=== PATIENT | female | born 1940 | race Caucasian/White ===

== ENCOUNTER → 2016-07-30 | Outpatient (REF) | payer MEDICARE ==
[~2016-07-30] MED LIST: /MOM400 PO; /WARF25TA; /WARF25TA PO; ACET50TAOT PO; ACET65TA; AKWASOL OU; AMLO5TAB2 PO; AMOX875T2 PO; ANAS1TAB PO; ARIMIDEX PO; ASPI1TAB PO; ATEN25TA; CYAN1000 PO; DRIS1CAP PO; DRIS50002 PO; ELIQ2.5T PO; ELIQ5TAB PO; EYE CAPS PO; FURO20TA2 PO; ICAPCAP PO; LETROZOLE; LOPI600T; METO25TAB PO; METO50TA2 PO; NICO21PAT TD; ONDA4TAB2 PO; OXYC10TA2 PO; OXYC5TAB2 PO; PERC5TAB8; PERC7.5T8; SENN8.6T76 PO; SPIR50TA2 PO; TUMS500C PO; TYLE325T5 PO; VITA10002 PO; VITA100027; VITAD1000T PO; VITAMIN D PO; ZOCO80TA; ZOCO80TA PO
[2016-07-30 12:48] LABS: VITAMIN B12 LEVEL 1216 PG/ML (247-911)
[2016-07-30 12:50] LABS: ANION GAP 8 MEQ/L (8-16); BLOOD UREA NITROGEN 10 MG/DL (7-18); CALCIUM LEVEL 8.8 MG/DL (8.8-10.2); CARBON DIOXIDE LEVEL 29 MEQ/L (21-32); CHLORIDE LEVEL 98 MEQ/L (98-107); CREATININE FOR GFR 0.75 MG/DL (0.55-1.02); GLOMERULAR FILTRATION RATE > 60.0 (>39); GLUCOSE, FASTING 132 MG/DL (83-110); POTASSIUM SERUM 4.1 MEQ/L (3.5-5.1); SODIUM LEVEL 135 MEQ/L (136-145)
== END ==
PROVIDERS: ATTEND Family Medicine
DX: E53.8 Deficiency of other specified B group vitamins (principal); I10 Essential (primary) hypertension

== ENCOUNTER → 2016-08-09 | Outpatient (REF) | payer MEDICARE | LOC: M SFHCPLAZ 14:49 | PROVIDERS: ATTEND Family Medicine | DX: R73.9 Hyperglycemia, unspecified (principal); I10 Essential (primary) hypertension | CPT/HCPCS: 36415; 83036; G0463 ==

== ENCOUNTER → 2017-04-18 | Outpatient (REF) | payer MEDICARE, MEDICAID | LOC: M SFHCPLAZ 15:50 | DX: M81.0 Age-related osteoporosis without current pathological fracture (principal) | CPT/HCPCS: 82306 ==

== ENCOUNTER → 2017-09-12 | Outpatient (REF) | payer MEDICARE, MEDICAID ==
[2017-09-12 13:12] LABS: ANION GAP 10 MEQ/L (8-16); BLOOD UREA NITROGEN 11 MG/DL (7-18); CALCIUM LEVEL 8.7 MG/DL (8.8-10.2); CARBON DIOXIDE LEVEL 27 MEQ/L (21-32); CHLORIDE LEVEL 98 MEQ/L (98-107); CREATININE FOR GFR 0.74 MG/DL (0.55-1.30); GLOMERULAR FILTRATION RATE > 60.0 (>39); GLUCOSE, FASTING 88 MG/DL (70-100); POTASSIUM SERUM 4.5 MEQ/L (3.5-5.1); SODIUM LEVEL 135 MEQ/L (136-145)
[2017-09-12 13:29] LABS: ESTIMATED AVERAGE GLUCOSE 134 MG/DL (60-110); HEMOGLOBIN A1c 6.3 %
== END ==
LOC: M SFHCPLAZ 09:29
DX: R73.03 Prediabetes (principal); I10 Essential (primary) hypertension
CPT/HCPCS: 83036

== ENCOUNTER → 2017-10-11 | Outpatient (REF) | payer MEDICARE, MEDICAID ==
[2017-10-11 15:09] LABS: APPEARANCE, URINE HAZY (CLEAR); BACTERIA, URINE AUTO 1+ (NEGATIVE); BILIRUBIN, URINE AUTO NEGATIVE (NEGATIVE); BLOOD, URINE BLOOD NEGATIVE (NEGATIVE); COLOR, URINE YELLOW (YELLOW); GLUCOSE, URINE (UA) AUTO NEGATIVE (NEGATIVE); KETONE, URINE AUTO NEGATIVE (NEGATIVE); LEUKOCYTE ESTERASE, URINE AUTO 2+ (NEGATIVE); MUCUS, URINE SMALL (NEGATIVE); NITRITE, URINE AUTO NEGATIVE (NEGATIVE); PROTEIN, URINE AUTO NEGATIVE (NEGATIVE); RBC, URINE AUTO 1 /HPF (0-3); SPECIFIC GRAVITY URINE AUTO 1.014 (1.002-1.035); SQUAMOUS EPITHELIAL CELL UR AU 5 /HPF (0-6); WBC, URINE AUTO 17 /HPF (0-3)
== END ==
LOC: M LABSMT 14:39
DX: R41.82 Altered mental status, unspecified (principal)

== ENCOUNTER 2017-10-14 10:54 | Inpatient (IN) | payer MEDICARE, MEDICAID ==
[2017-10-14 12:06] LABS: VENOUS BASE EXCESS -0.8 (-2.0-2.0); VENOUS HCO3 23.9 MEQ/L (23.0-27.0); VENOUS O2 SATURATION 85.4 % (60.0-80.0); VENOUS PARTIAL PRESSURE O2 52.2 mmHg (30.0-50.0); VENOUS PH 7.395 UNITS (7.330-7.430); VENOUS STANDARD HCO3 23.6 MEQ/L; VENOUS TOTAL CO2 25.2 MEQ/L (24.0-28.0)
[2017-10-14 12:08] LABS: BASO # 0.1 10^3/uL (0.0-0.2); BASO % 0.2 % (0.0-1.0); HEMATOCRIT 33.6 % (36.0-47.0); HEMOGLOBIN 10.9 g/dl (12.0-15.5); IMMATURE GRANULOCYTE % 2.2 % (0-3.0); LYMPH # 1.4 10^3/uL (1.5-4.5); LYMPH % 4.5 % (24.0-44.0); MEAN CORPUSCULAR HEMOGLOBIN 29.9 pg (27.0-33.0); MEAN CORPUSCULAR HGB CONC 32.4 g/dl (32.0-36.5); MEAN CORPUSCULAR VOLUME 92.1 fl (80.0-96.0); MONO # 1.9 10^3/uL (0.0-0.8); MONO % 5.9 % (0.0-5.0); NEUTROPHILS % 87.2 % (36.0-66.0); PLATELET COUNT, AUTOMATED 248 10^3/uL (150-450); RED BLOOD COUNT 3.65 10^6/uL (4.00-5.40); RED CELL DISTRIBUTION WIDTH 14.6 % (11.5-14.5)
[2017-10-14 12:18] LABS: WHITE BLOOD COUNT 31.3 10^3/uL (4.0-10.0)
[2017-10-14 12:19] LABS: NEUTROPHILS # 27.3 10^3/uL (1.8-7.7); POS COUNT POS FLAG; POSITIVE DIFF POS FLAG
[2017-10-14 12:31] LABS: BEDSIDE GLUCOSE 97 MG/DL (83-110)
[2017-10-14] MEDS: NS 500 ML IV (12:36)
[2017-10-14 12:40] LABS: AMMONIA 32 uMOL/L (<32)
[2017-10-14 12:42] LABS: ALBUMIN 1.9 GM/DL (3.2-5.2); ALKALINE PHOSPHATASE 93 U/L (45-117); ALT/SGPT 9 U/L (12-78); ANION GAP 10 MEQ/L (8-16); AST/SGOT 10 U/L (7-37); BILIRUBIN,DIRECT 0.2 MG/DL (0.0-0.2); BILIRUBIN,TOTAL 0.5 MG/DL (0.2-1.0); BLOOD UREA NITROGEN 8 MG/DL (7-18); CALCIUM LEVEL 7.5 MG/DL (8.8-10.2); CARBON DIOXIDE LEVEL 25 MEQ/L (21-32); CHLORIDE LEVEL 101 MEQ/L (98-107); CPK CREATINE PHOSPHOKINASE 16 U/L (26-192); CREATININE FOR GFR 0.59 MG/DL (0.55-1.30); GLOMERULAR FILTRATION RATE > 60.0 (>39); GLUCOSE, FASTING 107 MG/DL (70-100); OSMOLALITY SERUM 272 MOSM/KG (280-301); POTASSIUM SERUM 3.1 MEQ/L (3.5-5.1); SODIUM LEVEL 136 MEQ/L (136-145); TOTAL PROTEIN 5.7 GM/DL (6.4-8.2); TROPONIN I 0.02 NG/ML (< 0.10)
[2017-10-14 12:45] LABS: LACTIC ACID SEPSIS PROTOCOL 1.5 MMOL/L (0.4-2.0)
[2017-10-14 12:47] LABS: CK-MB VALUE MASS < 1.0 NG/ML (<3.6); MB/CK RELATIVE INDEX 6.25 (< OR =4)
[2017-10-14 13:40] LABS: KETONE, URINE AUTO RFX NEGATIVE (NEGATIVE); MUCUS, URINE RFX SMALL (NEGATIVE); NITRITE, URINE AUTO RFX NEGATIVE (NEGATIVE); RBC, URINE AUTO RFX 2 /HPF (0-3); SPECIFIC GRAVITY UR AUTO RFX 1.003 (1.002-1.035); SQUAM EPITHELIAL CELL UR AURFX 2 /HPF (0-6); WBC, URINE AUTO RFX 4 /HPF (0-3)
[2017-10-14 13:54] LABS: LEUKOCYTE ESTERASE UR AUTO RFX TRACE (NEGATIVE)
[2017-10-14] MEDS ORDERED: ISOVUE-370 76% 100ML VIAL (Q9967) As Ordered (14:20)
[2017-10-14] MEDS: metroNIDAZOLE 500 MG in APPROPRIATE DILUENT 1 EA IV (15:45)
[2017-10-14] MEDS: CIPROFLOXACIN 400 MG in APPROPRIATE DILUENT 1 EA IV (17:07)
[2017-10-14] MEDS ORDERED: ACETAMINOPHEN 650 MG SUPP PR (17:30)
[2017-10-14 17:34] LABS: MAGNESIUM LEVEL 1.5 MG/DL (1.8-2.4)
[2017-10-14 17:48] LABS: BEDSIDE GLUCOSE 105 MG/DL (83-110)
[2017-10-14] MEDS: METOPROLOL 5 MG/5 ML VIAL IV ×3 (18:02→18:22)
[2017-10-14] MEDS: METOPROLOL TART 25 MG TABLET PO ×2 (18:02→18:06)
[2017-10-14] MEDS: D5W/0.45% SODIUM CHLORIDE 1,000 ML IV (18:17)
[2017-10-14] MEDS: MAG SULF 1GM/100ML (MAG RUN) 1 GM in APPROPRIATE DILUENT 1 EA IV (20:05)
[2017-10-14] MEDS: KCL 40MEQ IN D5/0.45NS 1000ML 1,000 ML IV (20:36)
[2017-10-14 21:10] LABS: CK-MB VALUE MASS 1.7 NG/ML (<3.6); CPK CREATINE PHOSPHOKINASE 36 U/L (26-192); MB/CK RELATIVE INDEX 4.72 (< OR =4); TROPONIN I < 0.02 NG/ML (< 0.10)
[2017-10-14] MEDS: PIPERACILLIN/TAZOBACTAM SOD 3.375 GM in D5W MINI-BAG PLUS 50 ML IV (22:50)
[2017-10-14] MEDS: PANTOPRAZOLE 40MG INJ (PROTONIX) (C9113) IV (22:50)
[2017-10-14] MEDS: HEPARIN SOD (PORCINE) 5000 UNITS/ML VIAL SC (22:50)
[2017-10-15] MEDS: PIPERACILLIN/TAZOBACTAM SOD 3.375 GM in D5W MINI-BAG PLUS 50 ML IV ×3 (04:43→15:53)
[2017-10-15 05:22] LABS: APPEARANCE, URINE CLOUDY (CLEAR); BACTERIA, URINE AUTO NEGATIVE (NEGATIVE); BILIRUBIN, URINE AUTO NEGATIVE (NEGATIVE); BLOOD, URINE BLOOD 2+ (NEGATIVE); COLOR, URINE YELLOW (YELLOW); GLUCOSE, URINE (UA) AUTO NEGATIVE (NEGATIVE); KETONE, URINE AUTO NEGATIVE (NEGATIVE); LEUKOCYTE ESTERASE, URINE AUTO 3+ (NEGATIVE); NITRITE, URINE AUTO NEGATIVE (NEGATIVE); PROTEIN, URINE AUTO NEGATIVE (NEGATIVE); RBC, URINE AUTO 11 /HPF (0-3); SPECIFIC GRAVITY URINE AUTO 1.028 (1.002-1.035); SQUAMOUS EPITHELIAL CELL UR AU 0 /HPF (0-6); UROBILINOGEN, URINE AUTO 0.2 mg/dL (0.0-2.0); WBC, URINE AUTO 175 /HPF (0-3)
[2017-10-15 05:32] LABS: HEMOGLOBIN 11.3 g/dl (12.0-15.5); MEAN CORPUSCULAR HGB CONC 32.3 g/dl (32.0-36.5); MEAN CORPUSCULAR VOLUME 92.8 fl (80.0-96.0); PLATELET COUNT, AUTOMATED 260 10^3/uL (150-450); RED BLOOD COUNT 3.77 10^6/uL (4.00-5.40); RED CELL DISTRIBUTION WIDTH 14.6 % (11.5-14.5)
[2017-10-15 05:50] LABS: ALBUMIN 2.1 GM/DL (3.2-5.2); ALBUMIN/GLOBULIN RATIO 0.47 (1.00-1.93); ALKALINE PHOSPHATASE 110 U/L (45-117); ALT/SGPT 9 U/L (12-78); ANION GAP 10 MEQ/L (8-16); AST/SGOT 12 U/L (7-37); BILIRUBIN,TOTAL 0.4 MG/DL (0.2-1.0); BLOOD UREA NITROGEN 6 MG/DL (7-18); CALCIUM LEVEL 7.6 MG/DL (8.8-10.2); CARBON DIOXIDE LEVEL 26 MEQ/L (21-32); CHLORIDE LEVEL 99 MEQ/L (98-107); CK-MB VALUE MASS 2.9 NG/ML (<3.6); CPK CREATINE PHOSPHOKINASE 57 U/L (26-192); CREATININE FOR GFR 0.64 MG/DL (0.55-1.30); GLOMERULAR FILTRATION RATE > 60.0 (>39); GLUCOSE, FASTING 121 MG/DL (70-100); MAGNESIUM LEVEL 1.8 MG/DL (1.8-2.4); MB/CK RELATIVE INDEX 5.08 (< OR =4); POTASSIUM SERUM 2.9 MEQ/L (3.5-5.1); SODIUM LEVEL 135 MEQ/L (136-145); TOTAL PROTEIN 6.6 GM/DL (6.4-8.2); TROPONIN I < 0.02 NG/ML (< 0.10)
[2017-10-15 05:53] LABS: POS COUNT POS FLAG; WHITE BLOOD COUNT 33.9 10^3/uL (4.0-10.0)
[2017-10-15] MEDS: POTASSIUM CHLORIDE 10 MEQ SR TABLET PO ×2 (06:44→10:15)
[2017-10-15] MEDS: KCL 10MEQ/100ML SWI (KRUN) 10 MEQ in APPROPRIATE DILUENT 1 EA IV ×2 (06:45→08:43)
[2017-10-15] MEDS: HEPARIN SOD (PORCINE) 5000 UNITS/ML VIAL SC (08:42)
[2017-10-15] MEDS: METOPROLOL TART 25 MG TABLET PO ×2 (08:42→20:32)
[2017-10-15] MEDS: amLODIPine 5 MG TAB PO (08:43)
[2017-10-15] MEDS: ATORVASTATIN 20 MG TAB PO (08:43)
[2017-10-15 13:21] LABS: HEMATOCRIT 37.4 % (36.0-47.0); HEMOGLOBIN 12.1 g/dl (12.0-15.5); MEAN CORPUSCULAR HEMOGLOBIN 29.9 pg (27.0-33.0); MEAN CORPUSCULAR HGB CONC 32.4 g/dl (32.0-36.5); MEAN CORPUSCULAR VOLUME 92.3 fl (80.0-96.0); PLATELET COUNT, AUTOMATED 288 10^3/uL (150-450); RED BLOOD COUNT 4.05 10^6/uL (4.00-5.40); RED CELL DISTRIBUTION WIDTH 14.7 % (11.5-14.5)
[2017-10-15 13:51] LABS: ANION GAP 9 MEQ/L (8-16); BLOOD UREA NITROGEN 6 MG/DL (7-18); CALCIUM LEVEL 7.8 MG/DL (8.8-10.2); CARBON DIOXIDE LEVEL 25 MEQ/L (21-32); CHLORIDE LEVEL 100 MEQ/L (98-107); CREATININE FOR GFR 0.73 MG/DL (0.55-1.30); GLOMERULAR FILTRATION RATE > 60.0 (>39); GLUCOSE, FASTING 102 MG/DL (70-100); MAGNESIUM LEVEL 1.7 MG/DL (1.8-2.4); POTASSIUM SERUM 4.3 MEQ/L (3.5-5.1); SODIUM LEVEL 134 MEQ/L (136-145)
[2017-10-15 13:56] LABS: POS COUNT POS FLAG; WHITE BLOOD COUNT 33.3 10^3/uL (4.0-10.0)
[2017-10-15] MEDS: buPROPion 75 MG TAB PO (15:53)
[2017-10-15] MEDS: ACETAMINOPHEN TAB 650MG DOSE (2X325MG) PO (18:05)
[2017-10-15] MEDS: MAG SULF 1GM/100ML (MAG RUN) 1 GM in APPROPRIATE DILUENT 1 EA IV (18:30)
[2017-10-15] MEDS: PANTOPRAZOLE 40MG INJ (PROTONIX) (C9113) IV (20:32)
[2017-10-15] MEDS: APIXABAN 2.5 MG TAB (ELIQUIS) PO (20:32)
[2017-10-16] MEDS: PIPERACILLIN/TAZOBACTAM SOD 3.375 GM in D5W MINI-BAG PLUS 50 ML IV ×5 (00:09→21:30)
[2017-10-16 05:13] LABS: HEMATOCRIT 34.3 % (36.0-47.0); HEMOGLOBIN 11.2 g/dl (12.0-15.5); MEAN CORPUSCULAR HEMOGLOBIN 29.6 pg (27.0-33.0); MEAN CORPUSCULAR HGB CONC 32.7 g/dl (32.0-36.5); MEAN CORPUSCULAR VOLUME 90.7 fl (80.0-96.0); PLATELET COUNT, AUTOMATED 251 10^3/uL (150-450); RED BLOOD COUNT 3.78 10^6/uL (4.00-5.40); RED CELL DISTRIBUTION WIDTH 14.8 % (11.5-14.5); WHITE BLOOD COUNT 20.9 10^3/uL (4.0-10.0)
[2017-10-16 05:36] LABS: ALBUMIN/GLOBULIN RATIO 0.43 (1.00-1.93); ALKALINE PHOSPHATASE 101 U/L (45-117); ALT/SGPT 26 U/L (12-78); ANION GAP 8 MEQ/L (8-16); AST/SGOT 57 U/L (7-37); BILIRUBIN,TOTAL 0.5 MG/DL (0.2-1.0); BLOOD UREA NITROGEN 5 MG/DL (7-18); CALCIUM LEVEL 7.7 MG/DL (8.8-10.2); CARBON DIOXIDE LEVEL 22 MEQ/L (21-32); CHLORIDE LEVEL 102 MEQ/L (98-107); CREATININE FOR GFR 0.61 MG/DL (0.55-1.30); GLOMERULAR FILTRATION RATE > 60.0 (>39); GLUCOSE, FASTING 97 MG/DL (70-100); MAGNESIUM LEVEL 1.9 MG/DL (1.8-2.4); POTASSIUM SERUM 3.9 MEQ/L (3.5-5.1); SODIUM LEVEL 132 MEQ/L (136-145); TOTAL PROTEIN 6.7 GM/DL (6.4-8.2)
[2017-10-16] MEDS: ATORVASTATIN 20 MG TAB PO (09:32)
[2017-10-16] MEDS: buPROPion 75 MG TAB PO (09:41)
[2017-10-16] MEDS: METOPROLOL TART 25 MG TABLET PO ×2 (09:42→20:02)
[2017-10-16] MEDS: APIXABAN 2.5 MG TAB (ELIQUIS) PO ×2 (09:42→20:02)
[2017-10-16] MEDS ORDERED: SLF 3 ML SYR IV (17:45)
[2017-10-16] MEDS: PANTOPRAZOLE 40MG INJ (PROTONIX) (C9113) IV (20:02)
[2017-10-16] MEDS: SLF 3 ML SYR IV (21:30)
[2017-10-17] MEDS: PIPERACILLIN/TAZOBACTAM SOD 3.375 GM in D5W MINI-BAG PLUS 50 ML IV ×4 (04:13→21:06)
[2017-10-17] MEDS: SLF 3 ML SYR IV ×3 (05:07→21:06)
[2017-10-17 06:02] LABS: HEMATOCRIT 33.2 % (36.0-47.0); HEMOGLOBIN 10.9 g/dl (12.0-15.5); MEAN CORPUSCULAR HEMOGLOBIN 29.7 pg (27.0-33.0); MEAN CORPUSCULAR HGB CONC 32.8 g/dl (32.0-36.5); MEAN CORPUSCULAR VOLUME 90.5 fl (80.0-96.0); PLATELET COUNT, AUTOMATED 276 10^3/uL (150-450); RED BLOOD COUNT 3.67 10^6/uL (4.00-5.40); RED CELL DISTRIBUTION WIDTH 14.9 % (11.5-14.5); WHITE BLOOD COUNT 13.3 10^3/uL (4.0-10.0)
[2017-10-17 06:28] LABS: ALBUMIN 1.9 GM/DL (3.2-5.2); ALBUMIN/GLOBULIN RATIO 0.42 (1.00-1.93); ALKALINE PHOSPHATASE 92 U/L (45-117); ALT/SGPT 31 U/L (12-78); ANION GAP 8 MEQ/L (8-16); AST/SGOT 53 U/L (7-37); BILIRUBIN,TOTAL 0.4 MG/DL (0.2-1.0); BLOOD UREA NITROGEN 5 MG/DL (7-18); C REACTIVE PROTEIN QUANTITATIV 6.34 MG/DL (0.00-0.30); CALCIUM LEVEL 7.6 MG/DL (8.8-10.2); CARBON DIOXIDE LEVEL 24 MEQ/L (21-32); CHLORIDE LEVEL 104 MEQ/L (98-107); CREATININE FOR GFR 0.52 MG/DL (0.55-1.30); GLOMERULAR FILTRATION RATE > 60.0 (>39); GLUCOSE, FASTING 86 MG/DL (70-100); POTASSIUM SERUM 3.2 MEQ/L (3.5-5.1); SODIUM LEVEL 136 MEQ/L (136-145); TOTAL PROTEIN 6.4 GM/DL (6.4-8.2)
[2017-10-17] MEDS: buPROPion 75 MG TAB PO (09:22)
[2017-10-17] MEDS: POTASSIUM CHLORIDE 10 MEQ SR TABLET PO (09:22)
[2017-10-17] MEDS: ATORVASTATIN 20 MG TAB PO (09:22)
[2017-10-17] MEDS: APIXABAN 2.5 MG TAB (ELIQUIS) PO ×2 (09:22→21:06)
[2017-10-17] MEDS: METOPROLOL TART 25 MG TABLET PO ×2 (09:23→17:16)
[2017-10-17] MEDS: ACETAMINOPHEN TAB 650MG DOSE (2X325MG) PO ×2 (09:24→21:13)
[2017-10-17] MEDS: ONDANSETRON 4MG/2ML VIAL (J2405) IV (09:24)
[2017-10-17] MEDS: METOPROLOL TART 12.5 MG PER 1/2 TAB PO (12:51)
[2017-10-17] MEDS: PANTOPRAZOLE 40MG INJ (PROTONIX) (C9113) IV (21:06)
[2017-10-18] MEDS: METOPROLOL TART 25 MG TABLET PO ×2 (00:09→05:21)
[2017-10-18] MEDS: PIPERACILLIN/TAZOBACTAM SOD 3.375 GM in D5W MINI-BAG PLUS 50 ML IV ×4 (03:48→21:31)
[2017-10-18 03:57] LABS: HEMATOCRIT 35.8 % (36.0-47.0); HEMOGLOBIN 11.4 g/dl (12.0-15.5); MEAN CORPUSCULAR HEMOGLOBIN 29.5 pg (27.0-33.0); MEAN CORPUSCULAR HGB CONC 31.8 g/dl (32.0-36.5); MEAN CORPUSCULAR VOLUME 92.5 fl (80.0-96.0); PLATELET COUNT, AUTOMATED 273 10^3/uL (150-450); RED BLOOD COUNT 3.87 10^6/uL (4.00-5.40); RED CELL DISTRIBUTION WIDTH 14.8 % (11.5-14.5); WHITE BLOOD COUNT 14.1 10^3/uL (4.0-10.0)
[2017-10-18 04:18] LABS: ALBUMIN/GLOBULIN RATIO 0.44 (1.00-1.93); ALKALINE PHOSPHATASE 97 U/L (45-117); ALT/SGPT 25 U/L (12-78); ANION GAP 7 MEQ/L (8-16); AST/SGOT 28 U/L (7-37); BILIRUBIN,TOTAL 0.3 MG/DL (0.2-1.0); BLOOD UREA NITROGEN 4 MG/DL (7-18); CALCIUM LEVEL 7.9 MG/DL (8.8-10.2); CARBON DIOXIDE LEVEL 25 MEQ/L (21-32); CHLORIDE LEVEL 105 MEQ/L (98-107); CREATININE FOR GFR 0.55 MG/DL (0.55-1.30); GLOMERULAR FILTRATION RATE > 60.0 (>39); GLUCOSE, FASTING 81 MG/DL (70-100); MAGNESIUM LEVEL 1.8 MG/DL (1.8-2.4); POTASSIUM SERUM 3.7 MEQ/L (3.5-5.1); SODIUM LEVEL 137 MEQ/L (136-145); TOTAL PROTEIN 6.5 GM/DL (6.4-8.2)
[2017-10-18] MEDS: SLF 3 ML SYR IV ×3 (05:21→21:12)
[2017-10-18] MEDS: APIXABAN 2.5 MG TAB (ELIQUIS) PO ×2 (09:07→20:04)
[2017-10-18] MEDS: ATORVASTATIN 20 MG TAB PO (09:08)
[2017-10-18] MEDS: buPROPion 75 MG TAB PO (09:08)
[2017-10-18] MEDS: ACETAMINOPHEN TAB 650MG DOSE (2X325MG) PO (09:09)
[2017-10-18] MEDS ORDERED: CALCIUM CARBONATE 500 MG CHEW U/D PO (14:45)
[2017-10-18] MEDS: METOPROLOL TART 50 MG TAB PO (18:50)
[2017-10-18] MEDS: PANTOPRAZOLE 40MG INJ (PROTONIX) (C9113) IV (20:04)
[2017-10-19] MEDS: PIPERACILLIN/TAZOBACTAM SOD 3.375 GM in D5W MINI-BAG PLUS 50 ML IV ×4 (03:58→21:11)
[2017-10-19 04:07] LABS: HEMATOCRIT 36.5 % (36.0-47.0); HEMOGLOBIN 11.9 g/dl (12.0-15.5); MEAN CORPUSCULAR HEMOGLOBIN 29.6 pg (27.0-33.0); MEAN CORPUSCULAR HGB CONC 32.6 g/dl (32.0-36.5); MEAN CORPUSCULAR VOLUME 90.8 fl (80.0-96.0); PLATELET COUNT, AUTOMATED 286 10^3/uL (150-450); RED BLOOD COUNT 4.02 10^6/uL (4.00-5.40); RED CELL DISTRIBUTION WIDTH 14.8 % (11.5-14.5); WHITE BLOOD COUNT 14.7 10^3/uL (4.0-10.0)
[2017-10-19 04:21] LABS: MAGNESIUM LEVEL 1.9 MG/DL (1.8-2.4)
[2017-10-19 04:21] LABS: C REACTIVE PROTEIN QUANTITATIV 3.99 MG/DL (0.00-0.30)
[2017-10-19 04:22] LABS: ALBUMIN 2.1 GM/DL (3.2-5.2); ALBUMIN/GLOBULIN RATIO 0.44 (1.00-1.93); ALKALINE PHOSPHATASE 100 U/L (45-117); ALT/SGPT 21 U/L (12-78); ANION GAP 9 MEQ/L (8-16); AST/SGOT 20 U/L (7-37); BILIRUBIN,TOTAL 0.4 MG/DL (0.2-1.0); BLOOD UREA NITROGEN 5 MG/DL (7-18); CALCIUM LEVEL 7.8 MG/DL (8.8-10.2); CARBON DIOXIDE LEVEL 26 MEQ/L (21-32); CHLORIDE LEVEL 101 MEQ/L (98-107); GLOMERULAR FILTRATION RATE > 60.0 (>39); GLUCOSE, FASTING 88 MG/DL (70-100); POTASSIUM SERUM 3.3 MEQ/L (3.5-5.1); SODIUM LEVEL 136 MEQ/L (136-145); TOTAL PROTEIN 6.9 GM/DL (6.4-8.2)
[2017-10-19] MEDS: SLF 3 ML SYR IV ×3 (05:13→21:11)
[2017-10-19] MEDS: METOPROLOL TART 50 MG TAB PO ×3 (05:16→21:14)
[2017-10-19] MEDS: POTASSIUM CHLORIDE 10 MEQ SR TABLET PO ×2 (06:02→08:39)
[2017-10-19] MEDS: APIXABAN 2.5 MG TAB (ELIQUIS) PO ×2 (08:38→21:14)
[2017-10-19] MEDS: amLODIPine 5 MG TAB PO (08:38)
[2017-10-19] MEDS: ATORVASTATIN 20 MG TAB PO (08:38)
[2017-10-19] MEDS: buPROPion 75 MG TAB PO (08:38)
[2017-10-19] MEDS: ACETAMINOPHEN TAB 650MG DOSE (2X325MG) PO ×2 (08:39→18:45)
[2017-10-19] MEDS: PANTOPRAZOLE 40MG INJ (PROTONIX) (C9113) IV (21:11)
[2017-10-20] MEDS: PIPERACILLIN/TAZOBACTAM SOD 3.375 GM in D5W MINI-BAG PLUS 50 ML IV ×2 (04:24→10:02)
[2017-10-20] MEDS: SLF 3 ML SYR IV (04:24)
[2017-10-20 05:25] LABS: HEMATOCRIT 38.7 % (36.0-47.0); HEMOGLOBIN 12.5 g/dl (12.0-15.5); MEAN CORPUSCULAR HEMOGLOBIN 30.3 pg (27.0-33.0); MEAN CORPUSCULAR HGB CONC 32.3 g/dl (32.0-36.5); MEAN CORPUSCULAR VOLUME 93.9 fl (80.0-96.0); PLATELET COUNT, AUTOMATED 291 10^3/uL (150-450); RED BLOOD COUNT 4.12 10^6/uL (4.00-5.40); RED CELL DISTRIBUTION WIDTH 15.3 % (11.5-14.5); WHITE BLOOD COUNT 10.6 10^3/uL (4.0-10.0)
[2017-10-20 05:51] LABS: ALBUMIN 2.2 GM/DL (3.2-5.2); ALBUMIN/GLOBULIN RATIO 0.49 (1.00-1.93); ALKALINE PHOSPHATASE 104 U/L (45-117); ALT/SGPT 20 U/L (12-78); ANION GAP 8 MEQ/L (8-16); AST/SGOT 19 U/L (7-37); BILIRUBIN,TOTAL 0.4 MG/DL (0.2-1.0); BLOOD UREA NITROGEN 5 MG/DL (7-18); CALCIUM LEVEL 8.1 MG/DL (8.8-10.2); CARBON DIOXIDE LEVEL 23 MEQ/L (21-32); CHLORIDE LEVEL 105 MEQ/L (98-107); CREATININE FOR GFR 0.63 MG/DL (0.55-1.30); GLOMERULAR FILTRATION RATE > 60.0 (>39); GLUCOSE, FASTING 86 MG/DL (70-100); POTASSIUM SERUM 4.4 MEQ/L (3.5-5.1); SODIUM LEVEL 136 MEQ/L (136-145); TOTAL PROTEIN 6.7 GM/DL (6.4-8.2)
[2017-10-20] MEDS: APIXABAN 2.5 MG TAB (ELIQUIS) PO (10:00)
[2017-10-20] MEDS: amLODIPine 5 MG TAB PO (10:01)
[2017-10-20] MEDS: METOPROLOL TART 50 MG TAB PO (10:01)
[2017-10-20] MEDS: ATORVASTATIN 20 MG TAB PO (10:01)
[2017-10-20] MEDS: buPROPion 75 MG TAB PO (10:01)
== END 2017-10-20 14:10 | DRG 872 ==
LOC: M PCU 10-16 14:22 → M ED 10:54 → M ED INP 20:09 → M ICU 22:23
DX: A41.9 Sepsis, unspecified organism (principal); K57.20 Diverticulitis of large intestine with perforation and abscess without bleeding; I48.2 Chronic atrial fibrillation; E87.6 Hypokalemia; E53.8 Deficiency of other specified B group vitamins; F32.9 Major depressive disorder, single episode, unspecified; I10 Essential (primary) hypertension; I73.9 Peripheral vascular disease, unspecified; E78.00 Pure hypercholesterolemia, unspecified; Z85.3 Personal history of malignant neoplasm of breast; Z92.21 Personal history of antineoplastic chemotherapy; Z92.3 Personal history of irradiation; Z87.891 Personal history of nicotine dependence; Z87.440 Personal history of urinary (tract) infections; Z98.51 Tubal ligation status; Z96.643 Presence of artificial hip joint, bilateral; Z79.01 Long term (current) use of anticoagulants; Z79.899 Other long term (current) drug therapy; Z95.828 Presence of other vascular implants and grafts

== ENCOUNTER 2017-10-26 17:11 | Emergency (ER) | payer MEDICARE, MEDICAID ==
[2017-10-26] MEDS: MECLIZINE 25 MG TABLET PO (18:00)
[2017-10-26 18:14] LABS: BASO # 0.1 10^3/uL (0.0-0.2); BASO % 0.8 % (0.0-1.0); EOS # 0.2 10^3/uL (0.0-0.50); EOS % 1.3 % (0.0-3.0); HEMATOCRIT 39.5 % (36.0-47.0); HEMOGLOBIN 12.8 g/dl (12.0-15.5); IMMATURE GRANULOCYTE % 0.6 % (0-3.0); LYMPH % 17.6 % (24.0-44.0); MEAN CORPUSCULAR HEMOGLOBIN 29.9 pg (27.0-33.0); MEAN CORPUSCULAR HGB CONC 32.4 g/dl (32.0-36.5); MEAN CORPUSCULAR VOLUME 92.3 fl (80.0-96.0); MONO # 1.2 10^3/uL (0.0-0.8); MONO % 10.7 % (0.0-5.0); NEUTROPHILS # 7.8 10^3/uL (1.8-7.7); PLATELET COUNT, AUTOMATED 283 10^3/uL (150-450); RED BLOOD COUNT 4.28 10^6/uL (4.00-5.40); RED CELL DISTRIBUTION WIDTH 15.7 % (11.5-14.5); WHITE BLOOD COUNT 11.3 10^3/uL (4.0-10.0)
[2017-10-26] MEDS: NS 1,000 ML IV (18:17)
[2017-10-26 18:20] LABS: VENOUS BASE EXCESS 0.1 (-2.0-2.0); VENOUS HCO3 25.4 MEQ/L (23.0-27.0); VENOUS O2 SATURATION 74.2 % (60.0-80.0); VENOUS PARTIAL PRESSURE CO2 43.7 mmHg (38.0-50.0); VENOUS PARTIAL PRESSURE O2 39.1 mmHg (30.0-50.0); VENOUS PH 7.382 UNITS (7.330-7.430); VENOUS TOTAL CO2 26.7 MEQ/L (24.0-28.0)
[2017-10-26 18:29] LABS: KETONE, URINE AUTO RFX NEGATIVE (NEGATIVE); LEUKOCYTE ESTERASE UR AUTO RFX 3+ (NEGATIVE); NITRITE, URINE AUTO RFX NEGATIVE (NEGATIVE); RBC, URINE AUTO RFX 2 /HPF (0-3); SPECIFIC GRAVITY UR AUTO RFX 1.008 (1.002-1.035); SQUAM EPITHELIAL CELL UR AURFX 2 /HPF (0-6); WBC, URINE AUTO RFX 110 /HPF (0-3)
[2017-10-26 18:33] LABS: INR 1.12; PROTHROMBIN TIME 14.6 SECONDS (12.1-14.4)
[2017-10-26 18:43] LABS: BEDSIDE GLUCOSE 79 MG/DL (83-110)
[2017-10-26 18:58] LABS: ANION GAP 9 MEQ/L (8-16); BLOOD UREA NITROGEN 6 MG/DL (7-18); CARBON DIOXIDE LEVEL 26 MEQ/L (21-32); CHLORIDE LEVEL 101 MEQ/L (98-107); CREATININE FOR GFR 0.66 MG/DL (0.55-1.30); GLOMERULAR FILTRATION RATE > 60.0 (>39); GLUCOSE, FASTING 87 MG/DL (70-100); POTASSIUM SERUM 3.2 MEQ/L (3.5-5.1); SODIUM LEVEL 136 MEQ/L (136-145)
[2017-10-26 18:59] LABS: ALBUMIN 2.5 GM/DL (3.2-5.2); ALKALINE PHOSPHATASE 108 U/L (45-117); ALT/SGPT 16 U/L (12-78); AST/SGOT 23 U/L (7-37); BILIRUBIN,DIRECT 0.1 MG/DL (0.0-0.2); BILIRUBIN,TOTAL 0.3 MG/DL (0.2-1.0); CALCIUM LEVEL 8.1 MG/DL (8.8-10.2); CK-MB VALUE MASS 1.1 NG/ML (<3.6); CPK CREATINE PHOSPHOKINASE 21 U/L (26-192); MB/CK RELATIVE INDEX 5.23 (< OR =4); TOTAL PROTEIN 6.7 GM/DL (6.4-8.2)
[2017-10-26 19:00] LABS: ACETAMINOPHEN LEVEL < 2.0 UG/ML (10.0-30.0); ETHYL ALCOHOL (ETHANOL) < 0.003 % (0.000-0.010); SALICYLATE LEVEL < 1.7 MG/DL (5.0-30.0); TROPONIN I < 0.02 NG/ML (< 0.10)
[2017-10-26] MEDS: NITROFURANTOIN (MACROBID) 100 MG CAP PO (20:24)
== END 2017-10-26 20:40 | disposition home or self-care (01) ==
LOC: M ED 17:11
DX: N39.0 Urinary tract infection, site not specified (principal); R53.1 Weakness; I48.91 Unspecified atrial fibrillation; I11.9 Hypertensive heart disease without heart failure; Z79.899 Other long term (current) drug therapy; Z79.01 Long term (current) use of anticoagulants
CPT/HCPCS: 71045

== ENCOUNTER → 2017-11-05 | Outpatient (REF) | payer MEDICARE, MEDICAID ==
[2017-11-05 16:52] LABS: BASO # 0.1 10^3/uL (0.0-0.2); BASO % 0.9 % (0.0-1.0); EOS # 0.2 10^3/uL (0.0-0.50); EOS % 1.6 % (0.0-3.0); HEMOGLOBIN 13.2 g/dl (12.0-15.5); IMMATURE GRANULOCYTE % 0.3 % (0-3.0); LYMPH # 2.9 10^3/uL (1.5-4.5); LYMPH % 29.6 % (24.0-44.0); MEAN CORPUSCULAR HEMOGLOBIN 30.1 pg (27.0-33.0); MEAN CORPUSCULAR HGB CONC 31.4 g/dl (32.0-36.5); MEAN CORPUSCULAR VOLUME 95.9 fl (80.0-96.0); MONO # 0.8 10^3/uL (0.0-0.8); MONO % 7.7 % (0.0-5.0); NEUTROPHILS # 5.8 10^3/uL (1.8-7.7); NEUTROPHILS % 59.9 % (36.0-66.0); PLATELET COUNT, AUTOMATED 266 10^3/uL (150-450); RED BLOOD COUNT 4.38 10^6/uL (4.00-5.40); RED CELL DISTRIBUTION WIDTH 15.6 % (11.5-14.5); WHITE BLOOD COUNT 9.7 10^3/uL (4.0-10.0)
== END ==
LOC: M SFHCPLAZ 12:58
DX: K57.20 Diverticulitis of large intestine with perforation and abscess without bleeding (principal); R31.21 Asymptomatic microscopic hematuria
CPT/HCPCS: 85025

== ENCOUNTER → 2017-11-11 | Outpatient (CLI) | payer MEDICARE, MEDICAID ==
[~2017-11-11] MED LIST changes: -/MOM400 PO; -/WARF25TA; -/WARF25TA PO; -ACET50TAOT PO; -ACET65TA; -AKWASOL OU; -AMLO5TAB2 PO; -AMOX875T2 PO; -ANAS1TAB PO; -ARIMIDEX PO; -ASPI1TAB PO; -ATEN25TA; -CYAN1000 PO; -DRIS1CAP PO; -DRIS50002 PO; -ELIQ2.5T PO; -ELIQ5TAB PO; -EYE CAPS PO; -FURO20TA2 PO; -ICAPCAP PO; +ISOVUE-370 76% 100ML VIAL (Q9967) As Ordered; -LETROZOLE; -LOPI600T; -METO25TAB PO; -METO50TA2 PO; -NICO21PAT TD; -ONDA4TAB2 PO; -OXYC10TA2 PO; -OXYC5TAB2 PO; -PERC5TAB8; -PERC7.5T8; -SENN8.6T76 PO; -SPIR50TA2 PO; -TUMS500C PO; -TYLE325T5 PO; -VITA10002 PO; -VITA100027; -VITAD1000T PO; -VITAMIN D PO; -ZOCO80TA; -ZOCO80TA PO
== END ==
LOC: M RAD 10:01
DX: R91.1 Solitary pulmonary nodule (principal); I70.0 Atherosclerosis of aorta
CPT/HCPCS: Q9967

== ENCOUNTER → 2017-11-13 | Outpatient (REF) | payer MEDICARE, MEDICAID ==
[2017-11-14 14:41] LABS: APPEARANCE, URINE HAZY (CLEAR); BACTERIA, URINE AUTO 1+ (NEGATIVE); BILIRUBIN, URINE AUTO NEGATIVE (NEGATIVE); BLOOD, URINE BLOOD NEGATIVE (NEGATIVE); COLOR, URINE YELLOW (YELLOW); GLUCOSE, URINE (UA) AUTO NEGATIVE (NEGATIVE); KETONE, URINE AUTO NEGATIVE (NEGATIVE); LEUKOCYTE ESTERASE, URINE AUTO 3+ (NEGATIVE); MUCUS, URINE SMALL (NEGATIVE); NITRITE, URINE AUTO NEGATIVE (NEGATIVE); PROTEIN, URINE AUTO NEGATIVE (NEGATIVE); RBC, URINE AUTO 7 /HPF (0-3); SPECIFIC GRAVITY URINE AUTO 1.017 (1.002-1.035); SQUAMOUS EPITHELIAL CELL UR AU 2 /HPF (0-6); UROBILINOGEN, URINE AUTO 0.2 mg/dL (0.0-2.0); WBC, URINE AUTO 139 /HPF (0-3)
== END ==
LOC: M SFHCPLAZ 11-14 12:39
DX: K57.20 Diverticulitis of large intestine with perforation and abscess without bleeding (principal); R31.21 Asymptomatic microscopic hematuria
CPT/HCPCS: 81001

== ENCOUNTER → 2017-12-16 | Outpatient (CLI) | payer MEDICARE, MEDICAID | LOC: M PLARAD 12:20 | DX: R91.1 Solitary pulmonary nodule (principal); Z85.3 Personal history of malignant neoplasm of breast | CPT/HCPCS: 78815 ==

== ENCOUNTER → 2018-01-22 | Outpatient (REF) | payer MEDICARE, MEDICAID ==
[2018-01-22 18:04] LABS: APPEARANCE, URINE HAZY (CLEAR); BACTERIA, URINE AUTO NEGATIVE (NEGATIVE); BILIRUBIN, URINE AUTO NEGATIVE (NEGATIVE); BLOOD, URINE BLOOD NEGATIVE (NEGATIVE); COLOR, URINE YELLOW (YELLOW); GLUCOSE, URINE (UA) AUTO NEGATIVE (NEGATIVE); KETONE, URINE AUTO NEGATIVE (NEGATIVE); LEUKOCYTE ESTERASE, URINE AUTO 1+ (NEGATIVE); MUCUS, URINE SMALL (NEGATIVE); NITRITE, URINE AUTO NEGATIVE (NEGATIVE); PROTEIN, URINE AUTO NEGATIVE (NEGATIVE); RBC, URINE AUTO 1 /HPF (0-3); SPECIFIC GRAVITY URINE AUTO 1.021 (1.002-1.035); SQUAMOUS EPITHELIAL CELL UR AU 2 /HPF (0-6); UROBILINOGEN, URINE AUTO 0.2 mg/dL (0.0-2.0); WBC, URINE AUTO 3 /HPF (0-3)
== END ==
LOC: M SFHCPLAZ 17:03
DX: R35.0 Frequency of micturition (principal)
CPT/HCPCS: 81001

== ENCOUNTER → 2018-02-16 | Outpatient (REF) | payer MEDICARE, MEDICAID | LOC: M SFHCPLAZ 17:11 | DX: I10 Essential (primary) hypertension (principal); E78.5 Hyperlipidemia, unspecified; Z53.8 Procedure and treatment not carried out for other reasons ==

== ENCOUNTER → 2018-02-17 | Outpatient (REF) | payer MEDICARE, MEDICAID ==
[2018-02-17 10:08] LABS: CREATININE FOR GFR 0.63 MG/DL (0.55-1.30); GLOMERULAR FILTRATION RATE > 60.0 (>39)
[2018-02-17 10:08] LABS: BLOOD UREA NITROGEN 7 MG/DL (7-18)
== END ==
DX: K63.2 Fistula of intestine (principal)
CPT/HCPCS: 82565

== ENCOUNTER → 2018-02-18 | Outpatient (REF) | payer MEDICARE, MEDICAID ==
[2018-02-18 18:14] LABS: BLOOD UREA NITROGEN 13 MG/DL (7-18)
[2018-02-18 18:14] LABS: GLOMERULAR FILTRATION RATE > 60.0 (>39)
== END ==
LOC: M LABDRAW1 17:17
DX: R91.1 Solitary pulmonary nodule (principal)
CPT/HCPCS: 82565

== ENCOUNTER → 2018-02-24 | Outpatient (REF) | payer MEDICARE, MEDICAID ==
[2018-02-24 10:28] LABS: ALBUMIN 3.3 GM/DL (3.2-5.2); ALBUMIN/GLOBULIN RATIO 0.85 (1.00-1.93); ALKALINE PHOSPHATASE 112 U/L (45-117); ALT/SGPT 21 U/L (12-78); ANION GAP 9 MEQ/L (8-16); AST/SGOT 20 U/L (7-37); BILIRUBIN,TOTAL 0.4 MG/DL (0.2-1.0); BLOOD UREA NITROGEN 8 MG/DL (7-18); CALCIUM LEVEL 8.6 MG/DL (8.8-10.2); CARBON DIOXIDE LEVEL 28 MEQ/L (21-32); CHLORIDE LEVEL 100 MEQ/L (98-107); CREATININE FOR GFR 0.73 MG/DL (0.55-1.30); GLOMERULAR FILTRATION RATE > 60.0 (>39); GLUCOSE, FASTING 101 MG/DL (70-100); POTASSIUM SERUM 4.1 MEQ/L (3.5-5.1); SODIUM LEVEL 137 MEQ/L (136-145); TOTAL PROTEIN 7.2 GM/DL (6.4-8.2)
== END ==
DX: E78.5 Hyperlipidemia, unspecified (principal); I10 Essential (primary) hypertension
CPT/HCPCS: 80053

== ENCOUNTER 2018-03-13 07:42 | Inpatient (IN) | payer MEDICARE, MEDICAID ==
[~2018-03-13] VITALS: Ht 154.9 cm; Wt 61.2 kg
[2018-03-13] VITALS (14 sets, daily range): BP systolic 90–197; BP diastolic 59–86; O2SAT 100
--- NOTE | 2018-03-13 07:20 | HPE ---
DATE OF ADMISSION: 03/13/2018 HISTORY OF PRESENT ILLNESS: The patient is 77-year-old female who is an assisted living individual who presents now for admission/hospitalization/sigmoid colectomy for evidence of a colovaginal fistula. The patient has had some significant drainage from her vagina. CAT scans did reveal a persistence of a sigmoid diverticulitis with intermesenteric phlegmon and possible hydronephrosis on the left-hand side. She underwent medical clearance by primary care and cardiology given her medical issues. The patient had an episode of diverticulitis in early September and was discharged home after that admission, but then developed vaginal drainage and essentially decompressed her vagina. She has been draining since that time and over the last month has been increasing the amount of drainage. She is essentially a sedentary individual. PAST MEDICAL HISTORY: Significant for history of coronary artery disease, history of congestive heart failure, history of hypercholesterolemia, history of breast cancer, history of vitamin D deficiency, history of atrial fibrillation, history of carotid endarterectomy, history of hip replacement, history of right breast lumpectomy with chemo and radiation, history of loop recorder. MEDICATIONS: Include Tylenol, amlodipine, atorvastatin, bupropion, Eliquis, metoprolol and PreserVision. PHYSICAL EXAMINATION: Reveals a 77-year-old elderly female who looks stated age. HEENT is unremarkable. Neck: Supple without adenopathy. Trachea is midline. Previous carotid endarterectomy incisions are present. Lungs are clear to auscultation without crackles, wheezes or rhonchi, although diminished at the bases posteriorly. Heart is regular with multiple irregular beats. Abdomen is soft, nondistended, nontender. No guarding or rebound. No peritoneal signs are appreciated. No hernias are appreciated. No masses are appreciated. IMPRESSION AND PLAN: The patient has evidence of previous diverticulitis with significant diverticular disease. My recommendation with this significant diverticulitis is to proceed with a laparoscopic sigmoid colectomy. She does have a hydronephrosis on the left-hand side associated with this probable inflammation/chronic infection and will have urology place a preoperative stent first and plan on a laparoscopic sigmoid colectomy. However, given her inflammatory process and the infectious process present, I do feel that she has a higher risk of possible need for colostomy as well as possible need for open operative intervention. The patient understands the risks include but are not limited to infection, bleeding, damage to surrounding structures which was include bowel, bladder, nerve vessels, kidney, and ureter. Obviously with the colovaginal fistula, she has a much higher risk of perioperative infections and problems. Will plan on a mechanical as well as antibiotic bowel prep. Will bring her in the hospital for several days of hospitalization postoperatively, give her IV fluids, IV antibiotics, make her n.p.o., and have thromboembolic deterrent stockings (TEDS), sequentials, and Torres catheter.
[~2018-03-13 07:42] MED LIST changes: +/MOM400 PO; +/WARF25TA; +/WARF25TA PO; +ACET500T15 PO; +ACET65TA; +AKWASOL OU; +AMLO5TAB6 PO; +AMOX875T2 PO; +ANAS1TAB2 PO; +ARIMIDEX PO; +ASPI1TAB PO; +ATEN25TA; +ATOR1TAB21 PO; +BUPR75TA5 PO; +CIPR-249 PO; +CYAN1000 PO; +DRIS1CAP PO; +DRIS50003 PO; +ELIQ2.5T PO; +ELIQ5TAB PO; +EYE CAPS PO; +FLAG500T PO; +FURO20TA2 PO; +ICAPCAP PO; -ISOVUE-370 76% 100ML VIAL (Q9967) As Ordered; +LETROZOLE; +LIDOCAINE 2% INJ 100 MG/5 ML SDV (FOR ANES.) As Ordered ONE; +LOPI600T; +LOPR1TAB6 PO; +MACR100C43 PO; +METO25TA4 PO; +METO25TAB PO; +METO50TA7 PO; +NICO21PAT TD; +ONDA4TAB2 PO; +ONDANSETRON 4MG/2ML VIAL (J2405) As Ordered ONE; +OXYC10TA2 PO; +OXYC5TAB2 PO; +PERC5TAB8; +PERC7.5T8; +PRESCAP PO; +PROPOFOL 200 MG/20 ML VIAL As Ordered ONE; +ROCURONIUM BROMIDE 50 MG/5 ML VIAL As Ordered ONE; +SENN8.6T76 PO; +SPIR50TA4 PO; +TUMS500C PO; +TYLE325T5 PO; +VITA10002 PO; +VITA100027; +VITAD1000T PO; +VITAMIN D PO; +ZOCO80TA; +ZOCO80TA PO; +dexameTHASONE 4 MG/ML 1ML VIAL (J1100) As Ordered ONE
[2018-03-13] MEDS ORDERED: LR 1,000 ML IV ONE (08:00)
[2018-03-13] MEDS ORDERED: ERTAPENEM SODIUM 1 GM in NS 50 ML IV ONE (08:00)
[2018-03-13] MEDS ORDERED: BUPIVACAINE/EPIN 0.25% 30 ML VIAL As Ordered ONE (08:09)
[2018-03-13] MEDS ORDERED: CONRAY-60 60% 50ML VIAL (Q9961) As Ordered ONE ×2 (08:09→10:08)
[2018-03-13] MEDS ORDERED: GLUCAGON FOR INJ 1 MG VIAL (J1610) As Ordered ONE (08:09)
[2018-03-13] MEDS ORDERED: BUPIVACAINE LIPOSOME/PF 1.3% 20ML VIAL (13.3MG/ML)(EXPAREL)(C9290 PER1MG) As Ordered ONE (08:10)
[2018-03-13] MEDS ORDERED: BUPIVACAINE HCL 0.25% 10 ML VIAL As Ordered ONE (08:10)
[2018-03-13] MEDS ORDERED: MIDAZOLAM INJ 2 MG/2 ML VIAL (J2250) As Ordered ONE (08:20)
[2018-03-13] MEDS ORDERED: fentaNYL 250 MCG/5 ML INJECTION (J3010) As Ordered ONE ×2 (08:20→10:53)
[2018-03-13] MEDS: amLODIPine 5 MG TAB PO SCH ×2 (09:00→18:21)
[2018-03-13] MEDS: ALVIMOPAN 12 MG CAPSULE (ENTEREG) PO SCH ×2 (09:00→21:06)
[2018-03-13] MEDS: buPROPion 75 MG TAB PO SCH ×2 (09:00→21:06)
--- NOTE | 2018-03-13 10:39 | REP ---
Retrograde pyelogram: Five views. History: Diverticulitis. 26 seconds of fluoroscopy time is reported. Findings: A sequence of five last image hold fluoroscopically obtained spot radiographs of the abdomen document bilateral ureteral cannulation, contrast injection and left ureteral stent placement. There is evidence of a left distal ureteral stricture. Electronically Signed by Dio Andrade MD 03/13/2018 04:31 P
[2018-03-13] MEDS ORDERED: ETOMIDATE INJ 20MG/10ML VIAL As Ordered ONE (10:52)
[2018-03-13] MEDS ORDERED: HYDROmorphone HCL 2 MG/ML 1ML VIAL (J1170) As Ordered ONE (12:27)
[2018-03-13] MEDS ORDERED: ROCURONIUM BROMIDE 50 MG/5 ML VIAL As Ordered ONE (12:47)
[2018-03-13] MEDS ORDERED: SUGAMMADEX SODIUM 500 MG/5 ML VIAL (BRIDION) As Ordered ONE (13:18)
[2018-03-13] MEDS ORDERED: LABETALOL HCL 100 MG/20 ML VIAL As Ordered ONE (13:18)
[2018-03-13] MEDS ORDERED: IPRATROPIUM 0.5MG/ALBUTEROL 2.5MG INH SOL UD 3ML (DUONEB)(J7620) NEB PRN (13:30)
[2018-03-13] MEDS ORDERED: PROMETHAZINE INJ 25 MG/ML VIAL (J2550) IV PRN (13:30)
[2018-03-13] MEDS ORDERED: METOCLOPRAMIDE INJ 10MG/2ML VIAL (J2765) IV PRN (13:30)
[2018-03-13] MEDS ORDERED: MORPHINE 4 MG/ML 1ML VIAL/SYRINGE (J2270) IV PRN (13:30)
[2018-03-13] MEDS: IPRATROPIUM 0.5MG/ALBUTEROL 2.5MG INH SOL UD 3ML (DUONEB)(J7620) NEB SCH ×2 (14:00→20:00)
[2018-03-13] MEDS: PIPERACILLIN/TAZOBACTAM SOD 3.375 GM in D5W MINI-BAG PLUS 50 ML IV SCH ×2 (14:00→19:51)
[2018-03-13] MEDS ORDERED: fentaNYL 100 MCG/2 ML INJECTION (J3010) IV PRN (14:45)
[2018-03-13] MEDS ORDERED: ONDANSETRON 4MG/2ML VIAL (J2405) IV PRN (14:45)
[2018-03-13] MEDS ORDERED: LR 1,000 ML IV SCH (14:45)
[2018-03-13] MEDS ORDERED: PERCOCET 5MG/325MG TAB PO PRN (14:45)
[2018-03-13] MEDS: ATORVASTATIN 20 MG TAB PO SCH (15:08)
[2018-03-13] MEDS: D5W/LR 1,000 ML IV SCH (15:55)
[2018-03-13] MEDS: PANTOPRAZOLE 40MG INJ (PROTONIX) (C9113) IV SCH (15:55)
--- NOTE | 2018-03-13 16:27 | REP ---
Clinical: Status post intubation. Comparison: 10/26/2017. Findings: Endotracheal tube approximately 3 cm above the fran. Mediastinum and cardiac silhouette are stable. Lung benitez demonstrate chronic interstitial changes. Bibasilar atelectasis (left greater than right) suggested. No effusion. No pneumothorax. Skeletal structures stable. Impression: 1. Endotracheal tube in satisfactory position. 2. Chronic stable interstitial changes. Trace basilar atelectasis. Electronically Signed by Joselito Pitts MD 03/13/2018 04:18 P
[2018-03-13 16:32] LABS: ABG BASE EXCESS 0.8 (-2.0-2.0); ABG HCO3 24.3 MEQ/L (22.0-26.0); ABG PARTIAL PRESSURE CO2 35.3 mmHg (35.0-45.0); ABG PARTIAL PRESSURE O2 143.8 mmHg (75.0-100.0); ABG STANDARD HCO3 25.2 MEQ/L (22.0-26.0); ABG TOTAL CO2 25.4 MEQ/L (23.0-31.0); ABG pH (ARTERIAL) 7.456 UNITS (7.350-7.450)
[2018-03-13 16:38] LABS: HEMATOCRIT 31.6 % (36.0-47.0); HEMOGLOBIN 10.7 g/dl (12.0-15.5); MEAN CORPUSCULAR HEMOGLOBIN 31.3 pg (27.0-33.0); MEAN CORPUSCULAR HGB CONC 33.9 g/dl (32.0-36.5); MEAN CORPUSCULAR VOLUME 92.4 fl (80.0-96.0); PLATELET COUNT, AUTOMATED 185 10^3/uL (150-450); RED BLOOD COUNT 3.42 10^6/uL (4.00-5.40); WHITE BLOOD COUNT 16.4 10^3/uL (4.0-10.0)
--- NOTE | 2018-03-13 17:09 | RO ---
DATE OF PROCEDURE: 03/13/2018 PREOPERATIVE DIAGNOSIS: Sigmoid diverticulitis with colovaginal fistula. POSTOPERATIVE DIAGNOSIS: Sigmoid diverticulitis with colovaginal fistula. OPERATIVE PROCEDURE: Laparoscopic sigmoid colectomy with laparoscopic splenic flexure takedown and coloproctostomy. SURGEON: Shreyas Ogden MD SURGERY MANAGER: Ziggy Calhoun MD (provided retraction, exposure and assistance with anastomosis and the coloproctostomy). ANESTHESIA: General. ESTIMATED BLOOD LOSS: Minimal. FLUIDS: Crystalloid. DISPOSITION: The patient was brought to the recovery room awake, alert and hemodynamic stable, but still intubated. BRIEF OPERATIVE SUMMARY: The patient was taken to the operating room and was given general anesthesia. After adequate anesthesia and preoperative antibiotics, the patient was prepped and draped in the usual sterile fashion. She had some stents placed intraoperatively and after urology placed the stents that is when she had been prepped and draped for the general surgery aspect. After this was performed, the supraumbilical incision was made with skin knife. Blunt dissection was carried down to fascia. Fascia was grabbed with Ranjana clamps, elevated and Veress needle placed into the abdominal cavity and insufflated to 15 mm pressure. Dilating 10 mm trocar was placed at this time and under direct visualization two left-sided 5 mm trocars were placed. A right lower quadrant 12 mm and a right upper quadrant 5 mm trocars were placed. The patient was placed in steep Trendelenburg and it revealed multiple adhesions in the pelvis and so sigmoid colon was eventually mobilized off the backside of bladder/vagina area using blunt dissection as well as the harmonic scalpel. This was plastered up against the side and there was abscess that I was able to drain. There was some foreshortening of the sigmoid colon and it was twisted on itself where the patient had a loop of colon that was very inflamed, chronically thickened in the pelvis on the left pelvic sidewall. At this point, eventually after mobilization of this area which was difficult and it took a while to get down there was an obvious small rent in the colon up where the fistula was and into the preperitoneal space. This revealed no leakage, no other significant abnormality in this area. The mesentery was taken down using harmonic scalpel distal to the sigmoid colon in the rectosigmoid junction area and distal to this it was taken down with harmonic scalpel. Eventually the colon was resected using a JOSIAH stapler/[place] 60. The mesentery was taken with a vascular load as well. Although there was some oozing in the proximal mesentery of the sigmoid colon, this was controlled with harmonic scalpel. Next the transverse colon/splenic flexure was mobilized using the harmonic scalpel to lift up the transverse colon. The transverse colon was taken down and the vascular plane was entered and continued around the splenic flexure. This was mobilized off the posterior structures and off the kidney on this side and eventually after adequate mobilization of the colon this was mobilized all the way down to the pelvis. Once this was mobilized, a midline incision was created and the abnormal/chronically thickened sigmoid colon was brought out through this incision and transected proximally after placing a EEA anvil within the proximal portion of the bowel. The mesentery was taken with an [place] vascular load. Eventually after all this had been resected, this was placed into the abdominal cavity in the midline and closed with a #1 running Vicryl suture and the pelvis was copiously irrigated until clear. The patient had a little bit of what appeared to be mild ischemia at the upper rectum and this resected using an [place] stapler. The anastomosis was created with an EEA stapler in an end to end anastomosis. This was air tight under water insufflation. The pelvis was copiously irrigated until clear and the Adin-Garvey drain was left in the left lower quadrant 5 mm trocar site draining the pelvis. The right lower quadrant trocar site was closed with Palmer-Tavarez and all incisions were closed with perfecto. After the midline was closed and the fascial level then the subcutaneous tissue was copiously irrigated until clear and the perfecto were used to approximate the skin. A dry sterile dressing was applied. The patient was taken to recovery room awake, hemodynamically stable, but still on the ventilator and was breathing comfortably on the ventilator, not in any distress.
[2018-03-13 17:18] LABS: BLOOD UREA NITROGEN 11 MG/DL (7-18); CALCIUM LEVEL 6.8 MG/DL (8.8-10.2); CARBON DIOXIDE LEVEL 22 MEQ/L (21-32); CHLORIDE LEVEL 102 MEQ/L (98-107); CPK CREATINE PHOSPHOKINASE 40 U/L (26-192); CREATININE FOR GFR 0.57 MG/DL (0.55-1.30); GLOMERULAR FILTRATION RATE > 60.0 (>39); GLUCOSE, FASTING 220 MG/DL (70-100); MAGNESIUM LEVEL 1.3 MG/DL (1.8-2.4); MB/CK RELATIVE INDEX 2.75 (< OR =4); PHOSPHORUS LEVEL 2.2 MG/DL (2.5-4.9); POTASSIUM SERUM 2.6 MEQ/L (3.5-5.1); SODIUM LEVEL 135 MEQ/L (136-145); TROPONIN I < 0.02 NG/ML (< 0.10)
--- NOTE | 2018-03-13 17:28 | REP ---
Clinical: Nasogastric tube placement. Comparison: 03/13/2018 at 04:03 p.m. Findings: Endotracheal tube approximately 3 cm above the fran. Nasogastric tube courses below left hemidiaphragm in satisfactory position. Mild cardiomegaly cannot be excluded. Lung benitez demonstrate chronic interstitial changes. Superimposed basilar atelectasis suggested. No pneumothorax. Skeletal structures stable. Subcutaneous emphysema along the bilateral flank cannot be excluded and requires correlation. Impression: 1. Nasogastric tube and endotracheal tube in satisfactory position. 2. Bibasilar atelectasis. 3. Subcutaneous emphysema along the bilateral flank cannot be excluded and should be correlated clinically. Electronically Signed by Joselito Pitts MD 03/13/2018 05:20 P
[2018-03-13] MEDS ORDERED: POTASSIUM CHLORIDE 10 MEQ SR TABLET PO ONE (17:30)
[2018-03-13] MEDS: METOPROLOL TART 50 MG TAB PO SCH ×2 (17:34→21:06)
[2018-03-13] MEDS ORDERED: POTASSIUM CHLORIDE 10% LIQ 20 MEQ/15 ML UDC PO ONE (17:45)
[2018-03-13] MEDS ORDERED: MAG SULF 1GM/100ML (MAG RUN) 1 GM in APPROPRIATE DILUENT 1 EA IV ONE (18:00)
[2018-03-13] MEDS: MORPHINE 4 MG/ML 1ML VIAL/SYRINGE (J2270) IV PRN (19:46)
[2018-03-13] MEDS: KCL 10MEQ/100ML SWI (KRUN) 10 MEQ in APPROPRIATE DILUENT 1 EA IV SCH ×2 (19:51→21:05)
[2018-03-13] MEDS: CHLORHEXIDINE GLUCONATE 0.12 % 15ML UDC (PERIDEX ORAL RINSE) MT SCH (19:51)
[2018-03-13] MEDS ORDERED: POTASSIUM PHOSPHATE INJ 15 MMOL in D5W 250 ML IV ONE (21:00)
[2018-03-13] MEDS: dexmedeTOMidine 200 MCG in APPROPRIATE DILUENT 1 EA IV SCH (21:19)
[2018-03-14] VITALS (18 sets, daily range): BP systolic 97–169; BP diastolic 53–84
[2018-03-14] MEDS: MORPHINE 4 MG/ML 1ML VIAL/SYRINGE (J2270) IV PRN (00:07)
[2018-03-14] MEDS: PIPERACILLIN/TAZOBACTAM SOD 3.375 GM in D5W MINI-BAG PLUS 50 ML IV SCH ×4 (02:18→20:04)
[2018-03-14] MEDS: D5W/LR 1,000 ML IV SCH (02:20)
[2018-03-14] MEDS: dexmedeTOMidine 200 MCG in APPROPRIATE DILUENT 1 EA IV SCH ×2 (02:20→05:13)
--- NOTE | 2018-03-14 02:53 | CR ---
DATE OF CONSULTATION: 03/13/2018 HISTORY OF PRESENT ILLNESS: Ms. Amos is a 77-year-old female with a past medical history of atrial fibrillation on Eliquis, hypertension, hyperlipidemia, chronic obstructive pulmonary disease (COPD), breast cancer status post chemotherapy and radiation, who presented initially for a laparoscopic sigmoid colectomy under general anesthesia for a colovaginal fistula. The patient has a history of diverticulitis, had a recent image scan which showed persistence of the sigmoid diverticulitis with intermesenteric phlegmon and possible hydronephrosis on the left side. She also was noted to have significant vaginal drainage that has been increasing over the past month and so the decision was made for a laparoscopic sigmoid colectomy with Dr. Ogden today. The patient is currently intubated, unable to verify the history. History is obtained from the chart and from other collateral information. As per the surgeon, the patient tolerated the surgery well, currently has a few laparoscopic incisions, as well as a Adin-Garvey drain with some serosanguineous drainage. Post surgery, however, the patient continued to be lethargic and was unable to be extubated in the recovery area and so she was admitted to the intensive care unit (ICU) for further monitoring. PAST MEDICAL HISTORY: 1. Atrial fibrillation. 2. Hypertension. 3. Hyperlipidemia. 4. Degenerative disk disease. 5. History of right breast cancer in 2005, status post chemotherapy and radiation. 6. Peripheral vascular disease. 7. Chronic obstructive pulmonary disease (COPD). 8. Recurrent urinary tract infection (UTI). 9. Depression. 10. History of hemorrhage in the retina of the right eye. 11. History of left elbow fracture. PAST SURGICAL HISTORY: 1. Tonsillectomy. 2. Tubal ligation. 3. Herniorrhaphy. 4. Lumpectomy in the right breast. 5. Left hip replacement. 6. Left carotid endarterectomy (CEA) in 2011. 7. Right hip replacement. 8. Excision of sebaceous cyst. ALLERGIES: SSRI with the side effect of hyponatremia and syndrome of inappropriate antidiuretic hormone secretion (SIADH). MEDICATIONS: - Was on Eliquis on hold for the surgery, - metoprolol 50 mg by mouth three times a day - amlodipine 5 mg daily - atorvastatin 20 mg - bupropion 75 mg twice a day FAMILY HISTORY: Father history of stroke, mother with history of myocardial infarction ([place]). Children with no significant medical history. SOCIAL HISTORY: Former smoker, retired, worked at a [employer] previously. No history of any toxic exposures. PHYSICAL EXAMINATION: Temperature 98, pulse range 106 to 121, respiratory rate 19, blood pressure 128/80, oxygen saturation 100% on 40% FiO2. GENERAL EXAM: Patient intubated, not on any sedation, is drowsy, but arousable to voice and following commands appropriately. HEENT: Normocephalic, atraumatic. Pupils are reactive. Moist mucous membranes. No cervical lymphadenopathy palpated. LUNGS: Coarse ventilated breath sounds, but clear to auscultation bilaterally. No wheezes, rales or rhonchi. CARDIAC: Irregularly irregular, tachycardiac. No murmurs auscultated. ABDOMEN: Soft. The patient has dressings in place for the laparoscopic incision, as well as a left-sided Adin-Garvey drain, which is draining serosanguineous fluid. EXTREMITIES: No pitting edema in the bilateral lower extremities. Pulses are palpable. There is a Torres in place draining urine. LABORATORY: Pending. IMAGING: Chest x-ray is also pending. ASSESSMENT AND PLAN: 1. Ms. Amos is a 77-year-old female with history of atrial fibrillation, hypertension, hyperlipidemia, chronic obstructive pulmonary disease (COPD), breast cancer, peripheral vascular disease, who presented for a sigmoid colectomy for a colovaginal fistula. Postoperatively, the patient was sedated and unable to be weaned from the ventilator, so she was admitted to the intensive care unit (ICU) for further management. The patient currently is not on any sedation. She is arousable to voice and following commands appropriately and able to answer questions with shaking her head or nodding. She currently denies any pain. Will continue the patient on PRVC. Will reduce the tidal volume to 400 mL and wean down FiO2 to 35%. The patient currently on 400/15/35/5. Will check an arterial blood gas (ABG) now and repeat arterial blood gases (ABGs) daily. Will get a chest x-ray today and repeat chest x-rays in the morning. Will start ventilatory bundle with head of bed elevation and chlorhexidine mouthwash. Will continue with pain medication as needed with Tylenol. The patient also has Fentanyl and morphine as needed. Would hold off on further sedation medications at this time and just treat her pain as needed. If the patient because agitated or will need sedation, would likely start her on a Precedex drip for sedation. Will keep the patient nothing by mouth over midnight; and in the morning, will perform a weaning trial for possible extubation. 2. Continue with DuoNeb. 3. Continue antibiotics as per her primary team. Continue the rest of her home medications, will place OGT for administration of medications. Patient hypertensive and tachycardic, did not get her antihypertensive medications or beta blockers 4. The patient receiving TEDs and SCDs for deep vein thrombosis (DVT) prophylaxis, is on pantoprazole for gastrointestinal (GI) prophylaxis Total critical care time spent not including procedures 50 minutes MTDD
[2018-03-14] MEDS: IPRATROPIUM 0.5MG/ALBUTEROL 2.5MG INH SOL UD 3ML (DUONEB)(J7620) NEB SCH ×3 (03:32→15:27)
[2018-03-14 06:22] LABS: ABG BASE EXCESS -1.1 (-2.0-2.0); ABG HCO3 20.6 MEQ/L (22.0-26.0); ABG O2 SATURATION 99.2 % (95.0-99.0); ABG PARTIAL PRESSURE CO2 25.3 mmHg (35.0-45.0); ABG PARTIAL PRESSURE O2 148.8 mmHg (75.0-100.0); ABG STANDARD HCO3 23.6 MEQ/L (22.0-26.0); ABG TOTAL CO2 21.3 MEQ/L (23.0-31.0); ABG pH (ARTERIAL) 7.528 UNITS (7.350-7.450)
[2018-03-14 06:23] LABS: HEMATOCRIT 30.5 % (36.0-47.0); HEMOGLOBIN 10.5 g/dl (12.0-15.5); MEAN CORPUSCULAR HGB CONC 34.4 g/dl (32.0-36.5); PLATELET COUNT, AUTOMATED 164 10^3/uL (150-450); RED BLOOD COUNT 3.39 10^6/uL (4.00-5.40); WHITE BLOOD COUNT 13.7 10^3/uL (4.0-10.0)
[2018-03-14 06:50] LABS: BLOOD UREA NITROGEN 8 MG/DL (7-18); CARBON DIOXIDE LEVEL 23 MEQ/L (21-32); CHLORIDE LEVEL 102 MEQ/L (98-107); CREATININE FOR GFR 0.67 MG/DL (0.55-1.30); GLOMERULAR FILTRATION RATE > 60.0 (>39); GLUCOSE, FASTING 219 MG/DL (70-100); POTASSIUM SERUM 3.8 MEQ/L (3.5-5.1); SODIUM LEVEL 134 MEQ/L (136-145)
--- NOTE | 2018-03-14 07:29 | REP ---
Clinical: Status post intubation. Comparison: 03/13/2018. Findings: Endotracheal tube approximately 2.5 cm above the fran. Nasogastric tube courses below left hemidiaphragm in satisfactory position. Mediastinum and cardiac silhouette are stable. Lung benitez demonstrate chronic changes. Superimposed bibasilar atelectasis and possible small pleural reaction(s) cannot be excluded. No pneumothorax. Impression: Endotracheal tube and nasogastric tube in satisfactory position. Cannot exclude basilar atelectasis or small pleural reactions. No significant change from prior examination. Electronically Signed by Joselito Pitts MD 03/14/2018 07:20 A
[2018-03-14] MEDS: amLODIPine 5 MG TAB PO SCH (08:42)
[2018-03-14] MEDS: METOPROLOL TART 50 MG TAB PO SCH ×3 (08:45→20:04)
[2018-03-14] MEDS: buPROPion 75 MG TAB PO SCH ×2 (08:45→20:07)
[2018-03-14] MEDS: ALVIMOPAN 12 MG CAPSULE (ENTEREG) PO SCH ×2 (08:45→20:03)
[2018-03-14] MEDS: ATORVASTATIN 20 MG TAB PO SCH (08:46)
[2018-03-14] MEDS: PANTOPRAZOLE 40MG INJ (PROTONIX) (C9113) IV SCH (08:46)
[2018-03-14] MEDS: CHLORHEXIDINE GLUCONATE 0.12 % 15ML UDC (PERIDEX ORAL RINSE) MT SCH (09:00)
[2018-03-14] MEDS ORDERED: FUROSEMIDE 40 MG/4 ML VIAL (J1940) IV ONE (09:00)
[2018-03-14 09:54] LABS: ABG BASE EXCESS -3.3 (-2.0-2.0); ABG HCO3 19.5 MEQ/L (22.0-26.0); ABG O2 SATURATION 98.2 % (95.0-99.0); ABG PARTIAL PRESSURE CO2 28.1 mmHg (35.0-45.0); ABG STANDARD HCO3 21.7 MEQ/L (22.0-26.0); ABG TOTAL CO2 20.4 MEQ/L (23.0-31.0); ABG pH (ARTERIAL) 7.459 UNITS (7.350-7.450)
--- NOTE | 2018-03-14 12:41 | CCN ---
DATE: 03/14/2018 Patient was seen and examined this morning intubated on ventilator. Yesterday evening, patient was slightly agitated complaining of gagging and choking sensation. Was started on Precedex for sedation. Patient was arousable, awake and appropriate following commands on the Precedex and did not appear to be in any acute distress. Overnight the patient received only one dose of morphine IV for pain control. This morning she denies any significant complaints. Patient is gesturing that she wants the endotracheal tube out. Patient's heart rate and blood pressure appear more controlled this morning. She was hypertensive and tachycardic yesterday. Patient was supplemented with magnesium, potassium and phosphorus yesterday evening. PHYSICAL EXAMINATION: Temperature 97.9, heart rate 88, respiratory rate 15, blood pressure 146/63, oxygen 99% on 35% FiO2. GENERAL: Patient is intubated. Is not in any distress. Is following commands appropriately and easily arousable. HEENT: Normocephalic, atraumatic. Pupils are reactive. Moist mucous membranes. No cervical lymphadenopathy palpated. LUNGS: Some occasional rhonchi and crackles at the bases. No wheezing. CARDIAC: Irregularly irregular. No murmurs appreciated. ABDOMEN: Soft. Patient has dressings in place for laparoscopic incisions as well as a left-sided Adin-Garvey (DAMARIS) drain which is draining some serosanguineous fluid. EXTREMITIES: No pitting edema in bilateral lower extremities. Pulses are palpable. There is a Torres in place draining urine. LABS: WBC 13.7, hemoglobin 10.5, platelets 164. Sodium 134, potassium 3.8, chloride 102, bicarbonate 23, BUN 8, creatinine 0.67, glucose 219, ABG pH 7.528, pCO2 25.3, pO2 148.8 on pressure regulated volume control (PRVC). Chest x-ray: Endotracheal tube (ET) in place and orogastric (OG) tube in position coursing below the diaphragm. There is some new blunting of the costophrenic angle suggesting some trace bilateral effusion. There is also some mild pulmonary vascular congestion noted. No focal opacities or infiltrate. ASSESSMENT/PLAN: Ms. Amos is a 77-year-old female with a history of atrial fibrillation, hypertension, hyperlipidemia, chronic obstructive pulmonary disease (COPD), breast cancer, peripheral vascular disease who presented for a sigmoid colectomy for colovaginal fistula. Postoperatively, patient was lethargic and remained intubated and was unable to be weaned from the ventilator so she was admitted to the intensive care unit (ICU) for further management. Patient in the ICU was sleepy but arousable and following commands. Overnight she had some agitation and complained of choking and gagging with the endotracheal tube and so was started Precedex. With Precedex, patient was calm but still easily arousable and appropriate. This morning on imaging, patient was noted to have some blunting of the costophrenic angles and some pulmonary vascular congestion. She does have a history of heart failure with preserved ejection fraction (EF). Arterial blood gas (ABG) on [facility] at 400/15/35/5 showed that patient has some respiratory alkalosis. Patient was given one time lasix 40mg IVP. She was then placed on a weaning trial with pressure support. Patient had a repeat ABG done and appeared to be tolerating the pressure support trial so was extubated later in the morning. Post extubation, patient is not in any distress. There is no stridor or wheezing noted. Will continue DuoNebs for now standing and change to as needed tomorrow. Continue antibiotics as per her primary team and the rest of her home medications. Will followup with the primary team about starting a diet. Continue monitoring electrolytes and replete as needed. Will wean patient off of oxygen supplementation later on today as tolerated. Would start incentive spirometer. Continue with deep venous thrombosis prophylaxis as per the primary team. Would discontinue fluids. Total critical care time spent not including procedures 45 minutes. Thank you for allowing me to participate in the care of this patient. Please do not hesitate to call if there are any additional questions or concerns. MALIK
[2018-03-14] MEDS: ACETAMINOPHEN TAB 650MG DOSE (2X325MG) PO PRN (15:21)
[2018-03-15] VITALS: BP 135/78
[2018-03-15] MEDS: PIPERACILLIN/TAZOBACTAM SOD 3.375 GM in D5W MINI-BAG PLUS 50 ML IV SCH ×4 (01:02→21:47)
[2018-03-15 02:00] VITALS: BP 139/76
[2018-03-15 04:00] VITALS: BP 153/88
[2018-03-15 04:46] LABS: BASO % 0.2 % (0.0-1.0); EOS % 0.2 % (0.0-3.0); HEMATOCRIT 36.6 % (36.0-47.0); HEMOGLOBIN 11.9 g/dl (12.0-15.5); LYMPH # 2.2 10^3/uL (1.5-4.5); LYMPH % 12.3 % (24.0-44.0); MEAN CORPUSCULAR HEMOGLOBIN 30.7 pg (27.0-33.0); MEAN CORPUSCULAR HGB CONC 32.5 g/dl (32.0-36.5); MEAN CORPUSCULAR VOLUME 94.3 fl (80.0-96.0); MONO # 1.5 10^3/uL (0.0-0.8); MONO % 8.6 % (0.0-5.0); NEUTROPHILS # 13.8 10^3/uL (1.8-7.7); NEUTROPHILS % 78.2 % (36.0-66.0); PLATELET COUNT, AUTOMATED 189 10^3/uL (150-450); RED BLOOD COUNT 3.88 10^6/uL (4.00-5.40); WHITE BLOOD COUNT 17.6 10^3/uL (4.0-10.0)
[2018-03-15 04:58] LABS: ALBUMIN 2.7 GM/DL (3.2-5.2); ALT/SGPT 14 U/L (12-78); BILIRUBIN,TOTAL 0.6 MG/DL (0.2-1.0); BLOOD UREA NITROGEN 10 MG/DL (7-18); CALCIUM LEVEL 8.7 MG/DL (8.8-10.2); CARBON DIOXIDE LEVEL 28 MEQ/L (21-32); CHLORIDE LEVEL 100 MEQ/L (98-107); CREATININE FOR GFR 0.84 MG/DL (0.55-1.30); GLOMERULAR FILTRATION RATE > 60.0 (>39); GLUCOSE, FASTING 84 MG/DL (70-100); POTASSIUM SERUM 3.5 MEQ/L (3.5-5.1); SODIUM LEVEL 136 MEQ/L (136-145); TOTAL PROTEIN 6.9 GM/DL (6.4-8.2)
[2018-03-15] MEDS: ACETAMINOPHEN TAB 650MG DOSE (2X325MG) PO PRN (07:21)
[2018-03-15 08:00] VITALS: BP 121/70
[2018-03-15] MEDS: IPRATROPIUM 0.5MG/ALBUTEROL 2.5MG INH SOL UD 3ML (DUONEB)(J7620) NEB SCH ×2 (08:03)
[2018-03-15] MEDS: ALVIMOPAN 12 MG CAPSULE (ENTEREG) PO SCH ×2 (09:15→21:46)
[2018-03-15] MEDS: ATORVASTATIN 20 MG TAB PO SCH (09:15)
[2018-03-15] MEDS: amLODIPine 5 MG TAB PO SCH (09:16)
[2018-03-15] MEDS: buPROPion 75 MG TAB PO SCH ×2 (09:16→21:46)
[2018-03-15] MEDS: METOPROLOL TART 50 MG TAB PO SCH ×3 (09:17→21:46)
[2018-03-15] MEDS: PANTOPRAZOLE 40MG INJ (PROTONIX) (C9113) IV SCH (09:17)
--- NOTE | 2018-03-15 10:48 | IPN ---
DATE: 03/14/2018 HISTORY: The patient is now postop day 1 from a laparoscopic sigmoid colectomy for a colovaginal fistula. Following surgery she was sedated and was not breathing well enough to be extubated, so she remained on the ventilator overnight. She has been seen by the manager category, Dr. Castano and was weaned off the ventilator this morning. She has been having some issues with confusion during the course of the day. VITAL SIGNS: Show that the patient has been afebrile since surgery. Her pulse has varied quite a bit and has been in the 110-130 range this afternoon and evening. Blood pressure is good and her respirations are regular at 18-20. INTAKE AND OUTPUT: Yesterday she had 3600 in with 1425 out. Her abdominal drain had 290 mL yesterday. Nasogastric tube had 200. PHYSICAL EXAMINATION: The patient is currently lying in the bed. She rouses to voice. She is globally oriented, recognizing that she is in the hospital and when I introduced myself as a physician, she knew that she had had surgery. She appears fairly comfortable. Heart exam shows a regular rhythm. The abdomen is nondistended and she has a few bowel sounds present. The abdomen is soft. Laboratory studies this morning showed a white count of 14,000, hemoglobin of 10, hematocrit of 30 and platelet count of 164,000. Chemistry profile showed normal electrolytes with the exception of a sodium of 134 and her glucose was elevated to 219. IMPRESSION: The patient is doing well at this point. She has been successfully weaned and extubated. She has been having some disorientation today, which is not surprising given her overall condition. The patient was started on some clear liquids earlier. She has a sitter at the order of the manager category due to her disorientation. We will continue the patient's current medications. The Torres catheter will be continued through the weekend because of the surgery in the area of the bladder.
[2018-03-15] MEDS: ONDANSETRON 4MG/2ML VIAL (J2405) IV PRN (13:16)
[2018-03-15 14:00] VITALS: BP 150/82
[2018-03-15 22:00] VITALS: BP 160/83
[2018-03-16] MEDS: PIPERACILLIN/TAZOBACTAM SOD 3.375 GM in D5W MINI-BAG PLUS 50 ML IV SCH ×2 (01:47→08:24)
[2018-03-16 06:00] VITALS: BP 148/72
[2018-03-16 06:38] LABS: BASO # 0.1 10^3/uL (0.0-0.2); BASO % 0.3 % (0.0-1.0); EOS % 0.2 % (0.0-3.0); HEMATOCRIT 35.4 % (36.0-47.0); HEMOGLOBIN 11.9 g/dl (12.0-15.5); LYMPH # 2.1 10^3/uL (1.5-4.5); LYMPH % 11.6 % (24.0-44.0); MEAN CORPUSCULAR HEMOGLOBIN 31.2 pg (27.0-33.0); MEAN CORPUSCULAR HGB CONC 33.6 g/dl (32.0-36.5); MEAN CORPUSCULAR VOLUME 92.9 fl (80.0-96.0); MONO # 1.5 10^3/uL (0.0-0.8); MONO % 8.2 % (0.0-5.0); PLATELET COUNT, AUTOMATED 222 10^3/uL (150-450); RED BLOOD COUNT 3.81 10^6/uL (4.00-5.40); WHITE BLOOD COUNT 17.7 10^3/uL (4.0-10.0)
[2018-03-16] MEDS: ATORVASTATIN 20 MG TAB PO SCH (08:24)
[2018-03-16] MEDS: amLODIPine 5 MG TAB PO SCH (08:24)
[2018-03-16] MEDS: buPROPion 75 MG TAB PO SCH ×2 (08:24→21:07)
[2018-03-16] MEDS: ALVIMOPAN 12 MG CAPSULE (ENTEREG) PO SCH ×2 (08:24→21:07)
[2018-03-16] MEDS: METOPROLOL TART 50 MG TAB PO SCH ×3 (08:25→21:10)
--- NOTE | 2018-03-16 09:58 | IPN ---
DATE: 03/15/2018 HISTORY: The patient is now postop day #2 from a laparoscopic sigmoid colectomy for a colovaginal fistula. She required overnight ventilation after surgery but was extubated without difficulty on postop day #1. She was somewhat confused yesterday but her head seems to have cleared and she is now up on a medical-surgical floor. The patient has been tolerating some clear liquids without any nausea or vomiting. She has had a small amount of flatus. VITAL SIGNS: Show that she has been afebrile for the past 24 hours. Her pulse has been generally about 100-110 today. Blood pressure is acceptable. Her room air oxygen saturations are in the mid 90s. INTAKE AND OUTPUT: Yesterday she had 1400 in with 3900 out. Most of that was urine output and her drain had 70 mL out. Today so far she has had a liter of oral intake with 700 of urine output. PHYSICAL EXAMINATION: The patient is alert and oriented. She is looking fairly comfortable, though she does admit to some abdominal soreness when asked. Skin: Is warm and dry. Heart exam shows a regular rate and rhythm. The lungs are clear. The abdomen is mildly distended. Her dressings are dry. She has a drain in the left lower quadrant which has a minimal amount of serosanguineous fluid in the bulb. She does have bowel sounds present. There is no undue tenderness on palpation. Laboratory studies show a white count of 18 with a hemoglobin of 12, hematocrit of 37 and platelet count of 189,000. Her differential count shows 78% neutrophils, 12% lymphocytes and 9 monocytes. Chemistry profile today shows normal electrolytes, BUN, creatinine and glucose. Her liver function tests are normal. IMPRESSION: The patient is doing very well postop day #2 from her sigmoid colectomy. She has tolerated clear liquids. I will advance her to full liquids today. Dr. Ogden wanted to keep her Torres catheter in through the weekend and I will leave this for him to address tomorrow morning when he is back. She will be encouraged to be up and ambulatory as able.
[2018-03-16] MEDS: CIPROFLOXACIN 200 MG in APPROPRIATE DILUENT 1 EA IV SCH ×2 (11:27→22:57)
[2018-03-16] MEDS: FLUCONAZOLE 200 MG in APPROPRIATE DILUENT 1 EA IV SCH (13:04)
[2018-03-16 14:00] VITALS: BP 149/97
[2018-03-16] MEDS: metroNIDAZOLE 250 MG in APPROPRIATE DILUENT 1 EA IV SCH ×2 (14:08→21:11)
[2018-03-16 16:38] VITALS: BP 138/90
[2018-03-16] MEDS: AMINO AC/ELECTROLYTE/DEX/CALC 1,000 ML IV SCH (17:39)
[2018-03-16] MEDS ORDERED: FAT EMULSION IV 20% 500 ML IV SCH (18:00)
[2018-03-16 22:00] VITALS: BP 146/88
[2018-03-17] MEDS: metroNIDAZOLE 250 MG in APPROPRIATE DILUENT 1 EA IV SCH ×3 (05:33→20:17)
[2018-03-17 05:46] LABS: HEMATOCRIT 34.8 % (36.0-47.0); HEMOGLOBIN 11.6 g/dl (12.0-15.5); MEAN CORPUSCULAR HGB CONC 33.3 g/dl (32.0-36.5); PLATELET COUNT, AUTOMATED 214 10^3/uL (150-450); RED BLOOD COUNT 3.74 10^6/uL (4.00-5.40)
[2018-03-17 06:00] VITALS: BP 142/86
[2018-03-17 06:06] LABS: BLOOD UREA NITROGEN 14 MG/DL (7-18); CALCIUM LEVEL 8.3 MG/DL (8.8-10.2); CARBON DIOXIDE LEVEL 25 MEQ/L (21-32); CHLORIDE LEVEL 99 MEQ/L (98-107); CREATININE FOR GFR 0.62 MG/DL (0.55-1.30); GLOMERULAR FILTRATION RATE > 60.0 (>39); GLUCOSE, FASTING 113 MG/DL (70-100); POTASSIUM SERUM 3.3 MEQ/L (3.5-5.1); SODIUM LEVEL 132 MEQ/L (136-145)
[2018-03-17] MEDS: AMINO AC/ELECTROLYTE/DEX/CALC 1,000 ML IV SCH ×2 (07:38→20:18)
[2018-03-17] MEDS: ALVIMOPAN 12 MG CAPSULE (ENTEREG) PO SCH ×2 (08:36→20:13)
[2018-03-17] MEDS: ATORVASTATIN 20 MG TAB PO SCH (08:36)
[2018-03-17] MEDS: buPROPion 75 MG TAB PO SCH ×2 (08:37→20:13)
[2018-03-17] MEDS: METOPROLOL TART 50 MG TAB PO SCH ×3 (08:37→20:16)
[2018-03-17] MEDS: amLODIPine 5 MG TAB PO SCH (08:37)
[2018-03-17] MEDS: CIPROFLOXACIN 200 MG in APPROPRIATE DILUENT 1 EA IV SCH ×2 (10:11→23:24)
--- NOTE | 2018-03-17 10:29 | IPN ---
DATE: 03/16/2018 The patient's white count is stable since yesterday and she overall had some nausea this morning of undetermined etiology. The nurses said that she had some vomiting, however, I do not see any recorded emesis any place. I saw her later on this afternoon and once again she had no vomiting. She did not have any nausea. Her urine output has been good all day long, however, her Adin-Garvey drain still is draining some serosanguineous stuff later on this afternoon. Urine still is kind of cloudy looking and I had gotten a urinalysis that showed significant leukocyte esterase as well as white blood cells and some red blood cells. The red blood cells I anticipate is most likely secondary to her stent that she has in place, but easily could be from a urinary tract infection. I would like to change outer antibiotics today for this. IMPRESSION AND PLAN: Elevated white count and abnormal urinalysis suggest possibly a urinary tract infection and I would like to change her antibiotics over at this time. We will see how she does with this. Given that she has been on some frequent antibiotics recently as well, I will start her on some antifungals. From a gastrointestinal (GI) standpoint she does look a little bit distended but she is not really feeling nauseated, I do feel that she is not the most reliable historian and thus I would like to keep her nothing by mouth for right now until I am more sure of her GI activity and I would like to start her on some partial parenteral nutrition (PPN) for now given that she seems relatively frail and I do not want her to lose too much ground at this point. From a urine standpoint she is making adequate urine output and thus diuresing I do not feel is necessary. Otherwise her chemistries seem to be relatively stable and her hematocrit seems stable at this time as well. We will see what her followup labs show tomorrow and from a diet standpoint I do feel that if she does not have any further nausea or vomiting and she is doing okay in the morning that progressing her back to a clear liquid diet is reasonable.
[2018-03-17] MEDS: FLUCONAZOLE 200 MG in APPROPRIATE DILUENT 1 EA IV SCH (11:22)
[2018-03-17 14:00] VITALS: BP 132/75
[2018-03-17] MEDS ORDERED: FAT EMULSION IV 20% 500 ML IV SCH (18:00)
[2018-03-17] MEDS: POTASSIUM CHLORIDE 10 MEQ SR TABLET PO SCH ×2 (20:12→23:23)
[2018-03-17] MEDS: traMADol 50 MG TAB PO PRN (20:19)
[2018-03-17 22:00] VITALS: BP_SYST 10; BP_SYST 103; BP_DIAS 75
[2018-03-18] MEDS: metroNIDAZOLE 250 MG in APPROPRIATE DILUENT 1 EA IV SCH ×3 (04:12→20:14)
[2018-03-18] MEDS: ACETAMINOPHEN TAB 650MG DOSE (2X325MG) PO PRN (04:13)
[2018-03-18 06:00] VITALS: BP 131/80
[2018-03-18 06:22] LABS: HEMATOCRIT 32.6 % (36.0-47.0); HEMOGLOBIN 10.9 g/dl (12.0-15.5); MEAN CORPUSCULAR HEMOGLOBIN 31.6 pg (27.0-33.0); MEAN CORPUSCULAR HGB CONC 33.4 g/dl (32.0-36.5); MEAN CORPUSCULAR VOLUME 94.5 fl (80.0-96.0); PLATELET COUNT, AUTOMATED 196 10^3/uL (150-450); RED BLOOD COUNT 3.45 10^6/uL (4.00-5.40)
[2018-03-18 06:39] LABS: BLOOD UREA NITROGEN 15 MG/DL (7-18); CALCIUM LEVEL 8.3 MG/DL (8.8-10.2); CARBON DIOXIDE LEVEL 24 MEQ/L (21-32); CHLORIDE LEVEL 99 MEQ/L (98-107); CREATININE FOR GFR 0.64 MG/DL (0.55-1.30); GLOMERULAR FILTRATION RATE > 60.0 (>39); GLUCOSE, FASTING 135 MG/DL (70-100); POTASSIUM SERUM 4.1 MEQ/L (3.5-5.1); SODIUM LEVEL 131 MEQ/L (136-145)
[2018-03-18] MEDS: ALVIMOPAN 12 MG CAPSULE (ENTEREG) PO SCH ×2 (08:23→20:13)
[2018-03-18] MEDS: METOPROLOL TART 50 MG TAB PO SCH ×3 (08:23→20:13)
[2018-03-18] MEDS: buPROPion 75 MG TAB PO SCH ×2 (08:23→20:13)
[2018-03-18] MEDS: ATORVASTATIN 20 MG TAB PO SCH (08:23)
[2018-03-18] MEDS: amLODIPine 5 MG TAB PO SCH (08:23)
[2018-03-18] MEDS ORDERED: BISACODYL 10 MG SUPP PR ONE (09:00)
[2018-03-18] MEDS: LACTOBACILLUS ACIDOPHILUS CAP (BACID) PO SCH ×3 (09:26→20:13)
[2018-03-18] MEDS: DOCUSATE SODIUM 100 MG CAP PO SCH ×2 (09:26→20:13)
[2018-03-18] MEDS: CIPROFLOXACIN 200 MG in APPROPRIATE DILUENT 1 EA IV SCH (10:20)
[2018-03-18] MEDS: FLUCONAZOLE 200 MG in APPROPRIATE DILUENT 1 EA IV SCH (11:17)
[2018-03-18] MEDS: AMINO AC/ELECTROLYTE/DEX/CALC 1,000 ML IV SCH (11:37)
[2018-03-18 14:00] VITALS: BP 125/82
--- NOTE | 2018-03-18 16:28 | IPN ---
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 She was found to have a small abscess intraoperatively. Yesterday, Dr. Ogden made the patient nothing by mouth because she became somewhat distended. He also changed her antibiotics and placed her on some peripheral nutrition. The patient reports that she is feeling somewhat better today. She thinks she has had some flatus but has not really had a bowel movement. She did have some nausea and a small amount of emesis yesterday, but has had no further emesis overnight or this morning. VITAL SIGNS: Show that the patient has been afebrile over the last 24 hours. Her pulse has ranged between 80-111. Her blood pressure is excellent and her room air oxygen saturations are normal. INTAKE AND OUTPUT: Yesterday showed 1708 in with 1200 out. Her abdominal drain had 130 mL out yesterday and only 50 recorded out this morning. Her urine output has increased overnight. PHYSICAL EXAM: The patient is a pleasant elderly woman lying quietly on the hospital bed. She is alert and oriented. Skin is warm and dry. Heart exam shows a regular rhythm and the lungs are clear. The abdomen is protuberant. There are faint bowel sounds only detected. The abdomen however is soft and without any significant tenderness. Her drain has only some minimal serosanguineous fluid. LABORATORY STUDIES: Show that today she has a white count of 15,000 with a hemoglobin of 12, hematocrit of 35 and a platelet count of 214,000. Chemistry profile showed a sodium of 132, potassium 3.3, chloride 99, CO2 of 25, BUN of 14, creatinine 0.6 and a glucose of 113. IMPRESSION: The patient appears to be doing well overall. She has not had a bowel movement but believes she has had some flatus. She has had no further nausea or vomiting. The abdomen is soft and without any significant tenderness. PLAN: We will continue the drain and antibiotics. I will let her try some sips of clear liquids today. She will be encouraged to be out of bed.
[2018-03-18] MEDS ORDERED: LIDOCAINE 1% MDV 20ML VIAL As Ordered ONE (16:43)
[2018-03-18] MEDS: SODIUM CHLORIDE 0.9% INJ 10 ML SYR IV SCH (17:57)
[2018-03-18] MEDS ORDERED: FAT EMULSION IV 20% 500 ML IV SCH (18:00)
[2018-03-18] MEDS ORDERED: AMINO AC/ELECTROLYTE/DEX/CALC 2,000 ML IV SCH (18:00)
[2018-03-18] MEDS: HumaLOG INSULIN (NovoLOG) PER UNIT SC SCH (18:00)
--- NOTE | 2018-03-18 18:07 | IPN ---
DATE: 03/18/2018 Patient overall seems to be looking good. She does not really have any complaints. She has been afebrile. I did change her antibiotics around a little bit given that she had some very dirty looking urine. Her urine looks much clearer today and looks much better than it was previously. However, when I look her micro, the micro showed no growth although it is pretty obvious by just looking at her urine alone that this has cleared up nicely. Her pathology is still pending at this time. Unfortunately, her white count is still elevated. Her abdomen is mildly distended, but it is nontender and she has no guarding, no rebound. But she is not really tolerating a diet and thus at this point I do feel that it is reasonable to start her on a clear liquid diet, get her some stool softeners going as well as a suppository and see we can get things moving. Once we have got things moving I anticipate will be able to advance her diet relatively quickly and at that point if her white count is still elevated, consider proceeding with a CT scan of abdomen and pelvis to rule out any intra-abdominal abscess or other etiology for this.
[2018-03-18] MEDS: traMADol 50 MG TAB PO PRN (20:12)
[2018-03-18 22:00] VITALS: BP 109/69
[2018-03-19] MEDS: CIPROFLOXACIN 200 MG in APPROPRIATE DILUENT 1 EA IV SCH ×3 (00:03→23:34)
[2018-03-19] MEDS: HumaLOG INSULIN (NovoLOG) PER UNIT SC SCH ×4 (00:03→17:47)
[2018-03-19 06:00] VITALS: BP 158/79
[2018-03-19] MEDS: SODIUM CHLORIDE 0.9% INJ 10 ML SYR IV SCH ×2 (06:12→17:45)
[2018-03-19] MEDS: metroNIDAZOLE 250 MG in APPROPRIATE DILUENT 1 EA IV SCH ×3 (06:12→20:58)
[2018-03-19 06:24] LABS: HEMOGLOBIN 10.8 g/dl (12.0-15.5); MEAN CORPUSCULAR HEMOGLOBIN 31.9 pg (27.0-33.0); MEAN CORPUSCULAR HGB CONC 33.8 g/dl (32.0-36.5); MEAN CORPUSCULAR VOLUME 94.4 fl (80.0-96.0); PLATELET COUNT, AUTOMATED 163 10^3/uL (150-450); RED BLOOD COUNT 3.39 10^6/uL (4.00-5.40); WHITE BLOOD COUNT 16.7 10^3/uL (4.0-10.0)
[2018-03-19 06:51] LABS: BLOOD UREA NITROGEN 14 MG/DL (7-18); CARBON DIOXIDE LEVEL 23 MEQ/L (21-32); CHLORIDE LEVEL 97 MEQ/L (98-107); CREATININE FOR GFR 0.55 MG/DL (0.55-1.30); GLOMERULAR FILTRATION RATE > 60.0 (>39); GLUCOSE, FASTING 137 MG/DL (70-100); POTASSIUM SERUM 3.6 MEQ/L (3.5-5.1); SODIUM LEVEL 130 MEQ/L (136-145)
--- NOTE | 2018-03-19 09:20 | REP ---
DOUBLE LUMEN PICC LINE INSERTION: Patient was referred for placement of double lumen PICC line. Informed consent was obtained. Right basilic vein was identified using the SFOX ultrasound device. Under sterile conditions and after satisfactory administration of local anesthesia, using ultrasound guidance, access to the right basilic vein was obtained and a double lumen PICC line is inserted. The tip was positioned in the superior vena cava. Both lumens were flushed with heparinized solution and appropriate dressings were applied at the skin entrance site. Hemostasis was obtained and there were no immediate complications. 0.7 minutes fluoroscopy time utilized for the procedure. Electronically Signed by Marcelo Hooper MD 03/19/2018 11:45 A
[2018-03-19] MEDS: DOCUSATE SODIUM 100 MG CAP PO SCH ×2 (10:12→20:58)
[2018-03-19] MEDS: amLODIPine 5 MG TAB PO SCH (10:12)
[2018-03-19] MEDS: METOPROLOL TART 50 MG TAB PO SCH ×3 (10:12→20:59)
[2018-03-19] MEDS: ATORVASTATIN 20 MG TAB PO SCH (10:12)
[2018-03-19] MEDS: LACTOBACILLUS ACIDOPHILUS CAP (BACID) PO SCH ×3 (10:12→20:58)
[2018-03-19] MEDS: buPROPion 75 MG TAB PO SCH ×2 (10:13→20:59)
[2018-03-19] MEDS: ALVIMOPAN 12 MG CAPSULE (ENTEREG) PO SCH ×2 (10:13→20:59)
[2018-03-19] MEDS: FLUCONAZOLE 200 MG in APPROPRIATE DILUENT 1 EA IV SCH (11:33)
--- NOTE | 2018-03-19 12:17 | REP ---
Abdominal pain and vomiting. Technique: Axial noncontrast images from the lung bases to the pubic symphysis with coronal and sagittal re-formations. Findings: Lung bases demonstrate the by basilar atelectasis (right greater than left) and chronic interstitial changes. Postsurgical changes of the abdomen are identified including subcutaneous emphysema and drainage catheter extending into the pelvis as well as skin perfecto along the midline anterior abdominal wall. Surgical changes in the left lower quadrant of the pelvis suggest prior partial sigmoid resection and anastomoses. Mildly prominent fluid filled loops of small bowel are appreciated along with collapsed small bowel in the pelvis. A transition point is not identified. Findings raise the possibility of early obstruction as well as ileus. No evidence for pneumoperitoneum, significant ascites or drainable collection/abscess. Liver, gallbladder, pancreas, bilateral adrenal glands and right kidney are relatively normal for noncontrast evaluation. Left kidney demonstrates atrophic changes along with ureteral stent extending into the bladder. Spleen demonstrates parenchymal calcifications suggesting prior granulomas disease. Evaluation of the pelvis is severely limited due to metallic streak artifact from bilateral hip. Torres catheter identified within collapsed bladder. Surrounding musculoskeletal structures demonstrate degenerative changes. Atherosclerotic disease noted without aneurysm. Impression: 1. Mildly prominent fluid filled loops of small bowel with collapsed small bowel in the pelvis raise the possibility of ileus and early/partial small bowel obstruction. No free air, free fluid or drainable collection/abscess. 2. Postsurgical changes. 3. Bibasilar atelectasis. 4. Chronic changes as noted above. Electronically Signed by Joselito Pitts MD 03/19/2018 12:08 P
[2018-03-19] MEDS: ONDANSETRON 4MG/2ML VIAL (J2405) IV PRN (13:46)
[2018-03-19 14:40] LABS: URIC ACID 2.3 MG/DL (2.6-6.0)
[2018-03-19] MEDS ORDERED: FAT EMULSION IV 20% 500 ML IV SCH (18:00)
[2018-03-19] MEDS ORDERED: AMINO AC/ELECTROLYTE/DEX/CALC 2,000 ML IV SCH (18:00)
--- NOTE | 2018-03-19 19:41 | IPN ---
DATE: 03/19/2018 The patient had a couple bowel movements yesterday and they were small in nature and at this point it seemed as though she was resolving her ileus and thus we started her on some clears. However, this morning she had a significant amount of emesis. And so at this point, we obtained a CT scan given that she had an elevated white count still. I had concern that she might have an intra-abdominal abscess given the diverticulitis and abscess that we encountered on her operative procedure. Given that this would be a contaminated field. In any case from my standpoint she had somewhat of an ileus, may be a partial small bowel obstruction seen on the CT scan. Thus we placed an NG tube for treatment of this. Since that time, she has had a couple more bowel movements and really has not had a lot of NG tube output. She has had no fevers, but has been relatively frail appearing. Her abdomen is soft, nondistended, nontender. Her left foot was hurting and it has been bothering her for a few days but it seems to be more prominent today. Thus I ordered a uric acid to rule out possible gout. IMPRESSION AND PLAN Leukocytosis. It is persistent. It is stable without fevers without sepsis. I am not sure what the etiology is at this time. We are not seeing any significant drainage from the Adin-Garvey drain that is concerning. Her urine seems to have cleared up nicely and I anticipate that may have been an etiology for some infection but the microbiology was negative for that. Thus at this point, we are at a loss for what the leukocytosis is. She has had a couple more bowel movement since the NG tube was inserted and I am not sure if she was on the edge of improvement and had some crampy abdominal pain and that brought up the nausea, vomiting. We will see how much she puts out of from her NG tube tomorrow and if she does not put out much we will clamp the tube and will see if we can progress her over the ensuing couple days. Otherwise will continue with her current treatment for right now. Continue with TPN as well in this frail individual.
[2018-03-19] MEDS: traMADol 50 MG TAB PO PRN (20:58)
[2018-03-19 22:00] VITALS: BP 103/70
[2018-03-20] MEDS: HumaLOG INSULIN (NovoLOG) PER UNIT SC SCH ×4 (00:30→18:20)
[2018-03-20] MEDS: metroNIDAZOLE 250 MG in APPROPRIATE DILUENT 1 EA IV SCH ×3 (05:22→21:40)
[2018-03-20] MEDS: SODIUM CHLORIDE 0.9% INJ 10 ML SYR IV SCH ×2 (05:22→18:20)
[2018-03-20 06:00] VITALS: BP 101/70
[2018-03-20 06:06] LABS: HEMATOCRIT 33.4 % (36.0-47.0); HEMOGLOBIN 11.2 g/dl (12.0-15.5); MEAN CORPUSCULAR HEMOGLOBIN 31.5 pg (27.0-33.0); MEAN CORPUSCULAR HGB CONC 33.5 g/dl (32.0-36.5); MEAN CORPUSCULAR VOLUME 94.1 fl (80.0-96.0); PLATELET COUNT, AUTOMATED 181 10^3/uL (150-450); RED BLOOD COUNT 3.55 10^6/uL (4.00-5.40); WHITE BLOOD COUNT 16.7 10^3/uL (4.0-10.0)
[2018-03-20 06:29] LABS: BLOOD UREA NITROGEN 15 MG/DL (7-18); CARBON DIOXIDE LEVEL 25 MEQ/L (21-32); CHLORIDE LEVEL 94 MEQ/L (98-107); CREATININE FOR GFR 0.43 MG/DL (0.55-1.30); GLOMERULAR FILTRATION RATE > 60.0 (>39); GLUCOSE, FASTING 95 MG/DL (70-100); POTASSIUM SERUM 3.4 MEQ/L (3.5-5.1); SODIUM LEVEL 131 MEQ/L (136-145)
--- NOTE | 2018-03-20 08:40 | RO ---
DATE OF OPERATIVE PROCEDURE: 03/13/2018 PREOPERATIVE DIAGNOSIS: Diverticulitis with possible fistula. POSTOPERATIVE DIAGNOSIS: Diverticulitis with possible fistula. OPERATIVE PROCEDURE PERFORMED: 1. Cystoscopy. 2. Bilateral retrograde pyelogram. 3. Placement of left ureteral stent. SURGEON: Jaime Menon MD CARPET OR RUG LAYER HELPER: ANESTHESIA: General anesthesia. ESTIMATED BLOOD LOSS: Minimal. INDICATIONS: Ms. Oksana Amos is a 77-year-old woman with a history of diverticulitis, who is scheduled for definitive surgical management of this problem. Recent CAT scan showed left hydronephrosis and a possible fistula. She now presents for definitive management of this problem. DESCRIPTION OF PROCEDURE: Patient brought into the operating room, placed in supine position. After administration of general anesthesia, was placed in dorsal lateral position, then prepped and draped in the usual sterile fashion. Cystourethroscopy was performed using a #21-Faroese cystoscope. The anterior and posterior urethra were noted to be normal. The patient had a prominent cystocele at the level of the introitus. The bladder was entered with mild difficulty. Upon entrance into the bladder, there was mild erythema noted at the trigone and the posterior wall associated with some cystitis cystica. The ureteral orifices were in a normal anatomic position and produced gross clear efflux. Using a #5-Faroese open-ended catheter, bilateral retrograde pyelograms were performed. The retrograde on the right side revealed no significant obstruction. The retrograde on the left side revealed an area of extrinsic narrowing of the ureter down in the pelvis, consistent with possible scarring and/or mass from her diverticulitis. There was moderate hydronephrosis noted behind this. Under fluoroscopic guidance, a 0.038 guidewire was placed up into the left renal pelvis and a #6-Faroese double pigtail stent was placed. Once coil was noted to be in the bladder and the subsequent coil was noted to be in the kidney. It was cut. The bladder was drained in its entirety, and the cystoscope and the sheath were removed. A #16-Faroese Torres was then placed to gravity drainage. The case was then turned over to her general surgeon for further management. The patient was in stable condition at time of transfer.
[2018-03-20] MEDS: METOPROLOL TART 50 MG TAB PO SCH ×3 (09:00→21:40)
[2018-03-20] MEDS: amLODIPine 5 MG TAB PO SCH (09:00)
[2018-03-20] MEDS: LACTOBACILLUS ACIDOPHILUS CAP (BACID) PO SCH ×3 (10:22→21:39)
[2018-03-20] MEDS: DOCUSATE SODIUM 100 MG CAP PO SCH ×2 (10:22→21:40)
[2018-03-20] MEDS: buPROPion 75 MG TAB PO SCH ×2 (10:22→21:40)
[2018-03-20] MEDS: ATORVASTATIN 20 MG TAB PO SCH (10:22)
[2018-03-20] MEDS: SODIUM CHLORIDE 0.9% INJ 10 ML SYR IV PRN (11:00)
[2018-03-20] MEDS: ONDANSETRON 4MG/2ML VIAL (J2405) IV PRN (11:00)
--- NOTE | 2018-03-20 11:22 | IPN ---
DATE: 03/20/2018 The patient had been up all night trying to take out her NG tube and thus she needed be watched with a sitter overnight and essentially has settled down and is pretty tired today after having a long night, but she still been afebrile. She has had no other complaints. She does not complain of any abdominal pain at all. She has been having some bowel movements, but her NG tube is still putting out a fair bit of bilious output. She had a bowel movement earlier this morning, which was normal/without any significant other complaints. However, her white count still remains elevated at this time, 16,000. Her drain is really putting out some serosanguineous, but I am not seeing any significant bloody drainage to this, it is much less than it was previously, and overall CT scan did not show any abscesses or fluid collections etc. The patient's urine output was good this morning. Her weight has come down nicely and seems to have diuresed well over the last 3 days. On her exam lungs are diminished bilaterally, posteriorly, clear anteriorly. Heart is regular with multiple irregular beats. Abdomen is soft, nondistended, nontender. No guarding, no rebound is appreciated. Incisions are clean and dry. DAMARIS has serosanguineous. Urine is clear. IMPRESSION/PLAN: The patient still has some ongoing issues at this point and I am not sure she has an ileus associated with an infection that we are not picking up, and I have asked the hospitalist to see her and make some recommendations concerning further workup or recommendations. I do feel that she has an element of ileus present and I would like to keep her n.p.o. with the NG tube in place. Will see if she continues having bowel movements. We may consider proceeding with an upper GI via the NG tube to make sure that were missing a unusual but a possible small bowel obstruction. Will keep her on TPN at this point as well and although the Adin-Garvey drain has mostly serosanguineous fluid coming out, I do feel that it is reasonable to keep that in place to get the extra fluid removed from her abdomen.
--- NOTE | 2018-03-20 12:29 | REP ---
Clinical: Abdominal pain and leukocytosis. Technique: Frontal view of the chest with supine and decubitus views of the abdomen and pelvis. Findings: Frontal view of the chest suggests bibasilar atelectasis and possible interstitial edema. A nasogastric tube is identified in satisfactory position. Right PICC line with tip in the SVC. Surgical clips suggest prior left thyroidectomy and right axillary node dissection. A ureteral stent is identified in the left upper quadrant. Supine and lateral decubitus radiographs suggest ileus over small bowel obstruction although early/partial small bowel obstruction cannot definitively be excluded. No obvious free air identified. Surgical perfecto over the anterior abdominal wall consistent with recent procedure. Skeletal structures demonstrate chronic levoconvex scoliosis and degenerative changes along with bilateral hip prosthesis. Impression: 1. Bowel gas pattern is most suggestive of ileus and less likely represents early/partial small bowel obstruction. No obvious free air. Electronically Signed by Joselito Pitts MD 03/20/2018 12:21 P
[2018-03-20] MEDS: CIPROFLOXACIN 200 MG in APPROPRIATE DILUENT 1 EA IV SCH ×2 (12:48→23:31)
[2018-03-20 14:00] VITALS: BP 115/62
[2018-03-20] MEDS: FLUCONAZOLE 200 MG in APPROPRIATE DILUENT 1 EA IV SCH (14:12)
--- NOTE | 2018-03-20 15:33 | REP ---
Clinical: Leukocytosis. Comparison: 03/14/2018. Findings: Nasogastric tube courses below left hemidiaphragm. Endotracheal tube is not visualized and may represent recent extubation. Right PICC line with tip in the SVC. Cardiac silhouette is within normal limits. Perihilar and bibasilar opacities with indistinct pulmonary vasculature and cephalization suggests the possibility of pulmonary vascular congestion/interstitial edema along with bibasilar atelectasis and possible small right pleural effusion. No pneumothorax. Skeletal structures stable. Impression: Findings suggesting pulmonary vascular congestion along with bibasilar atelectasis and small right pleural effusion. Electronically Signed by Joselito Pitts MD 03/20/2018 03:24 P
[2018-03-20] MEDS ORDERED: FAT EMULSION IV 20% 500 ML IV SCH (18:00)
[2018-03-20] MEDS ORDERED: MULTIVITAMIN -ADULT INJECTION 10 ML, CR/CU/SE/MN/ZN INJ 1 ML in AMINO AC/ELECTROLYTE/DE... IV SCH (18:00)
[2018-03-20 22:00] VITALS: BP 137/64
--- NOTE | 2018-03-20 22:10 | CR ---
DATE OF CONSULTATION: 03/20/2018 SUPERVISOR PLASTICS: Dr. Aguilera PRIMARY CARE PROVIDER: Dr. Dee Dee Coronel This is a medical evaluation of Idalia Amos. The hospitalist group was asked to see Ms. Amos for postoperative evaluation. She underwent laparoscopic sigmoid colectomy with laparoscopic splenic flexure takedown and coloproctostomy for sigmoid diverticulitis with colovaginal fistula. On 03/13/2018, prior to the procedure she had ureteral stents placed by urology. Since the procedure, she has had an ileus. She has a nasogastric (NG) tube in. She has been slow to progress. Her white count is persistently elevated. She is currently on total parenteral nutrition (TPN). She denies cough, wheeze, shortness of breath, fever, chills. I have reviewed her office record. Medical history is significant for atrial fibrillation, hypertensive heart disease, history of left orbital fracture July 2015, B12 deficiency, recurrent urinary tract infections, chronic obstructive pulmonary disease (COPD), peripheral arterial disease, history of right breast cancer, treated in 2005 with radiation chemotherapy, hyperlipidemia, depression, vitamin D deficiency. She had a preoperative cardiology evaluation. They note she had an echocardiogram July 2015. Ejection fraction 60%, mild left ventricular hypertrophy (LVH), aortic sclerosis with trivial aortic stenosis without aortic insufficiency, mild mitral regurgitation noted. Carotid ultrasound last done March 2017 showed 50-69% left internal carotid, less than 50% right internal carotid artery stenosis. HOME MEDICATIONS: - Eliquis 2.5 mg twice a day - metoprolol tartrate 50 mg three times a day - amlodipine 5 mg daily - atorvastatin 20 mg daily - bupropion 75 mg twice a day Some eye medications. She used to be Drisdol, but that has been discontinued. PHYSICAL EXAMINATION: She is resting comfortable in no distress. Alert, conversant, talkative. Blood pressure 101/70, pulse 69, respirations 16, 95% oxygen saturation. GENERAL APPEARANCE: Elderly female. She has a nasogastric tube in place. Fully oriented. HEENT: Otherwise unremarkable. LUNGS: A few rhonchi at the bases. Clear with coughing. HEART: Regular rate and rhythm. A 1/6 systolic ejection murmur. ABDOMEN: Soft, nontender. No masses. It is distended but did not feel particularly tender. There is no peripheral edema. LABORATORY DATA: White count 16.7, hemoglobin 11.2, platelets 181. Sodium 131, potassium 3.4, BUN 15, creatinine 0.4, glucose 95. Urine culture from a few days ago was negative. Blood sugars have been normal. IMPRESSION: 1. Leukocytosis, now postoperative day #7. Is currently on aggressive antibiotic therapy with intravenous Cipro, Flagyl, and fluconazole. CT done yesterday showed no abscess. Urine culture was unremarkable. I will order a posterior-anterior (PA) and lateral chest x-ray. I have ordered blood cultures. Consideration should be given to repeat a CT scan if leukocytosis persists. 2. Atrial fibrillation. Her rate is controlled. She is currently not anticoagulated. Her rate is controlled with metoprolol, for which she has hold parameters. 3. Hyperlipidemia, stable on her current dose of atorvastatin. 4. Depression, stable on current dose of Wellbutrin 75 mg twice a day. 5. Hypertension. I would recommend that we stop the amlodipine. Pressures are a little soft at times, and it is preventing them from giving the metoprolol that she will need to control her heart rate.
[2018-03-21] MEDS: HumaLOG INSULIN (NovoLOG) PER UNIT SC SCH ×4 (00:40→18:00)
[2018-03-21] MEDS: metroNIDAZOLE 250 MG in APPROPRIATE DILUENT 1 EA IV SCH ×3 (05:31→21:52)
[2018-03-21 05:56] LABS: BASO # 0.1 10^3/uL (0.0-0.2); BASO % 0.4 % (0.0-1.0); EOS # 0.4 10^3/uL (0.0-0.50); EOS % 2.2 % (0.0-3.0); HEMATOCRIT 33.8 % (36.0-47.0); HEMOGLOBIN 11.4 g/dl (12.0-15.5); LYMPH # 1.7 10^3/uL (1.5-4.5); LYMPH % 10.4 % (24.0-44.0); MEAN CORPUSCULAR HEMOGLOBIN 31.6 pg (27.0-33.0); MEAN CORPUSCULAR HGB CONC 33.7 g/dl (32.0-36.5); MEAN CORPUSCULAR VOLUME 93.6 fl (80.0-96.0); MONO # 1.9 10^3/uL (0.0-0.8); MONO % 11.7 % (0.0-5.0); NEUTROPHILS # 11.7 10^3/uL (1.8-7.7); PLATELET COUNT, AUTOMATED 194 10^3/uL (150-450); RED BLOOD COUNT 3.61 10^6/uL (4.00-5.40); WHITE BLOOD COUNT 15.9 10^3/uL (4.0-10.0)
[2018-03-21 06:00] VITALS: BP 102/72
[2018-03-21 06:26] LABS: ALBUMIN 2.1 GM/DL (3.2-5.2); ALT/SGPT 8 U/L (12-78); BILIRUBIN,TOTAL 0.2 MG/DL (0.2-1.0); BLOOD UREA NITROGEN 18 MG/DL (7-18); CALCIUM LEVEL 8.3 MG/DL (8.8-10.2); CARBON DIOXIDE LEVEL 28 MEQ/L (21-32); CHLORIDE LEVEL 94 MEQ/L (98-107); CREATININE FOR GFR 0.44 MG/DL (0.55-1.30); GLOMERULAR FILTRATION RATE > 60.0 (>39); GLUCOSE, FASTING 93 MG/DL (70-100); POTASSIUM SERUM 3.4 MEQ/L (3.5-5.1); SODIUM LEVEL 131 MEQ/L (136-145); TOTAL PROTEIN 6.1 GM/DL (6.4-8.2)
[2018-03-21] MEDS: SODIUM CHLORIDE 0.9% INJ 10 ML SYR IV SCH ×2 (07:09→17:46)
[2018-03-21] MEDS: ATORVASTATIN 20 MG TAB PO SCH (09:03)
[2018-03-21] MEDS: LACTOBACILLUS ACIDOPHILUS CAP (BACID) PO SCH ×3 (09:03→21:51)
[2018-03-21] MEDS: DOCUSATE SODIUM 100 MG CAP PO SCH ×2 (09:04→21:52)
[2018-03-21] MEDS: METOPROLOL TART 50 MG TAB PO SCH ×3 (09:12→21:00)
[2018-03-21 09:14] VITALS: BP 98/60
[2018-03-21] MEDS: buPROPion 75 MG TAB PO SCH ×2 (09:14→21:52)
[2018-03-21] MEDS: NS 1,000 ML IV SCH (11:29)
[2018-03-21] MEDS: CIPROFLOXACIN 200 MG in APPROPRIATE DILUENT 1 EA IV SCH ×2 (11:29→23:32)
--- NOTE | 2018-03-21 13:18 | IPNPDOC ---
Text Note Date of Service The patient was seen on 03/21/18. NOTE No acute events overnight. Denies nausea, emesis, fevers, or pains. She had 2 BMs, but her NGT output is still high. VSSAF UOP - 2605 NGT - 1850 BM - 2 NAD abd - soft, nt, nd, incisons c/d/i labs - below wbc - 16.7>15.9 A) 77y/o female s/p lap sigmoid resection with colovaginal fistula repair post-op ileus P) tpn replace electrolytes ambulate monitor NGT output consider repeat imaging in the next 48 hours if no improvement Juan Stokes DO VS,Fishbone, I+O VS, Fishbone, I+O Laboratory Tests 03/21/18 05:38 Red Blood Count 3.61 L, Mean Corpuscular Volume 93.6, Mean Corpuscular Hemoglobin 31.6, Mean Corpuscular Hemoglobin Concent 33.7, Red Cell Distribution Width 13.0, Neutrophils (%) (Auto) 74.0 H, Lymphocytes (%) (Auto) 10.4 L, Monocytes (%) (Auto) 11.7 H, Eosinophils (%) (Auto) 2.2, Basophils (%) (Auto) 0.4, Neutrophils # (Auto) 11.7 H, Lymphocytes # (Auto) 1.7, Monocytes # (Auto) 1.9 H, Eosinophils # (Auto) 0.4, Basophils # (Auto) 0.1, Calcium Level 8.3 L, Aspartate Amino Transf (AST/SGOT) 18, Alanine Aminotransferase (ALT/SGPT) 8 L, Alkaline Phosphatase 70, Total Bilirubin 0.2, Total Protein 6.1 L, Albumin 2.1 L Vital Signs Date Time Temp Pulse Resp B/P (MAP) Pulse Ox O2 Delivery O2 Flow Rate FiO2 03/21/18 09:14 101 98/60 (73) 03/21/18 06:00 97.2 16 98 Room Air I&O- Last 24 Hours up to 6 AM 03/21/18 06:00 Intake Total 2825 ml Output Total 4530 ml Balance -1705 ml ROBERT STOKES DO Mar 21, 2018 13:17
[2018-03-21] MEDS: FLUCONAZOLE 200 MG in APPROPRIATE DILUENT 1 EA IV SCH (13:35)
[2018-03-21 14:00] VITALS: BP 110/72
[2018-03-21] MEDS ORDERED: SCOPOLAMINE 1MG TRANSDERMAL PATCH TOP PRN (16:15)
[2018-03-21] MEDS ORDERED: FAT EMULSION IV 20% 500 ML IV SCH (18:00)
[2018-03-21] MEDS ORDERED: AMINO AC/ELECTROLYTE/DEX/CALC 2,000 ML IV SCH (18:00)
[2018-03-21 20:00] VITALS: BP 110/57
[2018-03-22] MEDS: HumaLOG INSULIN (NovoLOG) PER UNIT SC SCH ×5 (00:33→23:57)
[2018-03-22] MEDS: metroNIDAZOLE 250 MG in APPROPRIATE DILUENT 1 EA IV SCH ×3 (04:13→20:33)
[2018-03-22] MEDS: SODIUM CHLORIDE 0.9% INJ 10 ML SYR IV SCH ×2 (05:02→18:00)
[2018-03-22 06:00] VITALS: BP 93/66
[2018-03-22 06:45] LABS: BASO # 0.1 10^3/uL (0.0-0.2); BASO % 0.5 % (0.0-1.0); EOS # 0.2 10^3/uL (0.0-0.50); EOS % 0.9 % (0.0-3.0); HEMATOCRIT 32.4 % (36.0-47.0); HEMOGLOBIN 10.9 g/dl (12.0-15.5); LYMPH # 1.2 10^3/uL (1.5-4.5); LYMPH % 7.1 % (24.0-44.0); MEAN CORPUSCULAR HEMOGLOBIN 31.4 pg (27.0-33.0); MEAN CORPUSCULAR HGB CONC 33.6 g/dl (32.0-36.5); MEAN CORPUSCULAR VOLUME 93.4 fl (80.0-96.0); MONO % 11.4 % (0.0-5.0); NEUTROPHILS # 13.7 10^3/uL (1.8-7.7); NEUTROPHILS % 78.7 % (36.0-66.0); PLATELET COUNT, AUTOMATED 180 10^3/uL (150-450); RED BLOOD COUNT 3.47 10^6/uL (4.00-5.40); WHITE BLOOD COUNT 17.5 10^3/uL (4.0-10.0)
[2018-03-22 07:04] LABS: ALT/SGPT 10 U/L (12-78); BILIRUBIN,TOTAL 0.3 MG/DL (0.2-1.0); BLOOD UREA NITROGEN 18 MG/DL (7-18); CALCIUM LEVEL 7.8 MG/DL (8.8-10.2); CARBON DIOXIDE LEVEL 28 MEQ/L (21-32); CHLORIDE LEVEL 96 MEQ/L (98-107); CREATININE FOR GFR 0.44 MG/DL (0.55-1.30); GLOMERULAR FILTRATION RATE > 60.0 (>39); GLUCOSE, FASTING 108 MG/DL (70-100); POTASSIUM SERUM 3.2 MEQ/L (3.5-5.1); SODIUM LEVEL 133 MEQ/L (136-145); TOTAL PROTEIN 5.9 GM/DL (6.4-8.2)
[2018-03-22 07:42] VITALS: BP 101/70
[2018-03-22] MEDS: LACTOBACILLUS ACIDOPHILUS CAP (BACID) PO SCH ×3 (08:26→20:34)
[2018-03-22] MEDS: buPROPion 75 MG TAB PO SCH ×2 (08:27→20:35)
[2018-03-22] MEDS: NS 1,000 ML IV SCH ×2 (08:27→20:35)
[2018-03-22] MEDS: ATORVASTATIN 20 MG TAB PO SCH (08:27)
[2018-03-22] MEDS: DOCUSATE SODIUM 100 MG CAP PO SCH ×2 (08:27→20:34)
[2018-03-22] MEDS: METOPROLOL TART 50 MG TAB PO SCH ×3 (08:27→20:34)
[2018-03-22] MEDS: CIPROFLOXACIN 200 MG in APPROPRIATE DILUENT 1 EA IV SCH ×2 (11:00→23:03)
--- NOTE | 2018-03-22 11:13 | IPNPDOC ---
Text Note Date of Service The patient was seen on 03/22/18. NOTE No acute events overnight. She feels much better today. We had to add scopol amine patches last night due to high oral secretions, but they are much improved this am. Denies nausea, emesis, fevers, or pains. She had 2 BMs, but her NGT output is still high and brown. VSSAF UOP - 1325 NGT - 900 BM - 2 NAD abd - soft, nt, slightly distended, incisons c/d/i labs - below wbc - 16.7>15.9>17.5 A) 77y/o female s/p lap sigmoid resection with colovaginal fistula repair post-op ileus P) tpn replace electrolytes ambulate monitor NGT output consider UGI in the am if no improvement today Juan Stokes DO VS,Fishbone, I+O VS, Fishbone, I+O Laboratory Tests 03/22/18 06:30 Red Blood Count 3.47 L, Mean Corpuscular Volume 93.4, Mean Corpuscular Hemoglobin 31.4, Mean Corpuscular Hemoglobin Concent 33.6, Red Cell Distribution Width 13.3, Neutrophils (%) (Auto) 78.7 H, Lymphocytes (%) (Auto) 7.1 L, Monocytes (%) (Auto) 11.4 H, Eosinophils (%) (Auto) 0.9, Basophils (%) (Auto) 0.5, Neutrophils # (Auto) 13.7 H, Lymphocytes # (Auto) 1.2 L, Monocytes # (Auto) 2.0 H, Eosinophils # (Auto) 0.2, Basophils # (Auto) 0.1, Calcium Level 7.8 L, Aspartate Amino Transf (AST/SGOT) 18, Alanine Aminotransferase (ALT/SGPT) 10 L, Alkaline Phosphatase 83, Total Bilirubin 0.3, Total Protein 5.9 L, Albumin 2.0 L Vital Signs Date Time Temp Pulse Resp B/P (MAP) Pulse Ox O2 Delivery O2 Flow Rate FiO2 03/22/18 08:27 110 101/70 03/22/18 07:42 99.1 18 95 03/21/18 20:00 Room Air I&O- Last 24 Hours up to 6 AM 03/22/18 06:00 Intake Total 1835 ml Output Total 1775 ml Balance 60 ml ROBERT STOKES DO Mar 22, 2018 11:13
[2018-03-22] MEDS: FLUCONAZOLE 200 MG in APPROPRIATE DILUENT 1 EA IV SCH (12:43)
[2018-03-22 14:00] VITALS: BP 147/86
[2018-03-22] MEDS: ACETAMINOPHEN TAB 650MG DOSE (2X325MG) PO PRN ×2 (14:47→20:34)
[2018-03-22] MEDS ORDERED: POTASSIUM CHLORIDE IV SCH (18:00)
[2018-03-22] MEDS ORDERED: ELECTROLYTE IV SCH (18:00)
[2018-03-22] MEDS ORDERED: CALC IV SCH (18:00)
[2018-03-22] MEDS ORDERED: DEX IV SCH (18:00)
[2018-03-22] MEDS ORDERED: AMINO AC IV SCH (18:00)
[2018-03-22] MEDS ORDERED: FAT EMULSION IV 20% 500 ML IV SCH (18:00)
[2018-03-22 22:00] VITALS: BP 149/97
[2018-03-23] MEDS: metroNIDAZOLE 250 MG in APPROPRIATE DILUENT 1 EA IV SCH ×3 (05:41→21:46)
[2018-03-23] MEDS: HumaLOG INSULIN (NovoLOG) PER UNIT SC SCH ×3 (05:41→18:09)
[2018-03-23] MEDS: SODIUM CHLORIDE 0.9% INJ 10 ML SYR IV SCH ×2 (05:43→17:43)
[2018-03-23 06:00] VITALS: BP 105/79
[2018-03-23 06:10] LABS: BASO # 0.1 10^3/uL (0.0-0.2); BASO % 0.5 % (0.0-1.0); EOS # 0.2 10^3/uL (0.0-0.50); HEMATOCRIT 32.3 % (36.0-47.0); HEMOGLOBIN 10.8 g/dl (12.0-15.5); LYMPH # 1.3 10^3/uL (1.5-4.5); LYMPH % 6.9 % (24.0-44.0); MEAN CORPUSCULAR HEMOGLOBIN 30.6 pg (27.0-33.0); MEAN CORPUSCULAR HGB CONC 33.4 g/dl (32.0-36.5); MEAN CORPUSCULAR VOLUME 91.5 fl (80.0-96.0); MONO % 10.7 % (0.0-5.0); NEUTROPHILS # 15.4 10^3/uL (1.8-7.7); PLATELET COUNT, AUTOMATED 191 10^3/uL (150-450); RED BLOOD COUNT 3.53 10^6/uL (4.00-5.40); WHITE BLOOD COUNT 19.2 10^3/uL (4.0-10.0)
[2018-03-23 06:31] LABS: ALBUMIN 2.1 GM/DL (3.2-5.2); ALT/SGPT 11 U/L (12-78); BILIRUBIN,TOTAL 0.3 MG/DL (0.2-1.0); BLOOD UREA NITROGEN 16 MG/DL (7-18); CALCIUM LEVEL 7.8 MG/DL (8.8-10.2); CARBON DIOXIDE LEVEL 26 MEQ/L (21-32); CHLORIDE LEVEL 96 MEQ/L (98-107); GLOMERULAR FILTRATION RATE > 60.0 (>39); GLUCOSE, FASTING 115 MG/DL (70-100); POTASSIUM SERUM 3.1 MEQ/L (3.5-5.1); SODIUM LEVEL 132 MEQ/L (136-145)
[2018-03-23 06:46] LABS: MONO # 2.1 10^3/uL (0.0-0.8)
[2018-03-23 09:09] VITALS: BP 150/94
[2018-03-23] MEDS: NS 1,000 ML IV SCH (09:21)
--- NOTE | 2018-03-23 09:58 | IPNPDOC ---
Text Note Date of Service The patient was seen on 03/23/18. NOTE No acute events overnight. She feels much better today except for the increase in cough and sputum production. Denies nausea, emesis, fevers, or pains. She had 3 BMs, but her NGT output is still high and brown. I spoke with radiology today, and they won't be able to do a SBFT until wed. VSSAF UOP - 950 NGT - 400 BM - 3 NAD abd - soft, nt, slightly distended, incisons c/d/i labs - below wbc - 16.7>15.9>17.5>19.2 A) 77y/o female s/p lap sigmoid resection with colovaginal fistula repair post-op ileus P) tpn replace electrolytes ambulate monitor NGT output consider UGI wed if no improvement Juan Stokes DO VS,Fishbone, I+O VS, Fishbone, I+O Laboratory Tests 03/23/18 05:41 Red Blood Count 3.53 L, Mean Corpuscular Volume 91.5, Mean Corpuscular Hemoglobin 30.6, Mean Corpuscular Hemoglobin Concent 33.4, Red Cell Distribution Width 13.2, Neutrophils (%) (Auto) 80.0 H, Lymphocytes (%) (Auto) 6.9 L, Monocytes (%) (Auto) 10.7 H, Eosinophils (%) (Auto) 1.0, Basophils (%) (Auto) 0.5, Neutrophils # (Auto) 15.4 H, Lymphocytes # (Auto) 1.3 L, Monocytes # (Auto) 2.1 H, Eosinophils # (Auto) 0.2, Basophils # (Auto) 0.1, Calcium Level 7.8 L, Aspartate Amino Transf (AST/SGOT) 19, Alanine Aminotransferase (ALT/SGPT) 11 L, Alkaline Phosphatase 94, Total Bilirubin 0.3, Total Protein 6.0 L, Albumin 2.1 L Vital Signs Date Time Temp Pulse Resp B/P (MAP) Pulse Ox O2 Delivery O2 Flow Rate FiO2 03/23/18 09:09 110 150/94 (112) 03/23/18 06:00 98.6 19 95 Room Air I&O- Last 24 Hours up to 6 AM 03/23/18 06:00 Intake Total 2660 ml Output Total 1675 ml Balance 985 ml ROBERT STOKES DO Mar 23, 2018 09:57
[2018-03-23] MEDS: ATORVASTATIN 20 MG TAB PO SCH (10:19)
[2018-03-23] MEDS: METOPROLOL TART 50 MG TAB PO SCH ×3 (10:20→21:45)
[2018-03-23] MEDS: DOCUSATE SODIUM 100 MG CAP PO SCH ×2 (10:21→21:45)
[2018-03-23] MEDS: LACTOBACILLUS ACIDOPHILUS CAP (BACID) PO SCH ×3 (10:21→21:44)
[2018-03-23] MEDS: buPROPion 75 MG TAB PO SCH ×2 (10:21→21:45)
[2018-03-23] MEDS: SODIUM CHLORIDE 0.9% INJ 10 ML SYR IV PRN (10:34)
--- NOTE | 2018-03-23 10:38 | REP ---
Clinical: Cough. Comparison: 03/12/2018. Findings: Nasogastric tube extends below left hemidiaphragm. Right PICC line with tip in the SVC. Mediastinum and cardiac silhouette are normal. Lung benitez demonstrate chronic changes with subtle bibasilar opacities suggesting atelectasis and possible small right pleural effusion. Impression: 1. Chronic changes. 2. Bibasilar atelectasis and possible small right pleural effusion. No significant change from prior examination. Electronically Signed by Joselito Pitts MD 03/23/2018 10:30 A
[2018-03-23] MEDS: CIPROFLOXACIN 200 MG in APPROPRIATE DILUENT 1 EA IV SCH ×2 (10:50→22:55)
[2018-03-23] MEDS: FLUCONAZOLE 200 MG in APPROPRIATE DILUENT 1 EA IV SCH (13:07)
[2018-03-23 14:00] VITALS: BP 148/75
[2018-03-23] MEDS ORDERED: [UNRECOGNIZED DRUG - MIXTURE] IV SCH ×4 (18:00)
[2018-03-23] MEDS ORDERED: FAT EMULSION IV 20% 500 ML IV SCH (18:00)
[2018-03-23] MEDS: ACETAMINOPHEN TAB 650MG DOSE (2X325MG) PO PRN (21:47)
[2018-03-23 22:00] VITALS: BP 132/65
[2018-03-24] VITALS (7 sets, daily range): BP systolic 113–148; BP diastolic 60–99
[2018-03-24] MEDS: HumaLOG INSULIN (NovoLOG) PER UNIT SC SCH ×4 (00:37→18:10)
[2018-03-24] MEDS: metroNIDAZOLE 250 MG in APPROPRIATE DILUENT 1 EA IV SCH ×3 (05:59→21:29)
[2018-03-24] MEDS: SODIUM CHLORIDE 0.9% INJ 10 ML SYR IV SCH ×2 (05:59→18:00)
[2018-03-24 06:36] LABS: BASO # 0.1 10^3/uL (0.0-0.2); BASO % 0.4 % (0.0-1.0); EOS # 0.3 10^3/uL (0.0-0.50); EOS % 1.7 % (0.0-3.0); HEMATOCRIT 31.3 % (36.0-47.0); HEMOGLOBIN 10.6 g/dl (12.0-15.5); LYMPH # 1.3 10^3/uL (1.5-4.5); LYMPH % 7.7 % (24.0-44.0); MEAN CORPUSCULAR HEMOGLOBIN 31.4 pg (27.0-33.0); MEAN CORPUSCULAR HGB CONC 33.9 g/dl (32.0-36.5); MEAN CORPUSCULAR VOLUME 92.6 fl (80.0-96.0); MONO % 12.6 % (0.0-5.0); NEUTROPHILS # 12.8 10^3/uL (1.8-7.7); NEUTROPHILS % 76.3 % (36.0-66.0); PLATELET COUNT, AUTOMATED 188 10^3/uL (150-450); RED BLOOD COUNT 3.38 10^6/uL (4.00-5.40); WHITE BLOOD COUNT 16.8 10^3/uL (4.0-10.0)
[2018-03-24 07:05] LABS: ALT/SGPT 11 U/L (12-78); BILIRUBIN,TOTAL 0.3 MG/DL (0.2-1.0); BLOOD UREA NITROGEN 21 MG/DL (7-18); CARBON DIOXIDE LEVEL 30 MEQ/L (21-32); CHLORIDE LEVEL 94 MEQ/L (98-107); CREATININE FOR GFR 0.38 MG/DL (0.55-1.30); GLOMERULAR FILTRATION RATE > 60.0 (>39); GLUCOSE, FASTING 103 MG/DL (70-100); POTASSIUM SERUM 3.4 MEQ/L (3.5-5.1); SODIUM LEVEL 131 MEQ/L (136-145); TOTAL PROTEIN 5.8 GM/DL (6.4-8.2)
[2018-03-24 07:09] LABS: MONO # 2.1 10^3/uL (0.0-0.8)
--- NOTE | 2018-03-24 09:48 | IPNPDOC ---
Text Note Date of Service The patient was seen on 03/24/18. NOTE No acute events overnight. She is having increased confusion every day, and had to be placed in mitts last night to prevent her from removing the NGT. Denies nausea, emesis, fevers, or pains. She had 1 BM yesterday, and then has been incontinent since. VSSAF UOP - 1500 NGT - 740 BM - 1 NAD abd - soft, nt, slightly distended, incisons c/d/i labs - below wbc - 16.7>15.9>17.5>19.2>16.8 A) 77y/o female s/p lap sigmoid resection with colovaginal fistula repair post-op ileus P) tpn ambulate monitor NGT output consider UGI tomorrow Juan Stokes DO VS,Klaudia, I+O VS, Klaudia, I+O Laboratory Tests 03/24/18 06:21 Red Blood Count 3.38 L, Mean Corpuscular Volume 92.6, Mean Corpuscular Hemoglobin 31.4, Mean Corpuscular Hemoglobin Concent 33.9, Red Cell Distribution Width 13.2, Neutrophils (%) (Auto) 76.3 H, Lymphocytes (%) (Auto) 7.7 L, Monocytes (%) (Auto) 12.6 H, Eosinophils (%) (Auto) 1.7, Basophils (%) (Auto) 0.4, Neutrophils # (Auto) 12.8 H, Lymphocytes # (Auto) 1.3 L, Monocytes # (Auto) 2.1 H, Eosinophils # (Auto) 0.3, Basophils # (Auto) 0.1, Calcium Level 8.0 L, Aspartate Amino Transf (AST/SGOT) 25, Alanine Aminotransferase (ALT/SGPT) 11 L, Alkaline Phosphatase 90, Total Bilirubin 0.3, Total Protein 5.8 L, Albumin 2.0 L Vital Signs Date Time Temp Pulse Resp B/P (MAP) Pulse Ox O2 Delivery O2 Flow Rate FiO2 03/24/18 06:00 97.2 93 18 113/81 (92) 98 Room Air I&O- Last 24 Hours up to 6 AM 03/24/18 06:00 Intake Total 3460 ml Output Total 3265 ml Balance 195 ml ROBERT STOKES DO Mar 24, 2018 09:48
[2018-03-24] MEDS: buPROPion 75 MG TAB PO SCH ×2 (10:01→22:36)
[2018-03-24] MEDS: ATORVASTATIN 20 MG TAB PO SCH (10:01)
[2018-03-24] MEDS: LACTOBACILLUS ACIDOPHILUS CAP (BACID) PO SCH ×3 (10:01→22:35)
[2018-03-24] MEDS: DOCUSATE SODIUM 100 MG CAP PO SCH (10:01)
[2018-03-24] MEDS: METOPROLOL TART 50 MG TAB PO SCH (10:02)
[2018-03-24] MEDS: CIPROFLOXACIN 200 MG in APPROPRIATE DILUENT 1 EA IV SCH ×2 (11:30→23:27)
[2018-03-24] MEDS: FLUCONAZOLE 200 MG in APPROPRIATE DILUENT 1 EA IV SCH (12:44)
[2018-03-24] MEDS ORDERED: ISOVUE-370 76% 100ML VIAL (Q9967) As Ordered ONE (15:37)
--- NOTE | 2018-03-24 16:36 | REP ---
Clinical: Cough. Technique: Axial contrast enhanced images from the thoracic inlet to the upper abdomen with coronal and sagittal re-formations. Comparison: 11/11/2017. Findings: The lung benitez demonstrate diffuse chronic interstitial changes with scattered subpleural fibrosis and moderate bronchiectasis. Trace right basilar atelectasis noted. No focal consolidation. No effusion or pneumothorax. Tracheobronchial tree is patent. Mediastinum demonstrates cardiomegaly along with atherosclerotic changes to the thoracic aorta and coronary arteries. No pericardial effusion. No significant adenopathy. Nasogastric tube identified within the esophagus into the stomach. Surrounding musculoskeletal structures demonstrate age-related degenerative changes. Impression: 1. Trace right basilar atelectasis. 2. Chronic atherosclerotic changes and cardiomegaly. 3. Chronic interstitial changes with scattered subpleural fibrosis and moderate bronchiectasis. Electronically Signed by Joselito Pitts MD 03/24/2018 04:27 P
--- NOTE | 2018-03-24 16:43 | REP ---
Clinical: Altered mental status. Abdominal pain. Technique: Axial contrast enhanced images from the lung bases to the pubic symphysis using 100 ml Isovue 370 intravenous contrast material with coronal and sagittal re-formations. Note: Examination is severely limited due to significant motion artifact. Comparison: 03/19/2018 Findings: Lung bases demonstrate mild right basilar atelectasis. Nasogastric tube identified extending into the stomach. Liver, spleen, pancreas, gallbladder, bilateral adrenal glands and right kidney are relatively normal / stable. Splenic calcifications are consistent with prior granulomas disease and unchanged. The left kidney demonstrates atrophic changes and ureteral stent extending to the bladder. Evaluation of the enteric system is severely limited due to the above mentioned motion artifact. Fluid-filled loops of bowel suggest the possibility of enterocolitis. No definite findings of obstruction. Pelvis is limited in evaluation due to metallic streak artifact. Bladder and uterus are grossly within normal limits and stable. Evidence for resection and anastomoses at the sigmoid level. No free air. No ascites. No obvious adenopathy. Atherosclerotic changes to the aorta and vasculature noted without aneurysm or dissection. Musculoskeletal structures demonstrate extensive degenerative changes along with bilateral hip prostheses. Impression: 1. Fluid-filled loops of bowel are identified but further evaluation is significantly limited due to motion artifact. Differential diagnosis would include ileus as well as enterocolitis and less likely obstruction. Correlation is recommended. 2. Minimal right basilar atelectasis. 3. Chronic changes as described above stable compared to 03/19/2018. 4. No ascites, free air, focal inflammatory stranding, or adenopathy. Electronically Signed by Joselito Pitts MD 03/24/2018 04:35 P
--- NOTE | 2018-03-24 17:04 | IPN ---
DATE: 03/24/[address] Stokes regarding new onset altered mental status for the patient for the past two days. Unfortunately, the patient was not signed out to the provider by the previous team. Noted that there was a consultation report done by Dr. Daniel Reddy on 03/20/2018. No further documentation available. The patient seen and examined. The patient has mild slurred speech, which according to nursing staff has been new for the past two days, as well as the patient is baseline ambulatory with a cane and walker, is currently two-person maximum assist. The patient knows that she is at the hospital, knows that she is here for the abdominal surgery, is mildly a bit murky regarding why she is having the surgery. The patient denies any chest pain, pressure or discomfort. Denies any shortness of breath. Reported mild abdominal pain. Other history limited. VITAL SIGNS: Temperature 98, pulse 119, respiratory rate 18, blood pressure 123/88, pulse oximetry 94% on room air. LABORATORY DATA: WBC 16.8, hemoglobin and hematocrit 10.6/31.3, platelets 188. Chemistry: Sodium 131, potassium 3.4, chloride 94, bicarbonate 30, BUN 21, creatinine 0.38. PHYSICAL EXAMINATION: GENERAL: Patient mildly confused with mild slurred speech but seems comfortable. Nasogastric (NG) tube in place. HEENT: Normocephalic, atraumatic. NG tube in place. PULMONARY: Coarse rhonchi bilaterally. No wheeze. CARDIAC: 2/6 systolic murmur, irregularly irregular. ABDOMEN: Soft, distended, tympanic, hypoactive bowel sounds, minimal tenderness. EXTREMITIES: No clubbing, cyanosis, or edema. ASSESSMENT AND PLAN: This is a 77-year-old female patient with underlying medical history of atrial fibrillation, hypertension, dyslipidemia, degenerative disc disease, history of right breast cancer status post chemotherapy and radiation, peripheral vascular disease, chronic obstructive pulmonary disease (COPD), recurrent urinary tract infection (UTI), depression, history of hemorrhage in the retina of the right eye. The patient admitted under surgical department for colovaginal fistula, status post sigmoid, hospital course complicated with intubation, ileus, persistent leukocytosis. Hospitalist was initially consulted for leukocytosis and was reconsulted again for altered mental status. 1. Altered mental status, delirium versus cerebrovascular accident (CVA) versus metabolic encephalopathy due to underlying infection. Blood culture has been negative. Persistent leukocytosis seems to mildly improve on antibiotics. Followup urinalysis (UA), urine culture. Followup blood culture. We will get CT of the head, EEG, MRI of the brain as well as neurologic checks. Other than slurred speech, the patient has no other focal neurological deficit. We will also workup for infectious etiology with CT of the chest, abdomen and pelvis. We will get ammonia level. Continue to monitor. The patient restarted on therapeutic Lovenox for atrial fibrillation after discussion with Dr. Stokes. 2. Leukocytosis, possible reactive to surgery, on Cipro and Flagyl and Diflucan. CT of the chest with contrast as well as CT abdomen and pelvis have been ordered to rule out abscess and sources of infection. Blood culture has been negative to date. We will followup UA, urine culture. 3. Atrial fibrillation. Lopressor IV. Anticoagulation has been restarted after discussion with Dr. Stokes. We will give Lovenox for now given acute surgery. 4. Dyslipidemia. Continue statin. 5. Depression. Continue current medication. 6. Hypertension. Continue Lopressor. Monitor blood pressure. 7. Colovaginal fistula, status post sigmoid colectomy, complicated with ileus. Management as per surgery. Currently on total parenteral nutrition as well as antibiotics. Nasogastric (NG) tube to low wall suction. Supplement electrolytes. Further management as per general surgery. CT scan has been ordered. 8. Deep vein thrombosis (DVT) prophylaxis. The patient on Lovenox for atrial fibrillation. DISPOSITION: Pending clinical improvement. The patient with multiple comorbidities, poor long-term prognosis.
[2018-03-24] MEDS ORDERED: DEX IV SCH (18:00)
[2018-03-24] MEDS ORDERED: FAT EMULSION IV 20% 500 ML IV SCH (18:00)
[2018-03-24] MEDS ORDERED: POTASSIUM CHLORIDE IV SCH (18:00)
[2018-03-24] MEDS ORDERED: CALC IV SCH (18:00)
[2018-03-24] MEDS ORDERED: ELECTROLYTE IV SCH (18:00)
[2018-03-24] MEDS ORDERED: AMINO AC IV SCH (18:00)
[2018-03-24] MEDS: METOPROLOL 5 MG/5 ML VIAL IV SCH ×2 (18:07→21:41)
[2018-03-24] MEDS: ENOXAPARIN 60 MG/0.6 ML SYR (J1650) SC SCH (18:10)
[2018-03-24] MEDS ORDERED: PILL CRUSHER/CUTTER 1 EACH XX PRN (22:00)
[2018-03-24] MEDS: DOCUSATE SOD LIQ 100MG/10ML UDC NG SCH (22:35)
[2018-03-24] MEDS ORDERED: METOPROLOL 5 MG/5 ML VIAL IV STA (23:20)
[2018-03-25] VITALS (9 sets, daily range): BP systolic 112–139; BP diastolic 58–76
[2018-03-25] MEDS: HumaLOG INSULIN (NovoLOG) PER UNIT SC SCH ×5 (00:50→23:14)
[2018-03-25] MEDS: METOPROLOL 5 MG/5 ML VIAL IV SCH ×4 (03:22→21:21)
[2018-03-25] MEDS: SODIUM CHLORIDE 0.9% INJ 10 ML SYR IV PRN (04:07)
[2018-03-25] MEDS: metroNIDAZOLE 250 MG in APPROPRIATE DILUENT 1 EA IV SCH (04:15)
[2018-03-25 04:52] LABS: BASO # 0.1 10^3/uL (0.0-0.2); BASO % 0.5 % (0.0-1.0); EOS # 0.1 10^3/uL (0.0-0.50); EOS % 0.5 % (0.0-3.0); HEMATOCRIT 28.5 % (36.0-47.0); HEMOGLOBIN 9.5 g/dl (12.0-15.5); LYMPH # 1.1 10^3/uL (1.5-4.5); LYMPH % 6.3 % (24.0-44.0); MEAN CORPUSCULAR HEMOGLOBIN 30.4 pg (27.0-33.0); MEAN CORPUSCULAR HGB CONC 33.3 g/dl (32.0-36.5); MEAN CORPUSCULAR VOLUME 91.3 fl (80.0-96.0); MONO % 14.1 % (0.0-5.0); NEUTROPHILS # 13.5 10^3/uL (1.8-7.7); NEUTROPHILS % 77.8 % (36.0-66.0); PLATELET COUNT, AUTOMATED 197 10^3/uL (150-450); RED BLOOD COUNT 3.12 10^6/uL (4.00-5.40); WHITE BLOOD COUNT 17.4 10^3/uL (4.0-10.0)
[2018-03-25 05:02] LABS: ALT/SGPT 19 U/L (12-78); BILIRUBIN,TOTAL 0.4 MG/DL (0.2-1.0); BLOOD UREA NITROGEN 19 MG/DL (7-18); CALCIUM LEVEL 7.8 MG/DL (8.8-10.2); CARBON DIOXIDE LEVEL 27 MEQ/L (21-32); CHLORIDE LEVEL 96 MEQ/L (98-107); CREATININE FOR GFR 0.48 MG/DL (0.55-1.30); GLOMERULAR FILTRATION RATE > 60.0 (>39); GLUCOSE, FASTING 126 MG/DL (70-100); POTASSIUM SERUM 3.4 MEQ/L (3.5-5.1); SODIUM LEVEL 132 MEQ/L (136-145); TOTAL PROTEIN 6.4 GM/DL (6.4-8.2)
[2018-03-25 05:10] LABS: MONO # 2.5 10^3/uL (0.0-0.8)
[2018-03-25] MEDS: ENOXAPARIN 60 MG/0.6 ML SYR (J1650) SC SCH ×2 (05:26→18:22)
[2018-03-25] MEDS: SODIUM CHLORIDE 0.9% INJ 10 ML SYR IV SCH ×2 (05:27→18:22)
[2018-03-25] MEDS: MEROPENEM INJ 1 GM in APPROPRIATE DILUENT 1 EA IV SCH ×2 (07:38→16:50)
[2018-03-25] MEDS ORDERED: CHLORASEPTIC SPRAY MT PRN (08:45)
[2018-03-25] MEDS ORDERED: DIGOXIN INJ 0.5 MG/2 ML AMP (J1160) IV ONE ×2 (08:45→14:00)
[2018-03-25] MEDS: LACTOBACILLUS ACIDOPHILUS CAP (BACID) PO SCH ×3 (11:41→21:21)
[2018-03-25] MEDS: DOCUSATE SOD LIQ 100MG/10ML UDC NG SCH ×2 (11:41→21:21)
[2018-03-25] MEDS: buPROPion 75 MG TAB PO SCH ×2 (11:42→21:21)
[2018-03-25] MEDS: ATORVASTATIN 20 MG TAB PO SCH (11:42)
[2018-03-25] MEDS: FLUCONAZOLE 200 MG in APPROPRIATE DILUENT 1 EA IV SCH (13:02)
[2018-03-25] MEDS ORDERED: E-Z-PAQUE 96% w/w SUSP 176GM BTL As Ordered ONE (13:45)
[2018-03-25] MEDS ORDERED: DIGOXIN 0.125 MG TAB PO ONE ×2 (14:00)
--- NOTE | 2018-03-25 15:42 | REP ---
Upper GI small bowel follow-through study: History: Ileus versus obstruction, via NG tube. Comparison is made with CT abdomen studies, the most recent which are from March 24, 2018. Findings: Low-density barium is instilled via the NG tube. The stomach demonstrates normal rugal fold pattern and configuration. No gastric mass or ulceration is seen. Pylorus is smooth. Duodenal bulb is distensible and smooth. C-loop is unremarkable. There is a left ureteral stent. Proximal jejunal loops are mildly dilated, however, subsequent images demonstrate opacification of normal caliber and a normal appearing distal jejunal and ileal loops. The appendix is opacified and unremarkable along with the right colon. Distal ileum is normal in caliber. The right colon is reached at the 1 hour 15-minute krystle. Fluoroscopy time is 0.8 minutes. Impression: Mild dilation of the proximal jejunal loops without evidence of obstruction in the small intestine. The right colon is opacified with administered barium at the 1 hour 15-minute krystle. Electronically Signed by Dio Andrade MD 03/25/2018 06:54 P
--- NOTE | 2018-03-25 15:59 | IPNPDOC ---
Text Note Date of Service The patient was seen on 03/25/18. NOTE No acute events overnight. Mental status remained about the same. denied chest pain, abd pain. continue slurred speech PHYSICAL EXAMINATION: GENERAL: Patient mildly confused with mild slurred speech but seems comfortable. Nasogastric (NG) tube in place. HEENT: Normocephalic, atraumatic. NG tube in place. PULMONARY: Coarse rhonchi bilaterally. No wheeze. CARDIAC: 2/6 systolic murmur, irregularly irregular. ABDOMEN: Soft, distended, tympanic, hypoactive bowel sounds, minimal tenderness. EXTREMITIES: No clubbing, cyanosis, or edema. ASSESSMENT AND PLAN: This is a 77-year-old female patient with underlying medical history of atrial fibrillation, hypertension, dyslipidemia, degenerative disc disease, history of right breast cancer status post chemotherapy and radiation, peripheral vascular disease, chronic obstructive pulmonary disease (COPD), recurrent urinary tract infection (UTI), depression, history of hemorrhage in the retina of the right eye. The patient admitted under surgical department for colovaginal fistula, status post sigmoid resection, hospital course complicated with intubation, ileus, persistent leukocytosis. Hospitalist was initially consulted for leukocytosis and was reconsulted again for altered mental status. 1. Altered mental status, delirium versus cerebrovascular accident (CVA) versus metabolic encephalopathy due to underlying infection. Blood culture has been negative. possible 2/2 to UTI, f/u urine culture. Followup blood culture. ct head wnl, f/u EEG, MRI of the brain as well as neurologic checks. Other than slurred speech, the patient has no other focal neurological deficit. consulted neurology. possible 2/2 to scopoamine. medication stopped. ammonia wnl. Continue to monitor. 2. Leukocytosis, possible reactive to surgery, escalate to bhumi and Diflucan. CT of the chest with contrast as well as CT abdomen and pelvis appreciated, neg for abcess. Blood culture has been negative to date. We will followup UA, urine culture. consider ID consult 3. Atrial fibrillation. with rvr. given not tolerate oral med, Lopressor IV. dig IV added. Anticoagulation has been restarted after discussion with Dr. Stokes. We will give Lovenox for now given acute surgery. 4. Dyslipidemia. Continue statin. 5. Depression. Continue current medication. 6. Hypertension. Continue Lopressor. Monitor blood pressure. 7. Colovaginal fistula, status post sigmoid colectomy, complicated with ileus. Management as per surgery. Currently on total parenteral nutrition as well as antibiotics. Nasogastric (NG) tube to low wall suction. Supplement electrolytes. Further management as per general surgery. CT scan has been ordered. 8. Deep vein thrombosis (DVT) prophylaxis. The patient on Lovenox for atrial fibrillation. DISPOSITION: Pending clinical improvement. The patient with multiple comorbidities, poor long-term prognosis. VS,Fishbone, I+O VS, Fishbone, I+O Laboratory Tests 03/25/18 04:09 Red Blood Count 3.12 L, Mean Corpuscular Volume 91.3, Mean Corpuscular Hemoglobin 30.4, Mean Corpuscular Hemoglobin Concent 33.3, Red Cell Distribution Width 13.5, Neutrophils (%) (Auto) 77.8 H, Lymphocytes (%) (Auto) 6.3 L, Monocytes (%) (Auto) 14.1 H, Eosinophils (%) (Auto) 0.5, Basophils (%) (Auto) 0.5, Neutrophils # (Auto) 13.5 H, Lymphocytes # (Auto) 1.1 L, Monocytes # (Auto) 2.5 H, Eosinophils # (Auto) 0.1, Basophils # (Auto) 0.1, Calcium Level 7.8 L, Aspartate Amino Transf (AST/SGOT) 31, Alanine Aminotransferase (ALT/SGPT) 19, Alkaline Phosphatase 106, Total Bilirubin 0.4, Total Protein 6.4, Albumin 2.0 L Vital Signs Date Time Temp Pulse Resp B/P (MAP) Pulse Ox O2 Delivery O2 Flow Rate FiO2 03/25/18 13:03 103 03/25/18 12:16 98.6 19 118/76 (90) 92 Room Air I&O- Last 24 Hours up to 6 AM 03/25/18 06:00 Intake Total 1365 ml Output Total 450 ml Balance 915 ml MYCHAL PIERCE MD Mar 25, 2018 15:59
[2018-03-25] MEDS ORDERED: [UNRECOGNIZED DRUG - MIXTURE] IV SCH ×4 (18:00)
[2018-03-25] MEDS ORDERED: FAT EMULSION IV 20% 500 ML IV SCH (18:00)
--- NOTE | 2018-03-25 21:20 | REPVR ---
EXAM: MR Head Without Contrast EXAM DATE/TIME: 03/25/2018 8:24 PM CLINICAL HISTORY: 77 years old, female; Signs and symptoms; Speech disturbance; Aphasia; Patient HX: Best exam possible TECHNIQUE: MR of the head without contrast. COMPARISON: CT Head without contrast 03/24/2018 3:44 PM FINDINGS: Brain: On the diffusion weighting and ADC images there is a 2.5 CM by 2 CM area of bright signal intensity left occipital lobe consistent with area of acute stroke. This is low in signal on ADC. 3 mm area of bright signal intensity white matter left parietal/ occipital junction. 8 mm round area of bright signal intensity white matter at the left frontoparietal junction. 2 punctate bright areas at the left vertex. These are all areas of small acute infarct. There is moderate diffuse atrophy. IMPRESSION: 1. 2.5 CM area of acute stroke left occipital lobe. 2. Small round areas of acute ischemic change scattered throughout the white matter on the left. Electronically signed by: Bhavin Contreras On 03/25/2018 21:20:09 PM
[2018-03-26 04:00] VITALS: BP 128/70
[2018-03-26] MEDS: METOPROLOL 5 MG/5 ML VIAL IV SCH (04:14)
[2018-03-26 04:37] LABS: BASO # 0.1 10^3/uL (0.0-0.2); BASO % 0.5 % (0.0-1.0); EOS # 0.1 10^3/uL (0.0-0.50); EOS % 0.5 % (0.0-3.0); HEMOGLOBIN 9.1 g/dl (12.0-15.5); LYMPH # 0.9 10^3/uL (1.5-4.5); LYMPH % 6.6 % (24.0-44.0); MEAN CORPUSCULAR HEMOGLOBIN 33.6 pg (27.0-33.0); MEAN CORPUSCULAR HGB CONC 33.7 g/dl (32.0-36.5); MEAN CORPUSCULAR VOLUME 99.6 fl (80.0-96.0); MONO # 1.8 10^3/uL (0.0-0.8); MONO % 13.4 % (0.0-5.0); NEUTROPHILS # 10.6 10^3/uL (1.8-7.7); PLATELET COUNT, AUTOMATED 176 10^3/uL (150-450); RED BLOOD COUNT 2.71 10^6/uL (4.00-5.40); WHITE BLOOD COUNT 13.6 10^3/uL (4.0-10.0)
[2018-03-26] MEDS: HumaLOG INSULIN (NovoLOG) PER UNIT SC SCH ×2 (05:25→12:00)
[2018-03-26] MEDS: SODIUM CHLORIDE 0.9% INJ 10 ML SYR IV SCH ×2 (05:26→17:36)
[2018-03-26] MEDS: ENOXAPARIN 60 MG/0.6 ML SYR (J1650) SC SCH ×2 (05:26→17:35)
[2018-03-26 07:19] LABS: ALBUMIN 1.8 GM/DL (3.2-5.2); ALT/SGPT 13 U/L (12-78); BILIRUBIN,TOTAL 0.3 MG/DL (0.2-1.0); BLOOD UREA NITROGEN 18 MG/DL (7-18); CALCIUM LEVEL 7.5 MG/DL (8.8-10.2); CARBON DIOXIDE LEVEL 24 MEQ/L (21-32); CHLORIDE LEVEL 98 MEQ/L (98-107); CREATININE FOR GFR 0.42 MG/DL (0.55-1.30); GLOMERULAR FILTRATION RATE > 60.0 (>39); GLUCOSE, FASTING 116 MG/DL (70-100); MAGNESIUM LEVEL 1.9 MG/DL (1.8-2.4); POTASSIUM SERUM 3.5 MEQ/L (3.5-5.1); SODIUM LEVEL 132 MEQ/L (136-145); TOTAL PROTEIN 5.4 GM/DL (6.4-8.2)
--- NOTE | 2018-03-26 07:39 | REP ---
Clinical: Altered mental status. Comparison: 10/26/2017 . Findings: Age-related atrophy and microvascular ischemic changes are appreciated. The ventricles and sulci are symmetric. Hooper-white differentiation is maintained. There is no evidence for acute intracranial hemorrhage, mass/mass effect, pathology or infarction. No extra-axial fluid collection. Calvarium is intact. Paranasal sinuses and mastoid air cells are clear. Impression: Age related atrophy and microvascular ischemic changes. No acute intracranial hemorrhage, infarction, or mass/mass effect. Electronically Signed by Joselito Pitts MD 03/24/2018 04:04 P
[2018-03-26 08:00] VITALS: BP 138/67
[2018-03-26] MEDS: MEROPENEM INJ 1 GM in APPROPRIATE DILUENT 1 EA IV SCH ×4 (08:31→16:58)
[2018-03-26] MEDS: SODIUM CHLORIDE 0.9% INJ 10 ML SYR IV PRN ×5 (08:32→18:38)
[2018-03-26] MEDS: DIGOXIN INJ 0.5 MG/2 ML AMP (J1160) IV SCH (08:32)
[2018-03-26] MEDS: LACTOBACILLUS ACIDOPHILUS CAP (BACID) PO SCH ×3 (08:32→19:48)
[2018-03-26] MEDS: buPROPion 75 MG TAB PO SCH ×2 (08:32→19:48)
[2018-03-26] MEDS: ATORVASTATIN 20 MG TAB PO SCH (08:32)
[2018-03-26] MEDS ORDERED: DIGOXIN 0.125 MG TAB PO SCH (09:00)
[2018-03-26] MEDS: DOCUSATE SOD LIQ 100MG/10ML UDC NG SCH (09:00)
--- NOTE | 2018-03-26 09:07 | CR ---
DATE OF CONSULTATION: 03/26/2018 REFERRING PROVIDER: Dr. Meenakshi Aguilera. REASON FOR CONSULTATION: Altered mental status, Oksana Amos is a 77-year-old female who was admitted to [facility] after having vaginal discharge with evidence of a colovaginal fistula that was operated on. The patient was given a scopolamine patch and was noted soon after to have confusion. This scopolamine patch was discontinued. Head CT completed revealed small vessel ischemic disease, age-related atrophy. The patient did eventually have an MRI showing several acute infarctions, specifically the left occipital lobe. The patient was taken off of her Eliquis for her atrial fibrillation prior to surgery. The patient has since resume Eliquis. At the present time cardiac embolic stroke would likely the source of the patient's multiple strokes. Eliquis will be maintained at this point in time. Recommend MR angiogram head and neck and echocardiogram to be completed. Continue telemetry monitoring. The patient herself is quite lethargic and sleepy. She did not sleep well through the night prior it seems due to multiple tests to be done. The patient denies any headache at the present time. She does fall asleep easily. Upon interviewing the patient, the patient is able to wake up. She is stable to state her name, the correct month and the correct date. The patient was unaware of the correct year. The patient also has some difficulty following commands as she becomes tired. She is able to move her arms and legs equally and demonstrates reasonable strength in her arms. She does not participate in leg testing. Extraocular movements appear to be intact. There does appear to be some slight dysarthria. REVIEW OF SYSTEMS: 14-point review of systems of obtained and is negative except as per history of present illness (HPI). PAST MEDICAL HISTORY: Coronary artery disease. Congestive heart failure. History of hypercholesterolemia. Breast cancer. Vitamin D deficiency. Atrial fibrillation on Eliquis. History of carotid stenosis status post carotid endarterectomy. Hip replacement. History of right breast lumpectomy given chemoradiation. History of loop recorder placement. MEDICATIONS: - Tylenol - amlodipine - atorvastatin - bupropion - Eliquis - metoprolol - PreserVision SOCIAL HISTORY: The patient does not use any tobacco, alcohol or illicit drugs. FAMILY HISTORY: Noncontributory. ALLERGIES: NO know drug allergies. PHYSICAL EXAMINATION: Blood pressure 118/76, pulse rate is 120, respiratory rate is 19, temperature is 98.6 degrees Fahrenheit, oxygenation 92% on room air. The patient is awake, alert, oriented to person, place, however, not the correct year. Mild dysarthria is noted, aphasia is not present. Pupils appear to be reactive to light. Extraocular movements appear to be intact in all directions. Tongue appears midline. There does not appear to be facial asymmetry on activation. Sensation V1, V2, V3 is intact to light touch. Hearing is equal to finger rub. There does not appear to be pronator drift. The patient demonstrates [id number] without any gross ataxia. Strength testing the upper extremity appears adequate 5/5 distally. The patient has a poor time cooperating she has become quite tired. She does move all four extremities equally. Deep tendon reflexes are 2s throughout with reduced reflexes distally. Gait deferred. ASSESSMENT: 1. 77-year-old female status post colovaginal fistula repair, presenting with altered mental status thought to be secondary to scopolamine patch. The patient is experiencing some mild acute delirium. MRI suggests evidence of multiple embolic strokes, likely due to the patient's underlying atrial fibrillation. Agree with re-continuation of Eliquis. Continue telemetry monitoring physical therapy (PT), occupational therapy (OT) evaluation, echocardiogram, continue statin, 2. Obtain MR angiogram head and carotid ultrasound of neck:
[2018-03-26] MEDS ORDERED: PROHANCE 279.3MG/ML 15ML VIAL (A9576) As Ordered ONE (09:59)
[2018-03-26] MEDS ORDERED: PROHANCE 279.3MG/ML 5ML VIAL (A9576) As Ordered ONE (10:00)
--- NOTE | 2018-03-26 10:06 | EEG ---
DATE OF PROCEDURE: 03/25/2018 REFERRING PHYSICIAN: Dr. Shreyas Ogden DIAGNOSIS: Altered mental status. EEG #: 19 - 300 HISTORY: The patient is a 77-year-old woman who was admitted at [facility] due to altered mental status. The patient has mild slurred speech. This electroencephalogram (EEG) was done to rule out epileptic potential and assess degree of encephalopathy. She is currently on ciprofloxacin, Flagyl, fluconazole, meropenem, Wellbutrin, metoprolol, insulin etc. TECHNICAL DESCRIPTION: This digital EEG was recorded by 21 scalp ear and two electrocardiogram (EKG) electrodes and was reviewed in bipolar and referential montages following reformatting in 10-20 international electrode placement system. INTERPRETATION: The patient was noted to be in awake and drowsy states during this EEG. Resting awake background rhythm consisted of 6-7 Hz theta activity measuring 15-40 microvolts in amplitude. Background rhythm was symmetric bilaterally. The patient became drowsy, but no sleep was achieved. Hyperventilation could not be performed. Photic stimulation remained unremarkable. EKG revealed normal sinus rhythm. No focal, lateralizing or epileptiform abnormalities were seen. No relevant clinical activity was noted. CONCLUSION: This EEG in awake and drowsy states is abnormal due to presence of mild generalized slowing and disorganization of background consistent with nonspecific diffuse cerebral dysfunction such as seen in encephalopathy due to multiple potential causes including toxic, metabolic, infectious, medication related, or multifocal structural brain abnormalities. No epileptiform abnormalities were seen. Clinical correlation is recommended.
--- NOTE | 2018-03-26 10:49 | IPN ---
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 The question is whether the mental status changes were related to a scopolamine patch and whether these were older strokes. It is hard to know at this point but in any case, if she resolves her sedation issues it may just be the previous abnormalities. In any case from my standpoint and from a gastrointestinal (GI) standpoint, she has had no residuals from her nasogastric (NG) tube in place. She does sound a little bit more rhonchorous today than she was previously. I am wondering if she has a lot of secretions that she is unable to tolerate because of this NG tube in place. Will get rid of the NG tube. Start her on some clear liquids and medicine will have speech pathology come by to evaluate her to see if she does need some thickened liquids. But when she wakes up, she is much more awake. I will continue her on some total parenteral nutrition (TPN) for right now, anticipating that she may be a few days before we truly get her up to speed with diet. But she is definitely more awake then she was yesterday and I anticipate this is probably mostly related to scopolamine patch issues. Her daughter was there today and discussed my GI issues with her and she understands and will see how things go and appreciate medicine and neurology input at this point.
--- NOTE | 2018-03-26 10:49 | IPN ---
DATE: 03/25/2018 Patient overall has had this high output nasogastric (NG) tube and unfortunately at this point it is hard to know if she has an ileus or obstruction. The CAT scan performed suggested a partial ileus but I would like to make sure with an upper GI with small-bowel follow-through and we will see what that shows. She has been having bowel movements but really yesterday did not have any suggesting that there is some partial obstruction or ileus associated with this. In any case, I do feel that it is necessary to proceed with an upper GI. We will see what this shows and if it shows good flow through the small-bowel, no evidence of obstruction, then we will clamp her NG tube overnight and then possibly discontinue tomorrow. Otherwise, her abdomen is soft, nontender, nondistended. No guarding. No rebound. No peritoneal signs are appreciated. Her white count is still elevated at 17.4. However, she has been afebrile. IMPRESSION PLAN: Patient has gastrointestinal issues as above. Will get this upper GI with small-bowel follow-through and as stated, if it shows no obstruction will clamp her tube and recheck things in the morning, possibly discontinue it if she has no significant obstruction. If it does show an obstruction, then we will keep her nothing by mouth and NG tube, and have to consider operative intervention if true obstruction is appreciated. Otherwise, from an elevated white count standpoint, I am not sure if this is an inflammatory process or infectious at this point without an elevated white count and a persistent elevated white count that has been relatively stable for awhile, then I do feel that we may have infectious disease (ID) see her for additional recommendations. I have discussed this with the hospitalist who said they will contact ID if they feel that is necessary.
--- NOTE | 2018-03-26 11:30 | REP ---
MRA BRAIN WITHOUT CONTRAST: HISTORY: Infarction. 3D [id number] MR angiography was performed at the level of the [place] of [place]. There is no aneurysm or arteriovenous malformation. Mild atherosclerotic disease involves the vertical petrous, cavernous, and supraclinoid internal carotid arteries, left middle cerebral artery trifurcation and proximal basilar artery. There is loss of the normal hyperintense signal in the left vertebral artery at the C1-2 level. There is reconstitution of flow in the distal left vertebral artery due to retrograde collateral flow from the right vertebral artery. Major intracranial vessels are patent. The right vertebral artery is dominant. IMPRESSION: 1. There is no aneurysm or arteriovenous malformation. 2. Atherosclerotic disease as described above. Electronically Signed by Dandy Plascencia MD 03/26/2018 11:34 A
--- NOTE | 2018-03-26 11:50 | REP ---
MRA CAROTIDS WITHOUT AND WITH CONTRAST: HISTORY: Infarction. Unenhanced 2D and 3D [id number] MR angiography were performed at the level of the carotid bifurcations. The examinations are limited secondary to motion. There is mild stenosis of 40% of the right internal carotid artery at its origin. There is mild stenosis of 5% of the right external carotid artery at its origin. There is severe stenosis of 70% of the distal left common carotid artery immediately proximal to the left carotid bifurcation. There is moderate stenosis of 55% of the left internal carotid artery at its origin. There is mild stenosis of 45% of the left external carotid artery at its origin. There is occlusion of the left vertebral artery at its origin. The right vertebral artery is patent. IMPRESSION: 1. Mild stenosis of 40% of the right internal carotid artery at its origin. 2. Severe stenosis of 70% of the distal left common carotid artery immediately proximal to the left carotid bifurcation. 3. Moderate stenosis of 55% of the left internal carotid artery at its origin. Electronically Signed by Dandy Plascencia MD 03/26/2018 11:54 A
[2018-03-26 12:00] VITALS: BP 128/80
[2018-03-26] MEDS: FLUCONAZOLE 200 MG in APPROPRIATE DILUENT 1 EA IV SCH (13:01)
--- NOTE | 2018-03-26 15:17 | NUR ---
Pt presents with mild oropharyngeal phase dysphagia. Pt is not able to insert her top denture and is not used to eating without them. Mild decrease in palatal elevation on the right side. Recommend: Thin liquids. If appropriate to MD with regards to GI difficulties, puree solids would be safest solid at this time. Addendum: 03/26/18 at 1522 by KEMAR MARTINI SP Amended: Links added.
[2018-03-26 16:00] VITALS: BP 115/64
[2018-03-26] MEDS: predniSONE 20 MG TAB PO SCH (18:18)
[2018-03-26] MEDS ORDERED: DEXTROSE 50% 50 ML SYRINGE IV STA (18:22)
[2018-03-26] MEDS ORDERED: DEXTROSE 50% 50 ML SYRINGE As Ordered ONE (18:26)
[2018-03-26] MEDS: ACETAMINOPHEN TAB 650MG DOSE (2X325MG) PO PRN (19:48)
--- NOTE | 2018-03-26 19:58 | IPNPDOC ---
Text Note Date of Service The patient was seen on 03/26/18. NOTE No acute events overnight. Mental status improved. conversational. denied chest pain, abd pain. continue slurred speech PHYSICAL EXAMINATION: GENERAL: Patient mildly confused with mild slurred speech but seems comfortable. HEENT: Normocephalic, atraumatic. PULMONARY: Coarse rhonchi bilaterally. No wheeze. CARDIAC: 2/6 systolic murmur, irregularly irregular. ABDOMEN: Soft, NT hypoactive bs EXTREMITIES: No clubbing, cyanosis, or edema. ASSESSMENT AND PLAN: This is a 77-year-old female patient with underlying medical history of atrial fibrillation, hypertension, dyslipidemia, degenerative disc disease, history of right breast cancer status post chemotherapy and radiation, peripheral vascular disease, chronic obstructive pulmonary disease (COPD), recurrent urinary tract infection (UTI), depression, history of hemorrhage in the retina of the right eye. The patient admitted under surgical department for colovaginal fistula, status post sigmoid resection, hospital course complicated with intubation, ileus, persistent leukocytosis. Hospitalist was initially consulted for leukocytosis and was reconsulted again for altered mental status. 1. Altered mental status, delirium and acute cerebrovascular accident (CVA) and metabolic encephalopathy. Blood culture has been negative. possible 2/2 to UTI, f/u urine culture. Followup blood culture. ct head wnl, EEG showed encephalopathy, MRI of the brain showed cva, MRA and TTE ordered. neurologic checks. consulted neurology. possible 2/2 to scopoamine. medication stopped. c/w lovenox 2. Leukocytosis, possible reactive to surgery, possible 2/2 to gout, consulted ID stopped bhumi and Diflucan. workup for infection neg to date including CT and cultures Blood culture has been negative to date.ID rec appreciated. prednisone and f/u URIC acid 3. Atrial fibrillation. with rvr. given not tolerate oral med, dig IV added. Anticoagulation has been restarted after discussion with Dr. Stokes. We will give Lovenox give concerns for oral absorption. switch to PO lopressor and eliquis once tolerating PO 4. Dyslipidemia. Continue statin. 5. Depression. Continue current medication. 6. Hypertension. Continue Lopressor. Monitor blood pressure. 7. Colovaginal fistula, status post sigmoid colectomy, complicated with ileus. Management as per surgery. Currently off TPN, NGt stopped. clear liquid Further management as per general surgery. 8. hypoglycemia, fs Q2hr, 1/2 D50 given f/u glucose consider d5w iv if persi sted. likely 2/2 to residual insulin in TPN 9. Deep vein thrombosis (DVT) prophylaxis. The patient on Lovenox for atrial fibrillation. DISPOSITION: Pending clinical improvement. The patient with multiple comorbidities, poor long-term prognosis. PT VS,Fishbone, I+O VS, Fishbone, I+O Laboratory Tests 03/26/18 04:21 Red Blood Count 2.71 L, Mean Corpuscular Volume 99.6 H, Mean Corpuscular Hemoglobin 33.6 H, Mean Corpuscular Hemoglobin Concent 33.7, Red Cell Distribution Width 14.7 H, Neutrophils (%) (Auto) 78.0 H, Lymphocytes (%) (Auto) 6.6 L, Monocytes (%) (Auto) 13.4 H, Eosinophils (%) (Auto) 0.5, Basophils (%) (Auto) 0.5, Neutrophils # (Auto) 10.6 H, Lymphocytes # (Auto) 0.9 L, Monocytes # (Auto) 1.8 H, Eosinophils # (Auto) 0.1, Basophils # (Auto) 0.1 03/26/18 05:47 Calcium Level 7.5 L, Aspartate Amino Transf (AST/SGOT) 24, Alanine Aminotransferase (ALT/SGPT) 13, Alkaline Phosphatase 90, Total Bilirubin 0.3, Total Protein 5.4 L, Albumin 1.8 L Vital Signs Date Time Temp Pulse Resp B/P (MAP) Pulse Ox O2 Delivery O2 Flow Rate FiO2 03/26/18 16:00 100.1 109 20 115/64 (81) 96 Room Air l I&O- Last 24 Hours up to 6 AM 03/26/18 05:59 Intake Total 2815 ml Output Total 500 ml Balance 2315 ml MYCHAL PIERCE MD Mar 26, 2018 19:58
[2018-03-26 20:00] VITALS: BP 118/58
--- NOTE | 2018-03-26 23:22 | CR ---
DATE OF INFECTIOUS DISEASE CONSULTATION: REFERRING PHYSICIAN: Shreyas Ogden MD, Meenakshi Aguilera MD REASON FOR CONSULTATION: Evaluation of fever in a patient who just underwent a sigmoid colectomy for chronic diverticulitis with evidence of a colovaginal fistula. The patient was diagnosed with diverticulitis in September of 2017. She then developed a colovaginal fistula and had persistent vaginal drainage which progressively got worse. She was scheduled for elective admission on 03/[address] scan revealed persistence of sigmoid diverticulitis with an intermesenteric phlegmon and possible hydronephrosis on the left side. She had no fever or chills on admission. She had chronic vaginal discharge. The patient lives at [facility] and mostly is sedentary. She was taken to the operating room on 03/13 was given preoperatively IV ertapenem one time dose and then started on Zosyn which she received from 03/13 to 03/16. On a she was switched to IV fluconazole, ciprofloxacin and Flagyl. She received this combination for 10 days. The patient then had a fever on March 24, a temperature of 100. On the she has a temperature of 103 and therefore the hospitalist was consulted and she was switched to meropenem. The Cipro and Flagyl were discontinued. The patient also had some mental status changes and had a brain MRI without contrast on March 26 and was found to have a 2.5 cm acute stroke of the left occipital area. Because of the fever, she had a CT abdomen and pelvis and chest done which showed no ascites. No adenopathy. No free air and no evidence of infection. CT chest showed bibasilar atelectasis with chronic interstitial changes, moderate bronchiectasis. Today, the patient has fever and her only real complaint is being fatigued and having some foot pain. PAST MEDICAL HISTORY: Significant for coronary artery disease, congestive heart failure, hypercholesteremia, breast cancer, vitamin D deficiency, atrial fibrillation, carotid artery stenosis. History of depression. PAST SURGICAL HISTORY: Carotid endarterectomy, hip replacement, right breast lumpectomy with status post chemotherapy and radiation, loop recorder and recent sigmoid colectomy and repair of fistula. MEDICATIONS - Digoxin 0.125 IV daily - TPN will be discontinued today - meropenem 1 gram IV every 8 hours - fluconazole 200 mg IV daily - Lovenox 60 mg subcu every 12 hours - Zofran 4 mg IV every 6 hours - Reglan as needed - Tylenol as needed - Lipitor 20 mg by mouth daily - Bupropion 75 mg by mouth twice a day ALLERGIES NO KNOWN DRUG ALLERGIES. LABORATORY DATA White count on admission was 16.4 and has remained elevated throughout this admission with the highest white count being 19.2 and today was 13.6 which is the lowest white count in the past 10 days. Hemoglobin 9.1, hematocrit 27, platelets 176, 78% neutrophils, 6% lymphocytes, 13% monocytes. Sodium 132, potassium 3.5, chloride 98, bicarb 24, BUN 18, creatinine 0.42, glucose 116, calcium 7.5, CRP 18.9 which has increased from 15.6 yesterday, total protein 5.4, albumin 1.8. Urinalysis had too numerous to count white cells, +1 esterase. Urine culture on admission had no growth. Blood cultures on 03/20 were negative, on 03/25 were negative and urine culture on 03/25 clean catch shows no growth. No aneurysm or AV malformation on MRA. MRI showed a 2.5 cm acute left occipital stroke. Carotid MRI shows severe stenosis of the left common carotid 70% and 55% of the left internal carotid artery. Upper GI with small bowel follow through done on 03/25 shows mild dilatation of the proximal jejunal loops without evidence of obstruction. The right colon is opacified with barium. CT abdomen and pelvis done on 03/24 shows fluid filled loops of bowel, possible ileus or colitis. This likely obstruction, minimal atelectasis. No ascites or abscess. CT chest showed chronic interstitial changes with scattered pleural fibrosis and moderate bronchiectasis done on 03/24. PHYSICAL EXAMINATION: Temperature is 101 this morning. Currently 100.1, pulse 109, respirations 20, blood pressure 150/64, O2 sat 96% on room air. Healthy-looking elderly female in no distress. Heart: Normal S1, S2, irregularly irregular. Systolic ejection murmur 2/6. Lungs: Few exterior rhonchi at the bases. No wheezes or rales. Abdomen: Soft, nontender. No hepatosplenomegaly. Extremities: No clubbing, cyanosis or edema. Left foot dorsal aspect of the foot is erythematous, tender to touch. There is joint effusion. She is able to move her ankle and her toes. Neck is supple with no adenopathy. Neurologic exam: Alert and oriented times three. She has good [id number]. Motor strength upper extremity and lower extremity are normal. IMPRESSION This is a 77-year-old female admitted for sigmoid colectomy due to chronic infection and colovaginal fistula. IV antibiotics for at least 2 weeks. Initially a combination of Zosyn followed by Cipro, Flagyl, fluconazole and now on meropenem. The patient started spiking a fever in the past couple of days. She also has evidence of a swollen erythematous left foot which could be a crystal induced arthropathy as the cause of fever. The fever also could be related to the acute occipital stroke. I do not see any evidence of infection at this time. She does not have increased cough. Chest x-ray has no infiltrate. Urinalysis is abnormal, but probably related to the colovaginal fistula but her urine cultures have been negative. She has been on many courses of antibiotics and at this point I doubt her white count and elevated CRP are infectious in origin. PLAN Discontinue all antibiotics including IV meropenem, fluconazole. Started prednisone 20 mg by mouth daily for 3-5 days. Monitor foot swelling and erythema. Hold off on any antibiotics. Repeat blood cultures if the patient has a fever. If patient has increased cough or fever also obtain chest x-ray, PA and lateral tomorrow. TPN will be discontinued. If fever persists, consider removing PICC line as well. Case has been discussed with Dr. Shreyas Ogden who has agreed on plan of treatment.
[2018-03-26 23:59] VITALS: BP 109/62
[2018-03-27 04:00] VITALS: BP 109/61
[2018-03-27] MEDS: SODIUM CHLORIDE 0.9% INJ 10 ML SYR IV PRN ×3 (04:04→12:30)
[2018-03-27] MEDS: SODIUM CHLORIDE 0.9% INJ 10 ML SYR IV SCH ×2 (04:04→18:00)
[2018-03-27 04:27] LABS: BASO % 0.2 % (0.0-1.0); EOS % 0.1 % (0.0-3.0); HEMATOCRIT 27.7 % (36.0-47.0); HEMOGLOBIN 8.9 g/dl (12.0-15.5); LYMPH # 0.9 10^3/uL (1.5-4.5); LYMPH % 7.3 % (24.0-44.0); MEAN CORPUSCULAR HEMOGLOBIN 29.9 pg (27.0-33.0); MEAN CORPUSCULAR HGB CONC 32.1 g/dl (32.0-36.5); MONO % 8.1 % (0.0-5.0); NEUTROPHILS # 9.8 10^3/uL (1.8-7.7); NEUTROPHILS % 83.3 % (36.0-66.0); PLATELET COUNT, AUTOMATED 186 10^3/uL (150-450); RED BLOOD COUNT 2.98 10^6/uL (4.00-5.40); WHITE BLOOD COUNT 11.8 10^3/uL (4.0-10.0)
[2018-03-27 04:52] LABS: ALBUMIN 1.6 GM/DL (3.2-5.2); ALT/SGPT 14 U/L (12-78); BILIRUBIN,TOTAL 0.3 MG/DL (0.2-1.0); BLOOD UREA NITROGEN 17 MG/DL (7-18); CALCIUM LEVEL 7.9 MG/DL (8.8-10.2); CARBON DIOXIDE LEVEL 26 MEQ/L (21-32); CHLORIDE LEVEL 99 MEQ/L (98-107); CREATININE FOR GFR 0.42 MG/DL (0.55-1.30); GLOMERULAR FILTRATION RATE > 60.0 (>39); GLUCOSE, FASTING 114 MG/DL (70-100); SODIUM LEVEL 132 MEQ/L (136-145); TOTAL PROTEIN 5.9 GM/DL (6.4-8.2); URIC ACID 2.7 MG/DL (2.6-6.0)
[2018-03-27] MEDS: ENOXAPARIN 60 MG/0.6 ML SYR (J1650) SC SCH (05:36)
[2018-03-27 08:00] VITALS: BP 97/67
[2018-03-27] MEDS: buPROPion 75 MG TAB PO SCH ×2 (10:20→21:00)
[2018-03-27] MEDS: predniSONE 20 MG TAB PO SCH (10:20)
[2018-03-27] MEDS: ATORVASTATIN 20 MG TAB PO SCH (10:20)
[2018-03-27] MEDS: LACTOBACILLUS ACIDOPHILUS CAP (BACID) PO SCH ×3 (10:20→20:59)
[2018-03-27] MEDS: DIGOXIN INJ 0.5 MG/2 ML AMP (J1160) IV SCH (10:21)
[2018-03-27] MEDS ORDERED: FUROSEMIDE 40 MG/4 ML VIAL (J1940) IV ONE (11:15)
--- NOTE | 2018-03-27 11:26 | IPN ---
DATE: 03/27/2018 Mrs. Amos is doing well. She is in a good mood today. She has no nausea, vomiting or diarrhea. No abdominal pain. No cough or shortness of breath. Her major concern today is that her dentures are not fitting and she would like to have them in so she could eat. On physical exam, temperature is 98.3, pulse 99, respirations 18, blood pressure 97/67, and O2 sat 93% on room air. Heart: Normal S1 and S2. Irregularly irregular with a grade 2 systolic ejection murmur. Lungs: Few crackles at the right base. No wheezes or rhonchi. Abdomen is soft, nontender. No hepatosplenomegaly. Bowel sounds are present. [place] in place, healing well. No purulent drainage. Extremities: No clubbing or cyanosis. Left foot has swelling on the dorsal aspect of the foot, medially with redness and tenderness. Ankle with normal range of motion. LABS: White count 11.8, hemoglobin 8.9, hematocrit 27.7, platelets 186, 83% neutrophils, 7% lymphocytes, 8% monocytes. Sodium 132, potassium 4, chloride 99, bicarb 26, BUN 17, creatinine 0.42, glucose 140, uric acid 2.7, calcium 7.9. Liver profile normal. CRP 15.5. Blood cultures two sets from 03/25/2018 no growth after 48 hours. Urine culture no growth. IMPRESSION: 1. Status post sigmoid colectomy due to chronic infection and colovaginal fistula. The patient has been on IV antibiotics for a total of 2 weeks with no evidence of residual infection. IV antibiotics have been discontinued on 03/26/2018. 2. Left foot swelling and erythema, possibly related to crystal induced arthropathy. Uric acid is normal. The patient has been given prednisone 20 mg daily with some improvement in symptoms today. Please treat for 3-5 days until symptoms improve. 3. History of congestive heart failure and atrial fibrillation. The patient has had a 10 kg weight gain since hospitalization. She complains of swollen gums and difficulty placing her dentures. Consider giving her a small dose of Lasix. PLAN: The case discussed with Dr. Aguilera who agrees with the plan to keep off antibiotics and prednisone for 3-5 days at 20 mg dose.
[2018-03-27 12:00] VITALS: BP 122/68
--- NOTE | 2018-03-27 15:32 | NUR ---
Upgrade to Level 2 solids recommended. Upright in chair for meals with frequent checks. Addendum: 03/27/18 at 1534 by KEMAR DEVRIES [facility] SP Amended: Links added.
[2018-03-27 16:00] VITALS: BP 121/80
[2018-03-27] MEDS: METOPROLOL TART 50 MG TAB PO SCH ×2 (16:40→20:59)
--- NOTE | 2018-03-27 19:40 | IPNPDOC ---
Text Note Date of Service The patient was seen on 03/27/18. NOTE No acute events overnight. Mental status improved. conversational. denied chest pain, abd pain. tolerating liquid diet PHYSICAL EXAMINATION: GENERAL: comfortable, NAD. HEENT: Normocephalic, atraumatic. PULMONARY: Coarse rhonchi bilaterally. No wheeze. CARDIAC: 2/6 systolic murmur, irregularly irregular. ABDOMEN: Soft, NT hypoactive bs EXTREMITIES: No clubbing, cyanosis, or edema. ASSESSMENT AND PLAN: This is a 77-year-old female patient with underlying medical history of atrial fibrillation, hypertension, dyslipidemia, degenerative disc disease, history of right breast cancer status post chemotherapy and radiation, peripheral vascular disease, chronic obstructive pulmonary disease (COPD), recurrent urinary tract infection (UTI), depression, history of hemorrhage in t he retina of the right eye. The patient admitted under surgical department for colovaginal fistula, status post sigmoid resection, hospital course complicated with intubation, ileus, persistent leukocytosis. Hospitalist was initially consulted for leukocytosis and was reconsulted again for altered mental status. 1. Altered mental status, delirium and acute cerebrovascular accident (CVA) and metabolic encephalopathy. Blood culture has been negative. ct head wnl, EEG showed encephalopathy, MRI of the brain showed cva, MRA and TTE. consulted neurology. possible 2/[address] opped. Eliquis restarted 2. Acute CVA MRA, MRI, TTE, neurology consulted. 2/2 to afib, embolic in nature, Ac restarted. on Elquis tele. neuro checks 3. Leukocytosis, possible reactive to surgery, possible 2/2 gout, consulted ID stopped bhumi and Diflucan. workup for infection neg to date including CT and cultures Blood culture has been negative to date.ID rec appreciated. possible gout started prednisone and f/u URIC acid, improving 4. Atrial fibrillation. with rvr. givgiven tolerating oral. switch to PO lopressor and eliquis 5. Dyslipidemia. Continue statin. 6. Depression. Continue current medication. 7. Hypertension. Continue Lopressor. Monitor blood pressure. 8. Colovaginal fistula, status post sigmoid colectomy, complicated with ileus. Management as per surgery. diet advance to soft 9. hypoglycemia, resolved 10. Deep vein thrombosis (DVT) prophylaxis. The patient on Lovenox for atrial fibrillation. DISPOSITION: Pending clinical improvement. PT VS,Fishbone, I+O VS, Fishbone, I+O Laboratory Tests 03/27/18 04:17 Red Blood Count 2.98 L, Mean Corpuscular Volume 93.0, Mean Corpuscular Hemoglobin 29.9, Mean Corpuscular Hemoglobin Concent 32.1, Red Cell Distribution Width 14.1, Neutrophils (%) (Auto) 83.3 H, Lymphocytes (%) (Auto) 7.3 L, Monocytes (%) (Auto) 8.1 H, Eosinophils (%) (Auto) 0.1, Basophils (%) (Auto) 0.2, Neutrophils # (Auto) 9.8 H, Lymphocytes # (Auto) 0.9 L, Monocytes # (Auto) 1.0 H, Eosinophils # (Auto) 0.0, Basophils # (Auto) 0.0 03/27/18 04:18 Calcium Level 7.9 L, Aspartate Amino Transf (AST/SGOT) 20, Alanine Aminotransferase (ALT/SGPT) 14, Alkaline Phosphatase 84, Total Bilirubin 0.3, Uric Acid 2.7, Total Protein 5.9 L, Albumin 1.6 L Vital Signs Date Time Temp Pulse Resp B/P (MAP) Pulse Ox O2 Delivery O2 Flow Rate FiO2 03/27/18 16:40 105 120/81 03/27/18 16:00 97.2 21 94 Room Air 03/27/18 05:00 1.0 I&O- Last 24 Hours up to 6 AM 03/27/18 06:00 Intake Total 180 ml Output Total 200 ml Balance -20 ml MYCHAL PIERCE MD Mar 27, 2018 19:40
[2018-03-27 20:00] VITALS: BP 115/68
[2018-03-27] MEDS: APIXABAN 2.5 MG TAB (ELIQUIS) PO SCH (20:59)
[2018-03-28] VITALS: BP 127/74
[2018-03-28 04:00] VITALS: BP 139/73
[2018-03-28] MEDS: SODIUM CHLORIDE 0.9% INJ 10 ML SYR IV SCH ×2 (05:13→18:00)
[2018-03-28 05:44] LABS: C REACTIVE PROTEIN QUANTITATIV 8.61 MG/DL (0.00-0.30)
[2018-03-28 07:38] VITALS: BP 141/82
[2018-03-28 08:09] LABS: BLOOD UREA NITROGEN 23 MG/DL (7-18); CALCIUM LEVEL 7.5 MG/DL (8.8-10.2); CARBON DIOXIDE LEVEL 24 MEQ/L (21-32); CHLORIDE LEVEL 100 MEQ/L (98-107); CREATININE FOR GFR 0.45 MG/DL (0.55-1.30); GLOMERULAR FILTRATION RATE > 60.0 (>39); GLUCOSE, FASTING 73 MG/DL (70-100); POTASSIUM SERUM 3.7 MEQ/L (3.5-5.1); SODIUM LEVEL 134 MEQ/L (136-145)
[2018-03-28] MEDS: LACTOBACILLUS ACIDOPHILUS CAP (BACID) PO SCH ×3 (08:18→21:18)
[2018-03-28] MEDS: APIXABAN 2.5 MG TAB (ELIQUIS) PO SCH ×2 (08:18→21:19)
[2018-03-28] MEDS: ATORVASTATIN 20 MG TAB PO SCH (08:18)
[2018-03-28] MEDS: buPROPion 75 MG TAB PO SCH ×2 (08:18→21:18)
[2018-03-28] MEDS: METOPROLOL TART 50 MG TAB PO SCH ×3 (08:18→21:19)
[2018-03-28] MEDS: predniSONE 20 MG TAB PO SCH (08:18)
[2018-03-28] MEDS: SODIUM CHLORIDE 0.9% INJ 10 ML SYR IV PRN (08:19)
[2018-03-28 08:44] LABS: HEMOGLOBIN 9.8 g/dl (12.0-15.5); MEAN CORPUSCULAR HEMOGLOBIN 30.2 pg (27.0-33.0); MEAN CORPUSCULAR HGB CONC 32.7 g/dl (32.0-36.5); MEAN CORPUSCULAR VOLUME 92.6 fl (80.0-96.0); PLATELET COUNT, AUTOMATED 252 10^3/uL (150-450); RED BLOOD COUNT 3.24 10^6/uL (4.00-5.40); WHITE BLOOD COUNT 9.7 10^3/uL (4.0-10.0)
[2018-03-28] MEDS: ACETAMINOPHEN TAB 650MG DOSE (2X325MG) PO PRN ×2 (11:13→21:18)
[2018-03-28 12:00] VITALS: BP 106/73
[2018-03-28] MEDS ORDERED: FUROSEMIDE 20 MG/2 ML VIAL (J1940) IV ONE (13:30)
--- NOTE | 2018-03-28 14:22 | ECHO ---
DATE OF PROCEDURE: 03/26/2017 DATE OF : 1940 AGE: 77 REFERRING PROVIDER: Dr. Aguilera PATIENT LOCATION: Room 3223. REASON FOR THE ECHOCARDIOGRAM: CVA. 2D MEASUREMENTS: IVS: 1.2 cm LV: 4.3 cm LVPW: 1.2 cm LA: 4.2 cm Aorta: 2.2 cm IVC: 1.4 cm DOPPLER MEASUREMENTS: Peak velocity across the aortic valve: 2.9 m/s Peak velocity across the LVOT: 1.0 m/s Mitral E: 1.1 Maximum tricuspid valve velocity: 3.0 m/s 2D COMMENTS: 1. Normal left ventricular size, wall thickness, and normal global left ventricular systolic function. The estimated global left ventricular systolic ejection fraction is 60-65%. 2. Mildly enlarged left atrium. Normal right atrium and right ventricle. 3. The atrial septum appeared to be normal without evidence of defect or shunt. 4. Normal aortic root. 5. No pericardial effusion seen. 6. Calcified aortic valve with decrease in leaflet excursion. Mildly calcified mitral annulus with normal anterior mitral valve leaflet motion. Normal tricuspid valve and pulmonic valve. The proximal pulmonary artery branches were not well visualized. 7. The inferior vena cava was normal in size at 1.4 cm, central venous pressure is most likely normal. . DOPPLER: It detects mild aortic regurgitation, mild to moderate mitral regurgitation, mild tricuspid regurgitation. The calculated pulmonary artery systolic pressure varies between 40-50 mmHg. Assessment of the left ventricular diastolic function was limited in view of the underlying atrial fibrillation. IMPRESSION: 1. Normal global left ventricular systolic function. Assessment of the left ventricular diastolic function was limited in view of the underlying cardiac arrhythmias. 2. Aortic valve sclerosis with mild aortic regurgitation and mild to moderate aortic stenosis. The peak velocity across the aortic valve was 2.9 m/s. This was compared with the last echocardiogram on 07/26/2015, the peak velocity across the aortic valve was 2.0 m/s. 3. Mitral annulus calcification with mild to moderate mitral regurgitation and mildly enlarged left atrium. 4. Mild tricuspid regurgitation with probably moderate pulmonary hypertension.
--- NOTE | 2018-03-28 14:30 | REP ---
LEFT FOOT, FOUR VIEWS: HISTORY: Swelling. There is no acute fracture or dislocation. There is narrowing of the tarsal and tarsometatarsal joint spaces. The bony structure is osteopenic. IMPRESSION: Degenerative change, as described above. Electronically Signed by Dandy Plascencia MD 03/28/2018 02:43 P
[2018-03-28 16:00] VITALS: BP 140/77
--- NOTE | 2018-03-28 16:52 | IPNPDOC ---
Text Note Date of Service The patient was seen on 03/28/18. NOTE No acute events overnight. Mental status improved. conversational. denied chest pain, abd pain. tolerating diet. PHYSICAL EXAMINATION: GENERAL: comfortable, NAD. HEENT: Normocephalic, atraumatic. PULMONARY: Coarse rhonchi bilaterally. No wheeze. CARDIAC: 2/6 systolic murmur, irregularly irregular. ABDOMEN: Soft, NT hypoactive bs EXTREMITIES: No clubbing, cyanosis, or edema. ASSESSMENT AND PLAN: This is a 77-year-old female patient with underlying medical history of atrial fibrillation, hypertension, dyslipidemia, degenerative disc disease, history of right breast cancer status post chemotherapy and radiation, peripheral vascular disease, chronic obstructive pulmonary disease (COPD), recurrent urinary tract infection (UTI), depression, history of hemorrhage in the retina of the right eye. The patient admitted under surgical department for colovaginal fistula, status post sigmoid resection, hospital course complicated with intubation, ileus, persistent leukocytosis. Hospitalist was initially consulted for leukocytosis and was reconsulted again for altered mental status. 1. Altered mental status, multi-factorial delirium and acute cerebrovascular accident (CVA) and metabolic encephalopathy and medical induced. Blood culture has been negative. ct head wnl, EEG showed encephalopathy, MRI of the brain showed cva, MRA and TTE. consulted neurology. possible 2/2 to scopoamine. medication stopped, mental status improved after med stopped. Eliquis restarted 2. Acute CVA MRA, MRI, TTE, neurology consulted. 2/2 to afib, embolic in nature, Ac restarted. on Elquis tele. neuro checks 3. Leukocytosis, possible reactive to surgery, possible 2/2 gout, consulted ID stopped bhumi and Diflucan. workup for infection neg to date including CT and cultures Blood culture has been negative to date.ID rec appreciated. possible gout started prednisone and URIC acid, improving 4. Atrial fibrillation. with rvr. given tolerating oral. switch to PO lopressor and eliquis 5. Dyslipidemia. Continue statin. 6. Depression. Continue current medication. 7. Hypertension. Continue Lopressor. Monitor blood pressure. 8. Colovaginal fistula, status post sigmoid colectomy, complicated with ileus. Management as per surgery. diet advance to soft 9. hypoglycemia, resolved 10 Gout left foor, prednisone crp improved. 11. Deep vein thrombosis (DVT) prophylaxis. The patient on Lovenox for atrial fibrillation. DISPOSITION: Pending clinical improvement. PT, dc in 2-3 days to STR likely VS,Fishbone, I+O VS, Fishbone, I+O Laboratory Tests 03/28/18 05:14 Calcium Level 7.5 L 03/28/18 08:26 Red Blood Count 3.24 L, Mean Corpuscular Volume 92.6, Mean Corpuscular Hemoglobin 30.2, Mean Corpuscular Hemoglobin Concent 32.7, Red Cell Distribution Width 14.2 Vital Signs Date Time Temp Pulse Resp B/P (MAP) Pulse Ox O2 Delivery O2 Flow Rate FiO2 03/28/18 16:33 76 139/76 03/28/18 12:00 98.3 18 96 Room Air 03/27/18 05:00 1.0 I&O- Last 24 Hours up to 6 AM 03/28/18 06:00 Intake Total 1580 ml Output Total 800 ml Balance 780 ml MYCHAL PIERCE MD Mar 28, 2018 16:52
[2018-03-28 20:00] VITALS: BP 126/83
[2018-03-29 02:00] VITALS: BP 115/64
[2018-03-29] MEDS: SODIUM CHLORIDE 0.9% INJ 10 ML SYR IV SCH ×2 (05:09→17:15)
[2018-03-29 05:48] LABS: BASO % 0.4 % (0.0-1.0); EOS # 0.1 10^3/uL (0.0-0.50); EOS % 1.3 % (0.0-3.0); HEMATOCRIT 28.8 % (36.0-47.0); HEMOGLOBIN 9.4 g/dl (12.0-15.5); LYMPH # 1.7 10^3/uL (1.5-4.5); LYMPH % 22.6 % (24.0-44.0); MEAN CORPUSCULAR HEMOGLOBIN 29.8 pg (27.0-33.0); MEAN CORPUSCULAR HGB CONC 32.6 g/dl (32.0-36.5); MEAN CORPUSCULAR VOLUME 91.4 fl (80.0-96.0); MONO # 1.1 10^3/uL (0.0-0.8); MONO % 14.7 % (0.0-5.0); NEUTROPHILS # 4.5 10^3/uL (1.8-7.7); NEUTROPHILS % 59.8 % (36.0-66.0); PLATELET COUNT, AUTOMATED 279 10^3/uL (150-450); RED BLOOD COUNT 3.15 10^6/uL (4.00-5.40); WHITE BLOOD COUNT 7.4 10^3/uL (4.0-10.0)
[2018-03-29 06:07] LABS: C REACTIVE PROTEIN QUANTITATIV 3.74 MG/DL (0.00-0.30); MAGNESIUM LEVEL 2.1 MG/DL (1.8-2.4)
[2018-03-29] MEDS: ATORVASTATIN 20 MG TAB PO SCH (08:58)
[2018-03-29] MEDS: APIXABAN 2.5 MG TAB (ELIQUIS) PO SCH ×2 (08:58→21:45)
[2018-03-29] MEDS: predniSONE 20 MG TAB PO SCH (08:58)
[2018-03-29] MEDS: buPROPion 75 MG TAB PO SCH ×2 (08:58→21:45)
[2018-03-29] MEDS: LACTOBACILLUS ACIDOPHILUS CAP (BACID) PO SCH ×3 (08:58→21:45)
[2018-03-29] MEDS: METOPROLOL TART 50 MG TAB PO SCH ×3 (09:01→21:45)
[2018-03-29 09:03] LABS: BLOOD UREA NITROGEN 20 MG/DL (7-18); CALCIUM LEVEL 7.6 MG/DL (8.8-10.2); CARBON DIOXIDE LEVEL 27 MEQ/L (21-32); CHLORIDE LEVEL 101 MEQ/L (98-107); CREATININE FOR GFR 0.46 MG/DL (0.55-1.30); GLOMERULAR FILTRATION RATE > 60.0 (>39); GLUCOSE, FASTING 56 MG/DL (70-100); POTASSIUM SERUM 3.7 MEQ/L (3.5-5.1); SODIUM LEVEL 135 MEQ/L (136-145)
[2018-03-29 14:00] VITALS: BP 181/77
[2018-03-29 18:00] VITALS: BP 125/77
--- NOTE | 2018-03-29 20:07 | IPNPDOC ---
Text Note Date of Service The patient was seen on 03/29/18. NOTE No acute events overnight. Mental status improved. denied chest pain, abd pain. tolerating diet. PHYSICAL EXAMINATION: GENERAL: comfortable, NAD. HEENT: Normocephalic, atraumatic. PULMONARY: Coarse rhonchi bilaterally. No wheeze. CARDIAC: 2/6 systolic murmur, irregularly irregular. ABDOMEN: Soft, NT hypoactive bs EXTREMITIES: No clubbing, cyanosis, or edema. ASSESSMENT AND PLAN: This is a 77-year-old female patient with underlying medical history of atrial fibrillation, hypertension, dyslipidemia, degenerative disc disease, history of right breast cancer status post chemotherapy and radiation, peripheral vascular disease, chronic obstructive pulmonary disease (COPD), recurrent urinary tract infection (UTI), depression, history of hemorrhage in the retina of the right eye. The patient admitted under surgical department for colovaginal fistula, status post sigmoid resection, hospital course complicated with intubation, ileus, persistent leukocytosis. Hospitalist was initially consulted for leukocytosis and was reconsulted again for altered mental status. 1. Altered mental status, multi-factorial delirium and acute cerebrovascular accident (CVA) and metabolic encephalopathy and medication induced. Blood culture has been negative. ct head wnl, EEG showed encephalopathy, MRI of the brain showed cva, MRA and TTE. consulted neurology. possible 2/2 scopoamine. medication stopped, mental status improved after med stopped. Eliquis restarted 2. Acute CVA MRA, MRI, TTE, neurology consulted. 2/2 afib, embolic in nature, Ac restarted. on Elquis tele. neuro checks 3. Leukocytosis, possible reactive to surgery, possible 2/2 gout, consulted ID stopped bhumi and Diflucan. workup for infection neg to date including CT and cultures Blood culture has been negative to date.ID rec appreciated. possible gout started prednisone and URIC acid, improving 4. Atrial fibrillation. with rvr. given tolerating oral. switch to PO lopressor and eliquis 5. Dyslipidemia. Continue statin. 6. Depression. Continue current medication. 7. Hypertension. Continue Lopressor. Monitor blood pressure. 8. Colovaginal fistula 2/2 diverticulitis, status post sigmoid colectomy, complicated with ileus. Management as per surgery. diet advance to soft 9. hypoglycemia, resolved 10 Gout left foor, prednisone crp improved. 11. Deep vein thrombosis (DVT) prophylaxis. Eliquis DISPOSITION: Pending clinical improvement. PT, dc in 2-3 days to STR likely VS,Fishbone, I+O VS, Fishbone, I+O Laboratory Tests 03/29/18 05:08 Red Blood Count 3.15 L, Mean Corpuscular Volume 91.4, Mean Corpuscular Hemoglobin 29.8, Mean Corpuscular Hemoglobin Concent 32.6, Red Cell Distribution Width 14.3, Neutrophils (%) (Auto) 59.8, Lymphocytes (%) (Auto) 22.6 L, Monocytes (%) (Auto) 14.7 H, Eosinophils (%) (Auto) 1.3, Basophils (%) (Auto) 0. 4, Neutrophils # (Auto) 4.5, Lymphocytes # (Auto) 1.7, Monocytes # (Auto) 1.1 H, Eosinophils # (Auto) 0.1, Basophils # (Auto) 0.0, Calcium Level 7.6 L Vital Signs Date Time Temp Pulse Resp B/P (MAP) Pulse Ox O2 Delivery O2 Flow Rate FiO2 03/29/18 18:00 98.3 77 18 125/77 (93) 98 Room Air 03/29/18 10:00 115.0 67 I&O- Last 24 Hours up to 6 AM 03/29/18 05:59 Intake Total 1440 ml Output Total 200 ml Balance 1240 ml MYCHAL PIERCE MD Mar 29, 2018 20:07
[2018-03-29 22:00] VITALS: BP 158/73
[2018-03-30 02:00] VITALS: BP 142/73
[2018-03-30] MEDS: SODIUM CHLORIDE 0.9% INJ 10 ML SYR IV SCH (05:04)
[2018-03-30 05:48] LABS: HEMATOCRIT 29.1 % (36.0-47.0); HEMOGLOBIN 9.5 g/dl (12.0-15.5); MEAN CORPUSCULAR HEMOGLOBIN 29.8 pg (27.0-33.0); MEAN CORPUSCULAR HGB CONC 32.6 g/dl (32.0-36.5); MEAN CORPUSCULAR VOLUME 91.2 fl (80.0-96.0); PLATELET COUNT, AUTOMATED 272 10^3/uL (150-450); RED BLOOD COUNT 3.19 10^6/uL (4.00-5.40); WHITE BLOOD COUNT 8.9 10^3/uL (4.0-10.0)
[2018-03-30 06:00] VITALS: BP 143/61
[2018-03-30 06:09] LABS: BLOOD UREA NITROGEN 17 MG/DL (7-18); C REACTIVE PROTEIN QUANTITATIV 1.71 MG/DL (0.00-0.30); CALCIUM LEVEL 7.8 MG/DL (8.8-10.2); CARBON DIOXIDE LEVEL 26 MEQ/L (21-32); CHLORIDE LEVEL 102 MEQ/L (98-107); CREATININE FOR GFR 0.41 MG/DL (0.55-1.30); GLOMERULAR FILTRATION RATE > 60.0 (>39); GLUCOSE, FASTING 56 MG/DL (70-100); MAGNESIUM LEVEL 2.1 MG/DL (1.8-2.4); POTASSIUM SERUM 3.9 MEQ/L (3.5-5.1); SODIUM LEVEL 136 MEQ/L (136-145)
[2018-03-30] MEDS: ATORVASTATIN 20 MG TAB PO SCH (09:00)
[2018-03-30] MEDS: predniSONE 20 MG TAB PO SCH (09:00)
[2018-03-30] MEDS: buPROPion 75 MG TAB PO SCH (09:00)
[2018-03-30] MEDS: APIXABAN 2.5 MG TAB (ELIQUIS) PO SCH (09:00)
[2018-03-30 09:01] VITALS: BP 143/61
[2018-03-30] MEDS: METOPROLOL TART 50 MG TAB PO SCH (09:01)
[2018-03-30] MEDS: LACTOBACILLUS ACIDOPHILUS CAP (BACID) PO SCH (09:01)
[2018-03-30 10:00] VITALS: BP 140/62
[2018-03-30 14:00] VITALS: BP 120/63
--- NOTE | 2018-03-30 19:43 | IPNPDOC ---
Text Note Date of Service The patient was seen on 03/30/18. NOTE No acute events overnight. Mental status improved. denied chest pain, abd pain. tolerating diet. PHYSICAL EXAMINATION: GENERAL: comfortable, NAD. HEENT: Normocephalic, atraumatic. PULMONARY: Coarse rhonchi bilaterally. No wheeze. CARDIAC: 2/6 systolic murmur, irregularly irregular. ABDOMEN: Soft, NT hypoactive bs EXTREMITIES: No clubbing, cyanosis, or edema. ASSESSMENT AND PLAN: This is a 77-year-old female patient with underlying medical history of atrial fibrillation, hypertension, dyslipidemia, degenerative disc disease, history of right breast cancer status post chemotherapy and radiation, peripheral vascular disease, chronic obstructive pulmonary disease (COPD), recurrent urinary tract infection (UTI), depression, history of hemorrhage in the retina of the right eye. The patient admitted under surgical department for colovaginal fistula, status post sigmoid resection, hospital course complicated with intubation, ileus, persistent leukocytosis. Hospitalist was initially consulted for leukocytosis and was reconsulted again for altered mental status. 1. Altered mental status, multi-factorial delirium and acute cerebrovascular accident (CVA) and metabolic encephalopathy and medication induced. Blood culture has been negative. ct head wnl, EEG showed encephalopathy, MRI of the brain showed cva, MRA and TTE. consulted neurology. possible 2/2 scopoamine. medication stopped, mental status improved after med stopped. Eliquis restarted 2. Acute CVA MRA, MRI, TTE, neurology consulted. 2/2 afib, embolic in nature, Ac restarted. on Elquis tele. neuro checks 3. Leukocytosis, possible reactive to surgery, possible 2/2 gout, consulted ID stopped bhumi and Diflucan. workup for infection neg to date including CT and cultures Blood culture has been negative to date.ID rec appreciated. possible gout course of prednisone with improvement 4. Atrial fibrillation. with rvr. given tolerating oral. PO lopressor and eliquis 5. Dyslipidemia. Continue statin. 6. Depression. Continue current medication. 7. Hypertension. Continue Lopressor. Monitor blood pressure. 8. Colovaginal fistula 2/2 diverticulitis, status post sigmoid colectomy, compli cated with ileus. Management as per surgery. diet advance to soft 9. hypoglycemia, resolved 10 Gout left foor, prednisone crp improved. 11. deconditioning. ARU consult, PT 11. Deep vein thrombosis (DVT) prophylaxis. Eliquis DISPOSITION: Pending clinical improvement. PT, likely DC to ARU VS,Klaudia, I+O VS, Klaudia, I+O Laboratory Tests 03/30/18 05:31 Red Blood Count 3.19 L, Mean Corpuscular Volume 91.2, Mean Corpuscular Hemoglobin 29.8, Mean Corpuscular Hemoglobin Concent 32.6, Red Cell Distribution Width 14.2, Calcium Level 7.8 L Vital Signs Date Time Temp Pulse Resp B/P (MAP) Pulse Ox O2 Delivery O2 Flow Rate FiO2 03/30/18 14:00 97.7 67 18 120/63 (82) 95 Room Air 03/29/18 10:00 115.0 67 I&O- Last 24 Hours up to 6 AM 03/30/18 06:00 Intake Total 600 ml Output Total 1050 ml Balance -450 ml MYCHAL PIERCE MD Mar 30, 2018 19:43
== END 2018-03-30 15:47 | DRG 329 ==
LOC: M OR 07:42 → M ICU 15:25 → M MSPAV 03-15 10:35 → M PCU 03-24 15:01 → M MSPAV 03-28 20:29
PROVIDERS: ADMIT Surgery; ATTEND Surgery
PROC: 0DBN4ZZ Excision of Sigmoid Colon, Percutaneous Endoscopic Approach (ICD-10-PCS; principal; 2018-03-13 08:45)
PROC: 0T778DZ Dilation of Left Ureter with Intraluminal Device, Via Natural or Artificial Opening Endoscopic (ICD-10-PCS; 2018-03-13 08:45)
PROC: 02HV33Z Insertion of Infusion Device into Superior Vena Cava, Percutaneous Approach (ICD-10-PCS; 2018-03-18)
PROC: 3E0336Z Introduction of Nutritional Substance into Peripheral Vein, Percutaneous Approach (ICD-10-PCS; 2018-03-18)
DX: N82.3 Fistula of vagina to large intestine (principal); G92 Toxic encephalopathy; I63.442 Cerebral infarction due to embolism of left cerebellar artery; K57.20 Diverticulitis of large intestine with perforation and abscess without bleeding; N13.30 Unspecified hydronephrosis; E87.3 Alkalosis; K56.7 Ileus, unspecified; I25.10 Atherosclerotic heart disease of native coronary artery without angina pectoris; I50.9 Heart failure, unspecified; M10.072 Idiopathic gout, left ankle and foot; E78.00 Pure hypercholesterolemia, unspecified; I11.0 Hypertensive heart disease with heart failure; E55.9 Vitamin D deficiency, unspecified; F32.9 Major depressive disorder, single episode, unspecified; I73.9 Peripheral vascular disease, unspecified; J44.9 Chronic obstructive pulmonary disease, unspecified; I48.0 Paroxysmal atrial fibrillation; E16.2 Hypoglycemia, unspecified; T44.3X5A Adverse effect of other parasympatholytics [anticholinergics and antimuscarinics] and spasmolytics, initial encounter; Z92.21 Personal history of antineoplastic chemotherapy; Z85.3 Personal history of malignant neoplasm of breast; Z79.01 Long term (current) use of anticoagulants; Z92.3 Personal history of irradiation; Z87.440 Personal history of urinary (tract) infections; Z96.643 Presence of artificial hip joint, bilateral; Z88.8 Allergy status to other drugs, medicaments and biological substances; Z79.899 Other long term (current) drug therapy; Z87.891 Personal history of nicotine dependence

== ENCOUNTER 2018-03-30 15:50 | Inpatient (IN) | payer MEDICARE, MEDICAID ==
[~2018-03-30] VITALS: Ht 154.9 cm; Wt 53.8 kg
[~2018-03-30 15:50] MED LIST changes: -LIDOCAINE 2% INJ 100 MG/5 ML SDV (FOR ANES.) As Ordered ONE; -ONDANSETRON 4MG/2ML VIAL (J2405) As Ordered ONE; -PROPOFOL 200 MG/20 ML VIAL As Ordered ONE; -ROCURONIUM BROMIDE 50 MG/5 ML VIAL As Ordered ONE; -dexameTHASONE 4 MG/ML 1ML VIAL (J1100) As Ordered ONE
[2018-03-30 16:38] VITALS: BP 168/87
[2018-03-30] MEDS ORDERED: BISACODYL 10 MG SUPP PR PRN (17:30)
[2018-03-30] MEDS ORDERED: MOM 30ML SUSPENSION UDC PO PRN (17:30)
[2018-03-30] MEDS ORDERED: IPRATROPIUM 0.5MG/ALBUTEROL 2.5MG INH SOL UD 3ML (DUONEB)(J7620) NEB PRN (17:30)
[2018-03-30 20:00] VITALS: BP 106/56
[2018-03-30] MEDS: LACTOBACILLUS ACIDOPHILUS CAP (BACID) PO SCH (21:07)
[2018-03-30] MEDS: buPROPion 75 MG TAB PO SCH (21:08)
[2018-03-30] MEDS: APIXABAN 2.5 MG TAB (ELIQUIS) PO SCH (21:08)
[2018-03-30] MEDS: DOCUSATE SODIUM 100 MG CAP PO SCH (21:08)
[2018-03-30] MEDS: METOPROLOL TART 50 MG TAB PO SCH (21:08)
[2018-03-30 22:31] LABS: APPEARANCE, URINE HAZY (CLEAR); BACTERIA, URINE AUTO 2+ (NEGATIVE); BILIRUBIN, URINE AUTO NEGATIVE (NEGATIVE); BLOOD, URINE BLOOD 3+ (NEGATIVE); COLOR, URINE RED (YELLOW); GLUCOSE, URINE (UA) AUTO NEGATIVE (NEGATIVE); KETONE, URINE AUTO NEGATIVE (NEGATIVE); LEUKOCYTE ESTERASE, URINE AUTO 1+ (NEGATIVE); NITRITE, URINE AUTO NEGATIVE (NEGATIVE); PROTEIN, URINE AUTO 2+ mg/dL (NEGATIVE); RBC, URINE AUTO TNTC /HPF (0-3); SPECIFIC GRAVITY URINE AUTO 1.016 (1.002-1.035); SQUAMOUS EPITHELIAL CELL UR AU 5 /HPF (0-6); UROBILINOGEN, URINE AUTO 0.2 mg/dL (0.0-2.0); WBC, URINE AUTO 3 /HPF (0-3)
[2018-03-31] MEDS ORDERED: SODIUM CHLORIDE 0.9% INJ 10 ML SYR IV PRN (05:00)
[2018-03-31] MEDS: SODIUM CHLORIDE 0.9% INJ 10 ML SYR IV SCH ×2 (05:12→16:55)
[2018-03-31 05:34] LABS: BASO % 0.4 % (0.0-1.0); EOS # 0.1 10^3/uL (0.0-0.50); EOS % 0.9 % (0.0-3.0); HEMATOCRIT 30.9 % (36.0-47.0); HEMOGLOBIN 9.8 g/dl (12.0-15.5); LYMPH % 19.7 % (24.0-44.0); MEAN CORPUSCULAR HEMOGLOBIN 29.8 pg (27.0-33.0); MEAN CORPUSCULAR HGB CONC 31.7 g/dl (32.0-36.5); MEAN CORPUSCULAR VOLUME 93.9 fl (80.0-96.0); MONO # 1.1 10^3/uL (0.0-0.8); MONO % 10.8 % (0.0-5.0); NEUTROPHILS # 6.8 10^3/uL (1.8-7.7); NEUTROPHILS % 66.7 % (36.0-66.0); PLATELET COUNT, AUTOMATED 272 10^3/uL (150-450); RED BLOOD COUNT 3.29 10^6/uL (4.00-5.40); WHITE BLOOD COUNT 10.1 10^3/uL (4.0-10.0)
[2018-03-31 05:46] LABS: ALBUMIN 2.1 GM/DL (3.2-5.2); ALT/SGPT 46 U/L (12-78); BILIRUBIN,TOTAL 0.3 MG/DL (0.2-1.0); BLOOD UREA NITROGEN 15 MG/DL (7-18); CARBON DIOXIDE LEVEL 27 MEQ/L (21-32); CHLORIDE LEVEL 100 MEQ/L (98-107); CREATININE FOR GFR 0.61 MG/DL (0.55-1.30); GLOMERULAR FILTRATION RATE > 60.0 (>39); GLUCOSE, FASTING 83 MG/DL (70-100); POTASSIUM SERUM 3.5 MEQ/L (3.5-5.1); SODIUM LEVEL 135 MEQ/L (136-145); TOTAL PROTEIN 6.1 GM/DL (6.4-8.2)
[2018-03-31 06:00] VITALS: BP 106/56
--- NOTE | 2018-03-31 06:48 | IPN ---
DATE OF VISIT: 03/30/2017 HISTORY OF PRESENT ILLNESS: Oksana Amos was seen in acute rehab. She is doing very well. She was complaining about not finding her lenses and slippers. She denies any nausea, vomiting or diarrhea. She has some bloody urine and a urinalysis was sent which showed many red cells. Her foot pain has completely resolved as well as the foot swelling. She has had no fever or chills. Antibiotics were discontinued on Friday. LABORATORY DATA: White count is 8.9, hemoglobin 9.5, hematocrit 29.1, platelets 272. Sodium 136, potassium 3.9, chloride 102, bicarb 26, BUN 17, creatinine 0.41, glucose 56, calcium 7.8, magnesium 2.1, CRP 1.71 down from 18.9. Blood cultures, urine cultures all were negative on March 25, another urine culture was sent today. IMPRESSION: 1. Status post sigmoid colectomy due to chronic diverticulitis. The patient finished two weeks of IV antibiotic with no evidence of residual infection postoperatively. 2. 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 The patient has received five days of prednisone. This will be discontinued pain and swelling has resolved. 3. Hematuria being worked up, urine culture is being repeated. PLAN: Discontinue oral prednisone. Continue probiotics. Infectious disease signing off. Thank you for consultation.
[2018-03-31] MEDS: IPRATROPIUM 0.5MG/ALBUTEROL 2.5MG INH SOL UD 3ML (DUONEB)(J7620) NEB SCH (07:26)
[2018-03-31] MEDS: PANTOPRAZOLE 40MG TAB (PROTONIX) PO SCH (08:22)
[2018-03-31] MEDS: LACTOBACILLUS ACIDOPHILUS CAP (BACID) PO SCH ×3 (08:22→21:22)
[2018-03-31] MEDS: METOPROLOL TART 50 MG TAB PO SCH ×3 (08:22→21:23)
[2018-03-31] MEDS: APIXABAN 2.5 MG TAB (ELIQUIS) PO SCH ×2 (08:22→21:22)
[2018-03-31] MEDS: DOCUSATE SODIUM 100 MG CAP PO SCH ×2 (08:22→21:22)
[2018-03-31] MEDS: buPROPion 75 MG TAB PO SCH ×2 (08:22→21:22)
[2018-03-31] MEDS: ATORVASTATIN 20 MG TAB PO SCH (08:22)
[2018-03-31] MEDS: predniSONE 20 MG TAB PO SCH (08:22)
[2018-03-31] MEDS ORDERED: amLODIPine 5 MG TAB PO SCH (09:00)
[2018-03-31 14:00] VITALS: BP 133/73
--- NOTE | 2018-03-31 14:03 | IPNPDOC ---
Date Seen The patient was seen on 03/31/18. 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 The patient was treated as per ID with IV antibiotics for a total of 2 weeks with no evidence of residual infection. IV antibiotics were discontinued on 0 03/26/2018. The pt states she has been OOB today with therapy. No concerns at this time. Denies any fevers, chills, weakness, fatigue, Headache, Chest Pain, Shortness of breath, cough, palpitations, abdominal pain, N/V/D or changes in bowel or bladder habits. PMHx: atrial fibrillation, hypertension, dyslipidemia, degenerative disc disease, history of right breast cancer status post chemotherapy and radiation, peripheral vascular disease, chronic obstructive pulmonary disease, recurrent urinary tract infection, depression, history of hemorrhage in the retina of the right eye PE: GEN: 77yoF, appears stated age. No acute distress. Alert and oriented to place. HEENT: Normocephalic, atraumatic. Pupils are equal, round, and reactive to light. Sclera are nonicteric. Conjunctiva without injection. No facial asymmetry. Moist mucous membranes. CHEST: Regular rate and rhythm, +S1, +S2 LUNGS: Clear to auscultation bilaterally. No wheezes, rales, or rhonchi. Breathing appears symmetric and easy. ABD: Round, soft, non-tender, non-distended. +Bowel sounds throughout. EXT: No lower extremity edema appreciated. SKIN: [place], dry, warm. No rashes. NEURO: Alert and oriented x 3. Cranial nerves III-XII are intact. No focal deficits appreciated. 03/30/18 pending. 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 The patient was treated as per ID with IV antibiotics for a total of 2 weeks with no evidence of residual infection. IV antibiotics were discontinued on 9. Deconditioning/debility Mgmt as per Dr Erwin MIN. PT/OT/ST as per Dr Erwin MIN. pain control as per Dr Erwin MIN. bowel care as per Dr Erwin MIN. DVT px. On Eliquis. Altered mental status, multi-factorial, delirium and acute cerebrovascular accident (CVA) and metabolic encephalopathy and medication induced. Blood culture has been negative. ct head wnl, EEG showed encephalopathy, MRI of the brain showed cva, MRA and TTE 03/26/18. Pt seen by neurology. scopolamine stopped, mental status improved after med stopped. 2. Acute CVA possibly embolic in nature, 2/2 Afib. Elquis AC 3. Leukocytosis, possible reactive to surgery, possible 2/2 gout, ID had been following. IV abx d/cd 03/26/18. workup for infection neg including CT and cultures Blood culture has been negative to date. possible gout course of prednisone with improvement 4. Atrial fibrillation. with rvr. PO lopressor eliquis 5. Dyslipidemia. Continue statin. 6. Depression. Continue current medication. 7. Hypertension. Continue Lopressor. Monitor blood pressure. 8. Colovaginal fistula 2/2 diverticulitis, status post sigmoid colectomy, complicated with ileus. Management as per surgery. 9. Gout left foot, prednisone tapering crp improved. VS, I&O, 24H, Fishbone Vital Signs/I&O Vital Signs Date Time Temp Pulse Resp B/P (MAP) Pulse Ox O2 Delivery O2 Flow Rate FiO2 03/31/18 08:23 64 106/56 03/31/18 06:00 98.5 18 98 Room Air I&O- Last 24 Hours up to 6 AM 03/31/18 05:59 Intake Total 120 ml Output Total 200 ml Balance -80 ml Laboratory Data 24H LABS Laboratory Tests 2 03/30/18 22:11: Urine Appearance HAZY, Urine Color REDH, Urine pH 6.0, Urine Specific [place] 1.016, Urine Protein 2+H, Urine Glucose (UA) NEGATIVE, Urine Ketones NEGATIVE, Urine Urobilinogen 0.2, Urine Bilirubin NEGATIVE, Urine Leukocyte Esterase 1+H, Urine Blood 3+H, Urine Nitrite NEGATIVE, Urine WBC (Auto) 3, Urine RBC (Auto) TNTCH, Urine Hyaline Casts (Auto) 0, Urine Bacteria (Auto) 2+H, Urine Squamous Epithelial Cells 5, Urine Sperm (Auto) 03/31/18 05:10: Immature Granulocyte % (Auto) 1.5, White Blood Count 10.1H, Red Blood Count 3.29L, Hemoglobin 9.8L, Hematocrit 30.9L, Mean Corpuscular Volume 93.9, Mean Corpuscular Hemoglobin 29.8, Mean Corpuscular Hemoglobin Concent 31.7L, Red Cell Distribution Width 14.1, Platelet Count 272, Neutrophils (%) (Auto) 66.7H, Lymphocytes (%) (Auto) 19.7L, Monocytes (%) (Auto) 10.8H, Eosinophils (%) (Auto) 0.9, Basophils (%) (Auto) 0.4, Neutrophils # (Auto) 6.8, Lymphocytes # (Auto) 2.0, Monocytes # (Auto) 1.1H, Eosinophils # (Auto) 0.1, Basophils # (Auto) 0.0, Nucleated Red Blood Cells % (auto) 0.0, Anion Gap 8, Glomerular Filtration Rate > 60.0, Blood Urea Nitrogen 15, Creatinine 0.61, Sodium Level 135L, Potassium Level 3.5, Chloride Level 100, Carbon Dioxide Level 27, Calcium Level 8.0L, Aspartate Amino Transf (AST/SGOT) 32, Alanine Aminotransferase (ALT/SGPT) 46, Alkaline Phosphatase 105, Total Bilirubin 0.3, Total Protein 6.1L, Albumin 2.1L, Albumin/Globulin Ratio 0.53L CBC/BMP Laboratory Tests 03/31/18 05:10 Red Blood Count 3.29 L, Mean Corpuscular Volume 93.9, Mean Corpuscular Hemoglobin 29.8, Mean Corpuscular Hemoglobin Concent 31.7 L, Red Cell Distribution Width 14.1, Neutrophils (%) (Auto) 66.7 H, Lymphocytes (%) (Auto) 19.7 L, Monocytes (%) (Auto) 10.8 H, Eosinophils (%) (Auto) 0.9, Basophils (%) (Auto) 0.4, Neutrophils # (Auto) 6.8, Lymphocytes # (Auto) 2.0, Monocytes # (Auto) 1.1 H, Eosinophils # (Auto) 0.1, Basophils # (Auto) 0.0, Calcium Level 8.0 L, Aspartate Amino Transf (AST/SGOT) 32, Alanine Aminotransferase (ALT/SGPT) 46, Alkaline Phosphatase 105, Total Bilirubin 0.3, Total Protein 6.1 L, Albumin 2.1 L Microbiology Microbiology 03/30/18 Urine Culture, Received Pending Ursula Cabrera Mar 31, 2018 14:03
--- NOTE | 2018-03-31 16:40 | HPEPDOC ---
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 On 03-13-18 she underwent a laparoscopic sigmoid colectomy for a post-op diagnosis of sigmoid diverticultis with colovaginal fistula performed by Dr. Alin Abrams.On 03-20-18 she underwent a cystoscopy, bilateral retrograde pyelogram, and left ureteral stent placement for left sided hydronephrosis. She received IV fluconazole, ciprofloxacin, and Flagly for a presumed left kidney infection, later spiked a fever and was started back on Meropenem instead. On 03-25-18 she had altered mentation for which an MRI Brain was ordered showing, 2.5 CM area of acute stroke left occipital lobeSmall round areas of acute ischemic change scattered throughout the white. On 03-26-18 a carotid MRA was performed showing Mild stenosis of 40% of the right internal carotid artery at its originSevere stenosis of 70% of the distal left common carotid artery immediately proximal to the left carotid bifurcationModerate stenosis of 55% of the left internal carotid artery at its origin. Neurology was consulted who performed an EEG which was negative for epileptiform activity. She was seen by ID on 03-27-18 for fever and leukocytosis with blood cultures that had returned as negative, and recent CT chest on 03-24-18 showing, . Trace right basilar atelectasisChronic atherosclerotic changes and cardiomegalyChronic interstitial changes with scattered subpleural fibrosis and moderate bronchiectasis. At the time patient did not have cough, but did complain of foot swelling. ID recommended discontinuing all antibiotics and start prednisone for arthritic/inflammatory changes seen on imaging. Patient was deemed medically appropriate for discharge to ARU on 03-31-18. REVIEW OF SYSTEMS: The following is a completed review of systems and has been reviewed. Review of systems otherwise unremarkable. PAIN: Patient self reports no pain EYES: Negative for recent vision changes EARS, NOSE, & THROAT: negative for dysphagia or rhinorrhea CARDIOVASCULAR: + Afib, negative for chest pain or palpitations PULMONARY: Negative. Denies shortness of breath. GASTROINTESTINAL: Negative for diarrhea/ constipation, +sigmoidectomy GENITOURINARY:negative for dysuria MUSCULOSKELETAL: left foot swelling NEUROLOGICAL: no tremor, seizure, or focal weakness HEMATOLOGICAL: post-op anemia SKIN: abdominal perfecto PSYCHIATRIC: Unremarkable All other review of systems found to be negative. PAST MEDICAL HISTORY: CAD, diverticulitis, chronic CHF, breast cancer, Afib, PAST SURGICAL HISTORY: CEA, hip replacement, beast lumpectomy with chemo/radiation, +LOOP recorder ALLERGIES: Please see below. MEDICATIONS: Please see below. FAMILY HISTORY: non-contributory SOCIAL HISTORY: Recently transitioned to [facility]isted [facility] at [place], , non-smoker, no ETOH or illicit drugs DIET: Regular PHYSICAL EXAMINATION: VITAL SIGNS: Please see below. GENERAL: Pleasant and cooperative. No acute distress. HEENT: PERRL. Extraocular movements intact. Clear conjunctiva CARDIOVASCULAR: Regular rate and rhythm. No murmurs, rubs, or gallops LUNGS: Clear to auscultation bilaterally. No wheezes. No rhonchi ABDOMEN: Soft, nontender, nondistended. Positive bowel sounds. Normal active bowel sounds, + perfecto c/d/i NEUROLOGICAL: Alert and oriented times three. Cranial nerves II through XII grossly intact. Sensation grossly intact -visual field intact, no dysmetria EXTREMITIES: 5\\5 strength bilateral upper extremities. 5\\5 strength right lower extremity. 5/5 strength in left lower extremity. functional range of motion throughout left foot- nontender, no swelling SKIN: abdominal perfecto, c/d/i no induration, mild erythema IMAGING: Imaging documentation personally reviewed by record FUNCTIONAL STATUS: Premorbid: Independent with all activities of daily life as well as mobility with RW On Admission: Contact Guard for ambulation with RW 60 feet, Max assist lower body dressing, Min assist for functional transfers. GOALS: Modified Independent for ambulation with RW, Mod I for dressing, bathing, grooming, showering, medical optimization, assess for DME ASSESSMENT:77-year-old F with past medical history of Afib, CAD, diastolic CHF who presents status post sigmoid colectomy for colon-vaginal fistula, found to have a new stroke. PLAN: 1. Rehab: OT/OT, RN CIRCULATING, assess for DME 2. Neuro: MRI 03-25-18 showing left occipital stroke, continue statin for secondary prevention, monitor BPs and continue AFib treatment - recent MRI showing "Severe stenosis of 70% of the distal left common carotid" will discuss with neurology possible intervention 3. Cardio: pmh Afib and diastolic CHF, continue beta-wilton and Eliquis 4. Resp: stable, incentive spirometry, Duonebs prn 5. GI: s.p sigmoid colectomy for colon-vaginal fistula, incision healing well, monitor for diarrhea or obstruction 6. ID: left foot swelling resolved, per ID continue steroid 3-5 days total 7. : s/p left ureteral stent placed 03-20-19, monitor for hematuria and watch System Administrator, monitor PVRs, f/u admission UA and Ucx 8. GI ppx: protonix 9. DVT ppx: on Eliquis 10. Psych: anxiety continue Wellbutrin 11. Dispo: TBD POST ADMISSION PHYSICIAN EVALUATION: Medical and functional status: Description of medical status, medical assessment: As above. Rehabilitation diagnosis and current and prior cold morbid medical conditions as above. Risk of complications and plans to mitigate them as above. Description of functional status current status is as above. Prior status as above. Status compared to preadmission: There are no clinically significant differences between the patient's current status and the information described on the pr eadmission screening document. Treatment plan anticipated: Treatment plan is as described above. Required disciplines including physical therapy, occupational therapy, others as noted above Intensity of services: 3 hours a day, 6 days a week. Special considerations: There are no specific special or safety considerations that would likely preclude immediate implementation of an intensive rehabilitation program or subsequently influence the plan of care. ATTESTATION: Considering all the information above, it is my best judgment that this patient requires intensive rehabilitation therapy as described above and an inpatient hospital environment due to the complexity of nursing, medical, and rehabilitation needs required by the patient. Furthermore, this patient can reasonably be expected to participate in an benefit from an inpatient rehabilitation stay with an interdisciplinary team approach to the delivery of rehabilitation care under the direction and supervision of rehabilitation physician PROGNOSIS:[Excellent ESTIMATED LENGTH OF STAY: 10-14 days. PROJECTED DISCHARGE DESTINATION: Home with family support and any durable medical equipment required to increase functional safety and mobility. TIME SPENT COUNSELING AND COORDINATING INITIAL CARE: Greater than 70 minutes. Vital Signs Vital Sign - Last 24 Hours 03/30/18 16:38 Temp 98.3 Pulse 62 Resp 17 B/P (MAP) 168/87 (114) Pulse Ox 99 O2 Delivery Room Air Home Medications Scheduled Acetaminophen (Tylenol) 325 Mg Tab, 650 MG PO TID, (Reported) and as needed x2 Amlodipine Besylate (Amlodipine Besylate) 5 Mg Tab, 5 MG PO DAILY Apixaban Base (Eliquis) 2.5 Mg Tab, 2.5 MG PO BID, (Reported) Atorvastatin Calcium (Atorvastatin Calcium) 20 Mg Tab, 20 MG PO DAILY, (Reported) Bupropion HCl (Bupropion HCl) 75 Mg Tab, 75 MG PO BID, (Reported) Metoprolol Tartrate (Lopressor) 50 Mg Tab, 50 MG PO TID Multivitamin Areds (Preservision Areds) 1 Cap Cap, 1 CAP PO DAILY, (Reported) Allergies Coded Allergies: No Known Allergies (Verified , 03/13/18) YANCY URIARTE MD Mar 30, 2018 18:14
--- NOTE | 2018-03-31 16:42 | IPNPDOC ---
PM&R Progress Note DATE OF SERVICE: Mar 31, 2018 Payroll Auditor Progress Note Subjective: PAtient reports she slept well and is feeling well this morning. She had an episode of hematuria, but denies feeling weak or dizzy. REVIEW OF SYSTEMS: The following is a completed review of systems and has been reviewed. Review of systems otherwise unremarkable. PAIN: Patient self reports no pain EYES: Negative for recent vision changes EARS, NOSE, & THROAT: negative for dysphagia or rhinorrhea CARDIOVASCULAR: + Afib, negative for chest pain or palpitations PULMONARY: Negative. Denies shortness of breath. GASTROINTESTINAL: Negative for diarrhea/ constipation, +sigmoidectomy GENITOURINARY:negative for dysuria MUSCULOSKELETAL: left foot swelling NEUROLOGICAL: no tremor, seizure, or focal weakness HEMATOLOGICAL: post-op anemia SKIN: abdominal perfecto PSYCHIATRIC: Unremarkable All other review of systems found to be negative. PHYSICAL EXAMINATION: VITAL SIGNS: Please see below. GENERAL: Pleasant and cooperative. No acute distress. HEENT: PERRL. Extraocular movements intact. Clear conjunctiva CARDIOVASCULAR: Regular rate and rhythm. No murmurs, rubs, or gallops LUNGS: Clear to auscultation bilaterally. No wheezes. No rhonchi ABDOMEN: Soft, nontender, nondistended. Positive bowel sounds. Normal active bowel sounds, + perfecto c/d/i NEUROLOGICAL: Alert and oriented times three. Cranial nerves II through XII grossly intact. Sensation grossly intact -visual field intact, no dysmetria EXTREMITIES: 5\\5 strength bilateral upper extremities. 5\\5 strength right lower extremity. 5/5 strength in left lower extremity. functional range of motion throughout left foot- nontender, no swelling SKIN: abdominal perfecto, c/d/i no induration, mild erythema ASSESSMENT:77-year-old F with past medical history of Afib, CAD, diastolic CHF who presents status post sigmoid colectomy for colon-vaginal fistula, found to have a new stroke. PLAN: 1. Rehab: OT/OT, NURSE REVIEWER, assess for DME 2. Neuro: MRI 03-25-18 showing left occipital stroke, continue statin for secondary prevention, monitor BPs and continue AFib treatment - recent MRI showing "Severe stenosis of 70% of the distal left common carotid" will discuss with neurology possible intervention 3. Cardio: pmh Afib and diastolic CHF, continue beta-wilton and Eliquis 4. Resp: stable, incentive spirometry, Duonebs prn 5. GI: s.p sigmoid colectomy for colon-vaginal fistula, incision healing well, monitor for diarrhea or obstruction 6. ID: left foot swelling resolved, per ID continue steroid 3-5 days total, ID recs appreciated, will taper 7. : s/p left ureteral stent placed 03-20-19, episode of hematuria 03-30-18, will watch Hgb - monitor PVRs, f/u admission UA and Ucx 8. GI ppx: protonix 9. DVT ppx: on Eliquis 10. Psych: anxiety continue Wellbutrin 11. Dispo: TBD Allergies Coded Allergies: No Known Allergies (Verified , 03/13/18) Vital Signs Vital Signs Date Time Temp Pulse Resp B/P (MAP) Pulse Ox O2 Delivery O2 Flow Rate FiO2 03/31/18 14:00 98.1 84 16 133/73 (93) 98 Room Air Laboratory Data CBC/BMP Laboratory Tests 03/31/18 05:10 Red Blood Count 3.29 L, Mean Corpuscular Volume 93.9, Mean Corpuscular Hemoglobin 29.8, Mean Corpuscular Hemoglobin Concent 31.7 L, Red Cell Distribution Width 14.1, Neutrophils (%) (Auto) 66.7 H, Lymphocytes (%) (Auto) 19.7 L, Monocytes (%) (Auto) 10.8 H, Eosinophils (%) (Auto) 0.9, Basophils (%) (Auto) 0.4, Neutrophils # (Auto) 6.8, Lymphocytes # (Auto) 2.0, Monocytes # (Auto) 1.1 H, Eosinophils # (Auto) 0.1, Basophils # (Auto) 0.0, Calcium Level 8.0 L, Aspartate Amino Transf (AST/SGOT) 32, Alanine Aminotransferase (ALT/SGPT) 46, Alkaline Phosphatase 105, Total Bilirubin 0.3, Total Protein 6.1 L, Albumin 2.1 L Labs 24H Laboratory Tests 2 03/30/18 22:11: Urine Appearance HAZY, Urine Color REDH, Urine pH 6.0, Urine Specific Hailey 1.016, Urine Protein 2+H, Urine Glucose (UA) NEGATIVE, Urine Ketones NEGATIVE, Urine Urobilinogen 0.2, Urine Bilirubin NEGATIVE, Urine Leukocyte Esterase 1+H, Urine Blood 3+H, Urine Nitrite NEGATIVE, Urine WBC (Auto) 3, Urine RBC (Auto) TNTCH, Urine Hyaline Casts (Auto) 0, Urine Bacteria (Auto) 2+H, Urine Squamous Epithelial Cells 5, Urine Sperm (Auto) 03/31/18 05:10: Immature Granulocyte % (Auto) 1.5, White Blood Count 10.1H, Red Blood Count 3.29L, Hemoglobin 9.8L, Hematocrit 30.9L, Mean Corpuscular Volume 93.9, Mean Corpuscular Hemoglobin 29.8, Mean Corpuscular Hemoglobin Concent 31.7L, Red Cell Distribution Width 14.1, Platelet Count 272, Neutrophils (%) (Auto) 66.7H, Lymphocytes (%) (Auto) 19.7L, Monocytes (%) (Auto) 10.8H, Eosinophils (%) (Auto) 0.9, Basophils (%) (Auto) 0.4, Neutrophils # (Auto) 6.8, Lymphocytes # (Auto) 2.0, Monocytes # (Auto) 1.1H, Eosinophils # (Auto) 0.1, Basophils # (Auto) 0.0, Nucleated Red Blood Cells % (auto) 0.0, Anion Gap 8, Glomerular Filtration Rate > 60.0, Blood Urea Nitrogen 15, Creatinine 0.61, Sodium Level 135L, Potassium Level 3.5, Chloride Level 100, Carbon Dioxide Level 27, Calcium Level 8.0L, Aspartate Amino Transf (AST/SGOT) 32, Alanine Aminotransferase (ALT/SGPT) 46, Alkaline Phosphatase 105, Total Bilirubin 0.3, Total Protein 6.1L, Albumin 2.1L, Albumin/Globulin Ratio 0.53L Microbiology Microbiology 03/30/18 Urine Culture, Received Pending Current Medications Current Medications Current Medications Acetaminophen (Tylenol Tab) 650 mg Q4HP PRN PO fever/MILD PAIN (PS 1-4); Start 03/30/18 at 17:30 Albuterol/ Ipratropium (Duoneb (Ipr 0.5mg/Alb 2.5mg)) 3 ml DAILY@0800 NEB Last administered on 03/31/18at 07:26; Start 03/31/18 at 08:00 Albuterol/ Ipratropium (Duoneb (Ipr 0.5mg/Alb 2.5mg)) 3 ml Q2HP PRN NEB SOB/WHEEZING; Start 03/30/18 at 17:30 Amlodipine Besylate (Norvasc) 5 mg DAILY PO ; Start 03/31/18 at 09:00; Stop 03/31/18 at 10:35; Status DC Apixaban (Eliquis) 2.5 mg BID PO Last administered on 03/31/18at 08:22; Start 03/30/18 at 21:00 Atorvastatin Calcium (Lipitor) 20 mg DAILY PO Last administered on 03/31/18at 08:22; Start 03/31/18 at 09:00 Bisacodyl (Dulcolax Suppository) 10 mg DAILYPRN PRN MI CONSTIPATION; Start 03/30/18 at 17:30 Bupropion HCl (Wellbutrin) 75 mg BID PO Last administered on 03/31/18at 08:22; Start 03/30/18 at 21:00 Docusate Sodium (Colace) 100 mg BID PO Last administered on 03/31/18at 08:22; Start 03/30/18 at 21:00 Heparin Sodium (Heparin (Flush)) 200 units ASDIRECTED PRN IV SEE LABEL COMMENTS; Start 03/31/18 at 05:00 Heparin Sodium (Heparin (Flush)) 200 units PICC IV Last administered on 03/31/18at 05:12; Start 03/31/18 at 06:00 Home Med (Med Rec Complete!) ASDIRECTED XX ; Start 03/30/18 at 18:45; Stop at 18:45; Status DC Lactobacillus Acidophilus (Bacid) 1 ea TID PO Last administered on 03/31/18at 08:22; Start 03/30/18 at 21:00 Magnesium Hydroxide (Milk Of Magnesia) 30 ml DAILYPRN PRN PO CONSTIPATION; Start 03/30/18 at 17:30 Metoprolol Tartrate (Lopressor) 25 mg TID PO ; Start 03/31/18 at 16:00 Metoprolol Tartrate (Lopressor) 50 mg TID PO Last administered on 03/30/18at 21:08; Start 03/30/18 at 21:00; Stop 03/31/18 at 10:35; Status DC Pantoprazole Sodium (Protonix) 40 mg DAILY PO Last administered on 03/31/18at 08:22; Start 03/31/18 at 09:00 Prednisone (Deltasone) 5 mg DAILY PO ; Start 04/02/18 at 09:00; Stop 04/02/18 at 09:00; Status DC Prednisone (Deltasone) 10 mg Taper DAILY PO ; Start 04/02/18 at 09:00; Stop 04/08/18 at 08:59 Prednisone (Deltasone) 20 mg DAILY PO Last administered on 03/31/18at 08:22; Start 03/31/18 at 09:00; Stop 04/01/18 at 12:00 Sodium Chloride (Saline Lock Flush) 10 ml ASDIRECTED PRN IV SEE LABEL COMMENTS; Start 03/31/18 at 05:00 Sodium Chloride (Saline Lock Flush) 10 ml PICC IV Last administered on 03/31/18at 05:12; Start 03/31/18 at 06:00 YANCY URIARTE MD Mar 31, 2018 16:42
[2018-03-31 20:00] VITALS: BP 143/96
[2018-04-01] MEDS: SODIUM CHLORIDE 0.9% INJ 10 ML SYR IV SCH ×2 (05:01→17:12)
[2018-04-01 05:23] LABS: BASO # 0.1 10^3/uL (0.0-0.2); BASO % 0.5 % (0.0-1.0); EOS # 0.1 10^3/uL (0.0-0.50); EOS % 1.2 % (0.0-3.0); HEMATOCRIT 31.5 % (36.0-47.0); LYMPH # 2.4 10^3/uL (1.5-4.5); LYMPH % 20.6 % (24.0-44.0); MEAN CORPUSCULAR HEMOGLOBIN 29.9 pg (27.0-33.0); MEAN CORPUSCULAR HGB CONC 31.7 g/dl (32.0-36.5); MONO # 1.1 10^3/uL (0.0-0.8); NEUTROPHILS % 67.3 % (36.0-66.0); PLATELET COUNT, AUTOMATED 276 10^3/uL (150-450); RED BLOOD COUNT 3.35 10^6/uL (4.00-5.40); WHITE BLOOD COUNT 11.8 10^3/uL (4.0-10.0)
[2018-04-01 05:47] LABS: ALBUMIN 2.1 GM/DL (3.2-5.2); ALT/SGPT 45 U/L (12-78); BILIRUBIN,TOTAL 0.3 MG/DL (0.2-1.0); BLOOD UREA NITROGEN 16 MG/DL (7-18); CALCIUM LEVEL 7.9 MG/DL (8.8-10.2); CARBON DIOXIDE LEVEL 28 MEQ/L (21-32); CHLORIDE LEVEL 102 MEQ/L (98-107); GLOMERULAR FILTRATION RATE > 60.0 (>39); GLUCOSE, FASTING 64 MG/DL (70-100); POTASSIUM SERUM 3.9 MEQ/L (3.5-5.1); SODIUM LEVEL 137 MEQ/L (136-145); TOTAL PROTEIN 6.2 GM/DL (6.4-8.2)
[2018-04-01] MEDS ORDERED: CIPROFLOXACIN 500 MG TAB PO SCH (06:00)
[2018-04-01 06:07] VITALS: BP 119/78
[2018-04-01] MEDS: IPRATROPIUM 0.5MG/ALBUTEROL 2.5MG INH SOL UD 3ML (DUONEB)(J7620) NEB SCH (07:24)
[2018-04-01] MEDS: METOPROLOL TART 50 MG TAB PO SCH ×3 (09:00→21:51)
[2018-04-01] MEDS: DOCUSATE SODIUM 100 MG CAP PO SCH ×2 (09:47→21:49)
[2018-04-01] MEDS: APIXABAN 2.5 MG TAB (ELIQUIS) PO SCH ×2 (09:48→21:49)
[2018-04-01] MEDS: predniSONE 20 MG TAB PO SCH (09:48)
[2018-04-01] MEDS: PANTOPRAZOLE 40MG TAB (PROTONIX) PO SCH (09:48)
[2018-04-01] MEDS: buPROPion 75 MG TAB PO SCH ×2 (09:48→21:50)
[2018-04-01] MEDS: LACTOBACILLUS ACIDOPHILUS CAP (BACID) PO SCH ×3 (09:48→21:49)
[2018-04-01] MEDS: ATORVASTATIN 20 MG TAB PO SCH (09:48)
--- NOTE | 2018-04-01 13:42 | IPNPDOC ---
Date Seen The patient was seen on 04/01/18. 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 The patient was treated as per ID with IV antibiotics for a total of 2 weeks with no evidence of residual infection. IV antibiotics were discontinued on . The pt is OOB to chair leona reports no concerns at this time. Denies any fevers, chills, weakness, fatigue, Headache, Chest Pain, Shortness of breath, cough, palpitations, abdominal pain, N/V/D or changes in bowel or bladder habits. PMHx: atrial fibrillation, hypertension, dyslipidemia, degenerative disc disease, history of right breast cancer status post chemotherapy and radiation, peripheral vascular disease, chronic obstructive pulmonary disease, recurrent urinary tract infection, depression, history of hemorrhage in the retina of the right eye PE: GEN: 77yoF, appears stated age. No acute distress. Alert, oriented to person and place, difficulty with time. HEENT: Normocephalic, atraumatic. Pupils are equal, round, and reactive to light. Sclera are nonicteric. Conjunctiva without injection. No facial asymmetry. Moist mucous membranes. CHEST: Regular rate and rhythm, +S1, +S2 LUNGS: Clear to auscultation bilaterally. No wheezes, rales, or rhonchi. Breat prabhu appears symmetric and easy. ABD: Round, soft, non-tender, non-distended. +Bowel sounds throughout. EXT: No lower extremity edema appreciated. SKIN: [place]abb[place], dry, warm. No rashes. NEURO: No focal deficits appreciated. UC 03/30/18 E faecalis. 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 The patient was treated as per ID with IV antibiotics for a total of 2 weeks with no evidence of residual infection. IV antibiotics were discontinued on 03/26/2018. Deconditioning/debility Mgmt as per Dr Erwin MIN. PT/OT/ST as per Dr Erwin MIN. pain control as per Dr Erwin MIN. bowel care as per Dr Erwin MIN. DVT px. On Eliquis. Altered mental status, multi-factorial, delirium and acute cerebrovascular accident (CVA) and metabolic encephalopathy and medication induced. Blood culture has been negative. ct head wnl, EEG showed encephalopathy, MRI of the brain showed cva, MRA and TTE 03/26/18. Pt seen by neurology. scopolamine stopped, mental status improved after med stopped. 2. Acute CVA possibly embolic in nature, 2/2 Afib. Elquis AC 3. UTI. E faecalis. Cipro 500mg BID po D1 4. Atrial fibrillation. with rvr. rate control PO lopressor eliquis 5. Dyslipidemia. Continue statin. 6. Depression. Continue current medication. 7. Hypertension. Continue Lopressor. Monitor blood pressure. 8. Colovaginal fistula 2/2 diverticulitis, status post sigmoid colectomy, complicated with ileus. Management as per surgery. 9. Gout left foot, prednisone tapering crp improved. VS, I&O, 24H, [facility] Vital Signs/I&O Vital Signs Date Time Temp Pulse Resp B/P (MAP) Pulse Ox O2 Delivery O2 Flow Rate FiO2 04/01/18 09:00 77 119/78 04/01/18 06:07 97.2 18 95 Room Air I&O- Last 24 Hours up to 6 AM 04/01/18 06:00 Intake Total 830 ml Output Total 400 ml Balance 430 ml Laboratory Data 24H LABS Laboratory Tests 2 04/01/18 05:11: Immature Granulocyte % (Auto) 1.4, White Blood Count 11.8H, Red Blood Count 3.35L, Hemoglobin 10.0L, Hematocrit 31.5L, Mean Corpuscular Volume 94.0, Mean Corpuscular Hemoglobin 29.9, Mean Corpuscular Hemoglobin Concent 31.7L, Red Cell Distribution Width 14.3, Platelet Count 276, Neutrophils (%) (Auto) 67.3H, Lymphocytes (%) (Auto) 20.6L, Monocytes (%) (Auto) 9.0H, Eosinophils (%) (Auto) 1.2, Basophils (%) (Auto) 0.5, Neutrophils # (Auto) 8.0H, Lymphocytes # (Auto) 2.4, Monocytes # (Auto) 1.1H, Eosinophils # (Auto) 0.1, Basophils # (Auto) 0.1, Nucleated Red Blood Cells % (auto) 0.0, Anion Gap 7L, Glomerular Filtration Rate > 60.0, Blood Urea Nitrogen 16, Creatinine 0.60, Sodium Level 137, Potassium Level 3.9, Chloride Level 102, Carbon Dioxide Level 28, Calcium Level 7.9L, Aspartate Amino Transf (AST/SGOT) 25, Alanine Aminotransferase (ALT/SGPT) 45, Alkaline Phosphatase 132H, Total Bilirubin 0.3, Total Protein 6.2L, Albumin 2.1L, Albumin/Globulin Ratio 0.51L CBC/BMP Laboratory Tests 04/01/18 05:11 Red Blood Count 3.35 L, Mean Corpuscular Volume 94.0, Mean Corpuscular Hemoglobin 29.9, Mean Corpuscular Hemoglobin Concent 31.7 L, Red Cell Distribution Width 14.3, Neutrophils (%) (Auto) 67.3 H, Lymphocytes (%) (Auto) 20.6 L, Monocytes (%) (Auto) 9.0 H, Eosinophils (%) (Auto) 1.2, Basophils (%) (Auto) 0.5, Neutrophils # (Auto) 8.0 H, Lymphocytes # (Auto) 2.4, Monocytes # (Auto) 1.1 H, Eosinophils # (Auto) 0.1, Basophils # (Auto) 0.1, Calcium Level 7.9 L, Aspartate Amino Transf (AST/SGOT) 25, Alanine Aminotransferase (ALT/SGPT) 45, Alkaline Phosphatase 132 H, Total Bilirubin 0.3, Total Protein 6.2 L, Albumin 2.1 L Microbiology Microbiology 03/30/18 Urine Culture - Final, Complete Enterococcus Faecalis Ursula Cabrera Apr 01, 2018 13:42
[2018-04-01 14:00] VITALS: BP 128/61
--- NOTE | 2018-04-01 15:24 | NUR ---
Pt w/ mild-moderate cognitive impairment. Per family, pt is at baseline cognitive status. Plan to return to Assisted Living. COMMUNITY ENGAGEMENT REPRESENTATIVE tx not recommended at this time. Addendum: 04/01/18 at 1525 by VANI SHELTON [facility] SP Amended: Links added.
[2018-04-01] MEDS: CIPROFLOXACIN 500 MG TAB PO SCH (17:13)
--- NOTE | 2018-04-01 18:48 | IPNPDOC ---
PM&R Progress Note DATE OF SERVICE: Apr 01, 2018 [employer] Operator Progress Note Subjective: PAtient reports she has not had any more hematuria and has been sleeping well. She was started on antibiotics for UTI. REVIEW OF SYSTEMS: The following is a completed review of systems and has been reviewed. Review of systems otherwise unremarkable. PAIN: Patient self reports no pain EYES: Negative for recent vision changes EARS, NOSE, & THROAT: negative for dysphagia or rhinorrhea CARDIOVASCULAR: + Afib, negative for chest pain or palpitations PULMONARY: Negative. Denies shortness of breath. GASTROINTESTINAL: Negative for diarrhea/ constipation, +sigmoidectomy GENITOURINARY:negative for dysuria MUSCULOSKELETAL: left foot swelling NEUROLOGICAL: no tremor, seizure, or focal weakness HEMATOLOGICAL: post-op anemia SKIN: abdominal perfecto PSYCHIATRIC: Unremarkable All other review of systems found to be negative. PHYSICAL EXAMINATION: VITAL SIGNS: Please see below. GENERAL: Pleasant and cooperative. No acute distress. HEENT: PERRL. Extraocular movements intact. Clear conjunctiva CARDIOVASCULAR: Regular rate and rhythm. No murmurs, rubs, or gallops LUNGS: Clear to auscultation bilaterally. No wheezes. No rhonchi ABDOMEN: Soft, nontender, nondistended. Positive bowel sounds. Normal active bowel sounds, + perfecto c/d/i NEUROLOGICAL: Alert and oriented times three. Cranial nerves II through XII grossly intact. Sensation grossly intact -visual field intact, no dysmetria EXTREMITIES: 5\\5 strength bilateral upper extremities. 5\\5 strength right lower extremity. 5/5 strength in left lower extremity. functional range of motion throughout left foot- nontender, no swelling SKIN: abdominal perfecto, c/d/i no induration, mild erythema ASSESSMENT:77-year-old F with past medical history of Afib, CAD, diastolic CHF who presents status post sigmoid colectomy for colon-vaginal fistula, found to have a new stroke. PLAN: 1. 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 Neuro: MRI 03-25-18 showing left occipital stroke, continue statin for secondary prevention, monitor BPs and continue AFib treatment - recent MRI showing "Severe stenosis of 70% of the distal left common carotid" will discuss with neurology possible intervention 3. Cardio: pmh Afib and diastolic CHF, continue beta-wilton and Eliquis 4. Resp: stable, incentive spirometry, Duonebs prn 5. GI: s.p sigmoid colectomy for colon-vaginal fistula, incision healing well, monitor for diarrhea or obstruction 6. ID: left foot swelling resolved, per ID continue steroid 3-5 days total, ID recs appreciated, will taper 7. : s/p left ureteral stent placed 03-20-19, episode of hematuria 03-30-18, will watch Hgb-stable without further incidence - monitor PVRs,admission UA and Ucx positive for E faecalis, will start Cipofloxacin 8. GI ppx: protonix 9. DVT ppx: on Eliquis 10. Psych: anxiety continue Wellbutrin 11. Dispo:TBD Allergies Coded Allergies: No Known Allergies (Verified , 03/13/18) Vital Signs Vital Signs Date Time Temp Pulse Resp B/P (MAP) Pulse Ox O2 Delivery O2 Flow Rate FiO2 04/01/18 17:14 91 128/61 04/01/18 14:00 97.5 16 96 Room Air Laboratory Data CBC/BMP Laboratory Tests 04/01/18 05:11 Red Blood Count 3.35 L, Mean Corpuscular Volume 94.0, Mean Corpuscular Hemoglobin 29.9, Mean Corpuscular Hemoglobin Concent 31.7 L, Red Cell Distribution Width 14.3, Neutrophils (%) (Auto) 67.3 H, Lymphocytes (%) (Auto) 20.6 L, Monocytes (%) (Auto) 9.0 H, Eosinophils (%) (Auto) 1.2, Basophils (%) (Auto) 0.5, Neutrophils # (Auto) 8.0 H, Lymphocytes # (Auto) 2.4, Monocytes # (Auto) 1.1 H, Eosinophils # (Auto) 0.1, Basophils # (Auto) 0.1, Calcium Level 7.9 L, Aspartate Amino Transf (AST/SGOT) 25, Alanine Aminotransferase (ALT/SGPT) 45, Alkaline Phosphatase 132 H, Total Bilirubin 0.3, Total Protein 6.2 L, Al bumin 2.1 L Labs 24H Laboratory Tests 2 04/01/18 05:11: Immature Granulocyte % (Auto) 1.4, White Blood Count 11.8H, Red Blood Count 3.35L, Hemoglobin 10.0L, Hematocrit 31.5L, Mean Corpuscular Volume 94.0, Mean Corpuscular Hemoglobin 29.9, Mean Corpuscular Hemoglobin Concent 31.7L, Red Cell Distribution Width 14.3, Platelet Count 276, Neutrophils (%) (Auto) 67.3H, Lymphocytes (%) (Auto) 20.6L, Monocytes (%) (Auto) 9.0H, Eosinophils (%) (Auto) 1.2, Basophils (%) (Auto) 0.5, Neutrophils # (Auto) 8.0H, Lymphocytes # (Auto) 2.4, Monocytes # (Auto) 1.1H, Eosinophils # (Auto) 0.1, Basophils # (Auto) 0.1, Nucleated Red Blood Cells % (auto) 0.0, Anion Gap 7L, Glomerular Filtration Rate > 60.0, Blood Urea Nitrogen 16, Creatinine 0.60, Sodium Level 137, Potassium Level 3.9, Chloride Level 102, Carbon Dioxide Level 28, Calcium Level 7.9L, Aspartate Amino Transf (AST/SGOT) 25, Alanine Aminotransferase (ALT/SGPT) 45, Alkaline Phosphatase 132H, Total Bilirubin 0.3, Total Protein 6.2L, Albumin 2.1L, Albumin/Globulin Ratio 0.51L Microbiology Microbiology 03/30/18 Urine Culture - Final, Complete Enterococcus Faecalis Current Medications Current Medications Current Medications Acetaminophen (Tylenol Tab) 650 mg Q4HP PRN PO fever/MILD PAIN (PS 1-4); Start 03/30/18 at 17:30 Albuterol/ Ipratropium (Duoneb (Ipr 0.5mg/Alb 2.5mg)) 3 ml DAILY@0800 NEB Last administered on 03/31/18at 07:26; Start 03/31/18 at 08:00 Albuterol/ Ipratropium (Duoneb (Ipr 0.5mg/Alb 2.5mg)) 3 ml Q2HP PRN NEB SOB/WHEEZING; Start 03/30/18 at 17:30 Amlodipine Besylate (Norvasc) 5 mg DAILY PO ; Start 03/31/18 at 09:00; Stop 03/31/18 at 10:35; Status DC Apixaban (Eliquis) 2.5 mg BID PO Last administered on 04/01/18at 09:48; Start 03/30/18 at 21:00 Atorvastatin Calcium (Lipitor) 20 mg DAILY PO Last administered on 04/01/18at 09:48; Start 03/31/18 at 09:00 Bisacodyl (Dulcolax Suppository) 10 mg DAILYPRN PRN [place] CONSTIPATION; Start 03/30/18 at 17:30 Bupropion HCl (Wellbutrin) 75 mg BID PO Last administered on 04/01/18at 09:48; Start 03/30/18 at 21:00 Ciprofloxacin (Cipro) 500 mg BID@,18 PO ; Start 04/01/18 at 06:00; Stop 04/01/18 at 12:18; Status DC Ciprofloxacin (Cipro) 500 mg BID@,18 PO Last administered on 04/01/18at 17:13; Start 04/01/18 at 18:00; Stop 04/06/18 at 06:01 Docusate Sodium (Colace) 100 mg BID PO Last administered on 04/01/18at 09:47; Start 03/30/18 at 21:00 Heparin Sodium (Heparin (Flush)) 200 units ASDIRECTED PRN IV SEE LABEL COMMENTS; Start 03/31/18 at 05:00 Heparin Sodium (Heparin (Flush)) 200 units PICC IV Last administered on 04/01/18at 17:12; Start 03/31/18 at 06:00 Home Med (Med Rec Complete!) ASDIRECTED XX ; Start 03/30/18 at 18:45; Stop 03/30/18 at 18:45; Status DC Lactobacillus Acidophilus (Bacid) 1 ea TID PO Last administered on 04/01/18at 17:13; Start 03/30/18 at 21:00 Magnesium Hydroxide (Milk Of Magnesia) 30 ml DAILYPRN PRN PO CONSTIPATION; S tart 03/30/18 at 17:30 Metoprolol Tartrate (Lopressor) 25 mg TID PO Last administered on 04/01/18at 17: 14; Start 03/31/18 at 16:00 Metoprolol Tartrate (Lopressor) 50 mg TID PO Last administered on 03/30/18at 21:08; Start 03/30/18 at 21:00; Stop 03/31/18 at 10:35; Status DC Pantoprazole Sodium (Protonix) 40 mg DAILY PO Last administered on 04/01/18 09:48; Start 03/31/18 at 09:00 Prednisone (Deltasone) 5 mg DAILY PO ; Start 04/02/18 at 09:00; Stop 04/02/18 at 09:00; Status DC Prednisone (Deltasone) 10 mg Taper DAILY PO ; Start 04/02/18 at 09:00; Stop 04/08/18 at 08:59 Prednisone (Deltasone) 20 mg DAILY PO Last administered on 04/01/18at 09:48; Start 03/31/18 at 09:00; Stop 04/01/18 at 12:00; Status DC Sodium Chloride (Saline Lock Flush) 10 ml ASDIRECTED PRN IV SEE LABEL COMMENTS; Start 03/31/18 at 05:00 Sodium Chloride (Saline Lock Flush) 10 ml PICC IV Last administered on 04/01/18at 17:12; Start 03/31/18 at 06:00 YANCY URIARTE MD Apr 01, 2018 18:48
[2018-04-01 21:30] VITALS: BP 150/87
[2018-04-02] MEDS: CIPROFLOXACIN 500 MG TAB PO SCH ×2 (05:43→17:31)
[2018-04-02] MEDS: SODIUM CHLORIDE 0.9% INJ 10 ML SYR IV SCH ×2 (05:43→17:32)
[2018-04-02 06:00] VITALS: BP 167/77
[2018-04-02] MEDS: IPRATROPIUM 0.5MG/ALBUTEROL 2.5MG INH SOL UD 3ML (DUONEB)(J7620) NEB SCH (07:40)
[2018-04-02] MEDS ORDERED: predniSONE 5 MG TAB PO SCH (09:00)
[2018-04-02] MEDS: PANTOPRAZOLE 40MG TAB (PROTONIX) PO SCH (09:44)
[2018-04-02] MEDS: METOPROLOL TART 50 MG TAB PO SCH ×3 (09:45→21:48)
[2018-04-02] MEDS: DOCUSATE SODIUM 100 MG CAP PO SCH ×2 (09:45→21:47)
[2018-04-02] MEDS: predniSONE 10 MG TAB PO SCH (09:45)
[2018-04-02] MEDS: buPROPion 75 MG TAB PO SCH ×2 (09:45→21:47)
[2018-04-02] MEDS: APIXABAN 2.5 MG TAB (ELIQUIS) PO SCH ×2 (09:45→21:47)
[2018-04-02] MEDS: ATORVASTATIN 20 MG TAB PO SCH (09:46)
[2018-04-02] MEDS: LACTOBACILLUS ACIDOPHILUS CAP (BACID) PO SCH ×3 (09:46→21:47)
--- NOTE | 2018-04-02 12:37 | IPNPDOC ---
Date Seen The patient was seen on 04/02/18. 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 The patient was treated as per ID with IV antibiotics for a total of 2 weeks with no evidence of residual infection. IV antibiotics were discontinued on 03/26/2018. The pt is OOB to chair and reports no concerns, wants to get back to bed. Denies any fevers, chills, weakness, fatigue, Headache, Chest Pain, Shortness of breath, cough, palpitations, abdominal pain, N/V/D or changes in bowel or bladder habits. PMHx: atrial fibrillation, hypertension, dyslipidemia, degenerative disc disease, history of right breast cancer status post chemotherapy and radiation, peripheral vascular disease, chronic obstructive pulmonary disease, recurrent urinary tract infection, depression, history of hemorrhage in the retina of the right eye PE: GEN: 77yoF, appears stated age. No acute distress. Alert, oriented to person and place, difficulty with time. HEENT: Normocephalic, atraumatic. Pupils are equal, round, and reactive to light. Sclera are nonicteric. Conjunctiva without injection. No facial asymmetry. Moist mucous membranes. CHEST: Regular rate and rhythm, +S1, +S2 LUNGS: Clear to auscultation bilaterally. No wheezes, rales, or rhonchi. Breathing appears symmetric and easy. ABD: Round, soft, non-tender, non-distended. +Bowel sounds throughout. EXT: No lower extremity edema appreciated. SKIN: [place], dry, warm. No rashes. NEURO: No focal deficits appreciated. UC 03/30/18 E faecalis. 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 The patient was treated as per ID with IV antibiotics for a total of 2 weeks with no evidence of residual infection. IV antibiotics were discontinued on 03/26/2018. Deconditioning/debility Mgmt as per Dr Erwin MIN. PT/OT/ST as per Dr Erwin MIN. pain control as per Dr Erwin MIN. bowel care as per ARU, Dr Hood. DVT px. On Eliquis. Disposition as per ARU, Dr Hood Altered mental status, multi-factorial, delirium and acute cerebrovascular accident (CVA) and metabolic encephalopathy and medication induced. Blood culture has been negative. ct head wnl, EEG showed encephalopathy, MRI of the brain showed cva, MRA and TTE 03/26/18. Pt seen by neurology. scopolamine stopped, mental status improved after med stopped. 2. Acute CVA possibly embolic in nature, 2/2 Afib. Elquis AC 3. UTI. E faecalis. Cipro 500mg BID po D2 4. Atrial fibrillation. with rvr. rate control PO lopressor eliquis 5. Dyslipidemia. Continue statin. 6. Depression. Continue current medication. 7. Hypertension. Continue Lopressor. Monitor blood pressure. 8. Colovaginal fistula 2/2 diverticulitis, status post sigmoid colectomy, complicated with ileus. Management as per surgery. 9. Gout left foot, prednisone tapering crp improved. VS, I&O, 24H, Fishbone Vital Signs/I&O Vital Signs Date Time Temp Pulse Resp B/P (MAP) Pulse Ox O2 Delivery O2 Flow Rate FiO2 04/02/18 09:45 90 160/72 04/02/18 06:00 98.0 18 97 Room Air I&O- Last 24 Hours up to 6 AM 04/02/18 06:00 Intake Total 1080 ml Output Total 1100 ml Balance -20 ml Laboratory Data Microbiology Microbiology 03/30/18 Urine Culture - Final, Complete Enterococcus Faecalis Ursula Cabrera Apr 02, 2018 12:37
[2018-04-02 14:00] VITALS: BP 145/88
[2018-04-02] MEDS: amLODIPine 5 MG TAB PO SCH (14:44)
[2018-04-02] MEDS: ACETAMINOPHEN TAB 650MG DOSE (2X325MG) PO SCH ×2 (16:22→21:48)
[2018-04-02 20:00] VITALS: BP 106/57
[2018-04-03 06:00] VITALS: BP 126/67
[2018-04-03] MEDS: CIPROFLOXACIN 500 MG TAB PO SCH ×2 (06:21→17:27)
[2018-04-03] MEDS: SODIUM CHLORIDE 0.9% INJ 10 ML SYR IV SCH ×2 (06:22→17:27)
[2018-04-03 07:06] LABS: HEMATOCRIT 33.3 % (36.0-47.0); HEMOGLOBIN 10.7 g/dl (12.0-15.5); MEAN CORPUSCULAR HEMOGLOBIN 30.1 pg (27.0-33.0); MEAN CORPUSCULAR HGB CONC 32.1 g/dl (32.0-36.5); MEAN CORPUSCULAR VOLUME 93.5 fl (80.0-96.0); PLATELET COUNT, AUTOMATED 254 10^3/uL (150-450); RED BLOOD COUNT 3.56 10^6/uL (4.00-5.40); WHITE BLOOD COUNT 7.7 10^3/uL (4.0-10.0)
[2018-04-03 07:33] LABS: ALBUMIN 2.3 GM/DL (3.2-5.2); ALT/SGPT 34 U/L (12-78); BILIRUBIN,TOTAL 0.3 MG/DL (0.2-1.0); BLOOD UREA NITROGEN 15 MG/DL (7-18); CALCIUM LEVEL 8.3 MG/DL (8.8-10.2); CARBON DIOXIDE LEVEL 27 MEQ/L (21-32); CHLORIDE LEVEL 101 MEQ/L (98-107); CREATININE FOR GFR 0.66 MG/DL (0.55-1.30); GLOMERULAR FILTRATION RATE > 60.0 (>39); GLUCOSE, FASTING 76 MG/DL (70-100); POTASSIUM SERUM 3.9 MEQ/L (3.5-5.1); SODIUM LEVEL 135 MEQ/L (136-145); TOTAL PROTEIN 6.3 GM/DL (6.4-8.2)
[2018-04-03] MEDS: DOCUSATE SODIUM 100 MG CAP PO SCH ×2 (08:39→20:13)
[2018-04-03] MEDS: buPROPion 75 MG TAB PO SCH ×2 (08:39→20:14)
[2018-04-03] MEDS: ATORVASTATIN 20 MG TAB PO SCH (08:39)
[2018-04-03] MEDS: predniSONE 10 MG TAB PO SCH (08:39)
[2018-04-03] MEDS: LACTOBACILLUS ACIDOPHILUS CAP (BACID) PO SCH ×3 (08:39→20:13)
[2018-04-03] MEDS: APIXABAN 2.5 MG TAB (ELIQUIS) PO SCH ×2 (08:39→20:13)
[2018-04-03] MEDS: PANTOPRAZOLE 40MG TAB (PROTONIX) PO SCH (08:39)
[2018-04-03] MEDS: ACETAMINOPHEN TAB 650MG DOSE (2X325MG) PO SCH ×3 (08:40→20:15)
[2018-04-03] MEDS: METOPROLOL TART 50 MG TAB PO SCH ×3 (08:41→20:14)
[2018-04-03] MEDS: amLODIPine 5 MG TAB PO SCH (08:41)
[2018-04-03] MEDS: IPRATROPIUM 0.5MG/ALBUTEROL 2.5MG INH SOL UD 3ML (DUONEB)(J7620) NEB SCH (11:01)
[2018-04-03 11:41] LABS: C REACTIVE PROTEIN QUANTITATIV < 0.30 MG/DL (0.00-0.30)
--- NOTE | 2018-04-03 11:45 | IPNPDOC ---
Date Seen The patient was seen on 04/03/18. 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 The patient was treated as per ID with IV antibiotics for a total of 2 weeks with no evidence of residual infection. IV antibiotics were discontinued on . The pt is OOB with PT but getting back to bed. Dtr states she still has some swelling around the left ankle but there is no TTP, redness as previously. She has been wearing shoes and ambulating without any pain. Denies any fevers, chills, weakness, fatigue, Headache, Chest Pain, Shortness of breath, cough, palpitations, abdominal pain, N/V/D or changes in bowel or bladder habits. PMHx: atrial fibrillation, hypertension, dyslipidemia, degenerative disc disease, history of right breast cancer status post chemotherapy and radiation, peripheral vascular disease, chronic obstructive pulmonary disease, recurrent urinary tract infection, depression, history of hemorrhage in the retina of the right eye PE: GEN: 77yoF, appears stated age. No acute distress. Alert, oriented to person and place, difficulty with time. HEENT: Normocephalic, atraumatic. Pupils are equal, round, and reactive to light. Sclera are nonicteric. Conjunctiva without injection. No facial as ymmetry. Moist mucous membranes. CHEST: Regular rate and rhythm, +S1, +S2 LUNGS: Clear to auscultation bilaterally. No wheezes, rales, or rhonchi. Breathing appears symmetric and easy. ABD: Round, soft, non-tender, non-distended. +Bowel sounds throughout. EXT: No lower extremity edema appreciated. SKIN: [place], dry, warm. No rashes. NEURO: No focal deficits appreciated. UC 03/30/18 E faecalis. 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 The patient was treated as per ID with IV antibiotics for a total of 2 weeks with no evidence of residual infection. IV antibiotics were discontinued on 0 03/26/2018. Deconditioning/debility Mgmt as per ARUDr Hood. PT/OT/ST as per Dr Erwin MIN. pain control as per Dr Erwin MIN. bowel care as per MECHELLE, Dr Hood. DVT px. On Eliquis. Disposition as per Dr Erwin MIN Altered mental status, multi-factorial, delirium and acute cerebrovascular accident (CVA) and metabolic encephalopathy and medication induced. Blood culture has been negative. ct head wnl, EEG showed encephalopathy, MRI of the brain showed cva, MRA and TTE 03/26/18. Pt seen by neurology. scopolamine stopped, mental status improved after med stopped. Acute CVA possibly embolic in nature, 2/2 Afib. Elquis AC UTI. E faecalis. Cipro 500mg BID po D3/5 Atrial fibrillation. with rvr. rate control PO lopressor eliquis Dyslipidemia. Continue statin. Depression. Continue current medication. Hypertension. Continue Lopressor. Monitor blood pressure. Colovaginal fistula 2/2 diverticulitis, status post sigmoid colectomy, complicated with ileus. Management as per surgery. Gout left foot prednisone tapering dose crp improved. Will recheck today. VS, [facility] Vital Signs/I&O Vital Signs Date Time Temp Pulse Resp B/P (MAP) Pulse Ox O2 Delivery O2 Flow Rate FiO2 04/03/18 08:41 64 158/91 04/03/18 06:00 97.8 18 98 Room Air I&O- Last 24 Hours up to 6 AM 04/03/18 06:00 Intake Total 1070 ml Output Total 1050 ml Balance 20 ml Laboratory Data 24H LABS Laboratory Tests 2 04/03/18 06:35: Nucleated Red Blood Cells % (auto) 0.0, Anion Gap 7L, Glomerular Filtration Rate > 60.0, Blood Urea Nitrogen 15, Creatinine 0.66, Sodium Level 135L, Potassium Level 3.9, Chloride Level 101, Carbon Dioxide Level 27, Calcium Level 8.3L, Aspartate Amino Transf (AST/SGOT) 21, Alanine Aminotransferase (ALT/SGPT) 34, Alkaline Phosphatase 114, Total Bilirubin 0.3, Total Protein 6.3L, Albumin 2.3L, Albumin/Globulin Ratio 0.58L CBC/BMP Laboratory Tests 04/03/18 06:35 Red Blood Count 3.56 L, Mean Corpuscular Volume 93.5, Mean Corpuscular Hemoglobin 30.1, Mean Corpuscular Hemoglobin Concent 32.1, Red Cell Distribution Width 14.6 H, Calcium Level 8.3 L, Aspartate Amino Transf (AST/SGOT) 21, Alanine Aminotransferase (ALT/SGPT) 34, Alkaline Phosphatase 114, Total Bilirubin 0.3, Total Protein 6.3 L, Albumin 2.3 L Microbiology Microbiology 03/30/18 Urine Culture - Final, Complete Enterococcus Faecalis Ursula Cabrera Apr 03, 2018 11:45
--- NOTE | 2018-04-03 13:57 | IPNPDOC ---
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 REVIEW OF SYSTEMS: The following is a completed review of systems and has been reviewed. Review of systems otherwise unremarkable. PAIN: Patient self reports no pain EYES: Negative for recent vision changes EARS, NOSE, & THROAT: negative for dysphagia or rhinorrhea CARDIOVASCULAR: + Afib, negative for chest pain or palpitations PULMONARY: Negative. Denies shortness of breath. GASTROINTESTINAL: Negative for diarrhea/ constipation, +sigmoidectomy GENITOURINARY:negative for dysuria MUSCULOSKELETAL: left foot swelling NEUROLOGICAL: no tremor, seizure, or focal weakness HEMATOLOGICAL: post-op anemia SKIN: abdominal perfecto PSYCHIATRIC: Unremarkable All other review of systems found to be negative. PHYSICAL EXAMINATION: VITAL SIGNS: Please see below. GENERAL: Pleasant and cooperative. No acute distress. HEENT: PERRL. Extraocular movements intact. Clear conjunctiva CARDIOVASCULAR: Regular rate and rhythm. No murmurs, rubs, or gallops LUNGS: Clear to auscultation bilaterally. No wheezes. No rhonchi ABDOMEN: Soft, nontender, nondistended. Positive bowel sounds. Normal active bowel sounds, + perfecto c/d/i NEUROLOGICAL: Alert and oriented times three. Cranial nerves II through XII grossly intact. Sensation grossly intact -visual field intact, no dysmetria EXTREMITIES: 5\\5 strength bilateral upper extremities. 5\\5 strength right lower extremity. 5/5 strength in left lower extremity. functional range of motion throughout left foot- nontender, no swelling SKIN: abdominal perfecto, c/d/i no induration, mild erythema ASSESSMENT:77-year-old F with past medical history of Afib, CAD, diastolic CHF who presents status post sigmoid colectomy for colon-vaginal fistula, found to have a new stroke. 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 Neuro: MRI 03-25-18 showing left occipital stroke, continue statin for secondary prevention, monitor BPs and continue AFib treatment - recent MRI showing "Severe stenosis of 70% of the distal left common carotid" will discuss with neurology possible intervention 3. Cardio: pmh Afib and diastolic CHF, continue beta-wilton and Eliquis 4. Resp: stable, incentive spirometry, Duonebs prn 5. GI: s.p sigmoid colectomy for colon-vaginal fistula, incision healing well, monitor for diarrhea or obstruction 6. ID: left foot swelling resolved, per ID continue steroid 3-5 days total, ID recs appreciated, will taper 7. : s/p left ureteral stent placed 03-20-19, episode of hematuria 03-30-18, will watch Hgb-stable without further incidence - monitor PVRs,admission UA and Ucx positive for E faecalis, continue Cipofloxacin 8. GI ppx: protonix 9. DVT ppx: on Eliquis 10. Psych: anxiety continue Wellbutrin 11. Dispo:, progressing towards goals Allergies Coded Allergies: No Known Allergies (Verified , 03/13/18) Vital Signs Vital Signs Date Time Temp Pulse Resp B/P (MAP) Pulse Ox O2 Delivery O2 Flow Rate FiO2 04/03/18 08:41 64 158/91 04/03/18 06:00 97.8 18 98 Room Air Laboratory Data CBC/BMP Laboratory Tests 04/03/18 06:35 Red Blood Count 3.56 L, Mean Corpuscular Volume 93.5, Mean Corpuscular Hemoglobin 30.1, Mean Corpuscular Hemoglobin Concent 32.1, Red Cell Distribution Width 14.6 H, Calcium Level 8.3 L, Aspartate Amino Transf (AST/SGOT) 21, Alanine Aminotransferase (ALT/SGPT) 34, Alkaline Phosphatase 114, Total Bilirubin 0.3, Total Protein 6.3 L, Albumin 2.3 L Labs 24H Laboratory Tests 2 04/03/18 06:35: Nucleated Red Blood Cells % (auto) 0.0, Anion Gap 7L, Glomerular Filtration Rate > 60.0, Blood Urea Nitrogen 15, Creatinine 0.66, Sodium Level 135L, Potassium Level 3.9, Chloride Level 101, Carbon Dioxide Level 27, Calcium Level 8.3L, Aspartate Amino Transf (AST/SGOT) 21, Alanine Aminotransferase (ALT/SGPT) 34, Alkaline Phosphatase 114, Total Bilirubin 0.3, Total Protein 6.3L, Albumin 2.3L, C-Reactive Protein, Quantitative < 0.30, Albumin/Globulin Ratio 0.58L Microbiology Microbiology 03/30/18 Urine Culture - Final, Complete Enterococcus Faecalis Current Medications Current Medications Current Medications Acetaminophen (Tylenol Tab) 650 mg Q4HP PRN PO fever/MILD PAIN (PS 1-4); Start 03/30/18 at 17:30 Acetaminophen (Tylenol Tab) 650 mg TID PO Last administered on 04/03/18at 08:40; Start 04/02/18 at 16:00 Albuterol/ Ipratropium (Duoneb (Ipr 0.5mg/Alb 2.5mg)) 3 ml DAILY@0800 NEB Last administered on 04/03/18at 11:01; Start 03/31/18 at 08:00 Albuterol/ Ipratropium (Duoneb (Ipr 0.5mg/Alb 2.5mg)) 3 ml Q2HP PRN NEB SOB/WHEEZING; Start 03/30/18 at 17:30 Amlodipine Besylate (Norvasc) 5 mg DAILY PO Last administered on 04/03/18at 08:41; Start 04/02/18 at 09:00 Amlodipine Besylate (Norvasc) 5 mg DAILY PO ; Start 03/31/18 at 09:00; Stop 03/31/18 at 10:35; Status DC Apixaban (Eliquis) 2.5 mg BID PO Last administered on 04/03/18at 08:39; Start 03/30/18 at 21:00 Atorvastatin Calcium (Lipitor) 20 mg DAILY PO Last administered on 04/03/18at 08:39; Start 03/31/18 at 09:00 Bisacodyl (Dulcolax Suppository) 10 mg DAILYPRN PRN [place] CONSTIPATION; Start 03/30/18 at 17:30 Bupropion HCl (Wellbutrin) 75 mg BID PO Last administered on 04/03/18at 08:39; Start 03/30/18 at 21:00 Ciprofloxacin (Cipro) 500 mg BID@06,18 PO ; Start 04/01/18 at 06:00; Stop 04/01/18 at 12:18; Status DC Ciprofloxacin (Cipro) 500 mg BID@06,18 PO Last administered on 04/03/18 06:21; Start 04/01/18 at 18:00; Stop 04/06/18 at 06:01 Docusate Sodium (Colace) 100 mg BID PO Last administered on 04/03/18at 08:39; Start 03/30/18 at 21:00 Heparin Sodium (Heparin (Flush)) 200 units ASDIRECTED PRN IV SEE LABEL COMMENTS; Start 03/31/18 at 05:00 Heparin Sodium (Heparin (Flush)) 200 units PICC IV Last administered on 04/03/18at 06:22; Start 03/31/18 at 06:00 Home Med (Med Rec Complete!) ASDIRECTED XX ; Start 03/30/18 at 18:45; Stop 03/30/18 at 18:45; Status DC Lactobacillus Acidophilus (Bacid) 1 ea TID PO Last administered on 04/03/18at 08:39; Start 03/30/18 at 21:00 Magnesium Hydroxide (Milk Of Magnesia) 30 ml DAILYPRN PRN PO CONSTIPATION; Start 03/30/18 at 17:30 Metoprolol Tartrate (Lopressor) 25 mg TID PO Last administered on 04/02/18at 21:48; Start 03/31/18 at 16:00 Metoprolol Tartrate (Lopressor) 50 mg TID PO Last administered on 03/30/18at 21:08; Start 03/30/18 at 21:00; Stop 03/31/18 at 10:35; Status DC Pantoprazole Sodium (Protonix) 40 mg DAILY PO Last administered on 04/03/18at 08:39; Start 03/31/18 at 09:00 Prednisone (Deltasone) 5 mg DAILY PO ; Start 04/02/18 at 09:00; Stop 04/02/18 at 09:00; Status DC Prednisone (Deltasone) 10 mg Taper DAILY PO Last administered on 04/03/18at 08:39; Start 04/02/18 at 09:00; Stop 04/08/18 at 08:59 Prednisone (Deltasone) 20 mg DAILY PO Last administered on 04/01/18at 09:48; Start 03/31/18 at 09:00; Stop 04/01/18 at 12:00; Status DC Sodium Chloride (Saline Lock Flush) 10 ml ASDIRECTED PRN IV SEE LABEL COMMENTS; Start 03/31/18 at 05:00 Sodium Chloride (Saline Lock Flush) 10 ml PICC IV Last administered on 04/03/18at 06:22; Start 03/31/18 at 06:00 YANCY URIARTE MD Apr 03, 2018 13:56
--- NOTE | 2018-04-03 13:58 | IPNPDOC ---
PM&R Progress Note DATE OF SERVICE: Apr 03, 2018 [employer] Progress Note Subjective: PAtient seen in OT taking out her curlers, feeling well and steady on her feet. REVIEW OF SYSTEMS: The following is a completed review of systems and has been reviewed. Review of systems otherwise unremarkable. PAIN: Patient self reports no pain EYES: Negative for recent vision changes EARS, NOSE, & THROAT: negative for dysphagia or rhinorrhea CARDIOVASCULAR: + Afib, negative for chest pain or palpitations PULMONARY: Negative. Denies shortness of breath. GASTROINTESTINAL: Negative for diarrhea/ constipation, +sigmoidectomy GENITOURINARY:negative for dysuria MUSCULOSKELETAL: left foot swelling NEUROLOGICAL: no tremor, seizure, or focal weakness HEMATOLOGICAL: post-op anemia SKIN: abdominal perfecto PSYCHIATRIC: Unremarkable All other review of systems found to be negative. PHYSICAL EXAMINATION: VITAL SIGNS: Please see below. GENERAL: Pleasant and cooperative. No acute distress. HEENT: PERRL. Extraocular movements intact. Clear conjunctiva CARDIOVASCULAR: Regular rate and rhythm. No murmurs, rubs, or gallops LUNGS: Clear to auscultation bilaterally. No wheezes. No rhonchi ABDOMEN: Soft, nontender, nondistended. Positive bowel sounds. Normal active bowel sounds, + perfecto c/d/i NEUROLOGICAL: Alert and oriented times three. Cranial nerves II through XII grossly intact. Sensation grossly intact -visual field intact, no dysmetria EXTREMITIES: 5\\5 strength bilateral upper extremities. 5\\5 strength right lower extremity. 5/5 strength in left lower extremity. functional range of motion throughout left foot- nontender, no swelling SKIN: abdominal perfecto, c/d/i no induration, mild erythema ASSESSMENT:77-year-old F with past medical history of Afib, CAD, diastolic CHF who presents status post sigmoid colectomy for colon-vaginal fistula, found to have a new stroke. PLAN: 1. Rehab: OT/OT, [employer], assess for DME, ambulating further with RW 2. Neuro: MRI 03-25-18 showing left occipital stroke, continue statin for secondary prevention, monitor BPs and continue AFib treatment - recent MRI showing "Severe stenosis of 70% of the distal left common carotid" will discuss with neurology possible intervention 3. Cardio: pmh Afib and diastolic CHF, continue beta-wilton and Eliquis 4. Resp: stable, incentive spirometry, Duonebs prn 5. GI: s.p sigmoid colectomy for colon-vaginal fistula, incision healing well, monitor for diarrhea or obstruction 6. ID: left foot swelling resolved, per ID continue steroid 3-5 days total, ID recs appreciated, will taper 7. : s/p left ureteral stent placed 03-20-19, episode of hematuria 03-30-18, will watch Hgb-stable without further incidence - monitor PVRs,admission UA and Ucx positive for E faecalis, continue Ciprofloxacin- afebrile, leukocytosis resolved 8. GI ppx: protonix 9. DVT ppx: on Eliquis 10. Psych: anxiety continue Wellbutrin 11. Dispo:, progressing towards goals Allergies Coded Allergies: No Known Allergies (Verified , 03/13/18) Vital Signs Vital Signs Date Time Temp Pulse Resp B/P (MAP) Pulse Ox O2 Delivery O2 Flow Rate FiO2 04/03/18 08:41 64 158/91 04/03/18 06:00 97.8 18 98 Room Air Laboratory Data CBC/BMP Laboratory Tests 04/03/18 06:35 Red Blood Count 3.56 L, Mean Corpuscular Volume 93.5, Mean Corpuscular Hemoglobin 30.1, Mean Corpuscular Hemoglobin Concent 32.1, Red Cell Distribution Width 14.6 H, Calcium Level 8.3 L, Aspartate Amino Transf (AST/SGOT) 21, Alanine Aminotransferase (ALT/SGPT) 34, Alkaline Phosphatase 114, Total Bilirubin 0.3, Total Protein 6.3 L, Albumin 2.3 L Labs 24H Laboratory Tests 2 04/03/18 06:35: Nucleated Red Blood Cells % (auto) 0.0, Anion Gap 7L, Glomerular Filtration Rate > 60.0, Blood Urea Nitrogen 15, Creatinine 0.66, Sodium Level 135L, Potassium Level 3.9, Chloride Level 101, Carbon Dioxide Level 27, Calcium Level 8.3L, Aspartate Amino Transf (AST/SGOT) 21, Alanine Aminotransferase (ALT/SGPT) 34, Alkaline Phosphatase 114, Total Bilirubin 0.3, Total Protein 6.3L, Albumin 2.3L, C-Reactive Protein, Quantitative < 0.30, Albumin/Globulin Ratio 0.58L Microbiology Microbiology 03/30/18 Urine Culture - Final, Complete Enterococcus Faecalis Current Medications Current Medications Current Medications Acetaminophen (Tylenol Tab) 650 mg Q4HP PRN PO fever/MILD PAIN (PS 1-4); Start 03/30/18 at 17:30 Acetaminophen (Tylenol Tab) 650 mg TID PO Last administered on 04/03/18at 08:40; Start 04/02/18 at 16:00 Albuterol/ Ipratropium (Duoneb (Ipr 0.5mg/Alb 2.5mg)) 3 ml DAILY@0800 NEB Last administered on 04/03/18at 11:01; Start 03/31/18 at 08:00 Albuterol/ Ipratropium (Duoneb (Ipr 0.5mg/Alb 2.5mg)) 3 ml Q2HP PRN NEB SOB/WHEEZING; Start 03/30/18 at 17:30 Amlodipine Besylate (Norvasc) 5 mg DAILY PO Last administered on 04/03/18at 08:41; Start 04/02/18 at 09:00 Amlodipine Besylate (Norvasc) 5 mg DAILY PO ; Start 03/31/18 at 09:00; Stop 03/31/18 at 10:35; Status DC Apixaban (Eliquis) 2.5 mg BID PO Last administered on 04/03/18at 08:39; Start 03/30/18 at 21:00 Atorvastatin Calcium (Lipitor) 20 mg DAILY PO Last administered on 04/03/18at 08:39; Start 03/31/18 at 09:00 Bisacodyl (Dulcolax Suppository) 10 mg DAILYPRN PRN [place] CONSTIPATION; Start 03/30/18 at 17:30 Bupropion HCl (Wellbutrin) 75 mg BID PO Last administered on 04/03/18at 08:39; Start 03/30/18 at 21:00 Ciprofloxacin (Cipro) 500 mg BID@06,18 PO ; Start 04/01/18 at 06:00; Stop 04/01/18 at 12:18; Status DC Ciprofloxacin (Cipro) 500 mg BID@06,18 PO Last administered on 04/03/18at 06:21; Start 04/01/18 at 18:00; Stop 04/06/18 at 06:01 Docusate Sodium (Colace) 100 mg BID PO Last administered on 04/03/18at 08:39; Start 03/30/18 at 21:00 Heparin Sodium (Heparin (Flush)) 200 units ASDIRECTED PRN IV SEE LABEL COMMENTS; Start 03/31/18 at 05:00 Heparin Sodium (Heparin (Flush)) 200 units PICC IV Last administered on 04/03/18at 06:22; Start 03/31/18 at 06:00 Home Med (Med Rec Complete!) ASDIRECTED XX ; Start 03/30/18 at 18:45; Stop 03/30/18 at 18:45; Status DC Lactobacillus Acidophilus (Bacid) 1 ea TID PO Last administered on 04/03/18at 08:39; Start 03/30/18 at 21:00 Magnesium Hydroxide (Milk Of Magnesia) 30 ml DAILYPRN PRN PO CONSTIPATION; Start 03/30/18 at 17:30 Metoprolol Tartrate (Lopressor) 25 mg TID PO Last administered on 04/02/18at 21:48; Start 03/31/18 at 16:00 Metoprolol Tartrate (Lopressor) 50 mg TID PO Last administered on 03/30/18at 21:08; Start 03/30/18 at 21:00; Stop 03/31/18 at 10:35; Status DC Pantoprazole Sodium (Protonix) 40 mg DAILY PO Last administered on 04/03/18 08:39; Start 03/31/18 at 09:00 Prednisone (Deltasone) 5 mg DAILY PO ; Start 04/02/18 at 09:00; Stop 04/02/18 at 09:00; Status DC Prednisone (Deltasone) 10 mg Taper DAILY PO Last administered on 04/03/18at 08:39; Start 04/02/18 at 09:00; Stop 04/08/18 at 08:59 Prednisone (Deltasone) 20 mg DAILY PO Last administered on 04/01/18at 09:48; Start 03/31/18 at 09:00; Stop 04/01/18 at 12:00; Status DC Sodium Chloride (Saline Lock Flush) 10 ml ASDIRECTED PRN IV SEE LABEL COMMENTS; Start 03/31/18 at 05:00 Sodium Chloride (Saline Lock Flush) 10 ml PICC IV Last administered on 04/03/18at 06:22; Start 03/31/18 at 06:00 YANCY URIARTE MD Apr 03, 2018 13:58
[2018-04-03 14:00] VITALS: BP 122/58
[2018-04-03 20:00] VITALS: BP 148/68
[2018-04-04] MEDS: ACETAMINOPHEN TAB 650MG DOSE (2X325MG) PO PRN (01:33)
[2018-04-04 06:00] VITALS: BP 159/79
[2018-04-04] MEDS: CIPROFLOXACIN 500 MG TAB PO SCH ×2 (06:17→17:44)
[2018-04-04] MEDS: IPRATROPIUM 0.5MG/ALBUTEROL 2.5MG INH SOL UD 3ML (DUONEB)(J7620) NEB SCH (07:28)
[2018-04-04] MEDS: DOCUSATE SODIUM 100 MG CAP PO SCH ×2 (08:25→20:45)
[2018-04-04] MEDS: APIXABAN 2.5 MG TAB (ELIQUIS) PO SCH ×2 (08:26→20:45)
[2018-04-04] MEDS: PANTOPRAZOLE 40MG TAB (PROTONIX) PO SCH (08:26)
[2018-04-04] MEDS: LACTOBACILLUS ACIDOPHILUS CAP (BACID) PO SCH ×3 (08:26→20:45)
[2018-04-04] MEDS: ATORVASTATIN 20 MG TAB PO SCH (08:26)
[2018-04-04] MEDS: buPROPion 75 MG TAB PO SCH ×2 (08:26→20:45)
[2018-04-04] MEDS: amLODIPine 5 MG TAB PO SCH (08:26)
[2018-04-04] MEDS: predniSONE 10 MG TAB PO SCH (08:26)
[2018-04-04] MEDS: METOPROLOL TART 50 MG TAB PO SCH ×3 (08:27→20:44)
[2018-04-04] MEDS: ACETAMINOPHEN TAB 650MG DOSE (2X325MG) PO SCH ×3 (08:28→20:45)
[2018-04-04 14:00] VITALS: BP 135/79
[2018-04-04 20:00] VITALS: BP 134/71
[2018-04-05] MEDS: ACETAMINOPHEN TAB 650MG DOSE (2X325MG) PO PRN (03:14)
[2018-04-05 06:00] VITALS: BP 135/78
[2018-04-05] MEDS: CIPROFLOXACIN 500 MG TAB PO SCH ×2 (06:00→17:38)
[2018-04-05] MEDS: IPRATROPIUM 0.5MG/ALBUTEROL 2.5MG INH SOL UD 3ML (DUONEB)(J7620) NEB SCH (07:22)
[2018-04-05] MEDS: DOCUSATE SODIUM 100 MG CAP PO SCH ×2 (08:51→21:37)
[2018-04-05] MEDS: LACTOBACILLUS ACIDOPHILUS CAP (BACID) PO SCH ×3 (08:51→21:37)
[2018-04-05] MEDS: buPROPion 75 MG TAB PO SCH ×2 (08:51→21:37)
[2018-04-05] MEDS: PANTOPRAZOLE 40MG TAB (PROTONIX) PO SCH (08:51)
[2018-04-05] MEDS: APIXABAN 2.5 MG TAB (ELIQUIS) PO SCH ×2 (08:52→21:37)
[2018-04-05] MEDS: ATORVASTATIN 20 MG TAB PO SCH (08:52)
[2018-04-05] MEDS: predniSONE 10 MG TAB PO SCH (08:52)
[2018-04-05] MEDS: METOPROLOL TART 50 MG TAB PO SCH ×3 (08:53→21:38)
[2018-04-05] MEDS: amLODIPine 5 MG TAB PO SCH (08:53)
[2018-04-05] MEDS: ACETAMINOPHEN TAB 650MG DOSE (2X325MG) PO SCH ×3 (08:54→21:37)
[2018-04-05 14:00] VITALS: BP 153/73
[2018-04-05 19:55] VITALS: BP 88/50
[2018-04-05 20:32] VITALS: BP 94/52
[2018-04-05 21:30] VITALS: BP 98/60
[2018-04-05 22:33] VITALS: BP 112/56
[2018-04-06 06:00] VITALS: BP 121/84
[2018-04-06] MEDS: CIPROFLOXACIN 500 MG TAB PO SCH (06:21)
[2018-04-06] MEDS: IPRATROPIUM 0.5MG/ALBUTEROL 2.5MG INH SOL UD 3ML (DUONEB)(J7620) NEB SCH (07:31)
[2018-04-06] MEDS: ACETAMINOPHEN TAB 650MG DOSE (2X325MG) PO SCH ×3 (07:53→20:07)
[2018-04-06] MEDS: amLODIPine 5 MG TAB PO SCH (07:53)
[2018-04-06] MEDS: DOCUSATE SODIUM 100 MG CAP PO SCH ×2 (07:53→20:07)
[2018-04-06] MEDS: APIXABAN 2.5 MG TAB (ELIQUIS) PO SCH ×2 (07:54→20:07)
[2018-04-06] MEDS: LACTOBACILLUS ACIDOPHILUS CAP (BACID) PO SCH ×3 (07:54→20:06)
[2018-04-06] MEDS: PANTOPRAZOLE 40MG TAB (PROTONIX) PO SCH (07:54)
[2018-04-06] MEDS: METOPROLOL TART 50 MG TAB PO SCH ×3 (07:54→20:08)
[2018-04-06] MEDS: predniSONE 10 MG TAB PO SCH (07:54)
[2018-04-06] MEDS: ATORVASTATIN 20 MG TAB PO SCH (07:54)
[2018-04-06] MEDS: buPROPion 75 MG TAB PO SCH ×2 (07:55→20:07)
--- NOTE | 2018-04-06 14:04 | IPNPDOC ---
Date Seen The patient was seen on 04/06/18. 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 The patient was treated as per ID with IV antibiotics for a total of 2 weeks with no evidence of residual infection. IV antibiotics were discontinued on 03/26/2018. The pt has been OOB ambulating in halls. Reports no concerns at this time. Denies any fevers, chills, weakness, fatigue, Headache, Chest Pain, Shortness of breath, cough, palpitations, abdominal pain, N/V/D or changes in bowel or bladder habits. PMHx: atrial fibrillation, hypertension, dyslipidemia, degenerative disc disease, history of right breast cancer status post chemotherapy and radiation, peripheral vascular disease, chronic obstructive pulmonary disease, recurrent urinary tract infection, depression, history of hemorrhage in the retina of the right eye PE: GEN: 77yoF, appears stated age. No acute distress. Alert, oriented to person and place, difficulty with time. HEENT: Normocephalic, atraumatic. Pupils are equal, round, and reactive to light. Sclera are nonicteric. Conjunctiva without injection. No facial asymmetry. Moist mucous membranes. CHEST: Regular rate and rhythm, +S1, +S2 LUNGS: Clear to auscultation bilaterally. No wheezes, rales, or rhonchi. Breathing appears symmetric and easy. ABD: Round, soft, non-tender, non-distended. +Bowel sounds throughout. EXT: No lower extremity edema appreciated. SKIN: [place], dry, warm. No rashes. NEURO: No focal deficits appreciated. UC 03/30/18 E faecalis. 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 The patient was treated as per ID with IV antibiotics for a total of 2 weeks with no evidence of residual infection. IV antibiotics were discontinued on 03/26/2018. Deconditioning/debility Mgmt as per Dr Erwin MIN. PT/OT/ST as per Dr Erwin MIN. pain control as per Dr Erwin MIN. bowel care as per ARU, Dr Hood. DVT px. On Eliquis. Disposition as per ARU, Dr Hood Altered mental status, multi-factorial, delirium and acute cerebrovascular accident (CVA) and metabolic encephalopathy and medication induced. Blood culture has been negative. ct head wnl, EEG showed encephalopathy, MRI of the brain showed cva, MRA and TTE 03/26/18. Pt seen by neurology. scopolamine stopped, mental status improved after med stopped. Acute CVA possibly embolic in nature, 2/2 Afib. Elquis AC UTI. E faecalis. Completed Cipro 500mg BID x 5 days. Atrial fibrillation. with rvr. rate control PO lopressor eliquis Dyslipidemia. Continue statin. Depression. Continue current medication. Hypertension. Continue Lopressor. Monitor blood pressure. Colovaginal fistula 2/2 diverticulitis, status post sigmoid colectomy, complicated with ileus. Management as per surgery. Gout left foot prednisone tapering dose VS, I&O, 24H, Fishbone Vital Signs/I&O Vital Signs Date Time Temp Pulse Resp B/P (MAP) Pulse Ox O2 Delivery O2 Flow Rate FiO2 04/06/18 07:54 94 121/84 04/06/18 06:00 97.6 18 100 Room Air I&O- Last 24 Hours up to 6 AM 04/06/18 06:00 Intake Total 960 ml Balance 960 ml Laboratory Data Microbiology Microbiology 03/30/18 Urine Culture - Final, Complete Enterococcus Faecalis Ursula Cabrera Apr 06, 2018 14:03
[2018-04-06 15:00] VITALS: BP 89/48
[2018-04-06 20:05] VITALS: BP 148/70
[2018-04-07] MEDS: ACETAMINOPHEN TAB 650MG DOSE (2X325MG) PO PRN (04:59)
[2018-04-07 06:05] VITALS: BP 150/78
[2018-04-07] MEDS: predniSONE 10 MG TAB PO SCH (08:53)
[2018-04-07] MEDS: amLODIPine 5 MG TAB PO SCH (08:53)
[2018-04-07] MEDS: ATORVASTATIN 20 MG TAB PO SCH (08:53)
[2018-04-07] MEDS: PANTOPRAZOLE 40MG TAB (PROTONIX) PO SCH (08:53)
[2018-04-07] MEDS: LACTOBACILLUS ACIDOPHILUS CAP (BACID) PO SCH ×3 (08:53→21:34)
[2018-04-07] MEDS: DOCUSATE SODIUM 100 MG CAP PO SCH ×2 (08:54→21:33)
[2018-04-07] MEDS: APIXABAN 2.5 MG TAB (ELIQUIS) PO SCH ×2 (08:54→21:34)
[2018-04-07] MEDS: buPROPion 75 MG TAB PO SCH ×2 (08:54→21:34)
[2018-04-07] MEDS: METOPROLOL TART 50 MG TAB PO SCH ×3 (08:54→21:34)
[2018-04-07] MEDS: ACETAMINOPHEN TAB 650MG DOSE (2X325MG) PO SCH ×3 (08:55→21:35)
[2018-04-07] MEDS: IPRATROPIUM 0.5MG/ALBUTEROL 2.5MG INH SOL UD 3ML (DUONEB)(J7620) NEB SCH (11:33)
--- NOTE | 2018-04-07 11:49 | IPNPDOC ---
Date Seen The patient was seen on 04/07/18. 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 The patient was treated as per ID with IV antibiotics for a total of 2 weeks with no evidence of residual infection. IV antibiotics were discontinued on 03/26/2018. The pt is OOB with PT. Reports no concerns at this time. Reports she has been feeling well. Denies any fevers, chills, weakness, fatigue, Headache, Chest Pain, Shortness of breath, cough, palpitations, abdominal pain, N/V/D or changes in bowel or bladder habits. PMHx: atrial fibrillation, hypertension, dyslipidemia, degenerative disc disease, history of right breast cancer status post chemotherapy and radiation, peripheral vascular disease, chronic obstructive pulmonary disease, recurrent urinary tract infection, depression, history of hemorrhage in the retina of the right eye PE: GEN: 77yoF, appears stated age. No acute distress. HEENT: Normocephalic, atraumatic. Pupils are equal, round, and reactive to light. Sclera are nonicteric. Conjunctiva without injection. No facial asymmetry. Moist mucous membranes. CHEST: Regular rate and rhythm, +S1, +S2 LUNGS: Clear to auscultation bilaterally. No wheezes, rales, or rhonchi. Breathing appears symmetric and easy. ABD: Round, soft, non-tender, non-distended. +Bowel sounds throughout. EXT: No lower extremity edema appreciated. SKIN: [place], dry, warm. No rashes. NEURO: No focal deficits appreciated. UC 03/30/18 E faecalis. 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 The patient was treated as per ID with IV antibiotics for a total of 2 weeks with no evidence of residual infection. IV antibiotics were discontinued on 03/26/2018. Deconditioning/debility Mgmt as per Dr Erwin MIN. PT/OT/ST as per Dr Erwin MIN. pain control as per Dr Erwin MIN. bowel care as per ARU, Dr Hood. DVT px. On Eliquis. Disposition as per ARU, Dr Hood Altered mental status, multi-factorial, delirium and acute cerebrovascular accident (CVA) and metabolic encephalopathy and medication induced. Blood culture negative. CTH wnl, EEG showed encephalopathy, MRI of the brain showed cva, MRA and TTE 03/26/18. Pt seen by neurology. scopolamine stopped, mental status improved after med st opped. Acute CVA possibly embolic in nature, 2/2 Afib. Elquis AC UTI. E faecalis. Completed Cipro 500mg BID x 5 days. Atrial fibrillation. with rvr. [id number] 6. HAS BLED 2 rate control PO lopressor eliquis anticoagulation Dyslipidemia. Continue statin. Depression. Continue current medication. Hypertension. Continue Lopressor. Monitor blood pressure. Colovaginal fistula 2/2 diverticulitis, status post sigmoid colectomy, complicated with ileus. Management as per surgery. Gout left foot prednisone tapering dose VS, I&O, 24H, Fishbone Vital Signs/I&O Vital Signs Date Time Temp Pulse Resp B/P (MAP) Pulse Ox O2 Delivery O2 Flow Rate FiO2 04/07/18 08:54 98 150/78 04/07/18 06:05 98.0 84 98 Room Air I&O- Last 24 Hours up to 6 AM 04/07/18 06:00 Intake Total 840 ml Balance 840 ml Laboratory Data Microbiology Microbiology 03/30/18 Urine Culture - Final, Complete Enterococcus Faecalis Ursula Cabrera Apr 07, 2018 11:49
[2018-04-07 14:00] VITALS: BP 127/64
--- NOTE | 2018-04-07 14:25 | IPNPDOC ---
PM&R Progress Note DATE OF SERVICE: Apr 07, 2018 [employer] Progress Note Subjective: PAtient seen in room state she is sleeping well, no difficulty walking, and overall feels well. REVIEW OF SYSTEMS: The following is a completed review of systems and has been reviewed. Review of systems otherwise unremarkable. PAIN: Patient self reports no pain EYES: Negative for recent vision changes EARS, NOSE, & THROAT: negative for dysphagia or rhinorrhea CARDIOVASCULAR: + Afib, negative for chest pain or palpitations PULMONARY: Negative. Denies shortness of breath. GASTROINTESTINAL: Negative for diarrhea/ constipation, +sigmoidectomy GENITOURINARY:negative for dysuria MUSCULOSKELETAL: left foot swelling NEUROLOGICAL: no tremor, seizure, or focal weakness HEMATOLOGICAL: post-op anemia SKIN: abdominal perfecto PSYCHIATRIC: Unremarkable All other review of systems found to be negative. PHYSICAL EXAMINATION: VITAL SIGNS: Please see below. GENERAL: Pleasant and cooperative. No acute distress. HEENT: PERRL. Extraocular movements intact. Clear conjunctiva CARDIOVASCULAR: Regular rate and rhythm. No murmurs, rubs, or gallops LUNGS: Clear to auscultation bilaterally. No wheezes. No rhonchi ABDOMEN: Soft, nontender, nondistended. Positive bowel sounds. Normal active bowel sounds, + perfecto c/d/i NEUROLOGICAL: Alert and oriented times three. Cranial nerves II through XII grossly intact. Sensation grossly intact -visual field intact, no dysmetria EXTREMITIES: 5\\5 strength bilateral upper extremities. 5\\5 strength right lower extremity. 5/5 strength in left lower extremity. functional range of motion throughout left foot- nontender, mild swelling SKIN: abdominal perfecto, c/d/i no induration, mild erythema ASSESSMENT:77-year-old F with past medical history of Afib, CAD, diastolic CHF who presents status post sigmoid colectomy for colon-vaginal fistula, found to have a new stroke. PLAN: 1. Rehab: OT/OT, [employer], assess for DME, ambulating further with RW, stand by assist for most ADLs 2. Neuro: MRI 03-25-18 showing left occipital stroke, continue statin for secondary prevention, monitor BPs and continue AFib treatment - recent MRI showing "Severe stenosis of 70% of the distal left common carotid" will discuss with neurology possible intervention 3. Cardio: pmh Afib and diastolic CHF, continue beta-wilton and Eliquis 4. Resp: stable, incentive spirometry, Duonebs prn 5. GI: s.p sigmoid colectomy for colon-vaginal fistula, incision healing well, monitor for diarrhea or obstruction-stable 6. ID: left foot swelling resolved, per ID continue steroid 3-5 days total, ID recs appreciated, s/p taper 7. : s/p left ureteral stent placed 03-20-19, episode of hematuria 03-30-18, will watch Hgb-stable without further incidence - monitor PVRs,admission UA and Ucx positive for E faecalis, continue Ciprofloxacin- afebrile, leukocytosis resolved 8. GI ppx: protonix 9. DVT ppx: on Eliquis 10. Psych: anxiety continue Wellbutrin 11. Right foot- mild swelling today, no pain, will acewrap and elevate 11. Dispo:, progressing towards goals to return to assisted living Allergies Coded Allergies: Scopolamine (Verified Adverse Reaction, Mild, delirium, 04/04/18) Vital Signs Vital Signs Date Time Temp Pulse Resp B/P (MAP) Pulse Ox O2 Delivery O2 Flow Rate FiO2 04/07/18 08:54 98 150/78 04/07/18 06:05 98.0 84 98 Room Air Microbiology Microbiology 03/30/18 Urine Culture - Final, Complete Enterococcus Faecalis Current Medications Current Medications Current Medications Acetaminophen (Tylenol Tab) 650 mg Q4HP PRN PO fever/MILD PAIN (PS 1-4) Last administered on 04/07/18at 04:59; Start 03/30/18 at 17:30 Acetaminophen (Tylenol Tab) 650 mg TID PO Last administered on 04/07/18at 08:55; Start 04/02/18 at 16:00 Albuterol/ Ipratropium (Duoneb (Ipr 0.5mg/Alb 2.5mg)) 3 ml DAILY@0800 NEB Last administered on 04/07/18at 11:33; Start 03/31/18 at 08:00 Albuterol/ Ipratropium (Duoneb (Ipr 0.5mg/Alb 2.5mg)) 3 ml Q2HP PRN NEB SOB/WHEEZING; Start 03/30/18 at 17:30 Amlodipine Besylate (Norvasc) 5 mg DAILY PO Last administered on 04/07/18at 08:53; Start 04/02/18 at 09:00 Amlodipine Besylate (Norvasc) 5 mg DAILY PO ; Start 03/31/18 at 09:00; Stop 03/31/18 at 10:35; Status DC Apixaban (Eliquis) 2.5 mg BID PO Last administered on 04/07/18at 08:54; Start 03/30/18 at 21:00 Atorvastatin Calcium (Lipitor) 20 mg DAILY PO Last administered on 04/07/18at 08:53; Start 03/31/18 at 09:00 Bisacodyl (Dulcolax Suppository) 10 mg DAILYPRN PRN [place] CONSTIPATION; Start 03/30/18 at 17:30 Bupropion HCl (Wellbutrin) 75 mg BID PO Last administered on 04/07/18at 08:54; Start 03/30/18 at 21:00 Ciprofloxacin (Cipro) 500 mg BID@ PO ; Start 04/01/18 at 06:00; Stop 04/01/18 at 12:18; Status DC Ciprofloxacin (Cipro) 500 mg BID@ PO Last administered on 04/06/18at 06:21; Start 04/01/18 at 18:00; Stop 04/06/18 at 06:01; Status DC Docusate Sodium (Colace) 100 mg BID PO Last administered on 04/07/18at 08:54; Start 03/30/18 at 21:00 Heparin Sodium (Heparin (Flush)) 200 units ASDIRECTED PRN IV SEE LABEL COMMENTS; Start 03/31/18 at 05:00; Stop 04/03/18 at 17:29; Status DC Heparin Sodium (Heparin (Flush)) 200 units PICC IV Last administered on 04/03/18at 06:22; Start 03/31/18 at 06:00; Stop 04/03/18 at 17:29; Status DC Home Med (Med Rec Complete!) ASDIRECTED XX ; Start 03/30/18 at 18:45; Stop 03/30/18 at 18:45; Status DC Lactobacillus Acidophilus (Bacid) 1 ea TID PO Last administered on 04/07/18at 08:53; Start 03/30/18 at 21:00 Magnesium Hydroxide (Milk Of Magnesia) 30 ml DAILYPRN PRN PO CONSTIPATION; Start 03/30/18 at 17:30 Metoprolol Tartrate (Lopressor) 25 mg TID PO Last administered on 04/07/18at 08:54; Start 03/31/18 at 16:00 Metoprolol Tartrate (Lopressor) 50 mg TID PO Last administered on 03/30/18at 21:08; Start 03/30/18 at 21:00; Stop 03/31/18 at 10:35; Status DC Pantoprazole Sodium (Protonix) 40 mg DAILY PO Last administered on 04/07/18at 08:53; Start 03/31/18 at 09:00 Prednisone (Deltasone) 5 mg DAILY PO ; Start 04/02/18 at 09:00; Stop 04/02/18 at 09:00; Status DC Prednisone (Deltasone) 5 mg Taper DAILY PO Last administered on 04/07/18at 08:53; Start 04/02/18 at 09:00; Stop 04/08/18 at 08:59 Prednisone (Deltasone) 20 mg DAILY PO Last administered on 04/01/18at 09:48; Start 03/31/18 at 09:00; Stop 04/01/18 at 12:00; Status DC Sodium Chloride (Saline Lock Flush) 10 ml ASDIRECTED PRN IV SEE LABEL COMMENTS; Start 03/31/18 at 05:00; Stop 04/03/18 at 17:29; Status DC Sodium Chloride (Saline Lock Flush) 10 ml PICC IV Last administered on 04/03/18at 06:22; Start 03/31/18 at 06:00; Stop 04/03/18 at 17:29; Status DC YANCY URIARTE MD Apr 07, 2018 14:24
[2018-04-07 20:00] VITALS: BP 130/58
[2018-04-08] MEDS: ACETAMINOPHEN TAB 650MG DOSE (2X325MG) PO PRN (05:46)
[2018-04-08 06:00] VITALS: BP 154/85
[2018-04-08 06:36] LABS: HEMATOCRIT 33.1 % (36.0-47.0); HEMOGLOBIN 10.6 g/dl (12.0-15.5); MEAN CORPUSCULAR HEMOGLOBIN 29.8 pg (27.0-33.0); PLATELET COUNT, AUTOMATED 232 10^3/uL (150-450); RED BLOOD COUNT 3.56 10^6/uL (4.00-5.40); WHITE BLOOD COUNT 7.2 10^3/uL (4.0-10.0)
[2018-04-08 07:05] LABS: ALBUMIN 2.5 GM/DL (3.2-5.2); ALT/SGPT 23 U/L (12-78); BILIRUBIN,TOTAL 0.3 MG/DL (0.2-1.0); BLOOD UREA NITROGEN 10 MG/DL (7-18); CALCIUM LEVEL 8.5 MG/DL (8.8-10.2); CARBON DIOXIDE LEVEL 28 MEQ/L (21-32); CHLORIDE LEVEL 103 MEQ/L (98-107); GLOMERULAR FILTRATION RATE > 60.0 (>39); GLUCOSE, FASTING 81 MG/DL (70-100); POTASSIUM SERUM 4.3 MEQ/L (3.5-5.1); SODIUM LEVEL 136 MEQ/L (136-145)
[2018-04-08] MEDS: LACTOBACILLUS ACIDOPHILUS CAP (BACID) PO SCH ×3 (08:43→20:36)
[2018-04-08] MEDS: PANTOPRAZOLE 40MG TAB (PROTONIX) PO SCH (08:43)
[2018-04-08] MEDS: APIXABAN 2.5 MG TAB (ELIQUIS) PO SCH ×2 (08:43→20:36)
[2018-04-08] MEDS: ATORVASTATIN 20 MG TAB PO SCH (08:43)
[2018-04-08] MEDS: DOCUSATE SODIUM 100 MG CAP PO SCH ×2 (08:44→20:37)
[2018-04-08] MEDS: buPROPion 75 MG TAB PO SCH ×2 (08:44→20:37)
[2018-04-08] MEDS: ACETAMINOPHEN TAB 650MG DOSE (2X325MG) PO SCH ×3 (08:44→20:36)
[2018-04-08] MEDS: amLODIPine 5 MG TAB PO SCH (08:44)
[2018-04-08] MEDS: METOPROLOL TART 50 MG TAB PO SCH ×3 (08:45→20:37)
[2018-04-08] MEDS: IPRATROPIUM 0.5MG/ALBUTEROL 2.5MG INH SOL UD 3ML (DUONEB)(J7620) NEB SCH (09:34)
[2018-04-08 14:00] VITALS: BP 96/52
--- NOTE | 2018-04-08 18:20 | IPNPDOC ---
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 REVIEW OF SYSTEMS: The following is a completed review of systems and has been reviewed. Review of systems otherwise unremarkable. PAIN: Patient self reports no pain EYES: Negative for recent vision changes EARS, NOSE, & THROAT: negative for dysphagia or rhinorrhea CARDIOVASCULAR: + Afib, negative for chest pain or palpitations PULMONARY: Negative. Denies shortness of breath. GASTROINTESTINAL: Negative for diarrhea/ constipation, +sigmoidectomy GENITOURINARY:negative for dysuria MUSCULOSKELETAL: left foot swelling NEUROLOGICAL: no tremor, seizure, or focal weakness HEMATOLOGICAL: post-op anemia SKIN: abdominal perfecto PSYCHIATRIC: Unremarkable All other review of systems found to be negative. PHYSICAL EXAMINATION: VITAL SIGNS: Please see below. GENERAL: Pleasant and cooperative. No acute distress. HEENT: PERRL. Extraocular movements intact. Clear conjunctiva CARDIOVASCULAR: Regular rate and rhythm. No murmurs, rubs, or gallops LUNGS: Clear to auscultation bilaterally. No wheezes. No rhonchi ABDOMEN: Soft, nontender, nondistended. Positive bowel sounds. Normal active bowel sounds, + perfecto c/d/i NEUROLOGICAL: Alert and oriented times three. Cranial nerves II through XII grossly intact. Sensation grossly intact -visual field intact, no dysmetria EXTREMITIES: 5\\5 strength bilateral upper extremities. 5\\5 strength right lower extremity. 5/5 strength in left lower extremity. functional range of motion throughout left foot- nontender, mild swelling SKIN: abdominal perfecto, c/d/i no induration, mild erythema ASSESSMENT:77-year-old F with past medical history of Afib, CAD, diastolic CHF who presents status post sigmoid colectomy for colon-vaginal fistula, found to have a new stroke. PLAN: 1. 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 Neuro: MRI 03-25-18 showing left occipital stroke, continue statin for secondary prevention, monitor BPs and continue AFib treatment - recent MRI showing "Severe stenosis of 70% of the distal left common carotid" will discuss with neurology possible intervention 3. Cardio: pmh Afib and diastolic CHF, continue beta-wilton and Eliquis 4. Resp: stable, incentive spirometry, Duonebs prn 5. GI: s.p sigmoid colectomy for colon-vaginal fistula, incision healing well, monitor for diarrhea or obstruction-stable 6. ID: left foot swelling resolved, per ID continue steroid 3-5 days total, ID recs appreciated, s/p taper 7. : s/p left ureteral stent placed 03-20-19, episode of hematuria 03-30-18, will watch Hgb-stable without further incidence - monitor PVRs,admission UA and Ucx positive for E faecalis, continue Ciprofloxacin- afebrile, leukocytosis resolved 8. GI ppx: protonix 9. DVT ppx: on Eliquis 10. Psych: anxiety continue Wellbutrin 11. Right foot- mild swelling, no pain, continue to acewrap, ice and elevate- improving 11. Dispo:, progressing towards goals to return to assisted living Allergies Coded Allergies: Scopolamine (Verified Adverse Reaction, Mild, delirium, 04/04/18) Vital Signs Vital Signs Date Time Temp Pulse Resp B/P (MAP) Pulse Ox O2 Delivery O2 Flow Rate FiO2 04/08/18 15:18 85 96/52 04/08/18 14:00 98.0 18 96 Room Air Laboratory Data CBC/BMP Laboratory Tests 04/08/18 06:05 Red Blood Count 3.56 L, Mean Corpuscular Volume 93.0, Mean Corpuscular Hemoglobin 29.8, Mean Corpuscular Hemoglobin Concent 32.0, Red Cell Distribution Width 14.6 H, Calcium Level 8.5 L, Aspartate Amino Transf (AST/SGOT) 16, Alanine Aminotransferase (ALT/SGPT) 23, Alkaline Phosphatase 102, Total Bilirubin 0.3, Total Protein 6.0 L, Albumin 2.5 L Labs 24H Laboratory Tests 2 04/08/18 06:05: Nucleated Red Blood Cells % (auto) 0.0, Anion Gap 5L, Glomerular Filtration Rate > 60.0, Blood Urea Nitrogen 10, Creatinine 0.70, Sodium Level 136, Potassium Level 4.3, Chloride Level 103, Carbon Dioxide Level 28, Calcium Level 8.5L, Aspartate Amino Transf (AST/SGOT) 16, Alanine Aminotransferase (ALT/SGPT) 23, Alkaline Phosphatase 102, Total Bilirubin 0.3, Total Protein 6.0L, Albumin 2.5L, Albumin/Globulin Ratio 0.71L Microbiology Microbiology 03/30/18 Urine Culture - Final, Complete Enterococcus Faecalis Current Medications Current Medications Current Medications Acetaminophen (Tylenol Tab) 650 mg Q4HP PRN PO fever/MILD PAIN (PS 1-4) Last administered on 04/08/18 05:46; Start 03/30/18 at 17:30 Acetaminophen (Tylenol Tab) 650 mg TID PO Last administered on 04/08/18at 15:20; Start 04/02/18 at 16:00 Albuterol/ Ipratropium (Duoneb (Ipr 0.5mg/Alb 2.5mg)) 3 ml DAILY@0800 NEB Last administered on 04/07/18at 11:33; Start 03/31/18 at 08:00 Albuterol/ Ipratropium (Duoneb (Ipr 0.5mg/Alb 2.5mg)) 3 ml Q2HP PRN NEB SOB/WHEEZING; Start 03/30/18 at 17:30 Amlodipine Besylate (Norvasc) 5 mg DAILY PO Last administered on 04/08/18at 08:44; Start 04/02/18 at 09:00 Amlodipine Besylate (Norvasc) 5 mg DAILY PO ; Start 03/31/18 at 09:00; Stop 03/31/18 at 10:35; Status DC Apixaban (Eliquis) 2.5 mg BID PO Last administered on 04/08/18at 08:43; Start 03/30/18 at 21:00 Atorvastatin Calcium (Lipitor) 20 mg DAILY PO Last administered on 04/08/18at 08:43; Start 03/31/18 at 09:00 Bisacodyl (Dulcolax Suppository) 10 mg DAILYPRN PRN [place] CONSTIPATION; Start 03/30/18 at 17:30 Bupropion HCl (Wellbutrin) 75 mg BID PO Last administered on 04/08/18at 08:44; Start 03/30/18 at 21:00 Ciprofloxacin (Cipro) 500 mg BID@,18 PO ; Start 04/01/18 at 06:00; Stop 04/01/18 at 12:18; Status DC Ciprofloxacin (Cipro) 500 mg BID@,18 PO Last administered on 04/06/18at 06:21; Start 04/01/18 at 18:00; Stop 04/06/18 at 06:01; Status DC Docusate Sodium (Colace) 100 mg BID PO Last administered on 04/07/18at 21:33; Start 03/30/18 at 21:00 Heparin Sodium (Heparin (Flush)) 200 units ASDIRECTED PRN IV SEE LABEL C OMMENTS; Start 03/31/18 at 05:00; Stop 04/03/18 at 17:29; Status DC Heparin Sodium (Heparin (Flush)) 200 units PICC IV Last administered on 04/03/18at 06:22; Start 03/31/18 at 06:00; Stop 04/03/18 at 17:29; Status DC Home Med (Med Rec Complete!) ASDIRECTED XX ; Start 03/30/18 at 18:45; Stop 03/30/18 at 18:45; Status DC Lactobacillus Acidophilus (Bacid) 1 ea TID PO Last administered on 04/08/18at 1 5:20; Start 03/30/18 at 21:00 Magnesium Hydroxide (Milk Of Magnesia) 30 ml DAILYPRN PRN PO CONSTIPATION; Start 03/30/18 at 17:30 Metoprolol Tartrate (Lopressor) 25 mg TID PO Last administered on 04/08/18at 08:45; Start 03/31/18 at 16:00 Metoprolol Tartrate (Lopressor) 50 mg TID PO Last administered on 03/30/18at 21:08; Start 03/30/18 at 21:00; Stop 03/31/18 at 10:35; Status DC Pantoprazole Sodium (Protonix) 40 mg DAILY PO Last administered on 04/08/18at 08:43; Start 03/31/18 at 09:00 Prednisone (Deltasone) 5 mg DAILY PO ; Start 04/02/18 at 09:00; Stop 04/02/18 at 09:00; Status DC Prednisone (Deltasone) 5 mg Taper DAILY PO Last administered on 04/07/18at 08:53; Start 04/02/18 at 09:00; Stop 04/08/18 at 08:59; Status DC Prednisone (Deltasone) 20 mg DAILY PO Last administered on 04/01/18at 09:48; Start 03/31/18 at 09:00; Stop 04/01/18 at 12:00; Status DC Sodium Chloride (Saline Lock Flush) 10 ml ASDIRECTED PRN IV SEE LABEL COMMENTS; Start 03/31/18 at 05:00; Stop 04/03/18 at 17:29; Status DC Sodium Chloride (Saline Lock Flush) 10 ml PICC IV Last administered on 04/03/18at 06:22; Start 03/31/18 at 06:00; Stop 04/03/18 at 17:29; Status DC YANCY URIARTE MD Apr 08, 2018 18:20
[2018-04-08 20:00] VITALS: BP 99/54
[2018-04-09 06:00] VITALS: BP 150/70
[2018-04-09] MEDS: IPRATROPIUM 0.5MG/ALBUTEROL 2.5MG INH SOL UD 3ML (DUONEB)(J7620) NEB SCH (08:20)
[2018-04-09] MEDS: PANTOPRAZOLE 40MG TAB (PROTONIX) PO SCH (09:05)
[2018-04-09] MEDS: DOCUSATE SODIUM 100 MG CAP PO SCH ×2 (09:05→21:00)
[2018-04-09] MEDS: ATORVASTATIN 20 MG TAB PO SCH (09:05)
[2018-04-09] MEDS: LACTOBACILLUS ACIDOPHILUS CAP (BACID) PO SCH ×3 (09:05→20:12)
[2018-04-09] MEDS: ACETAMINOPHEN TAB 650MG DOSE (2X325MG) PO SCH ×3 (09:06→20:12)
[2018-04-09] MEDS: buPROPion 75 MG TAB PO SCH ×2 (09:06→20:12)
[2018-04-09] MEDS: APIXABAN 2.5 MG TAB (ELIQUIS) PO SCH ×2 (09:06→20:13)
[2018-04-09] MEDS: METOPROLOL TART 50 MG TAB PO SCH ×3 (09:06→20:12)
[2018-04-09] MEDS: amLODIPine 5 MG TAB PO SCH (09:07)
[2018-04-09 14:00] VITALS: BP 128/68
[2018-04-09 19:50] VITALS: BP 109/68
--- NOTE | 2018-04-09 21:10 | IPNPDOC ---
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 REVIEW OF SYSTEMS: The following is a completed review of systems and has been reviewed. Review of systems otherwise unremarkable. PAIN: Patient self reports no pain EYES: Negative for recent vision changes EARS, NOSE, & THROAT: negative for dysphagia or rhinorrhea CARDIOVASCULAR: + Afib, negative for chest pain or palpitations PULMONARY: Negative. Denies shortness of breath. GASTROINTESTINAL: Negative for diarrhea/ constipation, +sigmoidectomy GENITOURINARY:negative for dysuria MUSCULOSKELETAL: left foot swelling NEUROLOGICAL: no tremor, seizure, or focal weakness HEMATOLOGICAL: post-op anemia SKIN: abdominal perfecto PSYCHIATRIC: Unremarkable All other review of systems found to be negative. PHYSICAL EXAMINATION: VITAL SIGNS: Please see below. GENERAL: Pleasant and cooperative. No acute distress. HEENT: PERRL. Extraocular movements intact. Clear conjunctiva CARDIOVASCULAR: Regular rate and rhythm. No murmurs, rubs, or gallops LUNGS: Clear to auscultation bilaterally. No wheezes. No rhonchi ABDOMEN: Soft, nontender, nondistended. Positive bowel sounds. Normal active bowel sounds, + perfecto c/d/i NEUROLOGICAL: Alert and oriented times three. Cranial nerves II through XII grossly intact. Sensation grossly intact -visual field intact, no dysmetria EXTREMITIES: 5\\5 strength bilateral upper extremities. 5\\5 strength right lower extremity. 5/5 strength in left lower extremity. functional range of motion throughout left foot- nontender, mild swelling SKIN: abdominal perfecto, c/d/i no induration, mild erythema ASSESSMENT:77-year-old F with past medical history of Afib, CAD, diastolic CHF who presents status post sigmoid colectomy for colon-vaginal fistula, found to have a new stroke. PLAN: 1. 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 Neuro: MRI 03-25-18 showing left occipital stroke, continue statin for secondary prevention, monitor BPs and continue AFib treatment - recent MRI showing "Severe stenosis of 70% of the distal left common carotid" will discuss with neurology possible intervention 3. Cardio: pmh Afib and diastolic CHF, continue beta-wilton and Eliquis 4. Resp: stable, incentive spirometry, Duonebs prn 5. GI: s.p sigmoid colectomy for colon-vaginal fistula, incision healing well, monitor for diarrhea or obstruction-stable 6. ID: left foot swelling resolved, per ID continue steroid 3-5 days total, ID recs appreciated, s/p taper 7. : s/p left ureteral stent placed 03-20-19, episode of hematuria 03-30-18, will watch Hgb-stable without further incidence - monitor PVRs,admission UA and Ucx positive for E faecalis, s/p Ciprofloxacin- afebrile, leukocytosis resolved 8. GI ppx: protonix 9. DVT ppx: on Eliquis 10. Psych: anxiety continue Wellbutrin 11. Right foot- mild swelling, no pain, continue to acewrap, ice and elevate- improving 11. Dispo:04/13/18, progressing towards goals to return to assisted living Allergies Coded Allergies: Scopolamine (Verified Adverse Reaction, Mild, delirium, 04/04/18) Vital Signs Vital Signs Date Time Temp Pulse Resp B/P (MAP) Pulse Ox O2 Delivery O2 Flow Rate FiO2 04/09/18 20:12 86 109/68 04/09/18 19:50 98.8 18 96 Room Air Microbiology Microbiology 03/30/18 Urine Culture - Final, Complete Enterococcus Faecalis Current Medications Current Medications Current Medications Acetaminophen (Tylenol Tab) 650 mg Q4HP PRN PO fever/MILD PAIN (PS 1-4) Last administered on 04/08/18at 05:46; Start 03/30/18 at 17:30 Acetaminophen (Tylenol Tab) 650 mg TID PO Last administered on 04/09/18at 20:12; Start 04/02/18 at 16:00 Albuterol/ Ipratropium (Duoneb (Ipr 0.5mg/Alb 2.5mg)) 3 ml DAILY@0800 NEB Last administered on 04/09/18at 08:20; Start 03/31/18 at 08:00 Albuterol/ Ipratropium (Duoneb (Ipr 0.5mg/Alb 2.5mg)) 3 ml Q2HP PRN NEB SOB/WHEEZING; Start 03/30/18 at 17:30 Amlodipine Besylate (Norvasc) 5 mg DAILY PO Last administered on 04/09/18at 09:07; Start 04/02/18 at 09:00 Amlodipine Besylate (Norvasc) 5 mg DAILY PO ; Start 03/31/18 at 09:00; Stop 03/31/18 at 10:35; Status DC Apixaban (Eliquis) 2.5 mg BID PO Last administered on 04/09/18at 20:13; Start 03/30/18 at 21:00 Atorvastatin Calcium (Lipitor) 20 mg DAILY PO Last administered on 04/09/18at 09:05; Start 03/31/18 at 09:00 Bisacodyl (Dulcolax Suppository) 10 mg DAILYPRN PRN [place] CONSTIPATION; Start 03/30/18 at 17:30 Bupropion HCl (Wellbutrin) 75 mg BID PO Last administered on 04/09/18at 20:12; Start 03/30/18 at 21:00 Ciprofloxacin (Cipro) 500 mg BID@ PO ; Start 04/01/18 at 06:00; Stop 04/01/18 at 12:18; Status DC Ciprofloxacin (Cipro) 500 mg BID@ PO Last administered on 04/06/18at 06:21; Start 04/01/18 at 18:00; Stop 04/06/18 at 06:01; Status DC Docusate Sodium (Colace) 100 mg BID PO Last administered on 04/09/18at 09:05; Start 03/30/18 at 21:00 Heparin Sodium (Heparin (Flush)) 200 units ASDIRECTED PRN IV SEE LABEL COMMENTS; Start 03/31/18 at 05:00; Stop 04/03/18 at 17:29; Status DC Heparin Sodium (Heparin (Flush)) 200 units PICC IV Last administered on 04/03/18at 06:22; Start 03/31/18 at 06:00; Stop 04/03/18 at 17:29; Status DC Home Med (Med Rec Complete!) ASDIRECTED XX ; Start 03/30/18 at 18:45; Stop 03/30/18 at 18:45; Status DC Lactobacillus Acidophilus (Bacid) 1 ea TID PO Last administered on 04/09/18at 20:12; Start 03/30/18 at 21:00 Magnesium Hydroxide (Milk Of Magnesia) 30 ml DAILYPRN PRN PO CONSTIPATION; Start 03/30/18 at 17:30 Metoprolol Tartrate (Lopressor) 25 mg TID PO Last administered on 04/09/18at 16:02; Start 03/31/18 at 16:00 Metoprolol Tartrate (Lopressor) 50 mg TID PO Last administered on 03/30/18at 21:0 8; Start 03/30/18 at 21:00; Stop 03/31/18 at 10:35; Status DC Pantoprazole Sodium (Protonix) 40 mg DAILY PO Last administered on 04/09/18at 09:05; Start 03/31/18 at 09:00 Prednisone (Deltasone) 5 mg DAILY PO ; Start 04/02/18 at 09:00; Stop 04/02/18 at 09:00; Status DC Prednisone (Deltasone) 5 mg Taper DAILY PO Last administered on 04/07/18at 08:53; Start 04/02/18 at 09:00; Stop 04/08/18 at 08:59; Status DC Prednisone (Deltasone) 20 mg DAILY PO Last administered on 04/01/18at 09:48; Start 03/31/18 at 09:00; Stop 04/01/18 at 12:00; Status DC Sodium Chloride (Saline Lock Flush) 10 ml ASDIRECTED PRN IV SEE LABEL COMMENTS; Start 03/31/18 at 05:00; Stop 04/03/18 at 17:29; Status DC Sodium Chloride (Saline Lock Flush) 10 ml PICC IV Last administered on 04/03/18at 06:22; Start 03/31/18 at 06:00; Stop 04/03/18 at 17:29; Status DC YANCY URIARTE MD Apr 09, 2018 21:10
[2018-04-10 06:19] VITALS: BP 168/80
[2018-04-10] MEDS: IPRATROPIUM 0.5MG/ALBUTEROL 2.5MG INH SOL UD 3ML (DUONEB)(J7620) NEB SCH (08:00)
[2018-04-10] MEDS: METOPROLOL TART 50 MG TAB PO SCH ×3 (09:01→20:51)
[2018-04-10] MEDS: LACTOBACILLUS ACIDOPHILUS CAP (BACID) PO SCH ×3 (09:01→20:51)
[2018-04-10] MEDS: ATORVASTATIN 20 MG TAB PO SCH (09:01)
[2018-04-10] MEDS: amLODIPine 5 MG TAB PO SCH (09:01)
[2018-04-10] MEDS: buPROPion 75 MG TAB PO SCH ×2 (09:02→20:51)
[2018-04-10] MEDS: ACETAMINOPHEN TAB 650MG DOSE (2X325MG) PO SCH ×3 (09:02→20:51)
[2018-04-10] MEDS: PANTOPRAZOLE 40MG TAB (PROTONIX) PO SCH (09:02)
[2018-04-10] MEDS: APIXABAN 2.5 MG TAB (ELIQUIS) PO SCH ×2 (09:02→20:51)
[2018-04-10] MEDS: DOCUSATE SODIUM 100 MG CAP PO SCH ×2 (09:02→21:00)
--- NOTE | 2018-04-10 11:56 | IPNPDOC ---
Date Seen The patient was seen on 04/10/18. 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 The patient was treated as per ID with IV antibiotics for a total of 2 weeks with no evidence of residual infection. IV antibiotics were discontinued on 03/26/2018. The pt is OOB with therapy. Reports no concerns at this time. Reports she has been feeling well. Denies any fevers, chills, weakness, fatigue, Headache, Chest Pain, Shortness of breath, cough, palpitations, abdominal pain, N/V/D or changes in bowel or bl adder habits. PMHx: atrial fibrillation, hypertension, dyslipidemia, degenerative disc disease, history of right breast cancer status post chemotherapy and radiation, peripheral vascular disease, chronic obstructive pulmonary disease, recurrent urinary tract infection, depression, history of hemorrhage in the retina of the right eye PE: GEN: 77yoF, appears stated age. No acute distress. HEENT: Normocephalic, atraumatic. Sclera are nonicteric. Conjunctiva without injection. No facial asymmetry. Moist mucous membranes. CHEST: Regular rate and rhythm, +S1, +S2 LUNGS: Clear to auscultation bilaterally. No wheezes, rales, or rhonchi. ABD: Round, soft, non-tender, non-distended. +Bowel sounds throughout. EXT: No lower extremity edema appreciated. SKIN: [place], dry, warm. No rashes. NEURO: No focal deficits appreciated. UC 03/30/18 E faecalis. 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 The patient was treated as per ID with IV antibiotics for a total of 2 weeks with no evidence of residual infection. IV antibiotics were discontinued on 03/26/2018 . Deconditioning/debility Mgmt as per Dr Erwin MIN. PT/OT/ST as per Dr Erwin MIN. pain control as per Dr Erwin MIN. bowel care as per Dr Erwin MIN. DVT px. On Eliquis. Disposition as per Dr Erwin MIN Altered mental status, multi-factorial, delirium and acute cerebrovascular accident (CVA) and metabolic encephalopathy and medication induced. Blood culture negative. CTH wnl, EEG showed encephalopathy, MRI of the brain showed cva, MRA and TTE 03/26/18. Pt seen by neurology. scopolamine stopped, mental status improved after med stopped. Acute CVA possibly embolic in nature, 2/2 Afib. Elquis AC UTI. E faecalis. Completed Cipro 500mg BID x 5 days. Atrial fibrillation with RVR. [id number] 6. HAS BLED 2 rate control PO Lopressor Eliquis anticoagulation Dyslipidemia. Continue statin. Depression. Continue current medication. Hypertension. BP labile with range 109-168. Norvasc 10 mg daily with parameter. Continue Lopressor 25 mg TID with parameter. Monitor blood pressure. Colovaginal fistula 2/2 diverticulitis, status post sigmoid colectomy, complicated with ileus. Management as per surgery. Gout left foot S/P prednisone VS, I&O, 24H, Fishbone Vital Signs/I&O Vital Signs Date Time Temp Pulse Resp B/P (MAP) Pulse Ox O2 Delivery O2 Flow Rate FiO2 04/10/18 09:01 98 168/80 04/10/18 06:19 97.8 18 94 Room Air I&O- Last 24 Hours up to 6 AM 04/10/18 06:00 Intake Total 900 ml Balance 900 ml Ursula Cabrera Apr 10, 2018 11:56
[2018-04-10 14:46] VITALS: BP 124/58
[2018-04-10 20:00] VITALS: BP 112/75
[2018-04-11 06:00] VITALS: BP 118/84
[2018-04-11] MEDS: IPRATROPIUM 0.5MG/ALBUTEROL 2.5MG INH SOL UD 3ML (DUONEB)(J7620) NEB SCH (09:04)
[2018-04-11] MEDS: DOCUSATE SODIUM 100 MG CAP PO SCH ×2 (09:40→21:32)
[2018-04-11] MEDS: ACETAMINOPHEN TAB 650MG DOSE (2X325MG) PO SCH ×3 (09:40→21:32)
[2018-04-11] MEDS: LACTOBACILLUS ACIDOPHILUS CAP (BACID) PO SCH ×3 (09:42→21:32)
[2018-04-11] MEDS: buPROPion 75 MG TAB PO SCH ×2 (09:42→21:32)
[2018-04-11] MEDS: APIXABAN 2.5 MG TAB (ELIQUIS) PO SCH ×2 (09:42→21:32)
[2018-04-11] MEDS: PANTOPRAZOLE 40MG TAB (PROTONIX) PO SCH (09:42)
[2018-04-11] MEDS: ATORVASTATIN 20 MG TAB PO SCH (09:42)
[2018-04-11] MEDS: METOPROLOL TART 50 MG TAB PO SCH ×3 (10:26→21:33)
[2018-04-11] MEDS: amLODIPine 10 MG TAB PO SCH (10:26)
[2018-04-11 14:00] VITALS: BP 112/58
--- NOTE | 2018-04-11 15:59 | IPNPDOC ---
PM&R Progress Note DATE OF SERVICE: Apr 10, 2018 Transformer Tester Progress Note Subjective: Patient seen walking in hallway reports she is feeling well and head snot have any complaints. REVIEW OF SYSTEMS: The following is a completed review of systems and has been reviewed. Review of systems otherwise unremarkable. PAIN: Patient self reports no pain EYES: Negative for recent vision changes EARS, NOSE, & THROAT: negative for dysphagia or rhinorrhea CARDIOVASCULAR: + Afib, negative for chest pain or palpitations PULMONARY: Negative. Denies shortness of breath. GASTROINTESTINAL: Negative for diarrhea/ constipation, +sigmoidectomy GENITOURINARY:negative for dysuria MUSCULOSKELETAL: left foot swelling NEUROLOGICAL: no tremor, seizure, or focal weakness HEMATOLOGICAL: post-op anemia SKIN: abdominal perfecto PSYCHIATRIC: Unremarkable All other review of systems found to be negative. PHYSICAL EXAMINATION: VITAL SIGNS: Please see below. GENERAL: Pleasant and cooperative. No acute distress. HEENT: PERRL. Extraocular movements intact. Clear conjunctiva CARDIOVASCULAR: Regular rate and rhythm. No murmurs, rubs, or gallops LUNGS: Clear to auscultation bilaterally. No wheezes. No rhonchi ABDOMEN: Soft, nontender, nondistended. Positive bowel sounds. Normal active bowel sounds, + perfecto c/d/i NEUROLOGICAL: Alert and oriented times three. Cranial nerves II through XII grossly intact. Sensation grossly intact -visual field intact, no dysmetria EXTREMITIES: 5\\5 strength bilateral upper extremities. 5\\5 strength right lower extremity. 5/5 strength in left lower extremity. functional range of motion throughout left foot- nontender, mild swelling SKIN: abdominal perfecto, c/d/i no induration, mild erythema ASSESSMENT:77-year-old F with past medical history of Afib, CAD, diastolic CHF who presents status post sigmoid colectomy for colon-vaginal fistula, found to have a new stroke. PLAN: 1. Rehab: OT/OT, [employer], assess for DME, ambulating further with RW, modified independent at this time with room privileges 2. Neuro: MRI 03-25-18 showing left occipital stroke, continue statin for secondary prevention, monitor BPs and continue AFib treatment - recent MRI showing "Severe stenosis of 70% of the distal left common carotid" will discuss with neurology possible intervention 3. Cardio: pmh Afib and diastolic CHF, continue beta-wilton and Eliquis 4. Resp: stable, incentive spirometry, Duonebs prn 5. GI: s.p sigmoid colectomy for colon-vaginal fistula, incision healing well, monitor for diarrhea or obstruction-stable 6. ID: left foot swelling resolved, per ID continue steroid 3-5 days total, ID recs appreciated, s/p taper 7. : s/p left ureteral stent placed 03-20-19, episode of hematuria 03-30-18, will watch Hgb-stable without further incidence - monitor PVRs,admission UA and Ucx positive for E faecalis, s/p Ciprofloxacin- afebrile, leukocytosis resolved 8. GI ppx: protonix 9. DVT ppx: on Eliquis 10. Psych: anxiety continue Wellbutrin 11. Right foot- mild swelling, no pain, continue to acewrap, ice and elevate- improving 11. Dispo:04/13/18, progressing towards goals to return to assisted living Allergies Coded Allergies: Scopolamine (Verified Adverse Reaction, Mild, delirium, 04/04/18) Vital Signs Vital Signs Date Time Temp Pulse Resp B/P (MAP) Pulse Ox O2 Delivery O2 Flow Rate FiO2 04/11/18 10:26 136/77 04/11/18 06:00 97.3 91 18 100 Room Air Laboratory Data Labs 24H Laboratory Tests 2 04/10/18 19:46: Bedside Glucose (Misc Panel) 110 Current Medications Current Medications Current Medications Acetaminophen (Tylenol Tab) 650 mg Q4HP PRN PO fever/MILD PAIN (PS 1-4) Last administered on 04/08/18at 05:46; Start 03/30/18 at 17:30 Acetaminophen (Tylenol Tab) 650 mg TID PO Last administered on 04/11/18at 09:40; Start 04/02/18 at 16:00 Albuterol/ Ipratropium (Duoneb (Ipr 0.5mg/Alb 2.5mg)) 3 ml DAILY@0800 NEB Last administered on 04/11/18at 09:04; Start 03/31/18 at 08:00 Albuterol/ Ipratropium (Duoneb (Ipr 0.5mg/Alb 2.5mg)) 3 ml Q2HP PRN NEB SOB/WHEEZING; Start 03/30/18 at 17:30 Amlodipine Besylate (Norvasc) 5 mg DAILY PO Last administered on 04/10/18at 09:01; Start 04/02/18 at 09:00; Stop 04/10/18 at 11:01; Status DC Amlodipine Besylate (Norvasc) 5 mg DAILY PO ; Start 03/31/18 at 09:00; Stop 03/31/18 at 10:35; Status DC Amlodipine Besylate (Norvasc) 10 mg DAILY PO Last administered on 04/11/18at 10:26; Start 04/11/18 at 09:00 Apixaban (Eliquis) 2.5 mg BID PO Last administered on 04/11/18at 09:42; Start 03/30/18 at 21:00 Atorvastatin Calcium (Lipitor) 20 mg DAILY PO Last administered on 04/11/18at 09:42; Start 03/31/18 at 09:00 Bisacodyl (Dulcolax Suppository) 10 mg DAILYPRN PRN [place] CONSTIPATION; Start 03/30/18 at 17:30 Bupropion HCl (Wellbutrin) 75 mg BID PO Last administered on 04/11/18at 09:42; Start 03/30/18 at 21:00 Ciprofloxacin (Cipro) 500 mg BID@06,18 PO ; Start 04/01/18 at 06:00; Stop 04/01/18 at 12:18; Status DC Ciprofloxacin (Cipro) 500 mg BID@06,18 PO Last administered on 04/06/18at 06:21; Start 04/01/18 at 18:00; Stop 04/06/18 at 06:01; Status DC Docusate Sodium (Colace) 100 mg BID PO Last administered on 04/11/18at 09:40; Start 03/30/18 at 21:00 Heparin Sodium (Heparin (Flush)) 200 units ASDIRECTED PRN IV SEE LABEL COMMENTS; Start 03/31/18 at 05:00; Stop 04/03/18 at 17:29; Status DC Heparin Sodium (Heparin (Flush)) 200 units PICC IV Last administered on 04/03/18at 06:22; Start 03/31/18 at 06:00; Stop 04/03/18 at 17:29; Status DC Home Med (Med Rec Complete!) ASDIRECTED XX ; Start 03/30/18 at 18:45; Stop 03/30/18 at 18:45; Status DC Lactobacillus Acidophilus (Bacid) 1 ea TID PO Last administered on 04/11/18at 09:42; Start 03/30/18 at 21:00 Magnesium Hydroxide (Milk Of Magnesia) 30 ml DAILYPRN PRN PO CONSTIPATION; Start 03/30/18 at 17:30 Metoprolol Tartrate (Lopressor) 25 mg TID PO Last administered on 04/11/18at 10:26; Start 03/31/18 at 16:00 Metoprolol Tartrate (Lopressor) 50 mg TID PO Last administered on 03/30/18at 21:08; Start 03/30/18 at 21:00; Stop 03/31/18 at 10:35; Status DC Pantoprazole Sodium (Protonix) 40 mg DAILY PO Last administered on 04/11/18at 09:42; Start 03/31/18 at 09:00 Prednisone (Deltasone) 5 mg DAILY PO ; Start 04/02/18 at 09:00; Stop 04/02/18 at 09:00; Status DC Prednisone (Deltasone) 5 mg Taper DAILY PO Last administered on 04/07/18at 08:53; Start 04/02/18 at 09:00; Stop 04/08/18 at 08:59; Status DC Prednisone (Deltasone) 20 mg DAILY PO Last administered on 04/01/18at 09:48; Start 03/31/18 at 09:00; Stop 04/01/18 at 12:00; Status DC Sodium Chloride (Saline Lock Flush) 10 ml ASDIRECTED PRN IV SEE LABEL COMMENTS; Start 03/31/18 at 05:00; Stop 04/03/18 at 17:29; Status DC Sodium Chloride (Saline Lock Flush) 10 ml PICC IV Last administered on 04/03/18at 06:22; Start 03/31/18 at 06:00; Stop 04/03/18 at 17:29; Status DC YANCY URIARTE MD Apr 11, 2018 15:59
[2018-04-11 20:00] VITALS: BP 137/78
[2018-04-12 06:00] VITALS: BP 164/96
[2018-04-12] MEDS: IPRATROPIUM 0.5MG/ALBUTEROL 2.5MG INH SOL UD 3ML (DUONEB)(J7620) NEB SCH (07:30)
[2018-04-12] MEDS: ATORVASTATIN 20 MG TAB PO SCH (10:11)
[2018-04-12] MEDS: DOCUSATE SODIUM 100 MG CAP PO SCH ×2 (10:11→21:59)
[2018-04-12] MEDS: METOPROLOL TART 50 MG TAB PO SCH ×3 (10:12→21:59)
[2018-04-12] MEDS: APIXABAN 2.5 MG TAB (ELIQUIS) PO SCH ×2 (10:13→21:59)
[2018-04-12] MEDS: buPROPion 75 MG TAB PO SCH ×2 (10:13→21:59)
[2018-04-12] MEDS: LACTOBACILLUS ACIDOPHILUS CAP (BACID) PO SCH ×3 (10:13→21:59)
[2018-04-12] MEDS: PANTOPRAZOLE 40MG TAB (PROTONIX) PO SCH (10:14)
[2018-04-12] MEDS: ACETAMINOPHEN TAB 650MG DOSE (2X325MG) PO SCH ×3 (10:14→21:58)
[2018-04-12] MEDS: amLODIPine 10 MG TAB PO SCH (10:14)
[2018-04-12 14:00] VITALS: BP 138/88
[2018-04-12 20:00] VITALS: BP 145/71
[2018-04-13 06:00] VITALS: BP 145/69
[2018-04-13] MEDS: IPRATROPIUM 0.5MG/ALBUTEROL 2.5MG INH SOL UD 3ML (DUONEB)(J7620) NEB SCH (07:23)
[2018-04-13 09:03] VITALS: BP 145/69
[2018-04-13] MEDS: PANTOPRAZOLE 40MG TAB (PROTONIX) PO SCH (09:03)
[2018-04-13] MEDS: ATORVASTATIN 20 MG TAB PO SCH (09:03)
[2018-04-13] MEDS: DOCUSATE SODIUM 100 MG CAP PO SCH (09:03)
[2018-04-13] MEDS: amLODIPine 10 MG TAB PO SCH (09:03)
[2018-04-13] MEDS: LACTOBACILLUS ACIDOPHILUS CAP (BACID) PO SCH (09:03)
[2018-04-13] MEDS: METOPROLOL TART 50 MG TAB PO SCH (09:04)
[2018-04-13] MEDS: APIXABAN 2.5 MG TAB (ELIQUIS) PO SCH (09:04)
[2018-04-13] MEDS: buPROPion 75 MG TAB PO SCH (09:04)
[2018-04-13] MEDS: ACETAMINOPHEN TAB 650MG DOSE (2X325MG) PO SCH (09:04)
[2018-04-13] MEDS ORDERED: ELIQ2.5T PO (11:06)
[2018-04-13] MEDS ORDERED: RISATAB3 PO (11:06)
[2018-04-13] MEDS ORDERED: BUPR75TA5 PO (11:06)
[2018-04-13] MEDS ORDERED: AMLO10TA5 PO (11:06)
[2018-04-13] MEDS ORDERED: ATOR1TAB21 PO (11:06)
[2018-04-13] MEDS ORDERED: COLA100C5 PO (11:06)
[2018-04-13] MEDS ORDERED: LOPR1TAB6 PO (11:06)
[2018-04-13] MEDS ORDERED: PANT40TA3 PO (11:06)
--- NOTE | 2018-05-05 15:51 | PMRDS ---
DATE OF ADMISSION: 03/30/2018 DATE OF DISCHARGE: 04/13/2018 CHIEF COMPLAINT/DISCHARGE DIAGNOSIS: Stroke. HISTORY OF PRESENT ILLNESS: This is a 68-year-old female with a past medical history of coronary artery disease (CAD), diverticulitis, chronic congestive heart failure (CHF), breast cancer, atrial fibrillation, living in assisted-living and found to have feculent vaginal discharge with a CT scan positive for colovaginal fistula and was admitted to [facility] ([facility]) for medical clearance for colectomy. On 03/13/2018, she underwent a laparoscopic sigmoid colectomy for a postoperative diagnosis of sigmoid diverticulitis with colovaginal fistula performed by Dr. Alin Abrams. On 03/12/2018, she underwent a cystoscopy, bilateral retrograde pyelogram and left ureteral stent placement for a left-sided hydronephrosis. She received IV fluconazole, ciprofloxacin and Flagyl for a presumed left kidney infection, later spike a fever, and was started back on meropenem instead. On 03/25/2018, she had altered mental status for which an MRI brain was ordered showing "2.5 cm area of acute stroke, left occipital lobe, small round areas of acute ischemic change scattered throughout." On 03/26/2018, a carotid MRI was performed showing "mild stenosis of 40% of the right internal carotid artery at its origin, severe stenosis of 70% of the distal left common carotid artery immediately proximal to the left carotid bifurcation, moderate stenosis of 58% of the left internal carotid artery its origin." Neurology was consulted who performed an EEG which was negative for epileptiform activity. She was seen by infectious disease (ID) on 03/27/2018 for fever and leukocytosis with blood cultures that had returned as negative and recent CT chest on 03/24/2018 showing "trace right basilar atelectasis, chronic atherosclerotic changes and cardiomegaly, chronic interstitial changes with scattered subpleural fibrosis and moderate bronchiectasis." At the time, the patient did not have cough but did complain of foot swelling. ID recommended discontinuing all antibiotics and start prednisone for arthritic/inflammatory changes seen on imaging. The patient was deemed medically appropriate for discharge to acute rehabilitation unit (ARU) on 03/30/2018. PAST MEDICAL HISTORY: 1. Coronary artery disease (CAD). 2. Diverticulitis. 3. Chronic congestive heart failure (CHF). 4. Breast cancer. 5. Atrial fibrillation. HOSPITAL COURSE: The patient was admitted and enrolled in a comprehensive physical therapy (PT)/occupational therapy (OT) program. She received 24-hour nursing supervision and weekly team meetings were held to discuss her progress. For her atrial fibrillation and diastolic congestive heart failure (CHF), she was continued on beta wilton and Eliquis. Her breathing was stable throughout her hospital course and she received DuoNebs as needed. The patient was status post sigmoid colectomy for a colovaginal fistula. Her incision healed well and she had no signs of obstruction or stool in her vaginal discharge. She initially had an episode of hematuria on the day of admission after having had a stent placed on 03/20/2018 which resolved and her hemoglobin was stable. She voided well and was treated for a urinary tract infection positive for Escherichia (E) faecalis. She was maintained on Wellbutrin for her anxiety and her right foot swelling responded to prednisone and elevation and FARRUKH wrapping. She progressed well and was deemed medically and functionally stable to return to assisted-living. DISCHARGE MEDICATIONS: Amlodipine, Eliquis, atorvastatin, bupropion, Colace, metoprolol, Protonix, Tylenol. FUNCTIONAL HISTORY: Upon discharge, the patient was modified independent for all functional transfers, able to ambulate 250 feet with a rolling walker, and in occupational therapy she was modified independent for upper and lower body dressing, grooming, toileting, standby assist for meal preparations. She was provided with outpatient followup appointments with her primary care provider and deemed functional and stable to return to assisted-living.
== END 2018-04-13 13:10 | disposition home or self-care (01) | DRG 948 ==
LOC: M PM&R 15:50
PROVIDERS: ADMIT Physical Medicine & Rehabilitation; ATTEND Physical Medicine & Rehabilitation
DX: R53.81 Other malaise (principal); I50.32 Chronic diastolic (congestive) heart failure; N39.0 Urinary tract infection, site not specified; K57.92 Diverticulitis of intestine, part unspecified, without perforation or abscess without bleeding; I48.91 Unspecified atrial fibrillation; I65.22 Occlusion and stenosis of left carotid artery; I25.10 Atherosclerotic heart disease of native coronary artery without angina pectoris; Z85.3 Personal history of malignant neoplasm of breast; Z90.49 Acquired absence of other specified parts of digestive tract; Z96.0 Presence of urogenital implants; Z79.01 Long term (current) use of anticoagulants; Z79.899 Other long term (current) drug therapy; E78.5 Hyperlipidemia, unspecified; F32.9 Major depressive disorder, single episode, unspecified; M10.9 Gout, unspecified; I65.23 Occlusion and stenosis of bilateral carotid arteries; F41.9 Anxiety disorder, unspecified; M11.872 Other specified crystal arthropathies, left ankle and foot; R31.9 Hematuria, unspecified; I73.9 Peripheral vascular disease, unspecified; I11.0 Hypertensive heart disease with heart failure; J44.9 Chronic obstructive pulmonary disease, unspecified

== ENCOUNTER → 2018-04-27 | Outpatient (REF) | payer MEDICARE, MEDICAID ==
[~2018-04-27] MED LIST changes: +AMLO10TA5 PO; +COLA100C5 PO; +PANT40TA3 PO; +RISATAB3 PO
[2018-04-27 14:29] LABS: HEMATOCRIT 35.6 % (36.0-47.0); MEAN CORPUSCULAR HEMOGLOBIN 28.1 pg (27.0-33.0); MEAN CORPUSCULAR HGB CONC 30.9 g/dl (32.0-36.5); PLATELET COUNT, AUTOMATED 226 10^3/uL (150-450); RED BLOOD COUNT 3.91 10^6/uL (4.00-5.40); WHITE BLOOD COUNT 6.7 10^3/uL (4.0-10.0)
[2018-04-27 14:45] LABS: BLOOD UREA NITROGEN 10 MG/DL (7-18); CALCIUM LEVEL 8.5 MG/DL (8.8-10.2); CARBON DIOXIDE LEVEL 28 MEQ/L (21-32); CHLORIDE LEVEL 100 MEQ/L (98-107); CREATININE FOR GFR 0.87 MG/DL (0.55-1.30); GLOMERULAR FILTRATION RATE > 60.0 (>39); GLUCOSE, FASTING 78 MG/DL (70-100); POTASSIUM SERUM 4.6 MEQ/L (3.5-5.1); SODIUM LEVEL 134 MEQ/L (136-145)
== END ==
LOC: M SFHCPLAZ 11:49
PROVIDERS: ATTEND Family Medicine
DX: D64.9 Anemia, unspecified (principal); N13.30 Unspecified hydronephrosis
CPT/HCPCS: 36415; 80048; 85027; 99495; G0463

== ENCOUNTER 2018-05-24 09:34 | Emergency (ER) | payer MEDICARE, MEDICAID ==
[~2018-05-24] VITALS: Ht 154.9 cm; Wt 54.9 kg
[2018-05-24] MEDS ORDERED: NS 500 ML IV ONE (10:00)
[2018-05-24] MEDS ORDERED: ONDANSETRON 4MG/2ML VIAL (J2405) IV ONE (10:00)
[2018-05-24 10:14] LABS: BASO % 0.4 % (0.0-1.0); EOS # 0.1 10^3/uL (0.0-0.50); EOS % 0.9 % (0.0-3.0); HEMATOCRIT 37.8 % (36.0-47.0); LYMPH # 0.4 10^3/uL (1.5-4.5); LYMPH % 3.5 % (24.0-44.0); MEAN CORPUSCULAR HEMOGLOBIN 27.3 pg (27.0-33.0); MEAN CORPUSCULAR HGB CONC 31.7 g/dl (32.0-36.5); MEAN CORPUSCULAR VOLUME 86.1 fl (80.0-96.0); MONO # 0.5 10^3/uL (0.0-0.8); NEUTROPHILS # 10.3 10^3/uL (1.8-7.7); NEUTROPHILS % 90.8 % (36.0-66.0); PLATELET COUNT, AUTOMATED 230 10^3/uL (150-450); RED BLOOD COUNT 4.39 10^6/uL (4.00-5.40); WHITE BLOOD COUNT 11.3 10^3/uL (4.0-10.0)
[2018-05-24 10:29] LABS: INR 1.06; PROTHROMBIN TIME 13.9 SECONDS (12.1-14.4)
[2018-05-24] MEDS ORDERED: METOPROLOL TART 25 MG TABLET PO ONE ×2 (11:00→13:15)
[2018-05-24 11:05] LABS: ALBUMIN 2.8 GM/DL (3.2-5.2); ALT/SGPT 11 U/L (12-78); BILIRUBIN,DIRECT 0.2 MG/DL (0.0-0.2); BILIRUBIN,TOTAL 0.4 MG/DL (0.2-1.0); BLOOD UREA NITROGEN 17 MG/DL (7-18); CALCIUM LEVEL 8.4 MG/DL (8.8-10.2); CARBON DIOXIDE LEVEL 23 MEQ/L (21-32); CHLORIDE LEVEL 102 MEQ/L (98-107); CREATININE FOR GFR 0.84 MG/DL (0.55-1.30); GLOMERULAR FILTRATION RATE > 60.0 (>39); GLUCOSE, FASTING 148 MG/DL (70-100); LIPASE 69 U/L (73-393); SODIUM LEVEL 133 MEQ/L (136-145); TOTAL PROTEIN 7.3 GM/DL (6.4-8.2)
--- NOTE | 2018-05-24 11:20 | REP ---
Clinical: Vomiting and diarrhea. Technique: Upright view of the chest with supine and upright views of the abdomen and pelvis. Findings: Frontal upright view of the chest demonstrates no obvious acute cardiopulmonary process and no free air below diaphragm to suspect pneumoperitoneum. Surgical clips along the right axillary region and right breast noted. Supine and upright views of the abdomen and pelvis demonstrate nonspecific bowel gas pattern without obstruction or perforation. Postsurgical changes and left ureteral stent identified along with bilateral hip replacement. Impression: Nonspecific bowel gas pattern without evidence for obstruction or perforation. Electronically Signed by Joselito Pitts MD 05/24/2018 11:11 A
[2018-05-24] MEDS ORDERED: ISOVUE-370 76% 100ML VIAL (Q9967) As Ordered ONE (12:14)
--- NOTE | 2018-05-24 12:40 | REP ---
Clinical: Abdominal pain and vomiting. Technique: Axial contrast enhanced images from the lung bases to the pubic symphysis oozing 100 ml Isovue 370 intravenous contrast material with coronal and sagittal re-formations. Comparison: 03/24/2018. Findings: Lung bases suggest mild pulmonary vascular congestion. Cardiomegaly noted. Liver, spleen, pancreas, bilateral adrenal glands and right kidney are normal. Left kidney demonstrates mild cortical scarring and includes a ureteral stent without significant hydronephrosis. Gallbladder is moderately distended but without evidence for acute cholecystitis. The enteric system is without obstruction. Mild enhancement to the small large bowel wall is nonspecific although a mild enterocolitis cannot be excluded. Sigmoid diverticulosis noted without acute diverticulitis. Evidence of prior sigmoid resection and anastomoses identified. Small fat containing periumbilical hernia noted. Pelvis is incompletely evaluated due to extensive beam hardening artifact from bilateral hip prosthesis. No ascites. No free air. No adenopathy. Atherosclerotic changes of the aorta and vasculature noted without aneurysm. Skeletal structures demonstrate degenerative changes Impression: 1. Cannot exclude mild enterocolitis. 2. Colonic diverticula without acute diverticulitis. 3. No further acute abdominopelvic pathology appreciated. Specifically, no obvious ascites, adenopathy, or focal inflammatory changes. 4. Left ureteral stent in satisfactory position without significant hydronephrosis. 5. Chronic changes as detailed above stable compared to 03/24/2018 and 03/19/2018. Electronically Signed by Joselito Pitts MD 05/24/2018 12:32 P
[2018-05-24] MEDS ORDERED: ZOFR4TAB16 PO (12:57)
[2018-05-24 13:19] VITALS: BP 176/88
[2018-05-24 14:10] VITALS: BP 137/62
--- NOTE | 2018-05-24 20:05 | ECGEPIP ---
Stationary ECG Study [facility] - ED Test Date: 2018-05-24 Pat Name: OLGA NAPIER Department: Room: - Gender: F Pyrotechnist: CHEYANNE : 1940 Requested By: Rayna Rivers Order Number: [id number] Reading MD: Rayna Rivers Measurements Intervals [place] Rate: 115 P: [place]: 0 QRS: -27 QRSD: 82 T: 141 QT: 277 QTc: 384 Interpretive Statements ATRIAL FIBRILLATION WITH RAPID VENTRICULAR RESPONSE BORDERLINE LEFT AXIS DEVIATION ST DEVIATION AND MODERATE T-WAVE ABNORMALITY, CONSIDER ISCHEMIA INCREASED RATE 10/26/17 Electronically Signed On 05-24-2018 20:05:07 EST by Rayna Rivers
== END 2018-05-24 14:50 | disposition home or self-care (01) ==
LOC: M ED 09:34
DX: K52.9 Noninfective gastroenteritis and colitis, unspecified (principal); I48.91 Unspecified atrial fibrillation; R94.31 Abnormal electrocardiogram [ECG] [EKG]; I10 Essential (primary) hypertension; E78.5 Hyperlipidemia, unspecified; Z88.8 Allergy status to other drugs, medicaments and biological substances; Z79.899 Other long term (current) drug therapy; Z86.73 Personal history of transient ischemic attack (TIA), and cerebral infarction without residual deficits; Z85.3 Personal history of malignant neoplasm of breast; Z92.21 Personal history of antineoplastic chemotherapy; Z98.890 Other specified postprocedural states
CPT/HCPCS: 74021; 74177; 80048; 80076; 83690; 85025; 85610; 93005; 93041; 96374; 99284; J2405; Q9967

== ENCOUNTER → 2018-06-02 | Outpatient (REF) ==
[~2018-06-02] MED LIST changes: +ZOFR4TAB16 PO
[2018-06-02 11:21] LABS: CHOLESTEROL RISK RATIO 1.857 (<5); THYROID STIMULATING HORMONE 2.03 uIU/ML (0.358-3.740)
== END ==
PROVIDERS: ATTEND Family Medicine
DX: Z13.1 Encounter for screening for diabetes mellitus (principal); E78.2 Mixed hyperlipidemia; R41.3 Other amnesia

== ENCOUNTER → 2018-09-22 | Outpatient (CLI) | payer MEDICARE, MEDICAID ==
[~2018-09-22] MED LIST changes: -/MOM400 PO; -/WARF25TA; -/WARF25TA PO; +ACET1TAB55 PO; +APAP325T4 PO; -ASPI1TAB PO; +ASPI81TA26 PO; +BISA10SU4 PR; +COUM1TAB18; +COUM1TAB18 PO; +CYAN100049 PO; +FERR325T3 PO; +HYOS125TA PO; +LORA0.5T5 PO; +METO1TAB63 PO; -METO25TAB PO; +MILK10SU PO; +MILKSUS3 PO; +MORP20SO3 PO; +NICO21DI3 TD; -NICO21PAT TD; +NORV5TAB PO; +PANT-23 PO; -VITA10002 PO
--- NOTE | 2018-09-22 12:31 | REP ---
REASON FOR EXAM: Pulmonary nodule followup. COMPARISON: 03/24/2018 the latest with all other priors reviewed as well. The lack of intravenous contrast decreases the sensitivity of the exam. Once again, there are bibasilar curvilinear densities status quo. Peripheral curvilinear basilar densities have improved. In the left lung apex there is an asymmetric density which has gotten smaller in its central nodular component, however, the attached peripheral densities have remained the same. It has, however, improved significantly compared to the next latest prior of 11/11/2017. There are no new abnormal nodules, masses, or opacities. IMPRESSION: Chronic lung field changes with cylindrical bronchiectasis, fibrotic change, and possible early honeycomb along in the periphery. There are no new lung abnormalities. There is a 6 mm sized nodule in the right upper lobe which has been stable since 11/11/2017. Electronically Signed by Bang Campbell DO 09/22/2018 04:12 P
== END ==
LOC: M RAD 10:25
PROVIDERS: ATTEND Internal Medicine Pulmonary Disease
DX: R91.1 Solitary pulmonary nodule (principal); J47.9 Bronchiectasis, uncomplicated; J84.10 Pulmonary fibrosis, unspecified

== ENCOUNTER → 2018-10-06 | Outpatient (REF) | payer MEDICARE, MEDICAID ==
[2018-10-06 17:51] LABS: BASO # 0.1 10^3/uL (0.0-0.2); BASO % 1.4 % (0.0-1.0); EOS # 0.3 10^3/uL (0.0-0.50); EOS % 3.6 % (0.0-3.0); HEMATOCRIT 34.4 % (36.0-47.0); HEMOGLOBIN 10.3 g/dl (12.0-15.5); LYMPH # 1.5 10^3/uL (1.5-4.5); MEAN CORPUSCULAR HEMOGLOBIN 25.1 pg (27.0-33.0); MEAN CORPUSCULAR HGB CONC 29.9 g/dl (32.0-36.5); MEAN CORPUSCULAR VOLUME 83.7 fl (80.0-96.0); MONO # 0.7 10^3/uL (0.0-0.8); MONO % 10.3 % (0.0-5.0); NEUTROPHILS # 4.3 10^3/uL (1.8-7.7); NEUTROPHILS % 62.3 % (36.0-66.0); PLATELET COUNT, AUTOMATED 223 10^3/uL (150-450); RED BLOOD COUNT 4.11 10^6/uL (4.00-5.40)
[2018-10-06 18:25] LABS: BLOOD UREA NITROGEN 10 MG/DL (7-18); CALCIUM LEVEL 8.6 MG/DL (8.8-10.2); CARBON DIOXIDE LEVEL 26 MEQ/L (21-32); CHLORIDE LEVEL 102 MEQ/L (98-107); CREATININE FOR GFR 0.76 MG/DL (0.55-1.30); GLOMERULAR FILTRATION RATE > 60.0 (>32); GLUCOSE, FASTING 80 MG/DL (70-100); NT-PRO BNP 1826 PG/ML (<450); POTASSIUM SERUM 4.8 MEQ/L (3.5-5.1); SODIUM LEVEL 135 MEQ/L (136-145)
== END ==
LOC: M LAB REF 17:07
PROVIDERS: ATTEND Internal Medicine Pulmonary Disease
DX: R91.1 Solitary pulmonary nodule (principal); R60.0 Localized edema

== ENCOUNTER 2018-10-12 09:44 | Inpatient (IN) | payer MEDICARE, MEDICAID ==
[~2018-10-12] VITALS: Ht 154.9 cm; Wt 56.6 kg
[2018-10-12] VITALS (28 sets, daily range): BP systolic 84–183; BP diastolic 56–96
[~2018-10-12 09:44] MED LIST changes: -ACET1TAB55 PO; -APAP325T4 PO; -BISA10SU4 PR; -FERR325T3 PO; -HYOS125TA PO; -LORA0.5T5 PO; -MILKSUS3 PO; -MORP20SO3 PO; -NORV5TAB PO; -PANT-23 PO
--- NOTE | 2018-10-12 10:11 | REP ---
CT of the brain without IV contrast: There is no hemorrhage. There is no edema, mass effect or midline shift. The sulci and ventricles are diffusely enlarged, unchanged, compatible with diffuse volume loss. This is unchanged. The visualized paranasal sinuses and mastoid air cells are clear. Impression: There is no hemorrhage, acute infarct or mass. There is diffuse volume loss, unchanged. Electronically Signed by Marcelo Cabral MD 10/12/2018 10:03 A
[2018-10-12] MEDS ORDERED: NS 1,000 ML IV ONE ×2 (10:30)
[2018-10-12 10:52] LABS: BASO # 0.1 10^3/uL (0.0-0.2); BASO % 1.3 % (0.0-1.0); EOS # 0.2 10^3/uL (0.0-0.50); EOS % 2.6 % (0.0-3.0); HEMATOCRIT 32.7 % (36.0-47.0); HEMOGLOBIN 9.9 g/dl (12.0-15.5); LYMPH # 1.4 10^3/uL (1.5-4.5); LYMPH % 22.7 % (24.0-44.0); MEAN CORPUSCULAR HEMOGLOBIN 25.8 pg (27.0-33.0); MEAN CORPUSCULAR HGB CONC 30.3 g/dl (32.0-36.5); MEAN CORPUSCULAR VOLUME 85.4 fl (80.0-96.0); MONO # 0.9 10^3/uL (0.0-0.8); MONO % 14.7 % (0.0-5.0); NEUTROPHILS # 3.5 10^3/uL (1.8-7.7); NEUTROPHILS % 58.4 % (36.0-66.0); PLATELET COUNT, AUTOMATED 200 10^3/uL (150-450); RED BLOOD COUNT 3.83 10^6/uL (4.00-5.40)
[2018-10-12 11:03] LABS: INR 1.06; PROTHROMBIN TIME 13.5 SECONDS (11.8-14.0)
[2018-10-12 11:04] LABS: PARTIAL THROMBOPLASTIN TIME 20.1 SECONDS (25.0-38.4)
[2018-10-12 11:13] LABS: BLOOD UREA NITROGEN 8 MG/DL (7-18); CALCIUM LEVEL 8.6 MG/DL (8.8-10.2); CARBON DIOXIDE LEVEL 27 MEQ/L (21-32); CHLORIDE LEVEL 105 MEQ/L (98-107); CK-MB VALUE MASS 1.5 NG/ML (<3.6); CPK CREATINE PHOSPHOKINASE 35 U/L (26-192); GLOMERULAR FILTRATION RATE > 60.0 (>32); GLUCOSE, FASTING 89 MG/DL (70-100); MB/CK RELATIVE INDEX 4.29 (< OR =4); SODIUM LEVEL 138 MEQ/L (136-145); TROPONIN I < 0.02 NG/ML (< 0.10)
--- NOTE | 2018-10-12 11:25 | REP ---
CHEST, SINGLE VIEW: Single view of the chest is performed and compared to prior study of 05/24/2018. There is mild cardiomegaly. There is no acute infiltrate. There is mild calcification of the thoracic aorta. The mediastinal silhouette is unchanged. IMPRESSION: Mild cardiomegaly. No acute infiltrate. Electronically Signed by Marcelo Hooper MD 10/13/2018 03:38 P
[2018-10-12] MEDS ORDERED: NOREPINEPHRINE BITARTRATE 8 MG in D5W 492 ML IV SCH ×3 (11:33→22:00)
[2018-10-12] MEDS ORDERED: ISOVUE-370 76% 100ML VIAL (Q9967) As Ordered ONE (11:44)
[2018-10-12] MEDS ORDERED: LIDOCAINE 2% 5ML JELLY UROJET TOP ONE (11:45)
[2018-10-12] MEDS ORDERED: BISA10SU4 PR (12:22)
[2018-10-12] MEDS ORDERED: METO50TA7 PO (12:22)
[2018-10-12] MEDS ORDERED: RISATAB3 PO (12:22)
[2018-10-12] MEDS ORDERED: COLA100C5 PO (12:22)
[2018-10-12] MEDS ORDERED: PANT-23 PO (12:22)
[2018-10-12] MEDS ORDERED: ATOR1TAB21 PO (12:22)
[2018-10-12] MEDS ORDERED: AMLO10TA5 PO (12:22)
[2018-10-12] MEDS ORDERED: MILKSUS3 PO (12:22)
[2018-10-12] MEDS ORDERED: APAP325T4 PO (12:22)
[2018-10-12] MEDS ORDERED: BUPR75TA5 PO (12:22)
[2018-10-12] MEDS ORDERED: ACET1TAB55 PO (12:22)
[2018-10-12] MEDS ORDERED: ELIQ2.5T PO (12:25)
[2018-10-12] MEDS ORDERED: PIPERACILLIN/TAZOBACTAM SOD 4.5 GM in D5W MINI-BAG PLUS 50 ML IV ONE (12:30)
--- NOTE | 2018-10-12 12:40 | REP ---
CT of the abdomen and pelvis with IV contrast, without bowel contrast for abdominal pain: Comparison is 05/24/2018. The patient has a history of breast carcinoma with right lumpectomy. The study is performed contiguous with the chest CT this same date. The hepatic parenchyma, gallbladder, pancreas and spleen are unremarkable except for numerous splenic calcified granuloma. This is unchanged. The adrenals are unremarkable. The abdominal aorta is unremarkable except for calcified atheroma. There is no retroperitoneal adenopathy or mass. There is no bowel distension or obstruction. The mesentery is unremarkable. Pelvis: The appendix is unremarkable. The uterus and adnexa are unremarkable. There is a circumferential surgical suture ring in the sigmoid colon. The inferior pelvis is obscured by beam hardening artifact from bilateral hip arthroplasties. There is degenerative disc disease throughout the lumbar spine. Impression: There is no bowel distension or obstruction. No inflammatory changes in the mesentery. The bowel is otherwise unremarkable. There are too fat-containing midline ventral hernias. There is a circumferential surgical suture ring in the sigmoid colon. No adenopathy, mass or ascites. Splenic calcified granulomas. Left renal atrophy in the left renal cortical scarring. Electronically Signed by Marcelo Cabral MD 10/12/2018 12:32 P
[2018-10-12 13:00] LABS: APPEARANCE, URINE CLEAR (CLEAR); BACTERIA, URINE AUTO NEGATIVE (NEGATIVE); BILIRUBIN, URINE AUTO NEGATIVE (NEGATIVE); BLOOD, URINE BLOOD NEGATIVE (NEGATIVE); COLOR, URINE STRAW (YELLOW); GLUCOSE, URINE (UA) AUTO NEGATIVE (NEGATIVE); KETONE, URINE AUTO NEGATIVE (NEGATIVE); LEUKOCYTE ESTERASE, URINE AUTO NEGATIVE (NEGATIVE); NITRITE, URINE AUTO NEGATIVE (NEGATIVE); PROTEIN, URINE AUTO NEGATIVE (NEGATIVE); RBC, URINE AUTO 1 /HPF (0-3); SPECIFIC GRAVITY URINE AUTO 1.004 (1.002-1.035); SQUAMOUS EPITHELIAL CELL UR AU 0 /HPF (0-6); UROBILINOGEN, URINE AUTO 0.2 mg/dL (0.0-2.0); WBC, URINE AUTO 0 /HPF (0-3)
--- NOTE | 2018-10-12 13:06 | REP ---
REASON FOR EXAM: Pain. No prior CTA chest for comparison; however, standard, without contrast chest CT of 09/22/2018 was reviewed. There is excellent visualization of the pulmonary arterial vasculature. There are no focal filling defects present that would be considered consistent with pulmonary emboli. There is focal ectasia of the left mainstem pulmonary artery. There is mediastinal adenopathy, which has developed since the last exam. There is no tuan hilar adenopathy. There is no evidence of an acute abnormality involving the imaged upper abdomen as it is unchanged compared to 05/24/2018. Evaluation of the lung benitez show diffuse, widespread, asymmetric opacities, which have increased from the prior exam. The lung benitez are hypoexpanded today compared to that prior exam, which accentuates all findings. The asymmetric left upper lobe nodule seen on the 09/22/2018 exam is unchanged. IMPRESSION: 1. There is no evidence of an acute pulmonary embolus. 2. There is adenopathy. 3. Lung field hypoexpansion with asymmetric parenchymal densities, as described above, likely representing a combination of mild fibrotic changes and subsegmental atelectatic changes. 4. Focal ectasia of the left main pulmonary artery. This can be seen in pulmonary hypertension. Does the patient have right-sided heart failure? 5. Other findings as described above. Electronically Signed by Bang Campbell DO 10/12/2018 02:37 P
--- NOTE | 2018-10-12 13:28 | REP ---
Portable chest post central venous catheter placement, 01:09 p.m., single AP view with the patient upright: Comparison is the portable chest performed earlier today. There is a right IJ central venous catheter with the tip in the superior vena cava in satisfactory position. There is no pneumothorax or hemothorax. The lung benitez otherwise clear and unchanged. There are surgical clips in the right axilla, unchanged. There is a loop recorder in the left costophrenic angle, unchanged. Electronically Signed by Marcelo Cabral MD 10/12/2018 01:19 P
--- NOTE | 2018-10-12 14:09 | RO ---
DATE OF PROCEDURE: 10/12/2018 PROCEDURE: Central line. INDICATION: Vasopressor administration. PREPROCEDURE DIAGNOSIS: Shock. POSTPROCEDURE DIAGNOSIS: Shock. ATTENDING PHYSICIAN: Eliz Castano MD CONSENT: Consent was obtained verbally from the patient and her daugter prior to the procedure due to the emergent nature of the procedure Indication, risks and benefits were explained at length. PROCEDURE SUMMARY: A central line insertion practices form was completed by an independent observer. A time out was performed prior to the procedure. Full sterile technique was maintained throughout the procedure including surgical cap, mask, protective eyewear, full gown and sterile gloves. The patient was placed in Trendelenburg position. The right neck region was prepped using chlorhexidine scrub and draped in a sterile fashion using a fenestrated drape and sterile probe cover was employed. The right internal jugular vein was identified using the ultrasound. Anesthesia was achieved over the vein using 1% lidocaine. Using real time out of plane guidance the introducer needle was inserted into the internal jugular vein under direct ultrasound visualization. Venous blood was withdrawn. The syringe was removed and a guidewire was advanced into the introducer needle. The introducer needle was removed over the guidewire. A small incision was made at skin surface with a scalpel and a dilator was exchanged over the guidewire. After appropriate dilation was obtained the dilator was exchanged over wire for a triple lumen central venous catheter. The wire was removed and the catheter was sutured in place at 17 cm. A sterile chlorhexidine impregnated dressing was placed over the catheter at the insertion site. The patient tolerated the procedure without any hemodynamic compromise. At time of procedure completion, all ports were aspirated and flushed properly. Postprocedure chest x-ray showed the right IJ line with the tip in SVC and no pneumothorax. MTDD
[2018-10-12 15:51] LABS: ALBUMIN 3.4 GM/DL (3.2-5.2); ALT/SGPT 11 U/L (12-78); AMYLASE 29 U/L (25-115); BILIRUBIN,DIRECT 0.1 MG/DL (0.0-0.2); BILIRUBIN,TOTAL 0.3 MG/DL (0.2-1.0); C REACTIVE PROTEIN QUANTITATIV < 0.30 MG/DL (0.00-0.30); TOTAL PROTEIN 7.6 GM/DL (6.4-8.2)
[2018-10-12] MEDS: METOPROLOL TART 25 MG TABLET PO SCH ×2 (16:00→20:53)
[2018-10-12] MEDS ORDERED: BISACODYL 10 MG SUPP PR PRN (16:00)
--- NOTE | 2018-10-12 16:05 | HPEPDOC ---
General Date of Admission Oct 12, 2018 at 13:18 Date of Service: Oct 12, 2018 Chief Complaint The patient is a 78-year-old female Who presented to the emergency room with complaints of dizziness and weakness. History of Present Illness Patient is an 78-year-old female with PMHx of Hx of L occipital CVA (03/2018), Hx of L ICA stenosis (70%), A. fib (on Eliquis), Hx of Loop recorder, HTN, PVD, DLP, COPD, Hx of R breast CA s/p chemo/radiation, Hx of colovaginal fistula s/p sigmoidectomy, Hx of L hydronephrosis s/p L ureteral stent, Depression, GERD who presented to the emergency room from Dr. Dee Dee Uribe office because of dizziness and weakness. Upon arrival to emergency room, patient was suspected of having stroke and received a CT scan that was negative for any hemorrhage. Patient was found to be hypotensive and received IV fluid hydration. Neurology at [facility] was co ntacted for possible TPA; however, patient was in the exclusion criteria, given that she was already on Eliquis. Despite IV fluid hydration, there was no improvement in her blood pressure and chief operating officer was called for central line placement. Patient was placed on Levothroid and continue with IV fluid hydration. Hospitalist service was called for further evaluation and treatment. Currently, patient reports that she experiences mild dizziness and weakness. She denies any slurred speech. Denies any weakness of her arms or legs. Patient denies chest pain, shortness of breath, cough, palpitations, nausea, vomiting, abdominal pain, constipation, diarrhea, discomfort with urination, fevers or c hills. Patient reports that her weight is been consistent and reports that her appetite is normal. Home Medications Scheduled Acetaminophen (Acetaminophen) 325 Mg Tablet, 650 MG PO TID, (Reported) Amlodipine Besylate (Amlodipine Besylate) 10 Mg Tablet, 10 MG PO DAILY, (Reported) Apixaban (Eliquis) 2.5 Mg Tablet, 2.5 MG PO BID, (Reported) Atorvastatin Calcium (Atorvastatin Calcium) 20 Mg Tablet, 20 MG PO DAILY, (Reported) Bupropion HCl (Bupropion HCl) 75 Mg Tablet, 75 MG PO BID, (Reported) Docusate Sodium (Colace) 100 Mg Capsule, 100 MG PO BID, (Reported) L.acidoph/L.bulg/B.bif/S.therm (Radha-Bid Caplet) 1 Each Tablet, 1 TAB PO DAILY, (Reported) Metoprolol Tartrate (Metoprolol Tartrate) 50 Mg Tablet, 25 MG PO TID, (Reported) Pantoprazole Sodium (Pantoprazole Sodium) 40 Mg Tablet.dr, 40 MG PO DAILY, (Reported) Scheduled PRN Acetaminophen (Acetaminophen) 325 Mg Tablet, 650 MG PO Q4H PRN for PAIN, (Reported) Bisacodyl (Bisacodyl) 10 Mg Supp.rect, 10 MG NH DAILY PRN for CONSTIPATION, (Reported) Magnesium Hydroxide (Milk of Magnesia) 400 Mg/5 Ml Oral.susp, 30 ML PO DAILY PRN for CONSTIPATION, (Reported) Allergies Coded Allergies: scopolamine (Verified Adverse Reaction, Mild, DELIRIUM, 06/17/18) Past Medical History Medical History Hx of L occipital CVA (03/2018), Hx of L ICA stenosis (70%), A. fib (on Eliquis), Hx of Loop recorder, HTN, PVD, DLP, COPD, Hx of R breast CA s/p chemo/radiation, Hx of colovaginal fistula s/p sigmoidectomy, Hx of L hydronephrosis s/p L ureteral stent, Depression, GERD Surgical History Tonsillectomy Bilateral hip arthroplasty Hernia repair Tubal ligation Right breast lumpectomy Left carotid endarterectomy 2011 Left ureteral stent placement 2017 Loop recorder placement 2017 Family History - Mother with history of heart disease, from acute PR - Father with a history of heart disease , from stroke - No history of malignancies Social History - Denies the use of illicit drugs; patient is an active smoker - apart only intermittent use now; patient does report social alcohol use - Denies recent travel or sick contacts - Lives with - 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; 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 Review of Systems Other systems 10 point review of systems complete, all negative otherwise stated in HPI Vital Signs - Vitals: BP 124/87, HR 113, RR 16, Sat 94%NC2L, Temp 96.4F - General: Lying in bed, No acute distress, Speaking in full sentences, AAOx3 - HEENT: NC, AT, PERRLA, EOMI - CVS: RRR, +S1S2 - Lungs: Fair air entry bilaterally, No appreciable wheezing / rales / rhonchi - Abdomen: Soft, Non-distended, Non-tender - Extremities: No lower extremity edema, No calf tenderness - Neuro: No focal motor or sensory deficit - Skin: No visible rashes Laboratory Data Labs 24H Laboratory Tests 2 10/12/18 10:08: Bedside Glucose (Misc Panel) 95 10/12/18 10:36: Immature Granulocyte % (Auto) 0.3, White Blood Count 6.0, Red Blood Count 3.83L, Hemoglobin 9.9L, Hematocrit 32.7L, Mean Corpuscular Volume 85.4, Mean Corpuscular Hemoglobin 25.8L, Mean Corpuscular Hemoglobin Concent 30.3L, Red Cell Distribution Width 16.0H, Platelet Count 200, Neutrophils (%) (Auto) 58.4, Lymphocytes (%) (Auto) 22.7L, Monocytes (%) (Auto) 14.7H, Eosinophils (%) (Auto) 2.6, Basophils (%) (Auto) 1.3H, Neutrophils # (Auto) 3.5, Lymphocytes # (Auto) 1.4L, Monocytes # (Auto) 0.9H, Eosinophils # (Auto) 0.2, Basophils # (Auto) 0.1, Nucleated Red Blood Cells % (auto) 0.0, Prothrombin Time 13.5, Prothromb Time International Ratio 1.06, Activated Partial Thromboplast Time 20.1L, Anion Gap 6L, Glomerular Filtration Rate > 60.0, Calcium Level 8.6L, Aspartate Amino Transf (AST/SGOT) 16, Alanine Aminotransferase (ALT/SGPT) 11L, Alkaline Phosphatase 97, Total Bilirubin 0.3, Direct Bilirubin 0.1, Total Creatine Kinase 35, Creatine Kinase MB 1.5, Creatine Kinase MB Relative Index 4.29H, Troponin I < 0.02, C-Reactive Protein, Quantitative < 0.30, Total Protein 7.6, Albumin 3.4, Albumin/Globulin Ratio 0.81L, Amylase Level 29 10/12/18 10:47: POC Glucose (Misc Panel) 89, POC Sodium (Misc Panel) 137, POC Potassium (Misc Panel) 3.9, POC Chloride (Misc Panel) 104, POC Total CO2 (Misc Panel) 23.0, POC Blood Urea Nitrogen (Misc Panel 5L, POC Ionized Calcium (Misc Panel) 4.6, POC Creatinine (Misc Panel) 0.7, POC Hematocrit (Misc Panel) 28.0L 10/12/18 12:38: Urine Appearance CLEAR, Urine Color STRAW, Urine pH 7.0, Urine Specific [place] 1.004, Urine Protein NEGATIVE, Urine Glucose (UA) NEGATIVE, Urine Ketones NEGATIVE, Urine Urobilinogen 0.2, Urine Bilirubin NEGATIVE, Urine Leukocyte Esterase NEGATIVE, Urine Blood NEGATIVE, Urine Nitrite NEGATIVE, Urine WBC (Auto) 0, Urine RBC (Auto) 1, Urine Hyaline Casts (Auto) 0, Urine Bacteria (Au to) NEGATIVE, Urine Squamous Epithelial Cells 0, Urine Sperm (Auto) 10/12/18 12:50: Lactic Acid Level 0.9 10/12/18 13:48: POC pH (Misc Panel) 7.412, POC Base Excess (Misc Panel) -4.0L, POC Saturated Percent O2 (Misc) 95, POC pO2 (Misc Panel) 74.0L, POC pCO2 (Misc Panel) 32.9L, POC HCO3 (Misc Panel) 21.0L, POC Total CO2 (Misc Panel) 22.0L CBC/BMP Laboratory Tests 10/12/18 10:36 Red Blood Count 3.83 L, Mean Corpuscular Volume 85.4, Mean Corpuscular Hemoglobin 25.8 L, Mean Corpuscular Hemoglobin Concent 30.3 L, Red Cell Distribution Width 16.0 H, Neutrophils (%) (Auto) 58.4, Lymphocytes (%) (Auto) 22.7 L, Monocytes (%) (Auto) 14.7 H, Eosinophils (%) (Auto) 2.6, Basophils (%) (Auto) 1.3 H, Neutrophils # (Auto) 3.5, Lymphocytes # (Auto) 1.4 L, Monocytes # (Auto) 0.9 H, Eosinophils # (Auto) 0.2, Basophils # (Auto) 0.1 Microbiology Microbiology 10/12/18 Blood Culture, Received Pending 10/12/18 Blood Culture, Received Pending 10/12/18 Urine Culture, Received Pending Plan / VTE VTE Prophylaxis Ordered?: Yes Plan Plan Dizziness / Weakness - possibly 2/2 hypotension, possibly 2/2 TIA - Patient presented to the emergency room with complaints of dizziness and weakness from Dr. Dee Dee Uribe office - Currently patients blood pressure has improved with IV fluid hydration and Levophed - Patient currently remains afebrile - No leukocytosis, no lactic acidosis, CRP negative, Coristol levels pending - Urine analysis without any evidence of infection - Blood cultures pending - CXR 10/12: Mild cardiomegaly. No acute infiltrate. - CTA chest 10/12: 1. There is no evidence of an acute pulmonary embolus. 2. There is adenopathy. 3. Lung field hypoexpansion with asymmetric parenchymal densities, as described above, likely representing a combination of mild fibrotic changes and subsegmental atelectatic changes. 4. Focal ectasia of the left main pulmonary artery. This can be seen in pulmonary hypertension. Does the patient have right-sided heart failure? 5. Other findings as described above. - CT abdomen / pelvis 10/12: There is no bowel distension or obstruction. No inflammatory changes in the mesentery. The bowel is otherwise unremarkable. There are too fat-containing midline ventral hernias. There is a circumferential surgical suture ring in the sigmoid colon. No adenopathy, mass or ascites. Splenic calcified granulomas. Left renal atrophy in the left renal cortical scarring. - c/w IV fluid hydration, titrate off leveophed as tolerated - c/w Zosyn Possible TIA - Will determine if patients Loop recorder is MRI safe - Will get MRI brain and MRA brain; if not, will get follow-up CT head - Will hold off on Neurology consultation at this time - c/w Eliquis, Atorvastatin - Will give ASA 325 x 1 dose; then 81 daily thereafter Hx of L occipital CVA (03/2018) Hx of L ICA stenosis (70%), A. fib - c/w rate control with Metoprolol - c/w full anticoagulation with Eliquis Hx of Loop recorder HTN - In light of recent hypotension; will hold Amlodipine PVD - c/w Atorvastatin DLP - c/w Atorvastatin COPD - Will start Duoneb inhaled therapy PRN Hx of R breast CA s/p chemo/radiation Hx of colovaginal fistula s/p sigmoidectomy Hx of L hydronephrosis s/p L ureteral stent Depression - c/w Bupropion GERD - c/w Protonix DVT prophylaxis - On full anticoagulation with EstrellitaquJAIRO Aldana MD Oct 12, 2018 16:05
--- NOTE | 2018-10-12 16:17 | CR ---
CRITICAL CARE CONSULT NOTE DATE OF CONSULTATION: 10/12/2018 HISTORY OF PRESENT ILLNESS: Ms. Amos is an 78-year-old female with a past medical history of atrial fibrillation on anticoagulation, hypertension, hyperlipidemia, right breast cancer status post lumpectomy and chemotherapy/radiation, peripheral vascular disease, history of recurrent diverticulitis with colovaginal fistula status post laparoscopic colectomy and coloproctostomy, who presented to the emergency department (ED) with complaints of double vision and lightheadedness/dizziness. Patient had been seen at our outpatient clinic last week where she had reported some new lower extremity edema. Patient had previously had a cough when she initially presented to an assisted living facility a few months ago; however, this has resolved. She had denied having any increased shortness of breath or wheezing at that time. She did notice some easy fatigability and this new lower extremity edema and so she was prescribed Lasix 20 mg by mouth for three days. She also had some blood work done which showed an increased BNP, as well as a renal function which was normal. Patient did not notice much improvement with her lower extremity edema with the Lasix. She was due to follow up with her primary doctor in a few days, which she did go see earlier today. While at her doctor's office, she was noted to have sudden onset of confusion, dizziness and some slurred speech and was sent to the ED for evaluation for possible stroke. In the ED, patient was noted to be hypotensive. Apparently, as per the daughter, at the assisted living facility and at her doctor's office, her blood pressures have been normal. She also did not have any reported fevers, had no nausea or vomiting, no reported diarrhea or dysuria. In the ED, patient was given 2 liters normal saline bolus, but did not have any improvement in her blood pressure. Some of her confusion and her speech did improve, however, as well as the dizziness and double vision. She was started on Levophed peripherally with improvement in her blood pressure. PAST MEDICAL/SURGICAL HISTORY: 1. Atrial fibrillation. 2. Hypertension. 3. Hyperlipidemia. 4. Right breast cancer with lumpectomy status post chemotherapy and radiation. 5. Left orbital fracture. 6. Peripheral vascular disease. 7. Questionable chronic obstructive pulmonary disease (COPD). 8. Left hip replacement. 9. Left cerebrovascular accident (CVA). 10. Left hip replacement 2010 11. Right hip replacement 2012 12. Tubal ligation. 13. Tonsillectomy. 14. Herniorrhaphy. 15. Recurrent diverticulitis with colovaginal fistula status post laparoscopic sigmoid colectomy and coloproctostomy. ALLERGIES: No known drug allergies. HOME MEDICATIONS: - amlodipine - metoprolol - Tylenol - Eliquis - atorvastatin - bupropion SOCIAL HISTORY: Former smoker; was one pack a day for more than 60 years, quit in 2016. FAMILY HISTORY: Father with a stroke. Mother with myocardial infarction (NV) and history of congestive heart failure (CHF). PHYSICAL EXAMINATION: Temperature 96.4, pulse 89, respirations 16, blood pressure 83/54, oxygen saturation 99% on nasal cannula oxygen. GENERAL: Patient is a frail, elderly female, is lying in the stretcher, is not in any acute distress. HEENT: Normocephalic, atraumatic. Mucous membranes are moist. Pupils are equal and reactive to light bilaterally. NECK: Supple. There is no tracheal deviation. No palpable adenopathy. CARDIAC: Irregularly irregular. Tachycardic. Normal S1, S2. Unable to appreciate any murmurs. PULMONARY: Decreased breath sounds bilaterally with some crackles at the bases. No wheezing or rhonchi noted. ABDOMEN: Soft. Nontender to palpation. No distension. EXTREMITIES: There is bilateral pitting edema in the lower extremities. SKIN: Dry. No rashes noted. Skin turgor is normal. NEUROLOGIC: Patient is awake and alert and oriented times three. Does have some confusion and repetition, but is answering questions appropriately. LABORATORY DATA: WBC 6.0, hemoglobin 9.9, platelets 200. Chemistry: Sodium is 138, potassium 4.0, chloride is 105, bicarbonate is 27, BUN 8, creatinine 0.80, glucose is 89. Initial troponins were negative. INR was 1.06. Urinalysis (UA) was negative. IMAGING STUDIES: CT head showed no evidence of hemorrhage. No edema. There is acute infarction noted. There is some diffuse volume loss, which is unchanged. CT angiogram showed no evidence of pulmonary embolism. There is a focal ectasia of the left main stem pulmonary artery. There is evidence of pulmonary edema with increased interstitial markings and intralobular septal thickening. There are some areas of fibrosis in the periphery as well an area of scarring in the left apex and some mosaic attenuation bilaterally, as well as some atelectasis in the lower lobes. There is also some pleural reaction noted bilaterally. There are some mildly enlarged mediastinal lymph nodes. Heart appears enlarged with small amount of air noted possibly in the right atrium from intravenous (IV) administration. CT abdomen and pelvis showed evidence of prior granulomatous disease with splenic calcifications. There is a surgical suturing in the sigmoid colon. There is degenerative disc disease and fat-containing midline ventral hernias. There is left renal atrophy. ASSESSMENT AND PLAN: Ms. Amos is an 78-year-old female with a past medical history of atrial fibrillation on anticoagulation, hypertension, hyperlipidemia, right breast cancer, peripheral vascular disease, questionable COPD, history of recurrent diverticulitis with colovaginal fistula status post laparoscopic colectomy, who was seen in our pulmonary clinic for followup of a lung nodule which, on repeat imaging, showed that the nodule in the left upper lobe had diminished in size and appeared to be more scar-like. Patient was also noted to have new increased lower extremity edema. She was given Lasix 20 mg by mouth for three days and was to follow up with her primary doctor. Patient was seen by her primary doctor in a week and at that visit, continued to report lower extremity edema, was then noted to have sudden onset of double vision, dizziness and some slurred speech and confusion. She was sent to the ED for evaluation for possible stroke. In the ED, she was noted to be hypotensive, did not respond with 2 liters normal saline bolus. She was started on Levophed for vasopressor support. Her initial CT head was negative for any acute ischemia; however, on her CT chest, she did have some evidence of fluid overload with increased intralobular septal thickening and some evidence of pulmonary edema. Patient did have an elevated BNP last week and suspect she does have a component of fluid overload. In terms of her hypotension, she does not have a white count or leukocytosis. She denies any significant coughing. No abdominal pains. No nausea, vomiting or diarrhea. Her urinalysis was also not consistent with infection. She was given broad-spectrum antibiotics for possible sepsis, although unclear source. She does not have any localizing symptoms on her imaging or by history. She does have a significant cardiac history, however, so would evaluate for possible cardiac etiology with her hypotension. - Would continue to trend her cardiac enzymes. - Continue with Levophed to maintain a mean arterial pressure (MAP) at least above 65 and consider higher MAP targets if there is concern for acute ischemic stroke. - Would hold from diuretics if there is concern for acute stroke given concern for hypovolemia. - Patient is on nasal cannula oxygen supplementation. Suspect she has some hypoxia related to her pulmonary edema. Would continue with nasal cannula oxygen to maintain an oxygen saturation above 90%. - Would consider MRI for further evaluation; however, patient did get IV contrast for her chest and abdomen CT and would need to monitor her renal function closely. - Would followup cultures and check a procalcitonin. Continue with broad-spectrum antibiotics for now. - would check a.m. cortisol level as well as thyroid function testing as part of her evaluation for the hypotension. - Patient did have some slight decrease in her hemoglobin, but will continue to trend. Does not appear to have any acute active bleeding at this time. Deep venous thrombosis (DVT) prophylaxis. On anticoagulation with Eliquis Total critical care time spent not including procedures approximately 1 hour and 45 minutes. MTDD
[2018-10-12 16:25] LABS: CORTISOL BASELINE 14.6 UG/DL (4.3-22.4)
[2018-10-12] MEDS: ATORVASTATIN 20 MG TAB PO SCH (16:49)
[2018-10-12] MEDS: PANTOPRAZOLE 40MG TAB (PROTONIX) PO SCH (16:49)
[2018-10-12] MEDS ORDERED: ASPIRIN 325 MG TAB PO ONE (17:00)
[2018-10-12 17:36] LABS: FREE T4 1.02 NG/DL (0.76-1.46); NT-PRO BNP 1718 PG/ML (<450)
[2018-10-12 18:07] LABS: CK-MB VALUE MASS 1.8 NG/ML (<3.6); CPK CREATINE PHOSPHOKINASE 34 U/L (26-192); MB/CK RELATIVE INDEX 5.29 (< OR =4); TROPONIN I < 0.02 NG/ML (< 0.10)
--- NOTE | 2018-10-12 19:55 | ECGEPIP ---
[facility] - ED Test Date: 2018-10-12 Pat Name: OLGA NAPIER Department: Room: - Gender: Female [employer] Supervisor: : 1940 Requested By: Vandana Leblanc Order Number: [id number] Reading MD: Thomas Allen Measurements Intervals [place] Rate: 90 P: KS: -1 QRS: QRSD: 87 T: QT: 371 QTc: 454 Interpretive Statements ATRIAL FIBRILLATION BORDERLINE LEFT AXIS DEVIATION ST DEVIATION AND MODERATE T-WAVE ABNORMALITY, CONSIDER ANTEROLATERAL ISCHEMIA SIMILAR TO 05/24/18 Electronically Signed on 10-12-2018 19:54:26 EDT by Thomas Allen
[2018-10-12] MEDS: buPROPion 75 MG TAB PO SCH (20:52)
[2018-10-12] MEDS: APIXABAN 2.5 MG TAB (ELIQUIS) PO SCH (20:52)
[2018-10-12] MEDS: DOCUSATE SODIUM 100 MG CAP PO SCH (20:52)
[2018-10-12] MEDS: PIPERACILLIN/TAZOBACTAM SOD 3.375 GM in D5W MINI-BAG PLUS 50 ML IV SCH (20:52)
--- NOTE | 2018-10-12 21:19 | REPVR ---
EXAM: MR Head Without Contrast EXAM DATE/TIME: 10/12/2018 7:03 PM CLINICAL HISTORY: 78 years old, female; Condition or disease; Other: Demtentia; Alteration of consciousness; Transient alteration of awareness; Patient HX: HX dementia, memory loss confusion, facial droop and weakness that has since subsided; Additional info: Possible stroke TECHNIQUE: Imaging protocol: MR of the head without contrast. COMPARISON: MRI-Brain without Contrast 03/25/2018 7:59 PM FINDINGS: No abnormal restriction of diffusion to indicate acute CVA. Midline structures and cerebellar tonsillar position appear normal. Ventricles, cisterns and sulci are symmetrically prominent. No intracranial mass, midline shift or abnormal extra-axial fluid. No acute intracranial hemorrhage. Stable pattern of increased T2 and flair signal in supratentorial white matter. Optic chiasm and pituitary infundibulum appear normal. Normal vascular flow voids in major intracranial arteries and dural venous sinuses. Paranasal sinuses are clear. Mastoid air cells are normally aerated. Optic globes and orbits are unremarkable. IMPRESSION: No acute intracranial abnormality or significant interval change since the prior MRI. Atrophy and stable pattern of chronic microangiopathic supratentorial white matter change Electronically signed by: Amador Colon On 10/12/2018 21:18:59 PM
--- NOTE | 2018-10-12 21:25 | REPVR ---
EXAM: MR Angiogram Head Without Contrast, Arteries EXAM DATE/TIME: 10/12/2018 7:03 PM CLINICAL HISTORY: 78 years old, female; Condition or disease; Transient cerebral ischemic attacks (tia) and other: Dementia; Type not specified; Cognitive deficit and numbness and speech disturbance and weakness; Age-related cognitive decline; Slurred speech; Patient HX: HX dementia, memory loss confusion, facial droop and weakness that has since subsided; Additional info: Possible stroke TECHNIQUE: Imaging protocol: MR angiogram head without contrast. Exam focused on the arteries. 3D rendering: MIP reconstructed images were created and reviewed. COMPARISON: MRA BRAIN W/O CONTRAST 03/26/2018 10:18 AM FINDINGS: Images are limited due to patient motion. Anterior circulation: Normal flow signal and luminal caliber in the petrous, cavernous and supraclinoid internal carotid arteries. Normal appearance of the anterior cerebral artery branches and middle cerebral artery branches through the MCA trifurcations. No occlusion, high-grade focal stenosis or dissection. No aneurysm. Posterior circulation: Absent flow signal in the left vertebral artery at the C1 and occipital condyle level, with reconstitution of flow at the level of the clivus, as seen on the prior exam. Distal left vertebral artery is patent and the right vertebral artery is dominant, with normal vertebrobasilar confluence. Patent normal caliber basilar artery, and normal superior cerebellar and posterior cerebral arteries. No occlusion, high-grade stenosis or aneurysm. IMPRESSION: Slightly limited study secondary to motion related artifacts No intracranial large vessel lesion. Electronically signed by: Amador Colon On 10/12/2018 21:24:57 PM
[2018-10-12 23:31] LABS: CK-MB VALUE MASS 1.4 NG/ML (<3.6); CPK CREATINE PHOSPHOKINASE 37 U/L (26-192); MB/CK RELATIVE INDEX 3.78 (< OR =4); TROPONIN I < 0.02 NG/ML (< 0.10)
[2018-10-13] VITALS (10 sets, daily range): BP systolic 115–152; BP diastolic 62–83
[2018-10-13] MEDS: METOPROLOL TART 25 MG TABLET PO SCH ×4 (01:09→21:35)
[2018-10-13] MEDS: PIPERACILLIN/TAZOBACTAM SOD 3.375 GM in D5W MINI-BAG PLUS 50 ML IV SCH ×4 (01:16→20:01)
[2018-10-13] MEDS: ACETAMINOPHEN TAB 650MG DOSE (2X325MG) PO PRN ×2 (02:29→21:35)
[2018-10-13 06:19] LABS: BASO # 0.1 10^3/uL (0.0-0.2); BASO % 1.3 % (0.0-1.0); EOS # 0.3 10^3/uL (0.0-0.50); EOS % 5.1 % (0.0-3.0); HEMATOCRIT 31.1 % (36.0-47.0); HEMOGLOBIN 9.6 g/dl (12.0-15.5); LYMPH # 1.5 10^3/uL (1.5-4.5); MEAN CORPUSCULAR HEMOGLOBIN 25.6 pg (27.0-33.0); MEAN CORPUSCULAR HGB CONC 30.9 g/dl (32.0-36.5); MEAN CORPUSCULAR VOLUME 82.9 fl (80.0-96.0); MONO # 0.8 10^3/uL (0.0-0.8); MONO % 12.3 % (0.0-5.0); NEUTROPHILS # 3.9 10^3/uL (1.8-7.7); PLATELET COUNT, AUTOMATED 207 10^3/uL (150-450); RED BLOOD COUNT 3.75 10^6/uL (4.00-5.40); WHITE BLOOD COUNT 6.7 10^3/uL (4.0-10.0)
[2018-10-13 06:53] LABS: BLOOD UREA NITROGEN 6 MG/DL (7-18); CALCIUM LEVEL 8.3 MG/DL (8.8-10.2); CARBON DIOXIDE LEVEL 25 MEQ/L (21-32); CHLORIDE LEVEL 105 MEQ/L (98-107); CREATININE FOR GFR 0.76 MG/DL (0.55-1.30); GLOMERULAR FILTRATION RATE > 60.0 (>32); GLUCOSE, FASTING 93 MG/DL (70-100); MAGNESIUM LEVEL 1.9 MG/DL (1.8-2.4); POTASSIUM SERUM 3.5 MEQ/L (3.5-5.1); SODIUM LEVEL 137 MEQ/L (136-145)
--- NOTE | 2018-10-13 07:57 | IPNPDOC ---
Date Seen The patient was seen on 10/13/18. Progress Note SUBJECTIVE: MRI /MRA brain: unremarkable. Tele: unremarkable. Pt c/o pain due to cho which has been discontinued. She denies any fever, chills, sob, chest pain, nausea, vomiting, diarrhea, or abd pain. no dysuria, urgency frequency. Slightly confused and thinks she lives athome,but oriented by the RN at bedside that she lives at [place]. denies neck rigidity or photophobia. OFF levophed iv gtt. still on zosyn empirically. cortisol levels pending. tsh wnl. bp maintained at 140 mmHg systolic. no c/o dizziness or lightheadedness this am, but c/o generalized weakness OBJECTIVE: PHYSICAL EXAMINATION: VITALS: PLS SEE BELOW - General: Lying in bed, No acute distress, Speaking in full sentences, AAOx2 - HEENT: NC, AT, PERRLA, EOMI - CVS: RRR, +S1S2 - Lungs: Fair air entry bilaterally, No appreciable wheezing / rales / rhonchi - Abdomen: Soft, Non-distended, Non-tender - Extremities: No lower extremity edema, No calf tenderness - Neuro: No focal motor or sensory deficit - Skin: No visible rashes LABORATORY DATA, IMAGING STUDIES, MICROBIOLOGY: PLS SEE BELOW ASSESSMENT AND PLAN: 78-year-old female with PMHx of Hx of L occipital CVA (03/2018), Hx of L ICA stenosis (70%), A. fib (on Eliquis), Hx of Loop recorder, HTN, PVD, DLP, COPD, Hx of R breast CA s/p chemo/radiation, Hx of colovaginal fistula s/p sigmoidectomy, Hx of L hydronephrosis s/p L ureteral stent, Depression, GERD who presented to the emergency room from Dr. Dee Dee Uribe office because of dizziness and weakness.Upon arrival to emergency room, patient was suspected of having stroke and received a CT scan that was negative for any hemorrhage. Patient was found to be hypotensive and received IV fluid hydration. Neurology at [facility] was contacted for possible TPA; however, patient was in the exclusion criteria, given that she was already on Eliquis.Despite IV fluid hydration, there was no improvement in her blood pressure and manager cargo was called for central line placement. Patient was placed on Levothroid and continue with IV fluid hydration.Hospitalist service was called for further evaluation and treatment.Currently, patient reports that she experiences mild dizziness and weakness. She denies any slurred speech. Denies any weakness of her arms or legs. Patient denies chest pain, shortness of breath, cough, palpitations, nausea, vomiting, abdominal pain, constipation, diarrhea, discomfort with urination, fevers or chills.Patient reports that her weight is been consistent and reports that her appetite is normal. Dizziness / Weakness - possibly 2/2 hypotension, possibly 2/2 TIA - Patient presented to the emergency room with complaints of dizziness and weakness from Dr. Dee Dee Uribe office - Currently patients blood pressure has improved with IV fluid hydration and s/p Levophed - Patient currently remains afebrile - No leukocytosis, no lactic acidosis, CRP negative, Cortisol levels pending - Urine analysis without any evidence of infection - Blood cultures pending - CXR 10/12: Mild cardiomegaly. No acute infiltrate. - CTA chest 10/12: 1. There is no evidence of an acute pulmonary embolus. 2. There is adenopathy. 3. Lung field hypoexpansion with asymmetric parenchymal densities, as described above, likely representing a combination of mild fibrotic changes and subsegmental atelectatic changes. 4. Focal ectasia of the left main pulmonary artery. This can be seen in pulmonary hypertension. Does the patient have right-sided heart failure? 5. Other findings as described above. - CT abdomen / pelvis 10/12: There is no bowel distension or obstruction. No inflammatory changes in the mesentery. The bowel is otherwise unremarkable. There are too fat-containing midline ventral hernias. There is a circumferential surgical suture ring in the sigmoid colon. No adenopathy, mass or ascites. Splenic calcified granulomas. Left renal atrophy in the left renal cortical scarring. - c/w IV fluid hydration, off leveophed since 10/12/18 - c/w Zosyn questionaable TIA - patients Loop recorder is MRI safe - unremarkable 10/12/18 MRI brain and MRA brain - Will hold off on Neurology consultation at this time - c/w Eliquis, Atorvastatin - Will give ASA 325 x 1 dose; then 81 daily thereafter Hx of L occipital CVA (03/2018) Hx of L ICA stenosis (70%), A. fib - c/w rate control with Metoprolol - c/w full anticoagulation with Eliquis Hx of Loop recorder HTN - In light of recent hypotension; will hold Amlodipine - s/p levophed iv gtt 10/12/18, off since 10/12/18 PVD - c/w Atorvastatin DLP - c/w Atorvastatin COPD - Will start Duoneb inhaled therapy PRN Hx of R breast CA s/p chemo/radiation Hx of colovaginal fistula s/p sigmoidectomy Hx of L hydronephrosis s/p L ureteral stent Depression - c/w Bupropion GERD - c/w Protonix DVT prophylaxis - On full anticoagulation with Eliquis disposition: medically stable for medsurg transfer. VS, I&O, 24H, Fishbone Vital Signs/I&O Vital Signs Date Time Temp Pulse Resp B/P (MAP) Pulse Ox O2 Delivery O2 Flow Rate FiO2 10/13/18 06:00 111 145/71 (95) 10/13/18 04:00 98.8 16 97 10/12/18 15:50 Nasal Cannula 2.0 I&O- Last 24 Hours up to 6 AM 10/13/18 06:00 Intake Total 2691.6 ml Output Total 3625 ml Balance -933.4 ml Laboratory Data 24H LABS Laboratory Tests 2 10/12/18 10:08: Bedside Glucose (Misc Panel) 95 10/12/18 10:36: Immature Granulocyte % (Auto) 0.3, White Blood Count 6.0, Red Blood Count 3.83L, Hemoglobin 9.9L, Hematocrit 32.7L, Mean Corpuscular Volume 85.4, Mean Corpuscular Hemoglobin 25.8L, Mean Corpuscular Hemoglobin Concent 30.3L, Red Cell Distribution Width 16.0H, Platelet Count 200, Neutrophils (%) (Auto) 58.4, Lymphocytes (%) (Auto) 22.7L, Monocytes (%) (Auto) 14.7H, Eosinophils (%) (Auto) 2.6, Basophils (%) (Auto) 1.3H, Neutrophils # (Auto) 3.5, Lymphocytes # (Auto) 1.4L, Monocytes # (Auto) 0.9H, Eosinophils # (Auto) 0.2, Basophils # (Auto) 0.1, Nucleated Red Blood Cells % (auto) 0.0, Prothrombin Time 13.5, Prothromb Time International Ratio 1.06, Activated Partial Thromboplast Time 20.1L, Anion Gap 6L, Glomerular Filtration Rate > 60.0, Calcium Level 8.6L, Aspartate Amino Transf (AST/SGOT) 16, Alanine Aminotransferase (ALT/SGPT) 11L, Alkaline Phosphatase 97, Total Bilirubin 0.3, Direct Bilirubin 0.1, Total Creatine Kinase 35, Creatine Kinase MB 1.5, Creatine Kinase MB Relative Index 4.29H, Troponin I < 0.02, C-Reactive Protein, Quantitative < 0.30, TH-Biv-R-Type Natriuretic Peptide 1718H, Total Protein 7.6, Albumin 3.4, Albumin/Globulin Ratio 0.81L, Amylase Level 29, Thyroid Stimulating Hormone (TSH) 1.200, Free Thyroxine 1.02, Cortisol Baseline 14.6 10/12/18 10:47: POC Glucose (Misc Panel) 89, POC Sodium (Misc Panel) 137, POC Potassium (Misc Panel) 3.9, POC Chloride (Misc Panel) 104, POC Total CO2 (Misc Panel) 23.0, POC Blood Urea Nitrogen (Misc Panel 5L, POC Ionized Calcium (Misc Panel) 4.6, POC Creatinine (Misc Panel) 0.7, POC Hematocrit (Misc Panel) 28.0L 10/12/18 12:38: Urine Appearance CLEAR, Urine Color STRAW, Urine pH 7.0, Urine Specific [place] 1.004, Urine Protein NEGATIVE, Urine Glucose (UA) NEGATIVE, Urine Ketones NEGATIVE, Urine Urobilinogen 0.2, Urine Bilirubin NEGATIVE, Urine Leukocyte Esterase NEGATIVE, Urine Blood NEGATIVE, Urine Nitrite NEGATIVE, Urine WBC (Auto) 0, Urine RBC (Auto) 1, Urine Hyaline Casts (Auto) 0, Urine Bacteria (Auto) NEGATIVE, Urine Squamous Epithelial Cells 0, Urine Sperm (Auto) 10/12/18 12:50: Lactic Acid Level 0.9 10/12/18 13:48: POC pH (Misc Panel) 7.412, POC Base Excess (Misc Panel) -4.0L, POC Saturated Percent O2 (Misc) 95, POC pO2 (Misc Panel) 74.0L, POC pCO2 (Misc Panel) 32.9L, POC HCO3 (Misc Panel) 21.0L, POC Total CO2 (Misc Panel) 22.0L 10/12/18 17:20: Total Creatine Kinase 34, Creatine Kinase MB 1.8, Creatine Kinase MB Relative Index 5.29H, Troponin I < 0.02 10/12/18 22:50: Total Creatine Kinase 37, Creatine Kinase MB 1.4, Creatine Kinase MB Relative Index 3.78, Troponin I < 0.02 10/13/18 05:52: Immature Granulocyte % (Auto) 0.3, White Blood Count 6.7, Red Blood Count 3.75L, Hemoglobin 9.6L, Hematocrit 31.1L, Mean Corpuscular Volume 82.9, Mean Corpuscular Hemoglobin 25.6L, Mean Corpuscular Hemoglobin Concent 30.9L, Red Cell Distribution Width 16.0H, Platelet Count 207, Neutrophils (%) (Auto) 58.0, Lymphocytes (%) (Auto) 23.0L, Monocytes (%) (Auto) 12.3H, Eosinophils (%) (Auto) 5.1H, Basophils (%) (Auto) 1.3H, Neutrophils # (Auto) 3.9, Lymphocytes # (Auto) 1.5, Monocytes # (Auto) 0.8, Eosinophils # (Auto) 0.3, Basophils # (Auto) 0.1, Nucleated Red Blood Cells % (auto) 0.0, Anion Gap 7L, Glomerular Filtration Rate > 60.0, Blood Urea Nitrogen 6L, Creatinine 0.76, Sodium Level 137, Potassium Level 3.5, Chloride Level 105, Carbon Dioxide Level 25, Calcium Level 8.3L, Magnesium Level 1.9 CBC/BMP Laboratory Tests 10/12/18 10:36 Red Blood Count 3.83 L, Mean Corpuscular Volume 85.4, Mean Corpuscular Hemoglobin 25.8 L, Mean Corpuscular Hemoglobin Concent 30.3 L, Red Cell Distribution Width 16.0 H, Neutrophils (%) (Auto) 58.4, Lymphocytes (%) (Auto) 22.7 L, Monocytes (%) (Auto) 14.7 H, Eosinophils (%) (Auto) 2.6, Basophils (%) (Auto) 1.3 H, Neutrophils # (Auto) 3.5, Lymphocytes # (Auto) 1.4 L, Monocytes # (Auto) 0.9 H, Eosinophils # (Auto) 0.2, Basophils # (Auto) 0.1 10/13/18 05:52 Red Blood Count 3.75 L, Mean Corpuscular Volume 82.9, Mean Corpuscular Hemoglobin 25.6 L, Mean Corpuscular Hemoglobin Concent 30.9 L, Red Cell Distribution Width 16.0 H, Neutrophils (%) (Auto) 58.0, Lymphocytes (%) (Auto) 23.0 L, Monocytes (%) (Auto) 12.3 H, Eosinophils (%) (Auto) 5.1 H, Basophils (%) (Auto) 1.3 H, Neutrophils # (Auto) 3.9, Lymphocytes # (Auto) 1.5, Monocytes # (Auto) 0.8, Eosinophils # (Auto) 0.3, Basophils # (Auto) 0.1, Calcium Level 8.3 L Microbiology Microbiology 10/12/18 Blood Culture, Received Pending 10/12/18 Blood Culture, Received Pending 10/12/18 Urine Culture, Received Pending BISHNU ROSS MD Oct 13, 2018 07:07
[2018-10-13] MEDS: ATORVASTATIN 20 MG TAB PO SCH (08:48)
[2018-10-13] MEDS: buPROPion 75 MG TAB PO SCH ×2 (08:48→21:35)
[2018-10-13] MEDS: APIXABAN 2.5 MG TAB (ELIQUIS) PO SCH ×2 (08:48→21:35)
[2018-10-13] MEDS: DOCUSATE SODIUM 100 MG CAP PO SCH ×2 (08:48→20:48)
[2018-10-13] MEDS: PANTOPRAZOLE 40MG TAB (PROTONIX) PO SCH (08:49)
[2018-10-13] MEDS: ASPIRIN 81 MG ENTERIC TAB PO SCH (08:49)
[2018-10-13] MEDS ORDERED: MORPHINE 4 MG/ML 1ML VIAL/SYRINGE (J2270) IV PRN (10:00)
--- NOTE | 2018-10-13 10:23 | CCN ---
DATE: 10/13/2018 The patient was seen and examined this morning. The patient was able to be weaned off of the Levophed overnight. Her blood pressures had improved. She also had her MRI of her brain performed as well yesterday evening. This morning she denies any complaints. Her dizziness and lightheadedness had resolved. She denies any weakness. No vision changes. She has no chest pain. No increased shortness of breath. No nausea or vomiting. No abdominal pain. She had no fevers overnight. PHYSICAL EXAMINATION: Temperature 98.1, pulse 91, respiration 16, blood pressure 115/64, O2 sat 97% on room air. Input: 2.4 liters, output 3 liters. GENERAL: The patient is an elderly female sitting in the chair in no acute distress. HEENT: Normocephalic, atraumatic. Mucous membranes are moist. Pupils are equal, reactive to light bilaterally. Neck is supple. There is no palpable adenopathy. CARDIAC: Irregularly irregular normal S1, S2. Unable to appreciate any murmurs. PULMONARY: Diminished breath sounds bilaterally with some crackles, more in the bases bilaterally. No wheezing or rhonchi. ABDOMEN: Soft, nontender to palpation. No palpable hepatomegaly. EXTREMITIES: There is trace to +1 pitting edema in the bilateral lower extremities over her ankles more. LABS: WBC 6.7, hemoglobin 9.6, platelets 207. Chemistry: Sodium is 137, potassium 3.5, chloride 105, bicarb 25, BUN 6, creatinine 0.76, glucose is 93. Troponins were negative times two. Cortisol random level 14.6, a.m. cortisol pending. BNP elevated at 1718. 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 No evidence of ischemia. ASSESSMENT/PLAN: Ms. Amos is an 78-year-old female with a past low history of atrial fibrillation on anticoagulation, hypertension, hyperlipidemia, right breast cancer, peripheral vascular disease, questionable chronic obstructive pulmonary disease (COPD), history of diverticulitis with a colovaginal fistula status post laparoscopic colectomy who presented today with sudden onset of double vision and dizziness and slurred speech. The patient was hypotensive in the emergency department (ED) and did not respond with IV fluid boluses and was started on Levophed for vasopressor support. There was concern as well for an acute stroke and the patient had a head CT initially which was negative. She was transferred to the intensive care unit (ICU) for further monitoring. The patient did have MRI of her brain done overnight which showed did not show any evidence of acute ischemia but showed some chronic changes. The patient's blood pressure has improved and she was weaned off of Levophed. There was possible concern for sepsis as a cause for her hypotension and she was given empiric antibiotics. The patient continues to be afebrile and has no leukocytosis. There is no evidence of pneumonia on her CT chest. Urine analysis (UA) was negative and she has no localizing abdominal complaints. Would followup the results of her blood culture and if the gram stain is negative, would discontinue antibiotics. Will followup her procalcitonin - Would discontinue (DC) her central line as the patient has been off of pressors. In terms of evaluation for her hypotension, her a.m. cortisol level is still pending and her thyroid function was normal. - The patient has been weaned off nasal cannula oxygen. She is saturating well on room air. She does have evidence of pulmonary edema on imaging and her BNP is still elevated. The patient follows up with cardiology would have her follow up regarding adjustment to her medication and a possible gentle diuresis. Deep venous thrombosis (DVT) prophylaxis: On anticoagulation with Eliquis. Total critical care time spent not including procedures approximately 30 minutes. Bethanie not hesitate to call for any further questions or concerns. MALIK
--- NOTE | 2018-10-13 11:55 | REP ---
Bilateral carotid artery duplex ultrasound: Peak flow velocity analysis: RIGHT LEFT ICA Peak flow velocity cm/sec 42.9 45.7 ICA Diastolic flow velocity cm/sec 13.7 9.34 ICA/CCA Ratio 0.79 1.00 ECA Peak flow velocity cm/sec 57.0 73.0 CCA Peak flow velocity cm/sec 54.0 45.7 There is intimal thickening on the right. On the left, there is focal moderate atheromatous plaque in the bulb extending into the left ICA and left ECA. The peak flow velocities are normal bilaterally. Findings indicate less than 50% narrowing bilaterally. There is no significant stenosis on the right on the left. There is antegrade flow in the vertebral arteries bilaterally. Electronically Signed by Marcelo Cabral MD 10/13/2018 11:46 A
[2018-10-14] VITALS (9 sets, daily range): BP systolic 66–166; BP diastolic 47–87
[2018-10-14] MEDS: PIPERACILLIN/TAZOBACTAM SOD 3.375 GM in D5W MINI-BAG PLUS 50 ML IV SCH ×2 (03:00→09:16)
[2018-10-14] MEDS: ACETAMINOPHEN TAB 650MG DOSE (2X325MG) PO PRN ×3 (04:16→21:27)
[2018-10-14 05:17] LABS: BASO # 0.1 10^3/uL (0.0-0.2); BASO % 1.4 % (0.0-1.0); EOS # 0.5 10^3/uL (0.0-0.50); EOS % 9.3 % (0.0-3.0); HEMATOCRIT 32.2 % (36.0-47.0); HEMOGLOBIN 9.6 g/dl (12.0-15.5); LYMPH # 1.6 10^3/uL (1.5-4.5); LYMPH % 27.8 % (24.0-44.0); MEAN CORPUSCULAR HEMOGLOBIN 25.1 pg (27.0-33.0); MEAN CORPUSCULAR HGB CONC 29.8 g/dl (32.0-36.5); MEAN CORPUSCULAR VOLUME 84.3 fl (80.0-96.0); MONO # 0.7 10^3/uL (0.0-0.8); MONO % 13.2 % (0.0-5.0); NEUTROPHILS # 2.7 10^3/uL (1.8-7.7); NEUTROPHILS % 47.8 % (36.0-66.0); PLATELET COUNT, AUTOMATED 188 10^3/uL (150-450); RED BLOOD COUNT 3.82 10^6/uL (4.00-5.40); WHITE BLOOD COUNT 5.6 10^3/uL (4.0-10.0)
[2018-10-14 05:41] LABS: BLOOD UREA NITROGEN 8 MG/DL (7-18); CALCIUM LEVEL 8.1 MG/DL (8.8-10.2); CARBON DIOXIDE LEVEL 23 MEQ/L (21-32); CHLORIDE LEVEL 105 MEQ/L (98-107); CREATININE FOR GFR 0.79 MG/DL (0.55-1.30); GLOMERULAR FILTRATION RATE > 60.0 (>32); GLUCOSE, FASTING 126 MG/DL (70-100); MAGNESIUM LEVEL 1.8 MG/DL (1.8-2.4); SODIUM LEVEL 136 MEQ/L (136-145); URIC ACID 3.8 MG/DL (2.6-6.0)
[2018-10-14 07:17] LABS: CHOLESTEROL LEVEL 130 MG/DL (<200); CHOLESTEROL RISK RATIO 1.911 (<5); HDL CHOLESTEROL 68 MG/DL (>40); LDL CHOLESTEROL 39 MG/DL (<100); NON-HDL-C 62 MG/DL; TRIGLYCERIDES LEVEL 115 MG/DL (<150)
--- NOTE | 2018-10-14 07:34 | IPNPDOC ---
Date Seen The patient was seen on 10/14/18. Progress Note SUBJECTIVE: Per Dr. Cabral, Radiologist, 10/13/18: 70% left carotid artery stenosis. Vascular Surgery Dr. Bowser has been consulted to evaluate the patient for stent vs CEA. MRI /MRA brain: unremarkable. Tele: unremarkable. Pt c/o pain due to cho which has been discontinued. She denies any fever, chills, sob, chest pain, nausea, vomiting, diarrhea, or abd pain. no dysuria, urgency frequency. Slightly confused and thinks she lives at home,but recants when told that she lives at [place]. denies neck rigidity or photophobia. OFF levophed iv gtt.sbp 120-140mmHg systolic. s/p zosyn with no signs of infection. no c/o dizziness or lightheadedness this am, but c/o generalized weakness. OBJECTIVE: PHYSICAL EXAMINATION: VITALS: PLS SEE BELOW - General: Lying in bed, No acute distress, Speaking in full sentences, AAOx2 - HEENT: NC, AT, PERRLA, EOMI, left carotid bruit - CVS: RRR, +S1S2 - Lungs: Fair air entry bilaterally, No appreciable wheezing / rales / rhonchi - Abdomen: Soft, Non-distended, Non-tender - Extremities: No lower extremity edema, No calf tenderness - Neuro: No focal motor or sensory deficit - Skin: No visible rashes LABORATORY DATA, IMAGING STUDIES, MICROBIOLOGY: PLS SEE BELOW ASSESSMENT AND PLAN: 78-year-old female with PMHx of Hx of L occipital CVA (03/2018), Hx of L ICA stenosis (70%), A. fib (on Eliquis), Hx of Loop recorder, HTN, PVD, DLP, COPD, Hx of R breast CA s/p chemo/radiation, Hx of colovaginal fistula s/p sigmoidectomy, Hx of L hydronephrosis s/p L ureteral stent, Depression, GERD who presented to the emergency room from Dr. Dee Dee Uribe office because of dizziness and weakness.Upon arrival to emergency room, patient was suspected of having stroke and received a CT scan that was negative for any hemorrhage. Patient was found to be hypotensive and received IV fluid hydration. Neurology at [facility] was contacted for possible TPA; however, patient was in the exclusion criteria, given that she was already on Eliquis.Despite IV fluid hydration, there was no improvement in her blood pressure and armature rewinder was called for central line placement. Patient was placed on Levothroid and continue with IV fluid hydration.Hospitalist service was called for further evaluation and treatment.Currently, patient reports that she experiences mild dizziness and weakness. She denies any slurred speech. Denies any weakness of her arms or legs. Patient denies chest pain, shortness of breath, cough, palpitations, n ausea, vomiting, abdominal pain, constipation, diarrhea, discomfort with urination, fevers or chills.Patient reports that her weight is been consistent and reports that her appetite is normal. Symptomatic Left Carotid Artery Stenosis - Per Dr. Cabral, Radiologist, 10/13/18: 70% left carotid artery stenosis. Vascular Surgery Dr. Bowser has been consulted to evaluate the patient for stent vs CEA. MRI /MRA brain: unremarkable. Tele: unremarkable. -on ASA, Atorvastatin, eliquis - Patient presented to the emergency room with complaints of dizziness and weakness from Dr. Dee Dee Uribe office - Currently patients blood pressure has improved with IV fluid hydration and s/p Levophed - Patient currently remains afebrile - No leukocytosis, no lactic acidosis, CRP negative, Cortisol levels pending - Urine analysis without any evidence of infection - Blood cultures pending - CXR 10/12: Mild cardiomegaly. No acute infiltrate. - CTA chest 10/12: 1. There is no evidence of an acute pulmonary embolus. 2. There is adenopathy. 3. Lung field hypoexpansion with asymmetric parenchymal densities, as described above, likely representing a combination of mild fibrotic changes and subsegmental atelectatic changes. 4. Focal ectasia of the left main pulmonary artery. This can be seen in pulmonary hypertension. Does the patient have right-sided heart failure? 5. Other findings as described above. - CT abdomen / pelvis 10/12: There is no bowel distension or obstruction. No inf lammatory changes in the mesentery. The bowel is otherwise unremarkable. There are too fat-containing midline ventral hernias. There is a circumferential surgical suture ring in the sigmoid colon. No adenopathy, mass or ascites. Splenic calcified granulomas. Left renal atrophy in the left renal cortical scarring. - c/w IV fluid hydration, off leveophed since 10/12/18 - s/p Zosyn given empirically on admission TIA - patients Loop recorder is MRI safe - unremarkable 10/12/18 MRI brain and MRA brain - Will hold off on Neurology consultation at this time - c/w Eliquis, Atorvastatin - s/p ASA 325 x 1 dose; then 81 daily thereafter Hx of L occipital CVA (03/2018) Hx of L ICA stenosis (70%), A. fib - c/w rate control with Metoprolol - c/w full anticoagulation with Eliquis Hx of Loop recorder HTN - In light of recent hypotension; will hold Amlodipine - s/p levophed iv gtt 10/12/18, off since 10/12/18 PVD - c/w Atorvastatin DLP - c/w Atorvastatin COPD - Will start Duoneb inhaled therapy PRN Hx of R breast CA s/p chemo/radiation Hx of colovaginal fistula s/p sigmoidectomy Hx of L hydronephrosis s/p L ureteral stent Depression - c/w Bupropion GERD - c/w Protonix DVT prophylaxis - On full anticoagulation with Eliquis VS, I&O, 24H, Fishbone Vital Signs/I&O Vital Signs Date Time Temp Pulse Resp B/P (MAP) Pulse Ox O2 Delivery O2 Flow Rate FiO2 10/14/18 04:00 98.8 16 137/74 (95) 96 10/13/18 21:35 94 10/12/18 15:50 Nasal Cannula 2.0 I&O- Last 24 Hours up to 6 AM 10/14/18 05:59 Intake Total 1470 ml Output Total 750 ml Balance 720 ml Laboratory Data 24H LABS Laboratory Tests 2 10/13/18 07:27: Cortisol AM Sample 16.5 10/14/18 04:48: Immature Granulocyte % (Auto) 0.5, White Blood Count 5.6, Red Blood Count 3.82L, Hemoglobin 9.6L, Hematocrit 32.2L, Mean Corpuscular Volume 84.3, Mean Corpuscular Hemoglobin 25.1L, Mean Corpuscular Hemoglobin Concent 29.8L, Red Cell Distribution Width 16.0H, Platelet Count 188, Neutrophils (%) (Auto) 47.8, Lymphocytes (%) (Auto) 27.8, Monocytes (%) (Auto) 13.2H, Eosinophils (%) (Auto) 9.3H, Basophils (%) (Auto) 1.4H, Neutrophils # (Auto) 2.7, Lymphocytes # (Auto) 1.6, Monocytes # (Auto) 0.7, Eosinophils # (Auto) 0.5, Basophils # (Auto) 0.1, Nucleated Red Blood Cells % (auto) 0.0 10/14/18 04:51: Anion Gap 8, Glomerular Filtration Rate > 60.0, Uric Acid 3.8, Blood Urea Nitrogen 8, Creatinine 0.79, Sodium Level 136, Potassium Level 4.0, Chloride Level 105, Carbon Dioxide Level 23, Calcium Level 8.1L, Magnesium Level 1.8 CBC/BMP Laboratory Tests 10/14/18 04:48 Red Blood Count 3.82 L, Mean Corpuscular Volume 84.3, Mean Corpuscular Hemoglobin 25.1 L, Mean Corpuscular Hemoglobin Concent 29.8 L, Red Cell Distribution Width 16.0 H, Neutrophils (%) (Auto) 47.8, Lymphocytes (%) (Auto) 27.8, Monocytes (%) (Auto) 13.2 H, Eosinophils (%) (Auto) 9.3 H, Basophils (%) (Auto) 1.4 H, Neutrophils # (Auto) 2.7, Lymphocytes # (Auto) 1.6, Monocytes # (Auto) 0.7, Eosinophils # (Auto) 0.5, Basophils # (Auto) 0.1 10/14/18 04:51 Calcium Level 8.1 L Microbiology Microbiology 10/12/18 Blood Culture - Preliminary, Resulted No growth after 24 hours . All specim... 10/12/18 Blood Culture - Preliminary, Resulted No growth after 24 hours . All specim... 10/12/18 Urine Culture, Received Pending BISHNU ROSS MD Oct 14, 2018 06:50
[2018-10-14] MEDS: METOPROLOL TART 25 MG TABLET PO SCH ×3 (09:00→20:36)
[2018-10-14] MEDS: buPROPion 75 MG TAB PO SCH ×2 (09:13→20:35)
[2018-10-14] MEDS: APIXABAN 2.5 MG TAB (ELIQUIS) PO SCH ×2 (09:13→20:35)
[2018-10-14] MEDS: ATORVASTATIN 20 MG TAB PO SCH (09:13)
[2018-10-14] MEDS: PANTOPRAZOLE 40MG TAB (PROTONIX) PO SCH (09:13)
[2018-10-14] MEDS: ASPIRIN 81 MG ENTERIC TAB PO SCH (09:13)
[2018-10-14] MEDS: DOCUSATE SODIUM 100 MG CAP PO SCH ×2 (09:13→20:35)
[2018-10-14] MEDS ORDERED: NS 500 ML IV ONE (10:00)
[2018-10-14] MEDS ORDERED: ISOVUE-370 76% 100ML VIAL (Q9967) As Ordered ONE (12:13)
--- NOTE | 2018-10-14 15:04 | CR.PDOC ---
General Date of Consultation: Oct 14, [address] Bowser HPI: 78 year old F who presented to the emergency room from Dr. Dee Dee Uribe office because of dizziness and weakness. Vascular surgery was consulted rega rding carotid stenosis. The patient denies vertigo. She does not report diplopia or amaurosis. Denies dysarthria or dysphagia. Reports no numbness or tingling in arms or legs. She is sitting up in bed this morning and answering questions. She was noted to have a blood pressure discrepancy in upper extremities with right arm blood pressure 143/63 and left arm 81/50. Denies any fevers, chills, weakness, fatigue, Headache, Chest Pain, Shortness of breath, cough, palpitations, abdominal pain, N/V/D or changes in bowel or bladder habits. 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 fib (on Eliquis), Hx of Loop recorder, HTN, PVD, DLP, COPD, Hx of R breast CA s/p chemo/radiation, Hx of colovaginal fistula s/p sigmoidectomy, Hx of L hydronephrosis s/p L ureteral stent, Depression, GERD Surgical History Tonsillectomy Bilateral hip arthroplasty Hernia repair Tubal ligation Right breast lumpectomy Left carotid endarterectomy 2011 Left ureteral stent placement 2018 Loop recorder placement 2017 Family History Mother with history of heart disease, from acute PR Father with a history of heart disease , from stroke Social History patient is a smoker patient does report social alcohol use Lives with 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 PE: GEN: 78 yo F, appears stated age. Well-nourished, well developed. No acute distr ess. Alert and oriented x 3. HEENT: Normocephalic, atraumatic. Sclera are nonicteric. Conjunctiva without injection. No facial asymmetry. Moist mucous membranes. Dentition fair. Pharynx pink and moist, no cobblestoning. Neck supple, trachea midline. CHEST: Regular rate and rhythm, +S1, +S2. Left carotid bruit noted. LUNGS: Clear to auscultation bilaterally. No wheezes, rales, or rhonchi. Breath ing appears symmetric and easy. Patient is speaking in full sentences. No accessory muscle use. ABD: Round, soft, non-tender, non-distended. +Bowel sounds throughout. No rebound or guarding. No costovertebral angle tenderness. EXT: Pulses 2+ bilaterally dorsalis pedis and radial. No lower extremity edema appreciated. SKIN: [place], dry, warm. Capillary refill <2sec. No rashes. NEURO: Alert and oriented x 3. Cranial nerves III-XII are intact. No focal deficits appreciated. Carotid ultrasound Upon review of the study with the technologist, the technologist additionally measured the peak flow velocity in the left carotid bulb. The peak flow velocityin the left carotid bulb is elevated measuring 466 cm/s. This is indicates high grade stenosis of greater than 70% stenosis. These results were telephoned to the patient's physician, Dr Zuniga as well asto the ICU nurse. DD: Marcelo Cabral MD 10/13/18 1521 DT: RANI 10/13/18 1605 DS: JUAN 10/13/181820 <Electronically signed by Marcelo Cabral > 10/13/181820 [~ rep ct labl] Bilateral carotid artery duplex ultrasound: Peak flow velocity analysis: RIGHT LEFT ICA Peak flow velocity cm/sec 42.9 45.7 ICA Diastolic flow velocity cm/sec 13.7 9.34 ICA/CCA Ratio 0.79 1.00 ECA Peak flow velocity cm/sec 57.0 73.0 CCA Peak flow velocity cm/sec 54.0 45.7 There is intimal thickening on the right. On the left, there is focal moderate atheromatous plaque in the bulb extending into the left ICA and left ECA. The peak flow velocities are normal bilaterally. Findings indicate less than 50% narrowing bilaterally. There is no significant stenosis on the right on the left. There is antegrade flow in the vertebral arteries bilaterally. Electronically Signed by Marcelo Cabral MD 10/13/2018 11:46 A A&P: 1. Carotid stenosis The patient is reviewed with Dr. Bowser. Discrepancy and upper extremity blood pressures was noted and reviewed by Dr. Bowser. Carotid ultrasound reviewed by Dr. Bowser. Plan to request CT angiogram of head and neck. Await results for further recommendations. The patient remains on aspirin 81 mg daily and Eliquis. DVT prophylaxis. Patient is on Eliquis AC. Vital Signs/I&O Vital Signs Date Time Temp Pulse Resp B/P (MAP) Pulse Ox O2 Delivery O2 Flow Rate FiO2 10/14/18 11:26 81/50 (60) 99 10/14/18 08:38 97.0 90 16 10/12/18 15:50 Nasal Cannula 2.0 I&O- Last 24 Hours up to 6 AM 10/14/18 06:00 Intake Total 1620 ml Output Total 125 ml Balance 1495 ml Laboratory Data Labs 24H Laboratory Tests 2 10/14/18 04:48: Immature Granulocyte % (Auto) 0.5, White Blood Count 5.6, Red Blood Count 3.82L, Hemoglobin 9.6L, Hematocrit 32.2L, Mean Corpuscular Volume 84.3, Mean Corpuscular Hemoglobin 25.1L, Mean Corpuscular Hemoglobin Concent 29.8L, Red Cell Distribution Width 16.0H, Platelet Count 188, Neutrophils (%) (Auto) 47.8, Lymphocytes (%) (Auto) 27.8, Monocytes (%) (Auto) 13.2H, Eosinophils (%) (Auto) 9.3H, Basophils (%) (Auto) 1.4H, Neutrophils # (Auto) 2.7, Lymphocytes # (Auto) 1.6, Monocytes # (Auto) 0.7, Eosinophils # (Auto) 0.5, Basophils # (Auto) 0.1, Nucleated Red Blood Cells % (auto) 0.0 10/14/18 04:51: Anion Gap 8, Glomerular Filtration Rate > 60.0, Uric Acid 3.8, Calcium Level 8.1L, Magnesium Level 1.8, Triglycerides Level 115, LDL Cholesterol 39, Total Cholesterol 130, Non-HDL Cholesterol (LDL + VLDL) 62, Total HDL Cholesterol 68, Cholesterol/HDL Ratio 1.911 CBC/BMP Laboratory Tests 10/14/18 04:48 Red Blood Count 3.82 L, Mean Corpuscular Volume 84.3, Mean Corpuscular Hemoglobin 25.1 L, Mean Corpuscular Hemoglobin Concent 29.8 L, Red Cell Distribution Width 16.0 H, Neutrophils (%) (Auto) 47.8, Lymphocytes (%) (Auto) 27.8, Monocytes (%) (Auto) 13.2 H, Eosinophils (%) (Auto) 9.3 H, Basophils (%) (Auto) 1.4 H, Neutrophils # (Auto) 2.7, Lymphocytes # (Auto) 1.6, Monocytes # (Auto) 0.7, Eosinophils # (Auto) 0.5, Basophils # (Auto) 0.1 10/14/18 04:51 Microbiology Microbiology 10/12/18 Blood Culture - Preliminary, Resulted No Growth after 48 hours. All Specime... 10/12/18 Blood Culture - Preliminary, Resulted No Growth after 48 hours. All Specime... 10/12/18 Urine Culture - Final, Complete Allergies Coded Allergies: scopolamine (Verified Adverse Reaction, Mild, DELIRIUM, 06/17/18) Home Medications Scheduled Acetaminophen (Acetaminophen) 325 Mg Tablet, 650 MG PO TID, (Reported) Amlodipine Besylate (Amlodipine Besylate) 10 Mg Tablet, 10 MG PO DAILY, (Reported) Apixaban (Eliquis) 2.5 Mg Tablet, 2.5 MG PO BID, (Reported) Atorvastatin Calcium (Atorvastatin Calcium) 20 Mg Tablet, 20 MG PO DAILY, (Reported) Bupropion HCl (Bupropion HCl) 75 Mg Tablet, 75 MG PO BID, (Reported) Docusate Sodium (Colace) 100 Mg Capsule, 100 MG PO BID, (Reported) L.acidoph/L.bulg/B.bif/S.therm (Radha-Bid Caplet) 1 Each Tablet, 1 TAB PO DAILY, (Reported) Metoprolol Tartrate (Metoprolol Tartrate) 50 Mg Tablet, 25 MG PO TID, (Reported) Pantoprazole Sodium (Pantoprazole Sodium) 40 Mg Tablet.dr, 40 MG PO DAILY, (Reported) Scheduled PRN Acetaminophen (Acetaminophen) 325 Mg Tablet, 650 MG PO Q4H PRN for PAIN, (Reported) Bisacodyl (Bisacodyl) 10 Mg Supp.rect, 10 MG OH DAILY PRN for CONSTIPATION, (Reported) Magnesium Hydroxide (Milk of Magnesia) 400 Mg/5 Ml Oral.susp, 30 ML PO DAILY PRN for CONSTIPATION, (Reported) Ursula Cabrera Oct 14, 2018 15:04
--- NOTE | 2018-10-14 15:49 | REPVR ---
EXAM: CT Angiography Head With Contrast EXAM DATE/TIME: 10/14/2018 12:09 PM CLINICAL HISTORY: 78 years old, female; Condition or disease; Occlusion or stenosis of cerebral arteries; Prior surgery; Surgery date: <1 month; Surgery type: Carotids; Additional info: Carotid stenosis TECHNIQUE: Imaging protocol: Computed tomographic angiography images of the head with intravenous contrast using CT angiography protocol. Coronal and sagittal reformatted images were created and reviewed. 3D rendering: MIP and/or 3D reconstructed images were created and reviewed. COMPARISON: No relevant prior studies available. FINDINGS: Right internal carotid artery: There are moderate calcified atherosclerotic changes of the cavernous and supraclinoid right internal carotid artery. It is difficult to accurately assess the degree of underlying stenosis due to the extensive calcification. Right anterior cerebral artery: Unremarkable. No occlusion or significant stenosis. No aneurysm. Right middle cerebral artery: Unremarkable. No occlusion or significant stenosis. No aneurysm. Right posterior cerebral artery: Unremarkable. No occlusion or significant stenosis. No aneurysm. Right vertebral artery: Unremarkable. No occlusion or significant stenosis. No aneurysm. Left internal carotid artery: There are moderate calcified atherosclerotic changes of the cavernous and supraclinoid left internal carotid artery. It is difficult to accurately assess the degree of underlying stenosis due to the extensive calcification. Left anterior cerebral artery: Unremarkable. No occlusion or significant stenosis. No aneurysm. Left middle cerebral artery: Unremarkable. No occlusion or significant stenosis. No aneurysm. Left posterior cerebral artery: Unremarkable. No occlusion or significant stenosis. No aneurysm. Left vertebral artery: Unremarkable. No occlusion or significant stenosis. No aneurysm. Basilar artery: Unremarkable. No occlusion or significant stenosis. No aneurysm. IMPRESSION: 1. There are moderate calcified atherosclerotic changes of the cavernous and supraclinoid right internal carotid artery. It is difficult to accurately assess the degree of underlying stenosis due to the extensive calcification. 2. There are moderate calcified atherosclerotic changes of the cavernous and supraclinoid left internal carotid artery. It is difficult to accurately assess the degree of underlying stenosis due to the extensive calcification. EXAM: CT Angiography Neck With Contrast EXAM DATE/TIME: 10/14/2018 12:09 PM CLINICAL HISTORY: 78 years old, female; Condition or disease; Occlusion or stenosis of cerebral arteries; Prior surgery; Surgery date: <1 month; Surgery type: Carotids; Additional info: Carotid stenosis TECHNIQUE: Imaging protocol: Axial computed tomographic angiography images of the neck with intravenous contrast using CT angiography protocol. Coronal and sagittal reformatted images were created and reviewed. 3D rendering: MIP and 3D reconstructed images were created and reviewed. MIP and/or 3D reconstructed images were created and reviewed. Radiation optimization: All CT scans at this facility use at least one of these dose optimization techniques: automated exposure control; mA and/or kV adjustment per patient size (includes targeted exams where dose is matched to clinical indication); or iterative reconstruction. Contrast material: ISOVUE 370;Contrast volume: 100 ml;Contrast route: IV; COMPARISON: No relevant prior studies available. FINDINGS: VASCULATURE: Right common carotid artery: There are moderate calcified atherosclerotic changes involving the right common carotid artery bifurcation. Right internal carotid artery: There are moderate atherosclerotic changes involving the origin of the right internal carotid artery, accounting for approximately 40% stenosis. Right external carotid artery: Unremarkable. No occlusion or stenosis of the origin. Right vertebral artery: The patient is right vertebral artery dominant. Left common carotid artery: There are severe atherosclerotic changes involving the distal left common carotid artery. There is extensive intramural thrombus. There is approximately 95% stenosis of the distal left common carotid artery just proximal to the bifurcation. There is moderate irregularity of the carotid bifurcation. Left internal carotid artery: There are moderate atherosclerotic changes involving the origin of the left internal carotid artery. The caliber of the left cervical internal carotid artery is smaller than the right throughout its course. Left external carotid artery: Unremarkable. No occlusion or stenosis of the origin. Left vertebral artery: The left cervical vertebral artery is discontinuous. Aorta: There are calcified atherosclerotic changes of the aorta. Other vasculature: There are bilateral emphysematous changes. NECK: Thyroid: Patient is status post left thyroidectomy. Bones/joints: No acute fracture. Soft tissues: Normal. No significant soft tissue swelling. IMPRESSION: 1. The left cervical vertebral artery is discontinuous. 2. There are moderate atherosclerotic changes involving the origin of the right internal carotid artery, accounting for approximately 40% stenosis. 3. There are severe atherosclerotic changes involving the distal left common carotid artery. There is extensive intramural thrombus. There is approximately 95% stenosis of the distal left common carotid artery just proximal to the bifurcation. There is moderate irregularity of the carotid bifurcation. 4. There are moderate atherosclerotic changes involving the origin of the left internal carotid artery. The caliber of the left cervical internal carotid artery is smaller than the right throughout its course. Electronically signed by: Cuco Flores On 10/14/2018 15:49:11 PM
--- NOTE | 2018-10-14 15:50 | REPVR ---
EXAM: CT Angiography Head With Contrast EXAM DATE/TIME: 10/14/2018 12:09 PM CLINICAL HISTORY: 78 years old, female; Condition or disease; Occlusion or stenosis of cerebral arteries and other: Carotid stenosis; Prior surgery; Surgery date: <1 month TECHNIQUE: Imaging protocol: Computed tomographic angiography images of the head with intravenous contrast using CT angiography protocol. Coronal and sagittal reformatted images were created and reviewed. 3D rendering: MIP and 3D reconstructed images were created and reviewed. Radiation optimization: All CT scans at this facility use at least one of these dose optimization techniques: automated exposure control; mA and/or kV adjustment per patient size (includes targeted exams where dose is matched to clinical indication); or iterative reconstruction. Contrast material: ISOVUE 370;Contrast volume: 100 ml;Contrast route: IV; COMPARISON: CT Head without contrast 10/12/2018 9:54 AM FINDINGS: Right internal carotid artery: There are moderate calcified atherosclerotic changes of the cavernous and supraclinoid right internal carotid artery. Right anterior cerebral artery: Unremarkable. No occlusion or significant stenosis. No aneurysm. Right middle cerebral artery: Unremarkable. No occlusion or significant stenosis. No aneurysm. Right posterior cerebral artery: Unremarkable. No occlusion or significant stenosis. No aneurysm. Right vertebral artery: Unremarkable. No occlusion or significant stenosis. No aneurysm. Left internal carotid artery: There are moderate calcified atherosclerotic changes of the cavernous and supraclinoid left internal carotid artery. Left anterior cerebral artery: Unremarkable. No occlusion or significant stenosis. No aneurysm. Left middle cerebral artery: Unremarkable. No occlusion or significant stenosis. No aneurysm. Left posterior cerebral artery: Unremarkable. No occlusion or significant stenosis. No aneurysm. Left vertebral artery: Unremarkable. No occlusion or significant stenosis. No aneurysm. Basilar artery: Unremarkable. No occlusion or significant stenosis. No aneurysm. IMPRESSION: 1. There are moderate calcified atherosclerotic changes of the cavernous and supraclinoid right internal carotid artery. 2. There are moderate calcified atherosclerotic changes of the cavernous and supraclinoid left internal carotid artery. Electronically signed by: Cuco Flores On 10/14/2018 15:50:18 PM
--- NOTE | 2018-10-14 21:31 | ECHO ---
DATE OF PROCEDURE: 10/12/2018 DATE OF : 1940 AGE: 78 REFERRING PHYSICIAN: Gabriela Villatoro MD PATIENT LOCATION: Room 3202 REASON FOR ECHOCARDIOGRAM: Edema. 2D MEASUREMENTS: IVS: 1.2 cm LV: 3.6 cm LVPW: 1.2 cm LA: 4.5 cm Aorta: 2.3 cm DOPPLER MEASUREMENTS: Peak velocity across the aortic valve: 2.4 m/s Peak velocity across the LVOT: 0.8 m/s Peak gradient across the aortic valve: 24 mmHg Mean gradient across the aortic valve: 12 mmHg Aortic valve area: 1.2 cm2 Mitral E: 1.2, Mitral A: 0.3 with a ratio of 3.7 Maximum tricuspid valve velocity: 3.1 m/s 2D COMMENTS: 1. Normal left ventricular size, wall thickness, and normal global left ventricular systolic function. The estimated left ventricular systolic ejection fraction is 65-70%. 2. Mildly enlarged left atrium. Normal right atrium and right ventricle. 3. The atrial septum appeared to be normal without evidence of defect or shunt. 4. Normal aortic root. 5. No pericardial effusion seen. 6. Mildly to moderately calcified aortic valve with mild restricted leaflet motion. Moderately calcified mitral annulus with normal anterior mitral valve leaflet motion. Normal tricuspid valve. The pulmonic valve and proximal pulmonary artery branches were not well visualized. 7. The inferior vena cava was not visualized. DOPPLER: It detects trace aortic regurgitation, moderate mitral regurgitation, mild tricuspid regurgitation. The calculated pulmonary artery systolic pressure varies between 40-50 mmHg. Assessment of the left ventricular diastolic function was not quite conclusive. IMPRESSION 1. Normal global left ventricular systolic function. Assessment of the left ventricular diastolic function was inconclusive. 2. Aortic valve sclerosis with trace aortic regurgitation and mild aortic stenosis. 3. Mitral annulus calcification with moderate mitral regurgitation and mildly enlarged left atrium. 4. Mild tricuspid regurgitation with probably moderate pulmonary hypertension.
[2018-10-15 06:00] VITALS: BP 98/66
[2018-10-15] MEDS: METOPROLOL TART 12.5 MG PER 1/2 TAB PO SCH ×3 (06:00→18:30)
[2018-10-15 06:03] LABS: BASO # 0.1 10^3/uL (0.0-0.2); BASO % 1.3 % (0.0-1.0); EOS # 0.5 10^3/uL (0.0-0.50); HEMATOCRIT 32.3 % (36.0-47.0); HEMOGLOBIN 9.7 g/dl (12.0-15.5); LYMPH # 1.6 10^3/uL (1.5-4.5); LYMPH % 27.1 % (24.0-44.0); MEAN CORPUSCULAR HEMOGLOBIN 25.2 pg (27.0-33.0); MEAN CORPUSCULAR VOLUME 83.9 fl (80.0-96.0); MONO # 0.6 10^3/uL (0.0-0.8); MONO % 10.4 % (0.0-5.0); NEUTROPHILS # 3.2 10^3/uL (1.8-7.7); NEUTROPHILS % 52.9 % (36.0-66.0); PLATELET COUNT, AUTOMATED 210 10^3/uL (150-450); RED BLOOD COUNT 3.85 10^6/uL (4.00-5.40)
[2018-10-15 06:32] LABS: BLOOD UREA NITROGEN 4 MG/DL (7-18); CALCIUM LEVEL 8.8 MG/DL (8.8-10.2); CARBON DIOXIDE LEVEL 25 MEQ/L (21-32); CHLORIDE LEVEL 108 MEQ/L (98-107); CREATININE FOR GFR 0.62 MG/DL (0.55-1.30); GLOMERULAR FILTRATION RATE > 60.0 (>32); GLUCOSE, FASTING 89 MG/DL (70-100); POTASSIUM SERUM 3.4 MEQ/L (3.5-5.1); SODIUM LEVEL 140 MEQ/L (136-145)
[2018-10-15] MEDS ORDERED: POTASSIUM CHLORIDE 10 MEQ SR TABLET PO ONE (08:00)
[2018-10-15] MEDS: PANTOPRAZOLE 40MG TAB (PROTONIX) PO SCH (08:44)
[2018-10-15] MEDS: buPROPion 75 MG TAB PO SCH ×2 (08:44→21:04)
--- NOTE | 2018-10-15 08:45 | IPNPDOC ---
Date Seen The patient was seen on 10/15/18. Progress Note SUBJECTIVE: systolic pressure in 90's but no dizziness, lightheadedness. metoprolol 25 mg tid adjusted to 12.5mg q6h for rate control , and digoxin added due to low blood pressure. eating her breakfast at the bedside. no c/o sob, cp. requests vascular surgeon to discuss plans with her and her daughter. her is still admitted to [facility]. OBJECTIVE: PHYSICAL EXAMINATION: VITALS: PLS SEE BELOW - General: eating joyce breakfast No acute distress, Speaking in full sentences, AAOx2 - HEENT: NC, AT, PERRLA, EOMI, left carotid bruit - CVS: RRR, +S1S2 - Lungs: Fair air entry bilaterally, No appreciable wheezing / rales / rhonchi - Abdomen: Soft, Non-distended, Non-tender - Extremities: No lower extremity edema, No calf tenderness - Neuro: No focal motor or sensory deficit - Skin: No visible rashes LABORATORY DATA, IMAGING STUDIES, MICROBIOLOGY: PLS SEE BELOW 10/13/18 CAROTID ULTRASOUND Upon review of the study with the technologist, the technologist additionally measured the peak flow velocity in the left carotid bulb. The peak flow velocityin the left carotid bulb is elevated measuring 466 cm/s. This is indicates high grade stenosis of greater than 70% stenosis. These results were telephoned to the patient's physician, Dr Zuniga as well asto the ICU nurse. DD: Marcelo Cabral MD 10/13/18 1521 DT: RANI 10/13/18 1605 DS: JUAN 10/13/181 <Electronically signed by Marcelo Cabral > 10/13/181820 CT ANGIO HEAD 10/14/18: IMPRESSION: 1. The left cervical vertebral artery is discontinuous. 2. There are moderate atherosclerotic changes involving the origin of the right internal carotid artery, accounting for approximately 40% stenosis. 3. There are severe atherosclerotic changes involving the distal left common carotid artery. There is extensive intramural thrombus. There is approximately 95% stenosis of the distal left common carotid artery just proximal to the bifurcation. There is moderate irregularity of the carotid bifurcation. 4. There are moderate atherosclerotic changes involving the origin of the left internal carotid artery. The caliber of the left cervical internal carotid artery is smaller than the right throughout its course. Electronically signed by: Cuco Flores On 10/14/2018 15:49:11 PM DD: CUCO FLORES MD 10/14/18 1209 DT: MILLA 10/14/18 1549 DS: KAUR 10/14/18 15410/14/18 CT ANGIO HEAD NECK: IMPRESSION: 1. There are moderate calcified atherosclerotic changes of the cavernous and supraclinoid right internal carotid artery. 2. There are moderate calcified atherosclerotic changes of the cavernous and supraclinoid left internal carotid artery. Electronically signed by: Cuco Flores On 10/14/2018 15:50:18 PM DD: CUCO FLORES MD 10/14/18 1209 DT: MILLA 10/14/18 1550 DS: KAUR 10/14/18 1550 MRI BRAIN WITHOUT CONTRAST 10/12/18 No acute intracranial abnormality or significant interval change since the prior MRI. Atrophy and stable pattern of chronic microangiopathic supratentorial white matter change Electronically signed by: Amador Colon On 10/12/2018 21:18:59 PM DD: AMADOR COLON MD 10/12/181902 DT: MILLA 10/12/182117 DS: LUKE 10/12/182117 MRA BRAIN WITHOUT CONTRAST 10/12/18 No intracranial lesion ASSESSMENT AND PLAN: 78-year-old female with PMHx of Hx of L occipital CVA (03/2018), Hx of L ICA stenosis (70%), A. fib (on Eliquis), Hx of Loop recorder, HTN, PVD, DLP, COPD, Hx of R breast CA s/p chemo/radiation, Hx of colovaginal fistula s/p sigmoidectomy, Hx of L hydronephrosis s/p L ureteral stent, Depression, GERD who presented to the emergency room from Dr. Dee Dee Uribe office because of dizziness and weakness.Upon arrival to emergency room, patient was suspected of having stroke and received a CT scan that was negative for any hemorrhage. Patient was found to be hypotensive and received IV fluid hydration. Neurology at [facility] was contacted for possible TPA; however, patient was in the exclusion criteria, given that she was already on Eliquis.Despite IV fluid hydration, there was no improvement in her blood pressure and director of graduate admissions was called for central line placement. Patient was placed on Levothroid and continue with IV fluid hydration.Hospitalist service was called for further evaluation and treatment.Currently, patient reports that she experiences mild dizziness and weakness. She denies any slurred speech. Denies any weakness of her arms or legs. Patient denies chest pain, shortness of breath, cough, palpitations, nausea, vomiting, abdominal pain, constipation, diarrhea, discomfort with urin ation, fevers or chills.Patient reports that her weight is been consistent and reports that her appetite is normal. Symptomatic Left Carotid Artery Stenosis - Per Dr. Cabral, Radiologist, 10/13/18: 70% left carotid artery stenosis. Vascular Surgery Dr. Bowser has been consulted to evaluate the patient for stent vs CEA. MRI /MRA brain: unremarkable. Tele: unremarkable. -on ASA, Atorvastatin, eliquis - Patient presented to the emergency room with complaints of dizziness and weakness from Dr. Dee Dee Uribe office - Currently patients blood pressure has improved with IV fluid hydration and s/p Levophed - Patient currently remains afebrile - No leukocytosis, no lactic acidosis, CRP negative, Cortisol levels pending - Urine analysis without any evidence of infection - Blood cultures pending - CXR 10/12: Mild cardiomegaly. No acute infiltrate. - CTA chest 10/12: 1. There is no evidence of an acute pulmonary embolus. 2. There is adenopathy. 3. Lung field hypoexpansion with asymmetric parenchymal densities, as described above, likely representing a combination of mild fibrotic changes and subsegmental atelectatic changes. 4. Focal ectasia of the left main pulmonary artery. This can be seen in pulmonary hypertension. Does the patient have right-sided heart failure? 5. Other findings as described above. - CT abdomen / pelvis 10/12: There is no bowel distension or obstruction. No inf lammatory changes in the mesentery. The bowel is otherwise unremarkable. There are too fat-containing midline ventral hernias. There is a circumferential surgical suture ring in the sigmoid colon. No adenopathy, mass or ascites. Splenic calcified granulomas. Left renal atrophy in the left renal cortical scarring. - c/w IV fluid hydration, off leveophed since 10/12/18 - s/p Zosyn given empirically on admission TIA - patients Loop recorder is MRI safe - unremarkable 10/12/18 MRI brain and MRA brain - Will hold off on Neurology consultation at this time - c/w Eliquis, Atorvastatin - s/p ASA 325 x 1 dose; then 81 daily thereafter Hx of L occipital CVA (03/2018) Hx of L ICA stenosis (70%), A. fib - c/w rate control with Metoprolol lowered dose due to hypotension. and digoxin added 10/15/18 - c/w full anticoagulation with Eliquis Hx of Loop recorder HTN - In light of recent hypotension; will hold Amlodipine - s/p levophed iv gtt 10/12/18, off since 10/12/18 -due to metoprolol whiich has been adjusted PVD - c/w Atorvastatin DLP - c/w Atorvastatin COPD - Will start Duoneb inhaled therapy PRN Hx of R breast CA s/p chemo/radiation Hx of colovaginal fistula s/p sigmoidectomy Hx of L hydronephrosis s/p L ureteral stent Depression - c/w Bupropion GERD - c/w Protonix DVT prophylaxis - On full anticoagulation with Eliquis VS, I&O, 24H, Fishbone Vital Signs/I&O Vital Signs Date Time Temp Pulse Resp B/P (MAP) Pulse Ox O2 Delivery O2 Flow Rate FiO2 10/15/18 06:00 97.5 91 18 98/66 (77) 96 10/12/18 15:50 Nasal Cannula 2.0 I&O- Last 24 Hours up to 6 AM 10/15/18 06:00 Intake Total 2170 ml Balance 2170 ml Laboratory Data 24H LABS Laboratory Tests 2 10/15/18 05:26: Immature Granulocyte % (Auto) 0.3, White Blood Count 6.0, Red Blood Count 3.85L, Hemoglobin 9.7L, Hematocrit 32.3L, Mean Corpuscular Volume 83.9, Mean Corpuscular Hemoglobin 25.2L, Mean Corpuscular Hemoglobin Concent 30.0L, Red Cell Distribution Width 16.1H, Platelet Count 210, Neutrophils (%) (Auto) 52.9, Lymphocytes (%) (Auto) 27.1, Monocytes (%) (Auto) 10.4H, Eosinophils (%) (Auto) 8.0H, Basophils (%) (Auto) 1.3H, Neutrophils # (Auto) 3.2, Lymphocytes # (Auto) 1.6, Monocytes # (Auto) 0.6, Eosinophils # (Auto) 0.5, Basophils # (Auto) 0.1, Nucleated Red Blood Cells % (auto) 0.0, Anion Gap 7L, Glomerular Filtration Rate > 60.0, Blood Urea Nitrogen 4L, Creatinine 0.62, Sodium Level 140, Potassium Level 3.4L, Chloride Level 108H, Carbon Dioxide Level 25, Calcium Level 8.8, Magnesium Level 2.0 CBC/BMP Laboratory Tests 10/15/18 05:26 Red Blood Count 3.85 L, Mean Corpuscular Volume 83.9, Mean Corpuscular Hemog lobin 25.2 L, Mean Corpuscular Hemoglobin Concent 30.0 L, Red Cell Distribution Width 16.1 H, Neutrophils (%) (Auto) 52.9, Lymphocytes (%) (Auto) 27.1, Monocytes (%) (Auto) 10.4 H, Eosinophils (%) (Auto) 8.0 H, Basophils (%) (Auto) 1.3 H, Neutrophils # (Auto) 3.2, Lymphocytes # (Auto) 1.6, Monocytes # (Auto) 0.6, Eosinophils # (Auto) 0.5, Basophils # (Auto) 0.1, Calcium Level 8.8 Microbiology Microbiology 10/12/18 Blood Culture - Preliminary, Resulted No Growth after 48 hours. All Specime... 10/12/18 Blood Culture - Preliminary, Resulted No Growth after 48 hours. All Specime... 10/12/18 Urine Culture - Final, Complete BISHNU ZUNIGA MD Oct 15, 2018 07:40
[2018-10-15] MEDS: ATORVASTATIN 20 MG TAB PO SCH (08:46)
[2018-10-15] MEDS: ASPIRIN 81 MG ENTERIC TAB PO SCH (08:47)
[2018-10-15] MEDS: DOCUSATE SODIUM 100 MG CAP PO SCH ×2 (08:47→21:04)
[2018-10-15] MEDS: APIXABAN 2.5 MG TAB (ELIQUIS) PO SCH ×2 (08:47→21:04)
[2018-10-15] MEDS: DIGOXIN 0.125 MG TAB PO SCH (08:49)
--- NOTE | 2018-10-15 10:38 | IPNPDOC ---
Date Seen The patient was seen on 10/15/18. Progress Note Vascular Surgery. Dr. Bowser HPI: 78 year old F who presented to the emergency room from Dr. Dee Dee Uribe office because of dizziness and weakness. Vascular surgery was consulted regarding carotid stenosis. The patient denies vertigo. She does not report diplopia or amaurosis. Denies dysarthria or dysphagia. Reports no numbness or tingling in arms or legs. She was also noted to have a blood pressure discrepancy in upper extremities with right arm blood pressure 143/63 and left arm 81/50. The pt has requested Dr Bowser to discuss plans with her and her Dtr. Denies any fevers, chills, weakness, fatigue, Headache, Chest Pain, Shortness of breath, cough, palpitations, abdominal pain, N/V/D or changes in bowel or bladder habits. 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 fib (on Eliquis), Hx of Loop recorder, HTN, PVD, DLP, COPD, Hx of R breast CA s/p chemo/radiation, Hx of colovaginal fistula s/p sigmoidectomy, Hx of L hydronephrosis s/p L ureteral stent, Depression, GERD Surgical History Tonsillectomy Bilateral hip arthroplasty Hernia repair Tubal ligation Right breast lumpectomy Left carotid endarterectomy 2011 Left ureteral stent placement 2018 Loop recorder placement 2016 PE: GEN: 78 yo F, appears stated age. Well-nourished, well developed. No acute distress. Alert and oriented x 3. HEENT: Normocephalic, atraumatic. Sclera are nonicteric. Conjunctiva without injection. No facial asymmetry. Moist mucous membranes. Dentition fair. Pharynx pink and moist, no cobblestoning. Neck supple, trachea midline. CHEST: Regular rate and rhythm, +S1, +S2. Left carotid bruit noted. LUNGS: Clear to auscultation bilaterally. No wheezes, rales, or rhonchi. Breathing appears symmetric and easy. Patient is speaking in full sentences. No accessory muscle use. ABD: Round, soft, non-tender, non-distended. +Bowel sounds throughout. No rebound or guarding. No costovertebral angle tenderness. EXT: Pulses 2+ bilaterally dorsalis pedis and radial. No lower extremity edema appreciated. SKIN: [place], dry, warm. Capillary refill <2sec. No rashes. NEURO: Alert and oriented x 3. Cranial nerves III-XII are intact. No focal deficits appreciated. Carotid ultrasound Upon review of the study with the technologist, the technologist additionally measured the peak flow velocity in the left carotid bulb. The peak flow velocityin the left carotid bulb is elevated measuring 466 cm/s. This is indicates high grade stenosis of greater than 70% stenosis. These results were telephoned to the patient's physician, Dr Zuniga as well asto the ICU nurse. DD: Marcelo Cabral MD 10/13/18 1521 DT: RANI 10/13/18 1605 DS: JUAN 10/13/181820 <Electronically signed by Marcelo Cabral > 10/13/181820 Bilateral carotid artery duplex ultrasound: Peak flow velocity analysis: RIGHT LEFT ICA Peak flow velocity cm/sec 42.9 45.7 ICA Diastolic flow velocity cm/sec 13.7 9.34 ICA/CCA Ratio 0.79 1.00 ECA Peak flow velocity cm/sec 57.0 73.0 CCA Peak flow velocity cm/sec 54.0 45.7 There is intimal thickening on the right. On the left, there is focal moderate atheromatous plaque in the bulb extending into the left ICA and left ECA. The peak flow velocities are normal bilaterally. Findings indicate less than 50% narrowing bilaterally. There is no significant stenosis on the right on the left. There is antegrade flow in the vertebral arteries bilaterally. Electronically Signed by Marcelo Cabral MD 10/13/2018 11:46 A CTA H IMPRESSION: 1. There are moderate calcified atherosclerotic changes of the cavernous and supraclinoid right internal carotid artery. It is difficult to accurately assess the degree of underlying stenosis due to the extensive calcification. 2. There are moderate calcified atherosclerotic changes of the cavernous and supraclinoid left internal carotid artery. It is difficult to accurately assess the degree of underlying stenosis due to the extensive calcification. CTA neck IMPRESSION: 1. The left cervical vertebral artery is discontinuous. 2. There are moderate atherosclerotic changes involving the origin of the right internal carotid artery, accounting for approximately 40% stenosis. 3. There are severe atherosclerotic changes involving the distal left common carotid artery. There is extensive intramural thrombus. There is approximately 95% stenosis of the distal left common carotid artery just proximal to the bifurcation. There is moderate irregularity of the carotid bifurcation. 4. There are moderate atherosclerotic changes involving the origin of the left internal carotid artery. The caliber of the left cervical internal carotid artery is smaller than the right throughout its course. Electronically signed by: Cuco Flores On 10/14/2018 15:49:11 PM A&P: 1. Carotid stenosis The patient is reviewed with Dr. Bowser. Discrepancy and upper extremity blood pressures was noted and reviewed by Dr. Bowser. Carotid ultrasound reviewed by Dr. Bowser. CT angiogram of head and neck reviewed by Dr Bowser. Reviewed with Dr Bowser 10/15/18, Tentative plan pending per Dr Bowser. The patient remains on aspirin 81 mg daily and Eliquis. DVT prophylaxis. Patient is on Eliquis AC. VS, I&O, 24H, Fishbone Vital Signs/I&O Vital Signs Date Time Temp Pulse Resp B/P (MAP) Pulse Ox O2 Delivery O2 Flow Rate FiO2 10/15/18 08:49 80 10/15/18 06:00 97.5 18 98/66 (77) 96 10/12/18 15:50 Nasal Cannula 2.0 I&O- Last 24 Hours up to 6 AM 10/15/18 06:00 Intake Total 2170 ml Balance 2170 ml Laboratory Data 24H LABS Laboratory Tests 2 10/15/18 05:26: Immature Granulocyte % (Auto) 0.3, White Blood Count 6.0, Red Blood Count 3.85L, Hemoglobin 9.7L, Hematocrit 32.3L, Mean Corpuscular Volume 83.9, Mean Corpuscular Hemoglobin 25.2L, Mean Corpuscular Hemoglobin Concent 30.0L, Red Cell Distribution Width 16.1H, Platelet Count 210, Neutrophils (%) (Auto) 52.9, Lymphocytes (%) (Auto) 27.1, Monocytes (%) (Auto) 10.4H, Eosinophils (%) (Auto) 8.0H, Basophils (%) (Auto) 1.3H, Neutrophils # (Auto) 3.2, Lymphocytes # (Auto) 1.6, Monocytes # (Auto) 0.6, Eosinophils # (Auto) 0.5, Basophils # (Auto) 0.1, Nucleated Red Blood Cells % (auto) 0.0, Anion Gap 7L, Glomerular Filtration Rate > 60.0, Blood Urea Nitrogen 4L, Creatinine 0.62, Sodium Level 140, Potassium Level 3.4L, Chloride Level 108H, Carbon Dioxide Level 25, Calcium Level 8.8, Magnesium Level 2.0 CBC/BMP Laboratory Tests 10/15/18 05:26 Red Blood Count 3.85 L, Mean Corpuscular Volume 83.9, Mean Corpuscular Hemoglobin 25.2 L, Mean Corpuscular Hemoglobin Concent 30.0 L, Red Cell Distribution Width 16.1 H, Neutrophils (%) (Auto) 52.9, Lymphocytes (%) (Auto) 27.1, Monocytes (%) (Auto) 10.4 H, Eosinophils (%) (Auto) 8.0 H, Basophils (%) (Auto) 1.3 H, Neutrophils # (Auto) 3.2, Lymphocytes # (Auto) 1.6, Monocytes # (Auto) 0.6, Eosinophils # (Auto) 0.5, Basophils # (Auto) 0.1, Calcium Level 8.8 Microbiology Microbiology 10/12/18 Blood Culture - Preliminary, Resulted No Growth after 48 hours. All Specime... 10/12/18 Blood Culture - Preliminary, Resulted No Growth after 48 hours. All Specime... 10/12/18 Urine Culture - Final, Complete Ursula Cabrera Oct 15, 2018 10:38
[2018-10-15 12:15] VITALS: BP 176/86
[2018-10-15 14:00] VITALS: BP 147/57
[2018-10-15 20:47] VITALS: BP 154/82
[2018-10-16 00:02] VITALS: BP 133/78
[2018-10-16] MEDS: METOPROLOL TART 12.5 MG PER 1/2 TAB PO SCH ×2 (00:09→05:55)
[2018-10-16 05:55] VITALS: BP 150/80
[2018-10-16 05:56] LABS: BASO # 0.1 10^3/uL (0.0-0.2); BASO % 1.2 % (0.0-1.0); EOS # 0.5 10^3/uL (0.0-0.50); EOS % 6.6 % (0.0-3.0); HEMATOCRIT 32.1 % (36.0-47.0); HEMOGLOBIN 9.8 g/dl (12.0-15.5); LYMPH # 1.9 10^3/uL (1.5-4.5); LYMPH % 27.6 % (24.0-44.0); MEAN CORPUSCULAR HEMOGLOBIN 25.5 pg (27.0-33.0); MEAN CORPUSCULAR HGB CONC 30.5 g/dl (32.0-36.5); MEAN CORPUSCULAR VOLUME 83.6 fl (80.0-96.0); MONO # 0.9 10^3/uL (0.0-0.8); MONO % 12.5 % (0.0-5.0); NEUTROPHILS # 3.6 10^3/uL (1.8-7.7); NEUTROPHILS % 51.8 % (36.0-66.0); PLATELET COUNT, AUTOMATED 214 10^3/uL (150-450); RED BLOOD COUNT 3.84 10^6/uL (4.00-5.40); WHITE BLOOD COUNT 6.9 10^3/uL (4.0-10.0)
[2018-10-16 06:14] LABS: BLOOD UREA NITROGEN 5 MG/DL (7-18); CALCIUM LEVEL 8.4 MG/DL (8.8-10.2); CARBON DIOXIDE LEVEL 26 MEQ/L (21-32); CHLORIDE LEVEL 106 MEQ/L (98-107); CREATININE FOR GFR 0.69 MG/DL (0.55-1.30); GLOMERULAR FILTRATION RATE > 60.0 (>32); GLUCOSE, FASTING 98 MG/DL (70-100); MAGNESIUM LEVEL 1.8 MG/DL (1.8-2.4); POTASSIUM SERUM 3.8 MEQ/L (3.5-5.1); SODIUM LEVEL 137 MEQ/L (136-145)
[2018-10-16 06:28] VITALS: BP 146/65
[2018-10-16 06:29] VITALS: BP 146/65
[2018-10-16] MEDS: ATORVASTATIN 20 MG TAB PO SCH (08:49)
[2018-10-16] MEDS: APIXABAN 2.5 MG TAB (ELIQUIS) PO SCH (08:49)
[2018-10-16] MEDS: PANTOPRAZOLE 40MG TAB (PROTONIX) PO SCH (08:49)
[2018-10-16] MEDS: buPROPion 75 MG TAB PO SCH (08:49)
[2018-10-16] MEDS: ASPIRIN 81 MG ENTERIC TAB PO SCH (08:49)
[2018-10-16] MEDS: DIGOXIN 0.125 MG TAB PO SCH (08:49)
[2018-10-16] MEDS: DOCUSATE SODIUM 100 MG CAP PO SCH (08:50)
[2018-10-16 09:36] VITALS: BP 150/95
[2018-10-16] MEDS ORDERED: METO25TA4 PO (09:42)
[2018-10-16] MEDS ORDERED: NORV5TAB PO (09:44)
--- NOTE | 2018-10-16 12:19 | DS.PDOC ---
Discharge Summary General Date of Admission Oct 12, 2018 at 13:18 Date of Discharge October 16, 2018 Discharge Summary DISCHARGE DIAGNOSES: Possible medication-induced hypotension Hx of L occipital CVA (03/2018) Hx of L ICA stenosis (70%), A. fib Hx of Loop recorder HTN PVD DLP COPD Hx of R breast CA s/p chemo/radiation Hx of colovaginal fistula s/p sigmoidectomy Hx of L hydronephrosis s/p L ureteral stent Depression GERD DISCHARGE MEDICATIONS: PLS SEE BELOW DISCHARGE INSTRUCTIONS: FU WITH PCP WITHIN 1 WK OF DISCHARGE CHECK YOUR BLOOD PRESSURE PRIOR TO TAKING YOUR BLOOD PRESSURE MEDICATIONS FU W VASCULAR SURGERY DR. HAYNES IN 2 WKS FOR CAROTID ARTERY STENOSIS INPATIENT CONSULTANTS: DOCUMENTATION SPEC: DR. ESPINOZA VASCULAR SURGERY: DR. HAYNES HISTORY OF PRESENTING ILLNESS: 78-year-old female with PMHx of Hx of L occipital CVA (03/2018), Hx of L ICA stenosis (70%), A. fib (on Eliquis), Hx of Loop recorder, HTN, PVD, DLP, COPD, Hx of R breast CA s/p chemo/radiation, Hx of colovaginal fistula s/p sigmoidectomy, Hx of L hydronephrosis s/p L ureteral stent, Depression, GERD who presented to the emergency room from Dr. Dee Dee Uribe office because of dizziness and weakness.Upon arrival to emergency room, patient was suspected of having stroke and received a CT scan that was negative for any hemorrhage. Patient was found to be hypotensive and received IV fluid hydration. Neurology at [facility] was contacted for possible TPA; however, patient was in the exclusion criteria, given that she was already on Eliquis.Despite IV fluid hydration, there was no improvement in her blood pressure and hat and cap drying room attendant was called for central line placement. Patient was placed on Levothroid and continue with IV fluid hydration.Hospitalist service was called for further evaluation and treatment.Currently, patient reports that she experiences mild dizziness and weakness. She denies any slurred speech. Denies any weakness of her arms or legs. Patient denies chest pain, shortness of breath, cough, palpitations, nausea, vomiting, abdominal pain, constipation, diarrhea, discomfort with [place], fevers or chills.Patient reports that her weight is been consistent and reports that her appetite is normal. HOSPITAL COURSE: Hypotension -most likely medication induced -bp meds adjusted -required iv levophed due to concerns of sepsis on admission, and was weaned off after <6hrs in the ICU -thyroid and cortisol levels checked -started on empiric zosyn but workup was negative for uti or pneumonia, negative blood cx. Left Carotid Artery Stenosis - Per Dr. Cabral, Radiologist, 10/13/18: 70% left carotid artery stenosis. Vascular Surgery Dr. Haynes has been consulted to evaluate the patient for stent vs CEA. MRI /MRA brain: unremarkable. Tele: unremarkable. -on ASA, Atorvastatin, eliquis - Patient presented to the emergency room with complaints of dizziness and weakness from Dr. Dee Dee Uribe office - Currently patients blood pressure has improved with IV fluid hydration and s/ p Levophed - Patient currently remains afebrile - No leukocytosis, no lactic acidosis, CRP negative, Cortisol levels pending - Urine analysis without any evidence of infection - Blood cultures pending - CXR 10/12: Mild cardiomegaly. No acute infiltrate. - CTA chest 10/12: 1. There is no evidence of an acute pulmonary embolus. 2. There is adenopathy. 3. Lung field hypoexpansion with asymmetric parenchymal densities, as described above, likely representing a combination of mild fibrotic changes and subsegmental atelectatic changes. 4. Focal ectasia of the left main pulmonary artery. This can be seen in pulmonary hypertension. Does the patient have right-sided heart failure? 5. Other findings as described above. - CT abdomen / pelvis 10/12: There is no bowel distension or obstruction. No inflammatory changes in the mesentery. The bowel is otherwise unremarkable. There are too fat-containing midline ventral hernias. There is a circumferential surgical suture ring in the sigmoid colon. No adenopathy, mass or ascites. Splenic calcified granulomas. Left renal atrophy in the left renal cortical scarring. - c/w IV fluid hydration, off leveophed since 10/12/18 - s/p Zosyn given empirically on admission TIA - patients Loop recorder is MRI safe - unremarkable 10/12/18 MRI brain and MRA brain - Will hold off on Neurology consultation at this time - c/w Eliquis, Atorvastatin - s/p ASA 325 x 1 dose; then 81 daily thereafter Hx of L occipital CVA (03/2018) Hx of L ICA stenosis (70%), A. fib - c/w rate control with Metoprolol lowered dose due to hypotension. and digoxin added 10/15/18 - c/w full anticoagulation with Eliquis Hx of Loop recorder HTN - In light of recent hypotension; will hold Amlodipine - s/p levophed iv gtt 10/12/18, off since 10/12/18 -due to metoprolol whiich has been adjusted PVD - c/w Atorvastatin DLP - c/w Atorvastatin COPD - Will start Duoneb inhaled therapy PRN Hx of R breast CA s/p chemo/radiation Hx of colovaginal fistula s/p sigmoidectomy Hx of L hydronephrosis s/p L ureteral stent Depression - c/w Bupropion GERD - c/w Protonix DVT prophylaxis - On full anticoagulation with Eliquis DISCHARGE PHYSICAL EXAMINATION: VITALS: PLS SEE BELOW - General: eating joyce breakfast No acute distress, Speaking in full sentences, AAOx2 - HEENT: NC, AT, PERRLA, EOMI, left carotid bruit - CVS: RRR, +S1S2 - Lungs: Fair air entry bilaterally, No appreciable wheezing / rales / rhonchi - Abdomen: Soft, Non-distended, Non-tender - Extremities: No lower extremity edema, No calf tenderness - Neuro: No focal motor or sensory deficit - Skin: No visible rashes LABORATORY DATA, IMAGING STUDIES, MICROBIOLOGY: PLS SEE BELOW 10/13/18 CAROTID ULTRASOUND Upon review of the study with the technologist, the technologist additionally measured the peak flow velocity in the left carotid bulb. The peak flow velocityin the left carotid bulb is elevated measuring 466 cm/s. This is indicates high grade stenosis of greater than 70% stenosis. These results were telephoned to the patient's physician, Dr Zuniga as well asto the ICU nurse. DD: Marcelo Cabral MD 10/13/18 1521 DT: RANI 10/13/18 1605 DS: JUAN 10/13/181820 <Electronically signed by Marcelo Cabral > 10/13/181820 CT ANGIO HEAD 10/14/18: IMPRESSION: 1. The left cervical vertebral artery is discontinuous. 2. There are moderate atherosclerotic changes involving the origin of the right internal carotid artery, accounting for approximately 40% stenosis. 3. There are severe atherosclerotic changes involving the distal left common carotid artery. There is extensive intramural thrombus. There is approximately 95% stenosis of the distal left common carotid artery just proximal to the bifurcation. There is moderate irregularity of the carotid bifurcation. 4. There are moderate atherosclerotic changes involving the origin of the left internal carotid artery. The caliber of the left cervical internal carotid artery is smaller than the right throughout its course. Electronically signed by: Cuco Flores On 10/14/2018 15:49:11 PM DD: CUCO FLORES MD 10/14/18 1209 DT: MILLA 10/14/18 1549 DS: KAUR 10/14/18 1549 10/14/18 CT ANGIO HEAD NECK: IMPRESSION: 1. There are moderate calcified atherosclerotic changes of the cavernous and supraclinoid right internal carotid artery. 2. There are moderate calcified atherosclerotic changes of the cavernous and supraclinoid left internal carotid artery. Electronically signed by: Cuco Flores On 10/14/2018 15:50:18 PM DD: CUCO FLORES MD 10/14/18 1209 DT: MILLA 10/14/18 1550 DS: KAUR 10/14/18 1550 MRI BRAIN WITHOUT CONTRAST 10/12/18 No acute intracranial abnormality or significant interval change since the prior MRI. Atrophy and stable pattern of chronic microangiopathic supratentorial white matter change Electronically signed by: Amador Colon On 10/12/2018 21:18:59 PM DD: AMADOR COLON MD 10/12/181902 DT: MILLA 10/12/182117 DS: LUKE 10/12/182117 MRA BRAIN WITHOUT CONTRAST 10/12/18 No intracranial lesion TIME SPENT ON DISCHARGE: 32 MINUTES Vital Signs/I&Os Vital Signs Date Time Temp Pulse Resp B/P (MAP) Pulse Ox O2 Delivery O2 Flow Rate FiO2 10/16/18 09:36 48 150/95 (113) 10/16/18 06:29 97 10/16/18 06:28 98.6 18 10/12/18 15:50 Nasal Cannula 2.0 I&O- Last 24 Hours up to 6 AM 10/16/18 06:00 Intake Total 1920 ml Output Total 800 ml Balance 1120 ml Laboratory Data Labs 24H Laboratory Tests 2 10/16/18 05:39: Immature Granulocyte % (Auto) 0.3, White Blood Count 6.9, Red Blood Count 3.84L, Hemoglobin 9.8L, Hematocrit 32.1L, Mean Corpuscular Volume 83.6, Mean C orpuscular Hemoglobin 25.5L, Mean Corpuscular Hemoglobin Concent 30.5L, Red Cell Distribution Width 15.9H, Platelet Count 214, Neutrophils (%) (Auto) 51.8, Lymphocytes (%) (Auto) 27.6, Monocytes (%) (Auto) 12.5H, Eosinophils (%) (Auto) 6.6H, Basophils (%) (Auto) 1.2H, Neutrophils # (Auto) 3.6, Lymphocytes # (Auto) 1.9, Monocytes # (Auto) 0.9H, Eosinophils # (Auto) 0.5, Basophils # (Auto) 0.1, Nucleated Red Blood Cells % (auto) 0.0, Anion Gap 5L, Glomerular Filtration Rate > 60.0, Blood Urea Nitrogen 5L, Creatinine 0.69, Sodium Level 137, Potassium Level 3.8, Chloride Level 106, Carbon Dioxide Level 26, Calcium Level 8.4L, Magnesium Level 1.8 CBC/BMP Laboratory Tests 10/16/18 05:39 Red Blood Count 3.84 L, Mean Corpuscular Volume 83.6, Mean Corpuscular Hemoglobin 25.5 L, Mean Corpuscular Hemoglobin Concent 30.5 L, Red Cell Distribution Width 15.9 H, Neutrophils (%) (Auto) 51.8, Lymphocytes (%) (Auto) 27.6, Monocytes (%) (Auto) 12.5 H, Eosinophils (%) (Auto) 6.6 H, Basophils (%) (Auto) 1.2 H, Neutrophils # (Auto) 3.6, Lymphocytes # (Auto) 1.9, Monocytes # (Auto) 0.9 H, Eosinophils # (Auto) 0.5, Basophils # (Auto) 0.1, Calcium Level 8.4 L Microbiology Microbiology 10/12/18 Blood Culture - Preliminary, Resulted No Growth after 72 hours. All specime... 10/12/18 Blood Culture - Preliminary, Resulted No Growth after 72 hours. All specime... 10/12/18 Urine Culture - Final, Complete Discharge Medications Scheduled Acetaminophen (Acetaminophen) 325 Mg Tablet, 650 MG PO TID, (Reported) Amlodipine Besylate (Norvasc) 5 Mg Tablet, 5 MG PO DAILY Apixaban (Eliquis) 2.5 Mg Tablet, 2.5 MG PO BID, (Reported) Atorvastatin Calcium (Atorvastatin Calcium) 20 Mg Tablet, 20 MG PO DAILY, (Reported) Bupropion HCl (Bupropion HCl) 75 Mg Tablet, 75 MG PO BID, (Reported) Docusate Sodium (Colace) 100 Mg Capsule, 100 MG PO BID, (Reported) L.acidoph/L.bulg/B.bif/S.therm (Radha-Bid Caplet) 1 Each Tablet, 1 TAB PO DAILY, (Reported) Metoprolol Tartrate (Metoprolol Tartrate) 25 Mg Tablet, 25 MG PO BID Pantoprazole Sodium (Pantoprazole Sodium) 40 Mg Tablet.dr, 40 MG PO DAILY, (Reported) Scheduled PRN Acetaminophen (Acetaminophen) 325 Mg Tablet, 650 MG PO Q4H PRN for PAIN, (Reported) Bisacodyl (Bisacodyl) 10 Mg Supp.rect, 10 MG [place] DAILY PRN for CONSTIPATION, (Reported) Magnesium Hydroxide (Milk of Magnesia) 400 Mg/5 Ml Oral.susp, 30 ML PO DAILY PRN for CONSTIPATION, (Reported) Allergies Coded Allergies: scopolamine (Verified Adverse Reaction, Mild, DELIRIUM, 06/17/18) BISHNU ZUNIGA MD Oct 16, 2018 12:16
== END 2018-10-16 11:30 | DRG 67 ==
LOC: EDBD 09:44 → M ED 09:44 → M ED INP 13:18 → M ICU 15:56 → M MS5PR 10-14 18:44
PROVIDERS: ADMIT Internal Medicine; ATTEND General Practice
PROC: 02HV33Z Insertion of Infusion Device into Superior Vena Cava, Percutaneous Approach (ICD-10-PCS; principal; 2018-10-12)
DX: I65.22 Occlusion and stenosis of left carotid artery (principal); R57.0 Cardiogenic shock; I48.91 Unspecified atrial fibrillation; F32.9 Major depressive disorder, single episode, unspecified; K21.9 Gastro-esophageal reflux disease without esophagitis; J44.9 Chronic obstructive pulmonary disease, unspecified; I95.2 Hypotension due to drugs; I10 Essential (primary) hypertension; I73.9 Peripheral vascular disease, unspecified; Z79.01 Long term (current) use of anticoagulants; Z85.3 Personal history of malignant neoplasm of breast; Z79.899 Other long term (current) drug therapy; Z88.8 Allergy status to other drugs, medicaments and biological substances; E78.5 Hyperlipidemia, unspecified; Z96.642 Presence of left artificial hip joint; Z96.641 Presence of right artificial hip joint; Z87.891 Personal history of nicotine dependence

== ENCOUNTER → 2018-10-22 | Outpatient (REF) | payer MEDICARE, MEDICAID ==
[~2018-10-22] MED LIST changes: +ACET1TAB55 PO; +APAP325T4 PO; +BISA10SU4 PR; +MILKSUS3 PO; +NORV5TAB PO; +PANT-23 PO
[2018-10-22 14:24] LABS: FOLATE 8.3 NG/ML; PERCENT SATURATION 7.7 % (13.2-45.0)
== END ==
LOC: M SFHCPLAZ 11:58
PROVIDERS: ATTEND Family Medicine
DX: D64.9 Anemia, unspecified (principal)
CPT/HCPCS: 36415; 82607; 82728; 82746; 83550; 99496; G0463

== ENCOUNTER → 2018-11-16 | Outpatient (REF) | payer MEDICARE, MEDICAID ==
[~2018-11-16] MED LIST changes: +FERR325T3 PO
[2018-11-16 18:03] LABS: HEMATOCRIT 31.4 % (36.0-47.0); HEMOGLOBIN 9.4 g/dl (12.0-15.5); MEAN CORPUSCULAR HEMOGLOBIN 24.9 pg (27.0-33.0); MEAN CORPUSCULAR HGB CONC 29.9 g/dl (32.0-36.5); MEAN CORPUSCULAR VOLUME 83.3 fl (80.0-96.0); PLATELET COUNT, AUTOMATED 213 10^3/uL (150-450); RED BLOOD COUNT 3.77 10^6/uL (4.00-5.40); WHITE BLOOD COUNT 6.4 10^3/uL (4.0-10.0)
[2018-11-16 18:10] LABS: BLOOD UREA NITROGEN 10 MG/DL (7-18); CALCIUM LEVEL 8.3 MG/DL (8.8-10.2); CARBON DIOXIDE LEVEL 23 MEQ/L (21-32); CHLORIDE LEVEL 105 MEQ/L (98-107); CREATININE FOR GFR 0.83 MG/DL (0.55-1.30); GLOMERULAR FILTRATION RATE > 60.0 (>32); GLUCOSE, FASTING 107 MG/DL (70-100); SODIUM LEVEL 138 MEQ/L (136-145)
== END ==
LOC: M SFHCPLAZ 14:43
PROVIDERS: ATTEND Family Medicine
DX: D50.9 Iron deficiency anemia, unspecified (principal); I10 Essential (primary) hypertension
CPT/HCPCS: 80048; 85027; G0463

== ENCOUNTER 2018-12-04 05:59 | Inpatient (IN) | payer MEDICARE, MEDICAID ==
[2018-12-04] VITALS (10 sets, daily range): BP systolic 86–170; BP diastolic 63–106; O2SAT 99
[~2018-12-04] VITALS: Ht 156.2 cm; Wt 56.1 kg
[2018-12-04] MEDS ORDERED: LR 1,000 ML IV ONE (06:00)
[2018-12-04] MEDS ORDERED: THROMBIN SOLN 20,000 UNITS KIT As Ordered ONE (06:50)
[2018-12-04] MEDS ORDERED: HEPARIN SOD (PORCINE) 5000 UNITS/ML VIAL As Ordered ONE ×3 (06:51→10:06)
[2018-12-04] MEDS ORDERED: LIDOCAINE 2% MDV 20 ML VIAL As Ordered ONE (06:51)
[2018-12-04] MEDS ORDERED: BUPIVACAINE HCL 0.5% 10 ML VIAL As Ordered ONE (06:51)
[2018-12-04] MEDS ORDERED: ROCURONIUM BROMIDE 50 MG/5 ML VIAL As Ordered ONE ×2 (07:17→10:51)
[2018-12-04] MEDS ORDERED: PROPOFOL 200 MG/20 ML VIAL As Ordered ONE (07:17)
[2018-12-04] MEDS ORDERED: LIDOCAINE 2% INJ 100 MG/5 ML SDV (FOR ANES.) As Ordered ONE (07:17)
[2018-12-04] MEDS ORDERED: fentaNYL 100 MCG/2 ML INJECTION (J3010) As Ordered ONE ×3 (07:17→11:59)
[2018-12-04] MEDS ORDERED: MIDAZOLAM INJ 2 MG/2 ML VIAL (J2250) As Ordered ONE (07:18)
[2018-12-04] MEDS ORDERED: ETOMIDATE INJ 20MG/10ML VIAL As Ordered ONE (07:33)
[2018-12-04] MEDS ORDERED: PHENYLephrine HCL 500 MCG/5 ML (100MCG/ML) SYRINGE (J2370) As Ordered ONE ×2 (07:49→11:40)
[2018-12-04] MEDS ORDERED: ePHEDrine SULFATE 25 MG/5 ML(5MG/ML) SYRINGE As Ordered ONE (07:49)
[2018-12-04] MEDS ORDERED: PHENYLEPHRINE INJ 10MG/ML VIAL (J2370) As Ordered ONE ×6 (08:00→11:53)
[2018-12-04] MEDS ORDERED: ONDANSETRON 4MG/2ML VIAL (J2405) As Ordered ONE (08:24)
[2018-12-04] MEDS ORDERED: METOCLOPRAMIDE INJ 10MG/2ML VIAL (J2765) As Ordered ONE (08:25)
[2018-12-04] MEDS ORDERED: SUGAMMADEX SODIUM 500 MG/5 ML VIAL (BRIDION) As Ordered ONE ×2 (08:25→08:26)
[2018-12-04] MEDS ORDERED: ESMOLOL INJ 100MG/10ML VIAL As Ordered ONE (08:58)
[2018-12-04] MEDS: ATORVASTATIN 20 MG TAB PO SCH (09:00)
[2018-12-04] MEDS: PANTOPRAZOLE 40MG TAB (PROTONIX) PO SCH (09:00)
[2018-12-04] MEDS ORDERED: VASOPRESSIN INJ 20 UNITS/ML VIAL As Ordered ONE (11:07)
[2018-12-04] MEDS ORDERED: PROTAMINE SULF INJ 50 MG/5 ML VIAL (J2720) As Ordered ONE (11:24)
[2018-12-04] MEDS ORDERED: CALCIUM CHLORIDE 10% 1 GM/10 ML SYR As Ordered ONE (11:59)
[2018-12-04] MEDS ORDERED: BISACODYL 10 MG SUPP PR PRN (12:30)
[2018-12-04] MEDS ORDERED: NORCO, ANEXSIA 5/325MG TABLET (HYDROcodone/ACETAMINOPHEN) PO PRN ×2 (12:45→14:15)
[2018-12-04] MEDS ORDERED: ONDANSETRON 4MG/2ML VIAL (J2405) IV PRN ×2 (12:45→14:15)
[2018-12-04] MEDS ORDERED: fentaNYL 100 MCG/2 ML INJECTION (J3010) IV PRN ×2 (12:45→14:15)
[2018-12-04] MEDS ORDERED: LR 1,000 ML IV SCH ×2 (12:45→14:15)
--- NOTE | 2018-12-04 12:45 | CR.PDOC ---
General Date of Consultation: Dec 04, [address] Bowser HPI: 78 year old F with h/o carotid stenosis S/P Left CEA this AM as per Dr Bowser. Pt with previous Lt CEA 2011. The pt is seen in PACU post operatively. The Pt is ventilated and sedated. Pre operative clearance from PCP Dr Coronel 12/03/18 and Cardiology 11/06/18 is placed on the pt's chart. Pt's history is taken from previous records. 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 PE: GEN: 78 yo F, ventilated, sedated. Pt is in PACU. HEENT: Normocephalic, atraumatic. Swelling noted left neck and mandibular area, DAMARIS drain in place, dressing in place left neck, trachea midline. CHEST: tachycardic+S1, +S2. Left neck dressing LUNGS: Good A/E ABD: Round, soft, non-tender, non-distended. EXT: Feet warm to touch, No lower extremity edema appreciated. SKIN: [place], dry, warm. No rashes. NEURO: pt is ventilated. sedated. Carotid ultrasound Upon review of the study with the technologist, the technologist additionally measured the peak flow velocity in the left carotid bulb. The peak flow velocityin the left carotid bulb is elevated measuring 466 cm/s. This is indicates high grade stenosis of greater than 70% stenosis. DD: Marcelo Cabral MD 10/13/18 1521 DT: RANI 10/13/18 1605 DS: JUAN 07/23/19 1821 <Electronically signed by Marcelo Cabral > 10/13/181820 Bilateral carotid artery duplex ultrasound: Peak flow velocity analysis: RIGHT LEFT ICA Peak flow velocity cm/sec 42.9 45.7 ICA Diastolic flow velocity cm/sec 13.7 9.34 ICA/CCA Ratio 0.79 1.00 ECA Peak flow velocity cm/sec 57.0 73.0 CCA Peak flow velocity cm/sec 54.0 45.7 There is intimal thickening on the right. On the left, there is focal moderate atheromatous plaque in the bulb extending into the left ICA and left ECA. The peak flow velocities are normal bilaterally. Findings indicate less than 50% narrowing bilaterally. There is no significant stenosis on the right on the left. There is antegrade flow in the vertebral arteries bilaterally. Electronically Signed by Marcelo Cabral MD 10/13/2018 11:46 A A&P: 1. Carotid stenosis/previous Lt CEA 2011/S/P Left CEA as per Dr Bowser 12/04/18. The pt is seen in PACU. To go to ICU. Plan as per Dr Bowser. Ventilated/sedated. EBL 1200 BP pre op 159/81, current 102/68. Hypotension intra operatively requiring pressors. IVF intra operatively LR 2400, NS 800cc. 2 u PRBC Post op labs pending. CBC, BMP, cardiac enzymes. ABG pending. Dr Alcocer CC consulted to assist with Ventilator mgmt. Hospitalist called for admission and medical mgmt. Spoke with Dr Reddy who will see pt as well. 2. Afib. Pt on Eliquis as outpt and this is continued as per Dr Bowser. rate control IV Metoprolol/dig. DVT px. Pt is on Eliquis. Vital Signs/I&O Vital Signs Date Time Temp Pulse Resp B/P (MAP) Pulse Ox O2 Delivery O2 Flow Rate FiO2 12/04/18 12:15 98.6 109 16 155/97 (116) 100 40 Laboratory Data Labs 24H Post op labs pending. ABG pending. Allergies Coded Allergies: scopolamine (Verified Adverse Reaction, Mild, DELIRIUM, 11/26/18) Home Medications Scheduled Acetaminophen (Acetaminophen) 325 Mg Tablet, 650 MG PO TID, (Reported) Apixaban (Eliquis) 2.5 Mg Tablet, 2.5 MG PO BID, (Reported) Atorvastatin Calcium (Atorvastatin Calcium) 20 Mg Tablet, 20 MG PO DAILY, (Reported) Bupropion HCl (Bupropion HCl) 75 Mg Tablet, 75 MG PO BID, (Reported) Docusate Sodium (Colace) 100 Mg Capsule, 100 MG PO BID, (Reported) Ferrous Sulfate (Ferrous Sulfate) 325 Mg Tablet.dr, 325 MG PO DAILY, (Reported) L.acidoph/L.bulg/B.bif/S.therm (Radha-Bid Caplet) 1 Each Tablet, 1 TAB PO DAILY, (Reported) Metoprolol Tartrate (Metoprolol Tartrate) 25 Mg Tablet, 25 MG PO BID for 30 Days, #60 Pantoprazole Sodium (Pantoprazole Sodium) 40 Mg Tablet.dr, 40 MG PO DAILY, (Reported) Scheduled PRN Bisacodyl (Bisacodyl) 10 Mg Supp.rect, 10 MG [place] DAILY PRN for CONSTIPATION, (Reported) Magnesium Hydroxide (Milk of Magnesia) 400 Mg/5 Ml Oral.susp, 30 ML PO DAILY PRN for CONSTIPATION, (Reported) Attending Note Attending Note VASCULAR SURGICAL ATTENDING NOTE: Dr. Bob Bowser M.D. ASSESSMENT: Patient is an 78-year-old female with recurrent left carotid artery stenosis which is high-grade. PLAN: Patient will undergo a redo left carotid endarterectomy with possible carotid artery bypass grafting. Tito Arellano was the attending vascular surgeon for this patient encounter. The patient was seen, examined, interviewed and evaluated independently by Dr. Dewayne Bowser M.D. was fully available during the consultation evaluation. All aspects of the patient interview, examination, medical decision making process, and medical care plan development were reviewed and approved by Dr. Dewayne Bowser M.D. Dr. Dewayne Bowser M.D. is aware and concurs with the plan as stated in the body of this note and will attest to such by his/her cosignature. Ursula Cabrera Dec 04, 2018 12:45 Jaron Bowser MD Dec 10, 2018 23:54
[2018-12-04 13:05] LABS: ABG BASE EXCESS -5.3 (-2.0-2.0); ABG HCO3 18.5 MEQ/L (22.0-26.0); ABG O2 SATURATION 98.8 % (95.0-99.0); ABG PARTIAL PRESSURE CO2 29.6 mmHg (35.0-45.0); ABG PARTIAL PRESSURE O2 122.2 mmHg (75.0-100.0); ABG STANDARD HCO3 20.1 MEQ/L (22.0-26.0); ABG TOTAL CO2 19.4 MEQ/L (23.0-31.0); ABG pH (ARTERIAL) 7.413 UNITS (7.350-7.450)
[2018-12-04 13:27] LABS: BASO # 0.1 10^3/uL (0.0-0.2); BASO % 0.4 % (0.0-1.0); EOS % 0.2 % (0.0-3.0); HEMATOCRIT 26.3 % (36.0-47.0); HEMOGLOBIN 8.6 g/dl (12.0-15.5); LYMPH # 0.7 10^3/uL (1.5-5.0); LYMPH % 5.6 % (24.0-44.0); MEAN CORPUSCULAR HEMOGLOBIN 28.4 pg (27.0-33.0); MEAN CORPUSCULAR HGB CONC 32.7 g/dl (32.0-36.5); MEAN CORPUSCULAR VOLUME 86.8 fl (80.0-96.0); MONO # 0.8 10^3/uL (0.0-0.8); MONO % 6.7 % (0.0-5.0); NEUTROPHILS # 10.6 10^3/uL (1.5-8.5); NEUTROPHILS % 86.4 % (36.0-66.0); PLATELET COUNT, AUTOMATED 106 10^3/uL (150-450); RED BLOOD COUNT 3.03 10^6/uL (4.00-5.40); WHITE BLOOD COUNT 12.2 10^3/uL (4.0-10.0)
[2018-12-04] MEDS ORDERED: METOPROLOL 5 MG/5 ML VIAL As Ordered ONE (13:37)
[2018-12-04] MEDS ORDERED: DIGOXIN INJ 0.5 MG/2 ML AMP (J1160) IV STA ×2 (13:39→16:23)
[2018-12-04] MEDS ORDERED: METOPROLOL 5 MG/5 ML VIAL IV ONE ×4 (13:40→14:00)
[2018-12-04 13:42] LABS: ALBUMIN 2.4 GM/DL (3.2-5.2); ALT/SGPT 9 U/L (12-78); BILIRUBIN,DIRECT 0.2 MG/DL (0.0-0.2); BILIRUBIN,TOTAL 0.5 MG/DL (0.2-1.0); BLOOD UREA NITROGEN 10 MG/DL (7-18); CALCIUM LEVEL 8.4 MG/DL (8.8-10.2); CARBON DIOXIDE LEVEL 18 MEQ/L (21-32); CHLORIDE LEVEL 112 MEQ/L (98-107); CK-MB VALUE MASS 1.7 NG/ML (<3.6); CPK CREATINE PHOSPHOKINASE 50 U/L (26-192); CREATININE FOR GFR 0.76 MG/DL (0.55-1.30); GLOMERULAR FILTRATION RATE > 60.0 (>32); GLUCOSE, FASTING 193 MG/DL (70-100); POTASSIUM SERUM 4.8 MEQ/L (3.5-5.1); SODIUM LEVEL 140 MEQ/L (136-145); TOTAL PROTEIN 4.2 GM/DL (6.4-8.2)
[2018-12-04] MEDS: MIDAZOLAM INJ 2 MG/2 ML VIAL (J2250) IV PRN ×4 (13:50→23:18)
[2018-12-04 13:51] LABS: INR 1.53; PARTIAL THROMBOPLASTIN TIME 29.2 SECONDS (25.0-38.4); PROTHROMBIN TIME 18.1 SECONDS (11.8-14.0)
--- NOTE | 2018-12-04 14:03 | REP ---
CHEST, PORTABLE: AP and supine film of the chest is performed and compared to prior study of 10/12/2018. There is an endotracheal tube present. The tip is 3 cm above the fran. Heart is somewhat enlarged. Vasculature is prominent as on prior study. Interstitial markings are mildly prominent as on prior study. There is mild elevation of the right hemidiaphragm. Multiple metallic clips are seen in the right axillary region. Electronically Signed by Marcelo Hooper MD 12/04/2018 03:17 P
[2018-12-04] MEDS: MIDAZOLAM INJ 2 MG/2 ML VIAL (J2250) IV SCH ×2 (14:15→14:30)
--- NOTE | 2018-12-04 14:28 | CR ---
DATE OF CONSULTATION: 12/04/2018 VENTILATOR MANAGEMENT CONSULT ATTENDING PHYSICIAN: Dr. Bowser HISTORY OF PRESENT ILLNESS: Ms. Amos is an 78-year-old female with underlying obstructive lung disease as well as known significant vascular disease who underwent a redo of a left carotid today. She had issues intraoperatively with blood loss and hypotension and therefore is to remain intubated postoperatively. She briefly required vasopressors. She required at least 2.5 liters of crystalloid and a unit of packed cells intraoperatively. Currently she is in the recovery room. She is in atrial fibrillation with heart rate between 120 and 140s. Blood pressure is 90 via A-line in the right radial and noninvasive reading 130s. Chest x-ray shows the endotracheal tube to be in good position and good bilateral expansion of the chest which is symmetric. Blood gas just done on an assist control mode, tidal volume 420, PEEP of 5, FiO2 of 30% has a pH of 7.413, pCO2 of 29.6 and pO2 of 122.2., ALLERGIES: - SCOPOLAMINE CURRENT MEDICATIONS: - Iron - Eliquis - Wellbutrin - Lopressor - Zofran - Dulcolax - Fentanyl PAST MEDICAL HISTORY: As above and is significant for her underlying obstructive lung disease, but I do not have that quantified. Previous left occipital CVA, left internal carotid stenosis, atrial fibrillation on Eliquis, a loop recorder, hypertension, peripheral vascular disease, hyperlipidemia, previous right breast cancer status post chemoradiation, history of colovaginal fistula, previous hydronephrosis with left ureteral stent, reflux disease and depression. SOCIAL HISTORY: She is a current smoker. No alcohol. Lives at home with her . 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 FAMILY HISTORY: Significant for mother with heart disease, father with heart disease and a stroke. REVIEW OF SYSTEMS: Unobtainable as she is intubated and sedated. PHYSICAL EXAMINATION: Reveals an elderly female in the recovery room. Vital signs as outlined above. She is afebrile. HEENT: Shows a nasogastric and oral endotracheal tube. Eyes are taped shut. Membranes are moist. There is a bandage consistent with her left carotid. Trachea is in the midline. Chest diminished, but symmetric expansion. Percussion reasonable. Tactile fremitus palpable. Cardiac Exam: Tachy, irregularly irregular. Peripheral pulses are diminished, but palpable. No obvious edema. Abdomen: Soft. There are active bowel sounds, although they are hypoactive. No obvious organomegaly or masses. Extremities: Show no cyanosis, clubbing or mottling. Neurologically, she is sedated. Repeat blood work postoperative is all currently pending. Chest x-ray as outlined above. IMPRESSION: 1. Respiratory failure postoperatively requiring mechanical ventilatory support. 2. Atrial fibrillation with suboptimal rate control. 3. Vascular disease status post left carotid endarterectomy, reoperation. 4. Blood loss anemia. 5. Hypotension secondary to the above. RECOMMENDATIONS: At this point, I am in agreement with continuing mechanical ventilatory support until she is hemodynamically stable. Dr. Bowser is in charge of that portion of her care and I have spoken with Dr. Reddy who is seeing her from a general medical standpoint. He will be managing rate control for her atrial fibrillation. She has repeat blood work all pending. At this point, she is critically ill. I understand she is a full code. Ulcer and deep vein thrombosis (DVT) prophylaxis is in place. We will proceed as outlined above. She is critically ill. My hopes is in the next 24 to 48 hours we can push towards a trial of extubation. We await the outcome of the above interventions. MALIK
[2018-12-04] MEDS: IPRATROPIUM 0.5MG/ALBUTEROL 2.5MG INH SOL UD 3ML (DUONEB)(J7620) NEB SCH ×3 (14:35→21:28)
[2018-12-04] MEDS ORDERED: ACETAMINOPHEN TAB 650MG DOSE (2X325MG) PO SCH (16:00)
--- NOTE | 2018-12-04 16:38 | ECGEPIP ---
[facility] Test Date: 2018-12-04 Pat Name: OLGA NAPIER Department: [facility]: [facility] Gender: Female Manager Delivery: GENE : 1940 Requested By: Jaron Anguiano Order Number: [id number] Reading MD: Jhonatan Garcia Measurements Intervals Blunt Rate: 106 P: KS: 0 QRS: -29 QRSD: 78 T: 243 QT: 310 QTc: 412 Interpretive Statements ATRIAL FIBRILLATION WITH RAPID VENTRICULAR RESPONSE Left axis deviation ST DEVIATION AND MODERATE T-WAVE ABNORMALITY, CONSIDER ANTEROLATERAL ISCHEMIA Increased heart rate compared with 10/12/2018 Electronically Signed on 12-04-2018 16:38:30 EDT by Jhonatan Garcia
[2018-12-04 18:03] LABS: HEMOGLOBIN 9.2 g/dl (12.0-15.5); MEAN CORPUSCULAR HEMOGLOBIN 28.8 pg (27.0-33.0); MEAN CORPUSCULAR HGB CONC 34.1 g/dl (32.0-36.5); MEAN CORPUSCULAR VOLUME 84.6 fl (80.0-96.0); PLATELET COUNT, AUTOMATED 120 10^3/uL (150-450); RED BLOOD COUNT 3.19 10^6/uL (4.00-5.40); WHITE BLOOD COUNT 11.5 10^3/uL (4.0-10.0)
[2018-12-04] MEDS: MORPHINE 4 MG/ML 1ML VIAL/SYRINGE (J2270) IV PRN (19:18)
[2018-12-04] MEDS ORDERED: ACETAMINOPHEN 325 MG/10.15 ML UDC GT PRN (20:15)
[2018-12-04] MEDS: APIXABAN 2.5 MG TAB (ELIQUIS) PO SCH (20:43)
[2018-12-04] MEDS: DOCUSATE SODIUM 100 MG CAP PO SCH (20:44)
[2018-12-04] MEDS: buPROPion 75 MG TAB PO SCH (20:44)
[2018-12-04] MEDS ORDERED: METOPROLOL TART 25 MG TABLET PO SCH (21:00)
[2018-12-04] MEDS: D5W/0.45% SODIUM CHLORIDE 1,000 ML IV SCH (23:18)
[2018-12-05] VITALS (40 sets, daily range): BP systolic 116–199; BP diastolic 62–103; O2SAT 99–100
[2018-12-05] MEDS: IPRATROPIUM 0.5MG/ALBUTEROL 2.5MG INH SOL UD 3ML (DUONEB)(J7620) NEB SCH ×7 (00:27→23:21)
[2018-12-05] MEDS: MIDAZOLAM INJ 2 MG/2 ML VIAL (J2250) IV PRN (01:18)
[2018-12-05] MEDS: MORPHINE 4 MG/ML 1ML VIAL/SYRINGE (J2270) IV PRN ×2 (01:18→08:19)
[2018-12-05 05:34] LABS: HEMATOCRIT 25.6 % (36.0-47.0); MEAN CORPUSCULAR HEMOGLOBIN 28.4 pg (27.0-33.0); MEAN CORPUSCULAR HGB CONC 31.3 g/dl (32.0-36.5); MEAN CORPUSCULAR VOLUME 90.8 fl (80.0-96.0); PLATELET COUNT, AUTOMATED 109 10^3/uL (150-450); RED BLOOD COUNT 2.82 10^6/uL (4.00-5.40); WHITE BLOOD COUNT 9.9 10^3/uL (4.0-10.0)
[2018-12-05 05:46] LABS: CALCIUM LEVEL 8.7 MG/DL (8.8-10.2); CREATININE FOR GFR 1.29 MG/DL (0.55-1.30); GLOMERULAR FILTRATION RATE 42.3 (>32); POTASSIUM SERUM 4.4 MEQ/L (3.5-5.1)
[2018-12-05 05:55] LABS: ABG BASE EXCESS -4.8 (-2.0-2.0); ABG HCO3 19.3 MEQ/L (22.0-26.0); ABG O2 SATURATION 98.5 % (95.0-99.0); ABG PARTIAL PRESSURE CO2 31.8 mmHg (35.0-45.0); ABG STANDARD HCO3 20.5 MEQ/L (22.0-26.0); ABG TOTAL CO2 20.3 MEQ/L (23.0-31.0); ABG pH (ARTERIAL) 7.401 UNITS (7.350-7.450)
[2018-12-05] MEDS ORDERED: METOPROLOL 5 MG/5 ML VIAL IV ONE (06:00)
[2018-12-05] MEDS: ATORVASTATIN 20 MG TAB PO SCH (08:20)
[2018-12-05] MEDS: APIXABAN 2.5 MG TAB (ELIQUIS) PO SCH ×2 (08:20→20:00)
[2018-12-05] MEDS: buPROPion 75 MG TAB PO SCH ×2 (08:20→20:00)
[2018-12-05] MEDS: DIGOXIN INJ 0.5 MG/2 ML AMP (J1160) IV SCH (08:21)
[2018-12-05] MEDS: METOPROLOL TART 50 MG TAB PO SCH ×2 (09:49→20:01)
--- NOTE | 2018-12-05 09:58 | REP ---
REASON: Respiratory failure. COMPARISON: 12/04/2018 The endotracheal tube is unchanged, the tip of which remains at the level of the aortic knob. A nasogastric tube has been placed since the last exam. The tip is in the fundal portion doubling back upon itself slightly. There is a new left basilar opacity which silhouettes out the diaphragmatic surface of the left lung. Essentially unchanged mild patchy right basilar opacities. The technique utilized in obtaining the radiograph has magnified the cardiac silhouette and accentuated the interstitial markings. There is no change in the osseous structures. IMPRESSION: 1. Mild cardiomegaly accentuated by technique. 2. New left lower lobe opacities, atelectasis/pneumonia/effusion. 3. Stable minimal right basilar opacities, likely chronic changes. 4. Tubes as described above. Electronically Signed by Bang Campbell DO 12/05/2018 11:20 A
[2018-12-05 10:09] LABS: ABG BASE EXCESS -4.2 (-2.0-2.0); ABG HCO3 20.1 MEQ/L (22.0-26.0); ABG O2 SATURATION 97.3 % (95.0-99.0); ABG PARTIAL PRESSURE CO2 33.8 mmHg (35.0-45.0); ABG PARTIAL PRESSURE O2 97.7 mmHg (75.0-100.0); ABG STANDARD HCO3 20.9 MEQ/L (22.0-26.0); ABG TOTAL CO2 21.2 MEQ/L (23.0-31.0); ABG pH (ARTERIAL) 7.393 UNITS (7.350-7.450)
[2018-12-05] MEDS: FERROUS SULFATE 325MG TAB PO SCH (11:22)
[2018-12-05] MEDS: PANTOPRAZOLE 40MG TAB (PROTONIX) PO SCH (11:22)
[2018-12-05] MEDS: DOCUSATE SODIUM 100 MG CAP PO SCH ×2 (11:22→20:01)
[2018-12-05] MEDS: D5W/0.45% SODIUM CHLORIDE 1,000 ML IV SCH ×3 (11:22→23:23)
--- NOTE | 2018-12-05 14:50 | IPN ---
DATE: 12/05/2018 Oksana is seen in intensive care unit (ICU). I dictated a history and physical on her yesterday; I do not see where it is transcribed yet. She underwent an elective left carotid endarterectomy and had reported 1100 mL blood loss in the operating room (OR), was in atrial fibrillation with rapid ventricular response and hypotensive in the recovery room. Had a medical history significant for atrial fibrillation, hyperlipidemia, hypothyroidism, iron deficiency anemia, depression and reflux. Had a past history of stroke. Today she is still intubated, scant drainage from the endarterectomy site. Per nursing staff, blood pressure has recovered. She is still tachycardic. PHYSICAL EXAM: Heart rate 100-120, blood pressure 144/74. General Appearance: Sedated. Lungs: Decreased breath sounds. Heart: Irregular rate and rhythm. Rate of 120. Abdomen: Soft, nontender. No peripheral edema. LABORATORY: Electrolytes unremarkable. Potassium 4.4, creatinine has gone from 0.7 to 1.2. White count 9.8, hemoglobin 8, platelets 109. IMPRESSION: 1. Atrial fibrillation with rapid ventricular response. Her blood pressure is sufficient now that we can increase the dose of her metoprolol. This was held while she was hypotensive. She is also on IV digoxin and Eliquis for thromboembolic prophylaxis. 2. Acute kidney injury. We recommend increasing her IV rate. Followup labs have been ordered for tomorrow. 3. Depression. Continue her current dose of Wellbutrin 75 mg twice a day. 4. Hyperlipidemia. Continue current dose of atorvastatin. 5. Anemia secondary to acute blood loss. She received two units of packed red blood cells, a unit of albumin. Followup CBC ordered in the morning. Would recommend keeping hemoglobin at least 7.5 or higher. 6. Acute kidney injury. It should respond to hydration. Will increase her IV fluid rate.
--- NOTE | 2018-12-05 14:58 | CCN ---
CRITICAL CARE/VENTILATOR MANAGEMENT NOTE DATE OF VISIT: 12/05/2018 I again attended Oksana Amos. She has minimal sedation. She is easily arousable, awake, alert, and follows commands. Maximum temperature (Tmax) overnight 98.2. Blood pressure 160-170s. Heart rate generally 100-120. She remains in atrial fibrillation. Respiratory rate 16-20. Blood gas done this morning on a PRVC rate of 16, tidal volume 420, positive end-expiratory pressure (PEEP) of 5, FiO2 of 30% shows a pH 7.40, pCO2 of 31.8, pO2 of 133.0. Other laboratories have been reviewed. Hemoglobin is 8. A chest x-ray done this morning shows suboptimal inspiratory effort. There may be some mild edema. Endotracheal (ET) tube is in good position as is the gastric tube. On exam, she is easily aroused, awake, alert, and appropriate. She moves all extremities. Pupils react. Trachea is in the midline. Chest diminished, but symmetric expansion. There are some rhonchi that clear with suctioning. No rubs. Cardiac exam remains irregularly irregular. Peripheral pulses palpable. No obvious edema. Abdomen soft with active bowel sounds. No convincing organomegaly or masses. Extremities: No cyanosis, clubbing. Neurologically, she is awake, alert, and appropriate. Pressing problems requiring my presence at bedside: 1. Respiratory failure, both acute and chronic. 2. Advanced obstructive lung disease. 3. Redo carotid endarterectomy. 4. Blood loss anemia. My hope is at this point we can push her toward extubation. Ventilator changes have been made. She is doing much of the work on her own, and is quite comfortable with respiratory rate between 12 and 18. We will get a blood gas in about 45 minutes. If she is doing well at that point, we will proceed to a trial of extubation. I left the bedside at 0844 hours. 44 minutes of critical care time delivered at the bedside, not including procedures.
--- NOTE | 2018-12-05 16:02 | HPE ---
DATE OF ADMISSION: 12/04/2018 PRIMARY CARE PROVIDER: Dr. Dee Dee Coronel. VASCULAR SURGEON: Dr. Davonte Bowser. WOOD CAR BUILDER: Dr. Elijah Alcocer. HISTORY: Patient is seen in the recovery room. We were called to admit to the hospitalist group after patient had undergone an elective left carotid endarterectomy. Had a previous left carotid endarterectomy 7 years ago. Postop course was complicated by what was reported as a 1100 mL of blood loss. The patient is intubated in the recovery room. Systolic blood pressure is currently in the 80s. She is in atrial fibrillation with rapid ventricular response of about 120. PAST MEDICAL HISTORY: Significant for: Left occipital stroke March 2018. History of atrial fibrillation on anticoagulant therapy and her rate control strategy. Hypertensive heart disease. Hyperlipidemia. History of right breast cancer. Chemotherapy and radiation therapy to the right breast 2005. Had left orbital fracture July 2015. She has peripheral arterial disease. Chronic obstructive pulmonary disease (COPD). B12 deficiency with family history pernicious anemia. Recurring urinary tract infections. History of depression. History of hypertrophy on the right eye with visual loss followed by Dr. Varghese. History of colovaginal fistula status post sigmoidectomy. Left hydronephrosis status post left ureteral stent. History of mild cognitive impairment. History of lung nodule followed by Dr. Castano, which has been decreasing in size on serial imaging. ALLERGIES: SELECTIVE SEROTONIN REUPTAKE INHIBITOR (SSRI) cause syndrome of inappropriate antidiuretic hormone secretion, plus hyponatremia. SCOPOLAMINE causes confusion. PAST SURGICAL HISTORY: Tonsillectomy Tubal ligation. Hernia repair. Right lumpectomy. Left hip replacement. Colonoscopy April 2011. Left carotid endarterectomy April 2011. Right hip replacement November 2012. Bladder biopsies June 2014. Laparoscopically assisted sigmoidectomy February 2018. Left ureteral stent February 2018. Loop recorder 2016. Cystoscopy with stent removal May 2018. FAMILY HISTORY: Father of a stroke at 79. Mother of an myocardial infarction ([place]). One brother of unknown causes at 64 and was found in his sleep. SOCIAL HISTORY: She quit smoking around 2016. No alcohol use. She lives at the [facility]. She is . Her Chilango lives with her. 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 MEDICATIONS: - Eliquis 2.5 mg twice a day - atorvastatin 20 mg daily - Wellbutrin 75 mg twice a day - ferrous sulfate 325 mg daily - Probiotic - metoprolol tartrate 25 mg twice a day - Protonix 40 mg daily - Milk of Magnesia as needed. PHYSICAL EXAMINATION: She is seen in the operating room. She is sedated, intubated. She has a dressing over her left neck. There is a drain that is draining a small amount of blood. Lungs: Decreased breath sounds. Clear. Heart: Rapid. Irregular rate and rhythm. Rate around 120. Abdomen: Soft, nontender. Extremities: No clubbing, cyanosis or edema. Extremities are cool. LABS: White count 12.2, hemoglobin 8.6, platelets 106. ABGs: 7.41/26/122. She received two units of packed red blood cells. Albumin has been ordered but I do not think it has been unfused. IMPRESSION: 1. Atrial fibrillation with rapid ventricular response. Her hypotension limits treatment. Ordered some intravenous digoxin 0.25 IV now and 0.25 IV daily. She might need another dose of intravenous digoxin later today. Beta wilton is on hold due to hypotension. 2. Hypotension: She has received fluids according to the intensive care unit (ICU), Dr. Alcocer has been consulted from critical care. She did receive pressors in the operating room. 3. Hyperlipidemia: Continue Lipitor 20 mg daily. 4. History of depression: Continue Wellbutrin 75 mg twice a day to avoid antidepressant withdrawal symptoms. 5. Hypertensive heart disease: Will hold bisoprolol in the face of the hypotension. 6. Intubated status: Per pulmonary. 7. Anemia secondary to blood loss. Her hemoglobin was 9.4 going into this, it is 8.6 now after two units of packed red blood cells. I ordered a CBC for later this afternoon to monitor the ongoing anemia.
[2018-12-05] MEDS: hydrALAZINE INJ 20 MG/ML VIAL IV PRN ×3 (16:34→23:26)
[2018-12-05] MEDS ORDERED: cloNIDine 0.1 MG TAB PO ONE (19:45)
[2018-12-06] VITALS (74 sets, daily range): BP systolic 74–218; BP diastolic 56–122; O2SAT 100
[2018-12-06] MEDS: hydrALAZINE INJ 20 MG/ML VIAL IV PRN ×3 (02:57→10:00)
[2018-12-06] MEDS ORDERED: cloNIDine 0.1 MG TAB PO ONE (03:30)
[2018-12-06] MEDS: IPRATROPIUM 0.5MG/ALBUTEROL 2.5MG INH SOL UD 3ML (DUONEB)(J7620) NEB SCH ×5 (04:09→20:22)
[2018-12-06 04:22] LABS: ABG BASE EXCESS -3.8 (-2.0-2.0); ABG HCO3 19.7 MEQ/L (22.0-26.0); ABG O2 SATURATION 99.7 % (95.0-99.0); ABG PARTIAL PRESSURE CO2 29.7 mmHg (35.0-45.0); ABG PARTIAL PRESSURE O2 195.9 mmHg (75.0-100.0); ABG STANDARD HCO3 21.3 MEQ/L (22.0-26.0); ABG TOTAL CO2 20.6 MEQ/L (23.0-31.0); ABG pH (ARTERIAL) 7.439 UNITS (7.350-7.450)
[2018-12-06 04:34] LABS: HEMATOCRIT 26.1 % (36.0-47.0); HEMOGLOBIN 8.2 g/dl (12.0-15.5); MEAN CORPUSCULAR HEMOGLOBIN 28.2 pg (27.0-33.0); MEAN CORPUSCULAR HGB CONC 31.4 g/dl (32.0-36.5); MEAN CORPUSCULAR VOLUME 89.7 fl (80.0-96.0); PLATELET COUNT, AUTOMATED 119 10^3/uL (150-450); RED BLOOD COUNT 2.91 10^6/uL (4.00-5.40)
--- NOTE | 2018-12-06 04:37 | REPVR ---
EXAM: CT Head Without Contrast EXAM DATE/TIME: 12/06/2018 3:40 AM CLINICAL HISTORY: 78 years old, female; Altered mental status/memory loss; Confusion or disorientation TECHNIQUE: Imaging protocol: Computed tomography of the head without contrast. Radiation optimization: All CT scans at this facility use at least one of these dose optimization techniques: automated exposure control; mA and/or kV adjustment per patient size (includes targeted exams where dose is matched to clinical indication); or iterative reconstruction. COMPARISON: CT Head without contrast 10/12/2018 9:54 AM FINDINGS: Brain: Advanced generalized involutional and deep white matter microvascular ischemic changes. No acute intracranial hemorrhage or mass effect. No discrete geographic area of hypoattenuation to suggest large vessel territorial infarct identified at this time. Ventricles: Prominence of the ventricular system appears in proportion to degree of parenchymal atrophy. Bones/joints: No acute fracture. Sinuses: No fluid levels. Mastoid air cells: No mastoid effusion. Soft tissues: Unremarkable. IMPRESSION: No acute intracranial hemorrhage or evidence of large vessel territorial infarction. Chronic appearing atrophic and microvascular ischemic changes. Electronically signed by: Dinesh Villatoro On 12/06/2018 04:37:24 AM
[2018-12-06 04:50] LABS: BLOOD UREA NITROGEN 12 MG/DL (7-18); CALCIUM LEVEL 7.8 MG/DL (8.8-10.2); CARBON DIOXIDE LEVEL 21 MEQ/L (21-32); CHLORIDE LEVEL 103 MEQ/L (98-107); CREATININE FOR GFR 0.84 MG/DL (0.55-1.30); GLOMERULAR FILTRATION RATE > 60.0 (>32); GLUCOSE, FASTING 142 MG/DL (70-100); POTASSIUM SERUM 3.6 MEQ/L (3.5-5.1); SODIUM LEVEL 134 MEQ/L (136-145)
[2018-12-06] MEDS: D5W/0.45% SODIUM CHLORIDE 1,000 ML IV SCH ×2 (06:16→12:26)
[2018-12-06] MEDS: FERROUS SULFATE 325MG TAB PO SCH (09:00)
[2018-12-06] MEDS: METOPROLOL TART 50 MG TAB PO SCH (09:00)
[2018-12-06] MEDS: buPROPion 75 MG TAB PO SCH (09:00)
[2018-12-06] MEDS: DOCUSATE SODIUM 100 MG CAP PO SCH (09:00)
[2018-12-06] MEDS: PANTOPRAZOLE 40MG TAB (PROTONIX) PO SCH (09:00)
[2018-12-06] MEDS: APIXABAN 2.5 MG TAB (ELIQUIS) PO SCH (09:00)
[2018-12-06] MEDS: ATORVASTATIN 20 MG TAB PO SCH (09:00)
[2018-12-06] MEDS: DIGOXIN INJ 0.5 MG/2 ML AMP (J1160) IV SCH (09:59)
[2018-12-06] MEDS: KCL 10MEQ/100ML SWI (KRUN) 10 MEQ in IV 1 EA IV SCH ×2 (10:53→14:18)
[2018-12-06] MEDS ORDERED: METOPROLOL 5 MG/5 ML VIAL IV SCH (14:00)
[2018-12-06] MEDS ORDERED: LABETALOL HCL 100 MG/20 ML VIAL IV SCH (15:00)
--- NOTE | 2018-12-06 16:06 | REPVR ---
EXAM: MR Head Without Contrast EXAM DATE/TIME: 12/06/2018 1:39 PM CLINICAL HISTORY: 78 years old, female; Speech disturbance; Aphasia; Patient HX: ? CVA, S/P carotid endartectomy; Additional info: Neuro exam changes S/P carotid endarterectomy c/b bleeding TECHNIQUE: Imaging protocol: MR of the head without contrast. COMPARISON: MRI-Brain without Contrast 10/12/2018 8:03 PM. Correlation with report from CTA neck 10/14/2018. CT Head without contrast 12/06/2018 3:39:14 AM FINDINGS: Brain: Small focus of true diffusion restriction in the right garcia radiata as well as multiple patchy foci of true diffusion restriction in the left garcia radiata/centrum semiovale deep white matter and left precentral gyrus, findings consistent with recent acute to subacute likely embolic infarcts. The patchy radially oriented infarcts in the left parietal deep white matter extend to left parietal cortex. There is a focal, acute infarct in the genu of the left internal capsule. Difficult to assess the presence or absence of cytotoxic edema on the T2 weighted imaging due to motion artifacts. No obvious parenchymal hemorrhage. The gradient echo sequence is quite motion degraded limiting evaluation for consideration. The brain demonstrates generalized volume patchy increased signal intensity in the deep white matter on the T2-weighted imaging most likely represents chronic small vessel ischemic change. Ventricles: The ventricles are mildly enlarged in keeping with volume loss. Stable. Bones/joints: Poorly evaluated due to motion artifacts. The Soft tissues: Unremarkable. Sinuses: Normal as visualized. No acute sinusitis. Mastoid air cells: Normal as visualized. No mastoid effusion. Orbits: Thinning of the lenses of the globes consistent with prior lens surgery. IMPRESSION: 1. The exam is moderately motion degraded. 2. Numerous small acute to subacute infarcts, most likely embolic; numerous infarcts are present in the left hemispheric deep white matter including infarcts extending to left parietal cortex, there are small, separate, acute infarcts of the left precentral gyrus. Electronically signed by: Shira Farris On 12/06/2018 16:05:55 PM
--- NOTE | 2018-12-06 16:12 | REPVR ---
EXAM: MR Angiogram Head Without Contrast, Arteries EXAM DATE/TIME: 12/06/2018 1:39 PM CLINICAL HISTORY: 78 years old, female; Speech disturbance; Aphasia; Patient HX: ? CVA, carotid S/P carotid endartectomy; Additional info: Neuro exam changes S/P carotid endarterectomy c/b bleeding TECHNIQUE: Imaging protocol: MR angiogram head without contrast. Exam focused on the arteries. COMPARISON: MRA BRAIN W/O CONTRAST 10/12/2018 8:03 PM FINDINGS: Right internal carotid artery: No definite proximal stenosis or occlusion. Right anterior cerebral artery: No definite proximal stenosis or occlusion. Right middle cerebral artery: No definite proximal stenosis or occlusion. Right posterior cerebral artery: No definite proximal stenosis or occlusion. Right vertebral artery: No definite stenosis or occlusion. Left internal carotid artery: Essential absence of left ICA flow related enhancement, a new finding since prior. There may be some trace collateral flow in the cavernous segment of the left ICA. Left anterior cerebral artery: No definite proximal stenosis or occlusion. Left middle cerebral artery: The left middle cerebral artery is poorly evaluated due to motion. There may be some flow in the left M1; the left MCA M1 appears diminutive compared to the prior study and diminutive compared to the contralateral side. Left posterior cerebral artery: No definite proximal stenosis or occlusion. Left vertebral artery: The proximal cisternal left vertebral artery is occluded. There is retrograde filling of the distal left V4, as before. Basilar artery: No definite stenosis or occlusion. IMPRESSION: 1. The exam is markedly limited due to motion artifacts. 2. Left ICA occlusion is new since the prior study. 3. A paucity of flow in the left MCA. Electronically signed by: Shira Farris On 12/06/2018 16:12:37 PM
[2018-12-06] MEDS ORDERED: HEPARIN DRIP 25,000 UNITS in IV 1 EA IV SCH ×4 (16:44)
[2018-12-06] MEDS ORDERED: HEPARIN SOD (PORCINE) 5000 UNITS/ML VIAL IV PRN (16:45)
[2018-12-06] MEDS ORDERED: HEPARIN SOD (PORCINE) 5000 UNITS/ML VIAL IV ONE (16:45)
[2018-12-06] MEDS ORDERED: METOPROLOL 5 MG/5 ML VIAL IV PRN (17:10)
[2018-12-06] MEDS: D5W/0.9% SODIUM CHLORIDE 1,000 ML IV SCH (17:14)
[2018-12-06 17:21] LABS: HEMATOCRIT 25.5 % (36.0-47.0); HEMOGLOBIN 8.1 g/dl (12.0-15.5); MEAN CORPUSCULAR HEMOGLOBIN 28.8 pg (27.0-33.0); MEAN CORPUSCULAR HGB CONC 31.8 g/dl (32.0-36.5); MEAN CORPUSCULAR VOLUME 90.7 fl (80.0-96.0); PLATELET COUNT, AUTOMATED 106 10^3/uL (150-450); RED BLOOD COUNT 2.81 10^6/uL (4.00-5.40); WHITE BLOOD COUNT 17.5 10^3/uL (4.0-10.0)
--- NOTE | 2018-12-06 18:01 | IPNPDOC ---
Text Note Date of Service The patient was seen on 12/06/18. NOTE Interim events: -Overnight, had neurological decline -> no speech, staring with no response, could not move R arm (at baseline as mild residual L leg weakness) --> had noncon head CT with no acute changes -This AM, day nurse reported persistent neurologic decline and in speaking with Dr. Bowser we ordered an MRI/MRA -MRI/MRA showing numerous small acute to subacute infarcts, most likely embolic in the left hemispheric deep white matter extending to left parietal cortex, separate, acute infarcts of the left precentral gyrus, as well as left ICA occlusion and paucity of flow in the left MCA --> started on heparin gtt --> family updated (daughter at bedside) -HTN and tachycardic --> dc'd hydral and started metop IV Q 6 and labetalol (goal SBP 140 - 180) -Re-instated DNR status Objective: Vitals: see below General: Unresponsive,, at times restless, glassy eyes. Neck: Has a dressing over her left neck with moderate welling, with a drain and dressing over it. No grimacing on touching it, no surrounding erythema. Auscultation over neck with no stridor. Neuro: Unresponsive, withdraws to painful stimuli, when eyes are open does not track, no speech, L arm moving, in mitt, R arm 0/5, left lower extremity moving, right lower extremity moving. Lungs: Decreased breath sounds, otherwise clear, no crackles. Heart: Rapid irregularly irregular heart beat, no murmurs appreciated. Abdomen: Normoactive, soft, nontender. Extremities: Warm well perfused, no edema noted. LABS: Reviewed. See below Imagin12/06/2018: MRI brain w/o contrast: Brain: Small focus of true diffusion restriction in the right garcia radiata as well as multiple patchy foci of true diffusion restriction in the left garcia radiata/centrum semiovale deep white matter and left precentral gyrus, findings consistent with recent acute to subacute likely embolic infarcts. The patchy radially oriented infarcts in the left parietal deep white matter extend to left parietal cortex. There is a focal, acute infarct in the genu of the left internal capsule. Difficult to assess the presence or absence of cytotoxic edema on the T2 weighted imaging due to motion artifacts. No obvious parenchymal hemorrhage. The gradient echo sequence is quite motion degraded limiting evaluation for consideration. The brain demonstrates generalized volume patchy increased signal intensity in the deep white matter on the T2-weighted imaging most likely represents chronic small vessel ischemic change. Ventricles: The ventricles are mildly enlarged in keeping with volume loss. Stable. Bones/joints: Poorly evaluated due to motion artifacts. The Soft tissues: Unremarkable. Sinuses: Normal as visualized. No acute sinusitis. Mastoid air cells: Normal as visualized. No mastoid effusion. Orbits: Thinning of the lenses of the globes consistent with prior lens surgery. IMPRESSION: 1. The exam is moderately motion degraded. 2. Numerous small acute to subacute infarcts, most likely embolic; numerous FINDINGS: Right internal carotid artery: No definite proximal stenosis or occlusion. Right anterior cerebral artery: No definite proximal stenosis or occlusion. Right middle cerebral artery: No definite proximal stenosis or occlusion. Right posterior cerebral artery: No definite proximal stenosis or occlusion. Right vertebral artery: No definite stenosis or occlusion. 12/06: MRA brain without contrast Left internal carotid artery: Essential absence of left ICA flow related enhancement, a new finding since prior. There may be some trace collateral flow in the cavernous segment of the left ICA. Left anterior cerebral artery: No definite proximal stenosis or occlusion. Left middle cerebral artery: The left middle cerebral artery is poorly evaluated due to motion. There may be some flow in the left M1; the left MCA M1 appears diminutive compared to the prior study and diminutive compared to the contralateral side. Left posterior cerebral artery: No definite proximal stenosis or occlusion. Left vertebral artery: The proximal cisternal left vertebral artery is occluded. There is retrograde filling of the distal left V4, as before. Basilar artery: No definite stenosis or occlusion. IMPRESSION: 1. The exam is markedly limited due to motion artifacts. 2. Left ICA occlusion is new since the prior study. 3. A paucity of flow in the left MCA. Assessment: 78 yo Woman with a complex medical history including a left occipital CVA in 03/2018, AF on eliquis, HTN, HLD, PAD, who underwent an elective left carotid endarterectomy and her post op course was c/b bleeding and admitted to the ICU. Her course is now further c/b acute neurological decline that prompted imaging that showed new likely embolic strokes in the left hemispheric deep white matter extending to left parietal cortex and left precentral gyrus, as well as left ICA occlusion and paucity of flow in the left MCA. PLAN: CVA: Neurologic exam changes with new right arm paresis, reduced alertness. -noncon head CT at onset was unremarkable -Follow up MRI/MRA brain showed numerous small acute to subacute infarcts, most likely embolic in the left hemispheric deep white matter extending to left parietal cortex, separate, acute infarcts of the left precentral gyrus, as well as left ICA occlusion and paucity of flow in the left MCA -Dc'd eliquis as patient NPO -started heparin drip -check follow up CT at midnight -neurology consult -updated code status back to DNR -NPO status -continue telemetry -EEG tomorrow per neurology -Check with radiology size of territory to prognosticate risk of hemorrhagic conversion -Dr. Bowser aware of acute changes and plan Atrial fibrillation with rapid ventricular response. -Continue IV digoxin 0.25 IV daily. -metop 5Q6 PRN for HR>110 Hypoxemic respiratory failire: -s/p extubation, doing well on 1L NC -has upper airway transmitted sounds but otherwise clear and no stridor, will monitor Hypertension: In hypertensive crisis with SBP>190 -Started labetalol 10Q6, switched from hydralazine that was likely contributing a reflex tachycardia -Goal SBP 140-180. Can increase labetalol up to 20 Q6H or start on labetalol gtt if necessary to control BP Hyperlipidemia: -Switched lipitor 20mg to 80mg History of depression: -Holding Wellbutrin 75 mg BID while NPO Anemia secondary to blood loss. -s/p units of packed red blood cells. -daily CBC, with no evidence of bleeding, hematoma expansion or increased drain output, will monitor Diet: NPO DVT prophylaxis: on therapeutic hepariin gtt Code Status: DNR Dispo: ICU VS,Fishbone, I+O VS, Fishbone, I+O Laboratory Tests 12/06/18 04:20 Red Blood Count 2.91 L, Mean Corpuscular Volume 89.7, Mean Corpuscular Hemoglobin 28.2, Mean Corpuscular Hemoglobin Concent 31.4 L, Red Cell D istribution Width 17.2 H, Calcium Level 7.8 L Vital Signs Date Time Temp Pulse Resp B/P (MAP) Pulse Ox O2 Delivery O2 Flow Rate FiO2 12/06/18 16:13 100 199/86 12/06/18 12:00 95 1.0 12/06/18 10:00 20 12/06/18 08:00 98.4 12/06/18 07:56 Nasal Cannula 12/06/18 03:00 28 I&O- Last 24 Hours up to 6 AM 12/06/18 06:00 Intake Total 4100 ml Output Total 1885 ml Balance 2215 ml TI BOUCHER MD Dec 06, 2018 16:52
[2018-12-06] MEDS ORDERED: LABETALOL HCL 200 MG in D5W 160 ML IV SCH (19:00)
--- NOTE | 2018-12-06 19:57 | CCN ---
DATE: 12/06/2018 I again attended Oksana Amos. She remains extubated. During the night she had a change in her mental status with confusion. She does move all extremities. She does not follow commands. Maximum temperature (Tmax) overnight 98, blood pressure generally in the 180s, heart rate 90-110, remains in atrial fibrillation, respiratory at 18-20 without accessory muscle use. She is generally on room air or 1 liter nasal cannula oxygen flow. Blood gas this morning done on several liters nasal flow shows a pH of 7.439, pCO2 of 29.7, pO2 of 195.9. Sodium 134, potassium 3.6, chloride 103, CO2 21, BUN 12, creatinine 0.84, white blood cell count 19,000, hemoglobin 8.2, No new chest x-ray this morning. She had a CT of the head done at 0329 hours which shows no acute changes. On exam, she is awake but does not follow commands. Does not interact. Pupils do react. Her incision and dressings are intact. Drain is in place. Trachea is in the midline. Membranes are moist. Chest shows a kyphosis with decreased breath sounds intensity. There is some coarse expiratory noise as well as inspiratory and it is all localized to the pharynx. No wheezing of the lower benitez. Cardiac exam is mildly tachycardic and irregularly irregular. peripheral pulses diminished,but palpable. There is edema, more in the hands than the feet. Abdomen is soft. There are active bowel sounds. Extremities: No cyanosis or clubbing. Neurologically: As outlined above, she does move all extremities but seems to be weaker in the upper extremities, right greater than left. No obvious facial droop. IMPRESSION: 1. Underlying obstructive lung disease. 2. Status post redo of left carotid. 3. Blood loss anemia. 4. Mental status changes. 5. Atrial fibrillation. RECOMMENDATIONS: At this point, her mental status is the main concern. There does not seem to be an acute CVA, although I do not have any other cause. She did not get any medications. She was only briefly hypotensive at about 0300 hours this morning. She has some intermittent difficulty with secretions and these all seem to be upper airway and we will assist her with this as best we can. I am in agreement with the remainder of her plan as outlined by primary service and vascular surgery. We will continue to follow as needed. Further recommendations will be made in the progress records as new information becomes available. MTDD
[2018-12-06] MEDS: PANTOPRAZOLE 40MG INJ (PROTONIX) (C9113) IV SCH (20:14)
[2018-12-06] MEDS: LABETALOL HCL 200 MG in D5W 160 ML IV SCH (20:23)
[2018-12-06] MEDS ORDERED: ENOXAPARIN 60 MG/0.6 ML SYR (J1650) SC SCH (21:00)
[2018-12-07] VITALS (73 sets, daily range): BP systolic 100–207; BP diastolic 49–110
--- NOTE | 2018-12-07 00:44 | REPVR ---
EXAM: CT Head Without Contrast EXAM DATE/TIME: 12/07/2018 12:13 AM CLINICAL HISTORY: 78 years old, female; Other: CVA; Additional info: Acute embolic CVA on heparin, follow up TECHNIQUE: Imaging protocol: Computed tomography of the head without contrast. Radiation optimization: All CT scans at this facility use at least one of these dose optimization techniques: automated exposure control; mA and/or kV adjustment per patient size (includes targeted exams where dose is matched to clinical indication); or iterative reconstruction. COMPARISON: CT Head without contrast 12/06/2018 3:39 AM, MRI brain from 12/06/2018 FINDINGS: Brain: Scattered multifocal areas of low attenuation within the bilateral centrum semiovale, left greater than right, compatible with known subacute infarcts as visualized on prior MRI brain. No evidence of acute intracranial hemorrhage. Additional areas of nonspecific hypodensities of the periventricular and deep subcortical white matter, most likely secondary to chronic small vessel ischemic change. No evidence of mass effect or midline shift. Ventricles: Prominence of the ventricles and sulci, most likely attributed to parenchymal volume loss. Bones/joints: No acute osseus lesion or fracture. Sinuses: Unremarkable as visualized. Mastoid air cells: Unremarkable. Soft tissues: Unremarkable. IMPRESSION: Scattered multifocal areas of low attenuation within the bilateral centrum semiovale, left greater than right, compatible with known subacute infarcts as visualized on prior MRI brain. No evidence of acute intracranial hemorrhage. Electronically signed by: Daniel Berry On 12/07/2018 00:43:33 AM
[2018-12-07] MEDS: IPRATROPIUM 0.5MG/ALBUTEROL 2.5MG INH SOL UD 3ML (DUONEB)(J7620) NEB SCH ×7 (04:56→23:57)
[2018-12-07] MEDS: D5W/0.9% SODIUM CHLORIDE 1,000 ML IV SCH ×2 (05:07→17:38)
[2018-12-07 05:14] LABS: HEMATOCRIT 22.2 % (36.0-47.0); HEMOGLOBIN 7.1 g/dl (12.0-15.5); MEAN CORPUSCULAR HEMOGLOBIN 29.2 pg (27.0-33.0); MEAN CORPUSCULAR VOLUME 91.4 fl (80.0-96.0); PLATELET COUNT, AUTOMATED 103 10^3/uL (150-450); RED BLOOD COUNT 2.43 10^6/uL (4.00-5.40); WHITE BLOOD COUNT 12.3 10^3/uL (4.0-10.0)
[2018-12-07 05:25] LABS: BLOOD UREA NITROGEN 8 MG/DL (7-18); CALCIUM LEVEL 7.8 MG/DL (8.8-10.2); CARBON DIOXIDE LEVEL 19 MEQ/L (21-32); CHLORIDE LEVEL 103 MEQ/L (98-107); CREATININE FOR GFR 0.59 MG/DL (0.55-1.30); GLOMERULAR FILTRATION RATE > 60.0 (>32); GLUCOSE, FASTING 115 MG/DL (70-100); POTASSIUM SERUM 3.6 MEQ/L (3.5-5.1); SODIUM LEVEL 131 MEQ/L (136-145)
[2018-12-07 05:42] LABS: ABG BASE EXCESS -0.1 (-2.0-2.0); ABG HCO3 22.5 MEQ/L (22.0-26.0); ABG O2 SATURATION 99.3 % (95.0-99.0); ABG PARTIAL PRESSURE CO2 28.2 mmHg (35.0-45.0); ABG PARTIAL PRESSURE O2 142.4 mmHg (75.0-100.0); ABG STANDARD HCO3 24.5 MEQ/L (22.0-26.0); ABG TOTAL CO2 23.4 MEQ/L (23.0-31.0)
[2018-12-07] MEDS ORDERED: ATORVASTATIN 20 MG TAB PO SCH (09:00)
[2018-12-07] MEDS ORDERED: FUROSEMIDE 20 MG/2 ML VIAL (J1940) IV ONE (10:00)
[2018-12-07] MEDS: DIGOXIN INJ 0.5 MG/2 ML AMP (J1160) IV SCH (10:34)
--- NOTE | 2018-12-07 11:47 | IPN ---
DATE: 12/07/2018 I again attended [facility]. Patient has been examined and chart is reviewed. I have spoken at length with the daughter at the bedside. T-max overnight 99 degrees. Blood pressure 130s and at times 200s. Heart rate 80s to 120s and remains in atrial fibrillation. Respiratory rate about 18-22 without obvious accessory muscle use. She remains on 2 liters nasal cannula with generally saturations in the 90s. Ins and outs midnight to midnight 2665 mL in with 2190 mL out. On exam, she is more interactive today as she does at least responding to voice by acknowledging voice and making at least some facial expressions for interaction. Much more of a pronounced left facial droop today. Pupils do react. Sclera clear. Lungs again show transmitted upper airway noise. Some fine crackles at the extreme bases. Expansion although diminished is symmetric and no other focal adventitious brought sounds are identified. Cardiac exam is irregularly irregular. Peripheral pulses diminished but palpable. Edema persists. Abdomen is soft with active bowel sounds. No obvious organomegaly or masses. Extremities show no cyanosis or clubbing. Neurologically, again she has a left facial droop. Right upper extremity is weaker today. She does move the right lower extremity. Left side is with reasonably normal function. Sodium of 131, potassium of 3.6, chloride 103, CO2 19, BUN 8, creatinine 0.59, glucose 115. White blood cell count 12.3, hemoglobin 7.1, platelet count 103,000. Blood gas done this morning on 2 liters nasal cannula shows pH of 7.52, pCO2 28.2, and pO2 of 142.4. No new chest imaging today. IMPRESSION: Advanced obstructive lung disease. Intermittent difficulty with mal clearance of secretions. Clinical presentation consistent with cerebrovascular accident (CVA). Advanced atherosclerotic cerebrovascular disease. RECOMMENDATIONS: At this point, I think she is a DO NOT RESUSCITATE. I think that is appropriate. She is a little more interactive today. I had a very lengthy discussion at the bedside with the daughter. She understands the situation. I am told they plan transfusion today. We will continue supportive care and attempts at helping her clear secretions. The more she is able to be up the better. We will continue as outlined above. Ulcer and deep vein thrombosis (DVT) prophylaxis is managed by the primary service. We will proceed as outlined above. Further recommendations will be made in the progress as new information becomes available.
[2018-12-07] MEDS: MORPHINE 4 MG/ML 1ML VIAL/SYRINGE (J2270) IV PRN ×2 (12:09→22:04)
[2018-12-07] MEDS: PANTOPRAZOLE 40MG INJ (PROTONIX) (C9113) IV SCH (17:38)
[2018-12-07] MEDS: LABETALOL HCL 200 MG in D5W 160 ML IV SCH (20:15)
--- NOTE | 2018-12-07 23:01 | IPNPDOC ---
Text Note Date of Service The patient was seen on 12/07/18. NOTE Interim events: -More interactive today -overnight head CT was stable, no bleeding -dropped 1u on H/H, so lovenox held -given 2 units of blood and lasix 20 IV -continues on labetalol for BP control with PRN pushes of metop IV for sustained tachycardia Objective: Vitals: see below General: Unresponsive,, at times restless, glassy eyes. Neck: Has a dressing over her left neck with moderate welling, with a drain and dressing over it. No grimacing on touching it, no surrounding erythema. Auscultation over neck with no stridor. Neuro: Awake on voice, tracking, severe R facial droop, R arm paralysis, moving R leg. Left us intact. Lungs: Decreased breath sounds, otherwise clear, no crackles. Heart: Irregularly irregular heart beat, no murmurs appreciated. Abdomen: Normoactive, soft, nontender. Extremities: Warm well perfused, no edema noted. LABS: Reviewed. See below Imagin12/06/2018: MRI brain w/o contrast: Brain: Small focus of true diffusion restriction in the right garcia radiata as well as multiple patchy foci of true diffusion restriction in the left garcia radiata/centrum semiovale deep white matter and left precentral gyrus, findings consistent with recent acute to subacute likely embolic infarcts. The patchy radially oriented infarcts in the left parietal deep white matter extend to left parietal cortex. There is a focal, acute infarct in the genu of the left internal capsule. Difficult to assess the presence or absence of cytotoxic edema on the T2 weighted imaging due to motion artifacts. No obvious parenchymal hemorrhage. The gradient echo sequence is quite motion degraded limiting evaluation for consideration. The brain demonstrates generalized volume patchy increased signal intensity in the deep white matter on the T2-weighted imaging most likely represents chronic small vessel ischemic change. Ventricles: The ventricles are mildly enlarged in keeping with volume loss. Stable. Bones/joints: Poorly evaluated due to motion artifacts. The Soft tissues: Unremarkable. Sinuses: Normal as visualized. No acute sinusitis. Mastoid air cells: Normal as visualized. No mastoid effusion. Orbits: Thinning of the lenses of the globes consistent with prior lens surgery. IMPRESSION: 1. The exam is moderately motion degraded. 2. Numerous small acute to subacute infarcts, most likely embolic; numerous FINDINGS: Right internal carotid artery: No definite proximal stenosis or occlusion. Right anterior cerebral artery: No definite proximal stenosis or occlusion. Right middle cerebral artery: No definite proximal stenosis or occlusion. Right posterior cerebral artery: No definite proximal stenosis or occlusion. Right vertebral artery: No definite stenosis or occlusion. 12/06: MRA brain without contrast Left internal carotid artery: Essential absence of left ICA flow related enhancement, a new finding since prior. There may be some trace collateral flow in the cavernous segment of the left ICA. Left anterior cerebral artery: No definite proximal stenosis or occlusion. Left middle cerebral artery: The left middle cerebral artery is poorly evaluated due to motion. There may be some flow in the left M1; the left MCA M1 appears diminutive compared to the prior study and diminutive compared to the contralateral side. Left posterior cerebral artery: No definite proximal stenosis or occlusion. Left vertebral artery: The proximal cisternal left vertebral artery is occluded. There is retrograde filling of the distal left V4, as before. Basilar artery: No definite stenosis or occlusion. IMPRESSION: 1. The exam is markedly limited due to motion artifacts. 2. Left ICA occlusion is new since the prior study. 3. A paucity of flow in the left MCA. 12/07/2018: non contrast head CT: Scattered multifocal areas of low attenuation within the bilateral centrum semiovale, left greater than right, compatible with known subacute infarcts as visualized on prior MRI brain. No evidence of acute intracranial hemorrhage. Assessment: 78 yo Woman with a complex medical history including a left occipital CVA in 03/2018, AF on eliquis, HTN, HLD, PAD, who underwent an elective left carotid endarterectomy and her post op course was c/b bleeding and admitted to the ICU. Her course is now further c/b acute neurological decline that prompted imaging that showed new likely embolic strokes in the left hemispheric deep white matter extending to left parietal cortex and left precentral gyrus, as well as left ICA occlusion and paucity of flow in the left MCA and hemoglobin drop in trial of anticoagulation. PLAN: CVA: Neurologic exam changes with new right arm paresis and severe R droop. -Dc'd lovenox as patient had H/H drop -s/p 2u of blood -neurology consulted, appreciate recs -NPO status -continue telemetry -EEG ordered -Dr. Bowser aware of acute changes and plan Atrial fibrillation with rapid ventricular response. -Continue IV digoxin 0.25 IV daily. -metop 5Q6 PRN for HR>110 -rate controlled Hypoxemic respiratory failire: -s/p extubation, doing well on 2L NC -has upper airway transmitted sounds but otherwise clear and no stridor, will monitor Hypertension: In hypertensive crisis with SBP>190 -continue labetalol gtt, goal SMP 160 -80 Hyperlipidemia: -Lipitor 80mg History of depression: -Holding Wellbutrin 75 mg BID while NPO Anemia secondary to blood loss. -s/p units of packed red blood cells. -daily CBC, with no evidence of bleeding, hematoma expansion or increased drain output, will monitor Diet: NPO DVT prophylaxis: held in the setting of a hemoglobin drop Code Status: DNR Dispo: ICU VS,Klaudia, I+O VS, Klaudia, I+O Laboratory Tests 12/07/18 04:54 Red Blood Count 2.43 L, Mean Corpuscular Volume 91.4, Mean Corpuscular Hemoglobin 29.2, Mean Corpuscular Hemoglobin Concent 32.0, Red Cell Distribution Width 17.2 H, Calcium Level 7.8 L Vital Signs Date Time Temp Pulse Resp B/P (MAP) Pulse Ox O2 Delivery O2 Flow Rate FiO2 12/07/18 22:04 18 12/07/18 21:59 89 120/57 (78) 94 12/07/18 20:00 2.0 12/07/18 19:59 98.4 12/06/18 07:56 Nasal Cannula 12/06/18 03:00 28 I&O- Last 24 Hours up to 6 AM 12/07/18 06:00 Intake Total 2242 ml Output Total 1880 ml Balance 362 ml TI BOUCHER MD Dec 07, 2018 23:01
[2018-12-08] VITALS (47 sets, daily range): BP systolic 83–227; BP diastolic 45–100
[2018-12-08] MEDS: IPRATROPIUM 0.5MG/ALBUTEROL 2.5MG INH SOL UD 3ML (DUONEB)(J7620) NEB SCH ×5 (02:49→20:23)
[2018-12-08 04:56] LABS: HEMATOCRIT 31.9 % (36.0-47.0); MEAN CORPUSCULAR HEMOGLOBIN 29.4 pg (27.0-33.0); MEAN CORPUSCULAR HGB CONC 33.5 g/dl (32.0-36.5); MEAN CORPUSCULAR VOLUME 87.6 fl (80.0-96.0); PLATELET COUNT, AUTOMATED 119 10^3/uL (150-450); RED BLOOD COUNT 3.64 10^6/uL (4.00-5.40); WHITE BLOOD COUNT 9.6 10^3/uL (4.0-10.0)
[2018-12-08 04:58] LABS: HEMOGLOBIN 10.7 g/dl (12.0-15.5)
[2018-12-08 05:16] LABS: BLOOD UREA NITROGEN 8 MG/DL (7-18); CALCIUM LEVEL 7.9 MG/DL (8.8-10.2); CARBON DIOXIDE LEVEL 26 MEQ/L (21-32); CHLORIDE LEVEL 105 MEQ/L (98-107); CREATININE FOR GFR 0.61 MG/DL (0.55-1.30); GLOMERULAR FILTRATION RATE > 60.0 (>32); GLUCOSE, FASTING 114 MG/DL (70-100); POTASSIUM SERUM 3.2 MEQ/L (3.5-5.1); SODIUM LEVEL 138 MEQ/L (136-145)
[2018-12-08] MEDS: D5W/0.9% SODIUM CHLORIDE 1,000 ML IV SCH ×2 (06:04→20:20)
[2018-12-08 06:21] LABS: ABG BASE EXCESS -0.7 (-2.0-2.0); ABG HCO3 23.8 MEQ/L (22.0-26.0); ABG O2 SATURATION 97.2 % (95.0-99.0); ABG PARTIAL PRESSURE CO2 38.5 mmHg (35.0-45.0); ABG PARTIAL PRESSURE O2 95.7 mmHg (75.0-100.0); ABG STANDARD HCO3 23.9 MEQ/L (22.0-26.0); ABG pH (ARTERIAL) 7.409 UNITS (7.350-7.450)
[2018-12-08] MEDS ORDERED: DEXTROSE 50% 50 ML SYRINGE IV PRN (07:30)
[2018-12-08] MEDS ORDERED: GLUCOSE 4 GM CHEW TABLET PO PRN (07:30)
[2018-12-08] MEDS ORDERED: GLUCAGON FOR INJ 1 MG VIAL (J1610) SC PRN (07:30)
[2018-12-08] MEDS: KCL 10MEQ/100ML SWI (KRUN) 10 MEQ in IV 1 EA IV SCH ×3 (08:00→11:02)
[2018-12-08] MEDS: LABETALOL HCL 200 MG in D5W 160 ML IV SCH (09:24)
[2018-12-08] MEDS: DIGOXIN INJ 0.5 MG/2 ML AMP (J1160) IV SCH (09:25)
--- NOTE | 2018-12-08 10:13 | CCN ---
DATE OF VISIT: 12/08/2018 I again attended [facility]. I spoke at length with the daughter at the bedside, as well. I have spoken with the vascular surgery service this morning. Maximum temperature (Tmax) overnight 97.9, blood pressure 122-180 systolic, heart rate generally in the 80s-90s, and remains in atrial fibrillation, respiratory rate 18-22 without obvious accessory muscle use. HEENT again shows her left facial droop. Pupils do react. Membranes are moist. Trachea is in the midline. Chest shows diminished but symmetric expansion. There is again transmitted upper airway noise. There are some basilar crackles, more early inspiratory. No other focal adventitious breath sounds are identified. Cardiovascular examination: Is irregularly irregular. Peripheral pulses are diminished but palpable. There is trace edema. The abdomen is soft with active bowel sounds. Extremities show no cyanosis or clubbing. Neurologically, she does follow movement in the room and is somewhat interactive. She remains with a right-sided plegia. LABORATORIES: White blood cell count 9.6, hemoglobin 10.7, platelet count 119,000. Sodium 138, potassium of 3.2, chloride 105, CO2 26, BUN 8, creatinine 0.61, glucose 114. Blood gas done this morning on 2 liters nasal cannula shows a pH of 7.409, pCO2 of 38.5, pO2 of 95.7. IMPRESSION: 1. Underlying obstructive lung disease. 2. Longstanding previous tobacco abuse. 3. Hypoxemic respiratory failure, compensated on supplemental oxygen. 4. Vascular disease, status post left carotid endarterectomy, redo. 5. Chronic anticoagulation. RECOMMENDATIONS: A very lengthy discussion was again had with the daughter at the bedside. She has questions regarding overall status. Certainly, regarding her vascular disease, I would defer to the primary service and vascular surgery. We will continue her current pulmonary regimen. Her cough is a little more efficient today, and she is able to clear some secretions. We will continue on her nebulizer with bronchodilators. My concern is nutrition. She should either begin on total parenteral nutrition (TPN) or have placement of a small-caliber nasogastric tube to begin enteral feeds. Certainly, she is at significant increase for aspiration, and I would feed her only when she is sitting upright and try to avoid feeds at night. One could consider almost bolus feeds if need be. The other option would be either percutaneous endoscopic gastrostomy (PEG) or preferably a feeding jejunostomy if she is not felt to be in a position where she will have meaning recovery of the ability to protect her upper airway from aspiration. Swallowing study is pending at this point in time. Will proceed as outlined above. She remains fully anticoagulated per recommendations of vascular surgery. She is in very high likelihood for further compromise, and I did discuss that with her daughter. She remains a DO NOT RESUSCITATE (DNR) and DO NOT INTUBATE (DNI), and I believe this is very appropriate. Further recommendations will be made in the progress records as new information becomes available.
[2018-12-08] MEDS: hydrALAZINE INJ 20 MG/ML VIAL IV PRN ×3 (10:34→18:17)
[2018-12-08] MEDS: ENOXAPARIN 60 MG/0.6 ML SYR (J1650) SC SCH ×2 (10:35→20:20)
[2018-12-08] MEDS ORDERED: LIDOCAINE 1% MDV 20ML VIAL As Ordered ONE (16:16)
[2018-12-08] MEDS ORDERED: LABETALOL HCL 200 MG in D5W 160 ML IV SCH ×2 (17:00→19:00)
[2018-12-08] MEDS: SODIUM CHLORIDE 0.9% INJ 10 ML SYR IV SCH (18:00)
[2018-12-08] MEDS: PANTOPRAZOLE 40MG INJ (PROTONIX) (C9113) IV SCH (18:16)
--- NOTE | 2018-12-08 19:02 | REP ---
PORTABLE CHEST: AP portable view of the chest is performed and compared to multiple prior exams, most recently 12/05/2018. There is mild cardiomegaly and vascular congestion again noted. Prominent interstitial markings are again noted diffusely bilaterally. Consolidative opacity in the left base has improved with patchy residual atelectasis or infiltrate. There is also some mild patchy atelectasis or infiltrate in the right base. There is calcification of the thoracic aorta. The mediastinal silhouette is unchanged. There is a right arm PICC line with the tip in the superior vena cava. Endotracheal tube has been removed. Nasogastric tube has been removed. IMPRESSION: Improved left basilar consolidation. There is mild patchy bibasilar atelectasis/infiltrate. Cardiomegaly and vascular congestion with diffuse increase in interstitial markings. Electronically Signed by Marcelo Hooper MD 12/10/2018 04:35 P
--- NOTE | 2018-12-08 19:05 | IPN ---
DATE: 12/08/2018 SUBJECTIVE: The patient continues to be minimally responsive. She does withdraw to pain bilateral lower extremities and winces to pain. She does have purposeful movements. She, however, does not keep her eyes open. Blood gases are within normal this morning as well as the ammonia level of 26. Repeat CT of the brain shows scattered multifocal infarcts, left greater than the right, compatible with known subacute infarct seen on prior MRI of the brain. 12/06/2018 MRI of the brain shows left internal carotid artery (ICA) occlusion which is new and paucity of flow in the left middle cerebral artery (MCA). The patient is currently not following commands but is able to open her eyes spontaneously, reverts back quickly. Urine output overnight has been 2.0 liters. Current weight is 58.6 kg. Input of 2.4 liters. OBJECTIVE: PHYSICAL EXAMINATION: VITAL SIGNS: Temperature 97.5, pulse 80, respiratory rate 20, blood pressure 132/63, 98% on two liters nasal cannula. GENERAL: The patient continues to be lethargic with persistent left-sided facial droop, minimally responsive but does have purposeful movement. She has poor dentition, missing teeth. No jugular venous distention (JVD). No thyromegaly. Left carotid endarterectomy scar with some dried blood. LUNGS: Sound diminished with bibasilar crackles. HEART: S1, S2, irregularly irregular. ABDOMEN: Soft, nontender, nondistended. Positive bowel sounds. No rebound, guarding. No hepatosplenomegaly. No abdominal bruits. Torres catheter in place. EXTREMITIES: No cyanosis or clubbing. There is trace edema bilaterally. NEUROLOGIC: The patient continues to have right-sided weakness, does not follow commands consistently, is awake, alert to her name, unable to speak and unable to follow commands. HOSPITAL MEDICATIONS: Hydralazine, Lovenox, labetalol, Protonix, metoprolol, D5 normal saline, digoxin, morphine, Dulcolax, DuoNeb. LABORATORY DATA: White count 9.6, hemoglobin 10, hematocrit 31, platelet count 119. Sodium 138, potassium 3.2, chloride 105, bicarbonate 26, BUN 8, creatinine 0.61, glucose of 114. IMAGING STUDIES: 12/06/2018 MRI: Left internal carotid artery occlusion with paucity of flow in the MCA. CT of the head shows scattered multifocal low attenuation, bilateral centrum semiovale, left greater than right, compatible with known subacute infarct. ASSESSMENT AND PLAN: This is an 78-year-old female a history of left occipital cerebrovascular accident (CVA) in March of 2018, peripheral arterial disease with elective left carotid endarterectomy, hyperlipidemia, hypertension, atrial fibrillation on chronic Eliquis, presented after elective left carotid endarterectomy with postoperative bleeding, admitted to intensive care unit (ICU) with progressive lethargy, found to have a new embolic strokes in left hemisphere, deep white matter in the left parietal cortex, left precentral gyrus, and left internal carotid artery (ICA) occlusion with paucity of flow in left middle cerebral artery (MCA) and severe anemia secondary to blood loss requiring red blood cell transfusion with hemoglobin of 7.1, hematocrit of 22, status post four units of leukocyte reduced red blood cells. Repeat CT of the head continues to show subacute infarct. No mass effect or midline shift. The patient has not had any seizure activity. The patient has kept her blood pressure with as-needed hydralazine for a systolic pressure greater than 180 and labetalol drip to titrate her blood pressure 160-180. CURRENT ACUTE ISSUES: 1. Left internal carotid artery (ICA) occlusion with left middle cerebral artery (MCA) cerebrovascular accident (CVA) with right facial droop and right arm weakness. She is admitted to telemetry with continued monitoring, neurologic checks. Neurologist, Dr. Richter, has been consulted. She is currently nothing by mouth due to aspiration risk. Swallow evaluation will be obtained. Nasogastric tube has been unsuccessful times three attempts. The patient will be sent for a peripherally inserted central catheter (PICC) line for total parenteral nutrition (TPN). District Director has been consulted. She has been restarted back on Lovenox 1 mg/kg subcutaneous every [address] Bowser's recommendations. EEG has been ordered. She is continued on telemetry monitoring. 2. Acute encephalopathy secondary to CVA with difficulty with mal clearance of secretions and aspiration risk in light of new CVA. Dr. Alcocer has been consulted. She remains DO NOT RESUSCITATE/DO NOT INTUBATE. Arterial blood gases are within normal limits despite confusion and altered mental status as is ammonia level. 3. Acute blood loss anemia secondary to carotid endarterectomy, status post four units red blood cell (RBC) transfusion. Hemoglobin is holding steady at the moment with no recurrent signs of bleeding. 4. Acute hypoxic respiratory failure, resolved, status post extubation, currently on nasal cannula, managed by Dr. Alcocer, saturating well on supplemental oxygen. 5. Hypertensive crisis with systolic pressure greater than 200. The patient has a labetalol drop, IV hydralazine as needed for holding parameters. Goal blood pressure 160-180. 6. Dyslipidemia. Continued on Lipitor. Registered nurse (RN) was able to crush her medications. Swallow evaluation to be done today. Continue with nothing by mouth status. 7. Code status is DO NOT RESUSCITATE/DO NOT INTUBATE. Diet is nothing by mouth due to aspiration risk. Await swallow evaluation. PICC line placement for TPN and campaign advisor consulted. MALIK
[2018-12-09] VITALS (56 sets, daily range): BP systolic 111–196; BP diastolic 56–83
[2018-12-09] MEDS: IPRATROPIUM 0.5MG/ALBUTEROL 2.5MG INH SOL UD 3ML (DUONEB)(J7620) NEB SCH ×5 (00:33→19:54)
[2018-12-09] MEDS: hydrALAZINE INJ 20 MG/ML VIAL IV PRN (03:35)
[2018-12-09] MEDS: SODIUM CHLORIDE 0.9% INJ 10 ML SYR IV SCH ×2 (05:08→18:40)
--- NOTE | 2018-12-09 05:46 | CR ---
DATE OF CONSULTATION: 12/08/2018 REFERRING PHYSICIAN: Dr. Jennifer Zuniga REASON FOR CONSULTATION: Altered mental status and right-sided weakness. HISTORY OF PRESENT ILLNESS: Oksana Amos is an 78-year-old woman who was admitted at [facility] on December 04, 2018. The patient had an elective left carotid endarterectomy complicated by 1100 mL of blood loss. The patient was intubated in recovery room after surgery and was admitted to hospitalist service. Her blood pressure at that time was in the systolic 80s. She was in atrial fibrillation with rapid ventricular response, heart rate around 120. Between night of December 05 - , she had a decline in her mental status. She developed more speech trouble and right arm was noted to be weaker than her leg. She also received intravenous hydration for mild acute renal injury with creatinine 1.219. I was consulted today as the patient's neurological status has not improved. At the time of her admission the patient was on Eliquis. She was unable to take all tablets so it was changed to Lovenox 68 mg subcutaneously twice a day. Her imaging studies are summarized below. The patient is currently unable to provide any meaningful history. History was obtained from electronic medical records and nursing staff. Her blood pressure running high and she is receiving intravenous medications to lower her blood pressure currently. DIAGNOSTIC STUDIES: MRI scan of brain showed multiple left frontal parietal and internal capsule acute - subacute ischemic strokes. CT scan of head showed right centrum semi-ovale ischemic stroke as well. MRA brain showed occlusion of left internal carotid artery and diminished flow in left middle cerebral artery. Hemoglobin was 10.7 with platelet count 119 and normal metabolic profile, calcium 7.9 with normal capital LFTs, capital ALT, capital AST and ammonia 26. PAST MEDICAL HISTORY: Left occipital stroke 2019, atrial fibrillation, hypertensive heart disease, dyslipidemia, right-sided breast cancer status post chemo and radiation therapy, left carotid endarterectomy 7 years ago, vitamin B12 deficiency, COPD left orbital fracture, depression, left hydronephrosis status post left ureteral stent mild cognitive impairment. ALLERGIES: SSRI which caused capital SIADH, scopolamine caused confusion. PAST SURGICAL HISTORY: Left carotid endarterectomy in 2011 right hip replacement, bladder biopsy left hip replacement, right breast lumpectomy, loop recorder placement. FAMILY HISTORY: Father of stroke. Mother of coronary artery disease. SOCIAL HISTORY: She quit smoking in 2017. She is DO NOT RESUSCITATE and DO NOT INTUBATE. CURRENT MEDICATIONS: Lovenox 60 mg subcutaneous twice a day, metoprolol 5 mg every 6 hours, hydralazine, digoxin 0.25 mg by mouth daily, Protonix 40 mg by mouth daily REVIEW OF SYSTEMS: All systems were reviewed and found to be noncontributory except as mentioned is present illness. PHYSICAL EXAMINATION: Temperature 98.7, pulse 88, respiratory rate 20, blood pressure to 217/93, heart irregularly irregular, crackles in the bases. She has minimal pedal edema. No signs of meningeal irritation. No tremor. Cerebellar and sensory examination could not be performed. The patient is drowsy. She opens her eyes to warble and painful stimuli but does not follow commands. She has much better withdrawal and left side and right arm. She appears to have right-sided upper motor neuron type facial weakness. She has weakness of right arm. Her right leg is stronger than right arm. Further motor sensory and cerebellar testing could not be performed. Gait could not be tested. Her right plantar is upgoing. She has brisk withdrawal to pain in legs and less withdrawal of right arm. ASSESSMENT: 1. Multiple left frontal parietal internal capsule and bilateral centrum semiovale acute-subacute ischemic strokes. 2. Recent left carotid endarterectomy. 3. Left internal carotid artery occlusion and diminish floor in left middle cerebral artery. 4. Atrial fibrillation. PLAN: 1. Await report of her EEG. 2. Check urinalysis, culture sensitivity and chest x-ray to rule out any infectious causes of her altered mental status, in addition to her recent strokes. 3.. The patient is currently on Lovenox 60 mg subcutaneous twice a day due to risk of recurrent strokes and risk factors described above. 4. We will reassess her in the next 24-48 hours for better idea about her prognosis for neurological recovery. MALIK
[2018-12-09] MEDS: D5W/0.9% SODIUM CHLORIDE 1,000 ML IV SCH ×2 (06:04→11:00)
[2018-12-09 06:06] LABS: HEMATOCRIT 29.2 % (36.0-47.0); HEMOGLOBIN 9.5 g/dl (12.0-15.5); MEAN CORPUSCULAR HEMOGLOBIN 29.3 pg (27.0-33.0); MEAN CORPUSCULAR HGB CONC 32.5 g/dl (32.0-36.5); MEAN CORPUSCULAR VOLUME 90.1 fl (80.0-96.0); PLATELET COUNT, AUTOMATED 121 10^3/uL (150-450); RED BLOOD COUNT 3.24 10^6/uL (4.00-5.40); WHITE BLOOD COUNT 10.5 10^3/uL (4.0-10.0)
[2018-12-09 06:10] LABS: ABG BASE EXCESS -0.5 (-2.0-2.0); ABG HCO3 23.3 MEQ/L (22.0-26.0); ABG O2 SATURATION 98.6 % (95.0-99.0); ABG PARTIAL PRESSURE CO2 35.1 mmHg (35.0-45.0); ABG PARTIAL PRESSURE O2 139.6 mmHg (75.0-100.0); ABG STANDARD HCO3 24.1 MEQ/L (22.0-26.0); ABG TOTAL CO2 24.4 MEQ/L (23.0-31.0)
[2018-12-09 06:30] LABS: BLOOD UREA NITROGEN 9 MG/DL (7-18); CALCIUM LEVEL 7.9 MG/DL (8.8-10.2); CARBON DIOXIDE LEVEL 26 MEQ/L (21-32); CHLORIDE LEVEL 107 MEQ/L (98-107); GLOMERULAR FILTRATION RATE > 60.0 (>32); GLUCOSE, FASTING 134 MG/DL (70-100); POTASSIUM SERUM 3.4 MEQ/L (3.5-5.1); SODIUM LEVEL 140 MEQ/L (136-145)
--- NOTE | 2018-12-09 06:42 | EEG ---
DATE OF PROCEDURE: 12/07/2018 MR#: [id number] REFERRING PHYSICIAN: Dr. Jaron Bowser DIAGNOSIS: Altered mental status after a stroke. EEG #: [id number] HISTORY: The patient is an 78-year-old woman who was admitted at [facility] due to left carotid endarterectomy complicated by bleeding at the site of surgery, left-sided stroke and altered mental status with left carotid artery occlusion. She has history of atrial fibrillation and takes Eliquis. TECHNICAL DESCRIPTION: This digital EEG was recorded by 21 scalp, ear and two EKG electrodes and was reviewed in bipolar and referential montages following reformatting in 10-20 international electrode placement system. INTERPRETATION: The patient was noted to be in awake and drowsy states during this EEG. Background rhythm consisted of 4-5 Hz theta activity measuring 15-40 microvolts in amplitude which was symmetric bilaterally. Hyperventilation could not be performed. Photic stimulation remained unremarkable. EKG revealed atrial fibrillation. No focal, lateralizing or epileptiform abnormalities were seen. Excessive muscle artifact was noted bilaterally in frontal and temporal head region throughout the study. CONCLUSION: This EEG in awake and drowsy states is abnormal due to presence of generalized slowing and disorganization of background consistent with nonspecific diffuse cerebral dysfunction such as seen in encephalopathy due to multiple potential causes including multifactorial structural brain abnormality, toxic, metabolic, infectious or medication related causes. Excessive muscle artifact was noted.
--- NOTE | 2018-12-09 06:48 | IPNPDOC ---
Date Seen The patient was seen on 12/09/18. Progress Note addendum to progress note dated 12/08/18 acute hypovolemic shock due to acute blood loss anemia from CEA, resolved VS, I&O, 24H, [facility] V[facility] Sign[facility]/I&O Vital Signs Date Time Temp Pulse Resp B/P (MAP) Pulse Ox O2 Delivery O2 Flow Rate FiO2 12/09/18 06:00 59 152/68 (96) 96 2.0 12/09/18 04:00 98.0 20 12/06/18 07:56 Nasal Cannula 12/06/18 03:00 28 I&O- Last 24 Hours up to 6 AM 12/09/18 06:00 Intake Total 2227.5 ml Output Total 1255 ml Balance 972.5 ml Laboratory Data 24H LABS Laboratory Tests 2 12/08/18 08:41: Ammonia 26 12/08/18 18:21: Urine Color YELLOW, Urine Appearance HAZY, Urine pH 6.0, Urine Specific [place] 1.010, Urine Protein 1+H, Urine Glucose (UA) NEGATIVE, Urine Ketones NEGATIVE, Urine Blood 2+H, Urine Nitrite POSITIVEH, Urine Bilirubin NEGATIVE, Urine Urobilinogen 0.2, Urine Leukocyte Esterase 3+H, Urine WBC (Auto) 145H, Urine RBC (Auto) 83H, Urine Hyaline Casts (Auto) 3, Urine Bacteria (Auto) 2+H, Urine Squamous Epithelial Cells 1, Urine Amorphous Sediment SMALLH, Urine Sperm (Auto) 12/09/18 05:50: Blood Gas Bicarbonate Standard 24.1, Arterial Blood pH 7.440, Arterial Blood Partial Pressure CO2 35.1, Arterial Blood Partial Pressure O2 139.6H, Arterial Blood Total CO2 24.4, Arterial Blood HCO3 23.3, Arterial Blood Base Excess -0.5, Arterial Blood Oxygen Saturation 98.6 12/09/18 05:51: Nucleated Red Blood Cells % (auto) 0.0, Anion Gap 7L, Glomerular Filtration Rate > 60.0, Blood Urea Nitrogen 9, Creatinine 0.50L, Sodium Level 140, Potassium Level 3.4L, Chloride Level 107, Carbon Dioxide Level 26, Calcium Level 7.9L CBC/BMP Laboratory Tests 12/09/18 05:51 Red Blood Count 3.24 L, Mean Corpuscular Volume 90.1, Mean Corpuscular Hemoglobin 29.3, Mean Corpuscular Hemoglobin Concent 32.5, Red Cell Distribution Width 16.8 H, Calcium Level 7.9 L Microbiology Microbiology 12/08/18 Urine Culture, Received Pending BISHNU ROSS MD Dec 09, 2018 06:48
[2018-12-09] MEDS: DIGOXIN INJ 0.5 MG/2 ML AMP (J1160) IV SCH (07:49)
[2018-12-09] MEDS: ENOXAPARIN 60 MG/0.6 ML SYR (J1650) SC SCH ×2 (07:50→21:48)
[2018-12-09] MEDS ORDERED: KCL 10MEQ/100ML SWI (KRUN) 10 MEQ in IV 1 EA IV ONE (08:00)
[2018-12-09] MEDS ORDERED: cefTRIAXone SOD 2 GM in D5W MINI-BAG PLUS 50 ML IV SCH (08:15)
[2018-12-09] MEDS: MORPHINE 4 MG/ML 1ML VIAL/SYRINGE (J2270) IV PRN (08:43)
--- NOTE | 2018-12-09 09:28 | IPN ---
DATE: 12/09/2018 Patient continues to have uncontrolled blood pressure all day yesterday requiring Labetalol drip. Blood pressure was ranging from 217 systolic to 125. Labetalol drip had to be resumed, however, patient was noted to have different blood pressures on the right than left dropping 98 to 95 systolic on the left side. Patient had no fever or chills. Chest x-ray showed bilateral infiltrates. His urine is showing possible urinary tract infection (UTI). Patient was started on ceftriaxone for coverage of possible Gram negative infection in the lungs as well as in the urine and azithromycin for atypical coverage for the lungs. Patient remains unresponsive with purposeful movements but does not follow commands. EEG yesterday showed no epileptiform activity but with generalized swelling and nonspecific diffuse cerebral dysfunction with muscle artifact. The nasogastric (NG) tube was tried yesterday, which was unsuccessful. She remains nothing by mouth. Peripherally inserted central catheter (PICC) line has been placed for possible need for total parenteral nutrition (TPN) for nutrition. Patient has been resumed on Lovenox. She did have a little bit of bleeding when the NG tube was attempted yesterday which discontinued. We have deferred prognosis to the neurologist who will assess during the next 1-2 days. OBJECTIVE: Vitals: Temperature 98, pulse 86, respiratory rate 18, blood pressure 188/74, 99% on 2 liters nasal cannula. Generally, patient is unresponsive, snoring. No jugular venous distention (JVD). No thyromegaly. Lungs: Transmitted breath sounds, coarse rhonchi. Heart: S1, S2, sinus. Abdomen: Soft, nontender, nondistended. Positive bowel sounds. Extremities: No cyanosis, clubbing or pitting edema. Neurologically: Patient does not awaken to her name. She does not follow commands. She has purposeful movements. No cerebral posturing. The patient withdraws to painful stimuli in bilateral lower extremities and the feet as well as bilateral upper extremities. Positive Babinski on the right. HOSPITAL MEDICATIONS: - azithromycin - ceftriaxone - potassium with labetalol drip - Heparin and saline flushes - hydralazine as needed for systolic blood pressure greater than 180. - Lovenox 60 mg subcu every 12 hours - Protonix - metoprolol as needed - D5 normal saline - digoxin - morphine - Dulcolax - albuterol ASSESSMENT/PLAN: This is an 78-year-old female with history of left occipital cerebrovascular (CVA) March 2018, peripheral arterial disease, with elected left carotid endarterectomy, dyslipidemia, hypertension atrial fibrillation on chronic Eliquis, had postop bleeding after elective left carotid endarterectomy admitted to intensive care unit (ICU). Found to have an new embolic stroke in the left hemisphere deep white matter in left parietal cortex, precentral gyrus and left internal carotid artery occlusion with severe flow in the left middle cerebral artery. Patient also has severe anemia due to acute blood loss during the elective carotid endarterectomy (CEA) with red blood cell (RBC) transfusion and appropriate increased in hemoglobin from 7. The patient had not had any seizure activity. Her blood pressure had been uncontrolled and currently o Labetalol drip. Active Issues: 1. Hypertensive emergency: Currently on Labetalol drip as needed. 2. Acute encephalopathy secondary to possible UTI and community acquired pneumonia. At this time, patient is started on ceftriaxone and azithromycin. CVA is managed with anticoagulation. Prognosis is poor as she has not responded for the past few days. Neurology will reassess her in 1-2 days for prognostic purposes. ABG and ammonia levels are within normal limits. She remains DO NOT RESUSCITATE, DO NOT INTUBATE. 3. As patient is currently nothing by mouth, attempts at NG tube were unsuccessful yesterday. PICC placed for possible TPN. Will attempt another NG tube today and if successful, we will start on tube feedings. Continue on D5 for now. 4. Cerebrovascular accident (CVA) with left internal carotid artery occlusion with left MCA/CVA with right facial droop, right arm weakness. Still on telemetry. Neurology has been consulted, currently on Lovenox. She is high risk for aspiration as she is obtunded. Will attempt an NG tube feeding. Currently nothing by mouth. Defer to neurology for prognosis and discussion with family. 5. Acute blood loss anemia due to carotid endarterectomy7 status post 4 units RBC transfusion with hemorrhagic shock and hypovolemia which has resolved. No recurrent signs of bleeding. Left carotid endarterectomy is clean and dry. 6. Acute hypoxic respiratory failure: Resolved status post extubation, currently on nasal cannula. Before School Dr. Alcocer consulted. 7. Dyslipidemia: On Lipitor. CODE STATUS: Patient is DO NOT RESUSCITATE/DO NOT INTUBATE. [facility]
--- NOTE | 2018-12-09 09:39 | REP ---
PICC line insertion under ultrasound guidance. The procedure was performed by RONALD South, under the direct supervision of Dr. Hooper. The risks and benefits of the procedure were explained to the patient's daughter who is also her health care proxy and power of ip technology transactions attorney and informed consent was obtained. Directly prior to the start of the procedure, a formal timeout was completed in the procedure room. Procedure was done portably in the ICU at the patient's bedside. The right basilic vein was localized using ultrasound guidance. The skin was prepped and draped in the sterile fashion. 2 ml 1% lidocaine was used as a local anesthetic. Using ultrasound guidance the right basilic vein was cannulated and a 0.018 guidewire was inserted and advanced to the SVC. A portable chest x-ray was used to verify guidewire placement. The needle was removed and a 5.5 Korean dilator and peel-away sheath was inserted over the guidewire. A 5.5 Korean dual lumen catheter was cut to the length of 35 cm. The dilator was removed and the catheter was inserted over the guide wire with the tip ending in the SVC. Another portable chest x-ray was done to verify placement. The peel-away sheath was removed and the catheter was flushed with heparinized saline as per hospital protocol. The catheter was affixed to the skin and a sterile dressing was applied. The patient tolerated the procedure well and there were no immediate complications. 0.0 minutes of fluoroscopy time was utilized for this procedure. All images utilized in this procedure were taken with a portable x-ray unit. Reviewed by RONALD Wilkinson 12/08/2018 05:48 P Electronically Signed by Marcelo Hooper MD 12/09/2018 09:30 A
--- NOTE | 2018-12-09 10:05 | IPN ---
DATE: 12/09/2018 I again attended Oksana Amos. I have spoken at length with her daughter at the bedside. Maximum temperature (T-max) overnight 98.4, blood pressure 120/80s. She is on a Labetalol drip as managed through primary and vascular surgery. Heart rate is 502 to 80s. Remains in atrial fibrillation. Input and output midnight to midnight 1979 mL in with 645 mL out. White blood cell count 10.5, hemoglobin 9.5, platelet count 129,000. No differential this morning. Sodium 140, potassium 3.4, chloride 107, CO2 26, BUN 9, creatinine 0.5. Blood gas done this morning on 2 liters nasal cannula is pH 7.440, pCO2 35.1 and pO2 139.6. No new chest x-ray today. Film done yesterday afternoon at 1839 hours shows suboptimal inspiratory effort. Increased markings . Some congestion at the bases with some peribronchial cuffing and diffuse increase in the vasculature. On exam this morning, she is much less alert. Facial droop persists. She is only minimally responsive. She still has transmitted upper airway sounds. Chest is diminished with symmetrical expansion. There is dependent crackles. There are rhonchi noted mainly in the upper airway and cough is inefficient this morning. Cardiac exam is bradycardic irregular, irregular and distant. Peripheral pulses diminished but palpable. Diffuse edema persists. Abdomen does have active bowel sounds and is soft. Extremities show no cyanosis or clubbing. Neurologically as outlined above. She remains with the right-sided paresis and a left facial droop. IMPRESSION: 1. Hypoxic respiratory failure. 2. Mal clearance of secretions. 3. Suspect significant aspiration. 4. Vascular disease. 5. Longstanding tobacco abuse. 6. Underlying obstructive lung disease. 7. DO NOT RESUSCITATE/DO NOT INTUBATE status. 8. Atrial fibrillation. 9. Chronic anticoagulation. 10. Hypertension, labile. RECOMMENDATIONS: At this point, I agree with her current regimen. She empirically started on antimicrobials. Will check her procalcitonin. Her x-ray looks more like vascular congestion. I had a very lengthy discussion at the bedside with her daughter concerning long-term plans. She clearly notes her mother would not want to continue like this if there was no hope of meaningful neurologic recovery. She said she will give it the next several days and make a decision regarding comfort measures care. I believe that would most likely be appropriate if the patient's wishes were to be able to return to her full level of premorbid function. In the interim, will continue to assist as best we can regarding clearance of secretions however, given her neurologic status, that is a ward I do not think we are going to win. Nutrition needs to be addressed and this will be done through the primary service. Also deep venous thrombosis prophylaxis (DVT) remains in place. She remains critically ill. Prognosis is guarded and there is very high likelihood she will not survive this hospitalization. Further recommendations will be made in the progress records as new information becomes available.
[2018-12-09] MEDS: cefTRIAXone SOD 2 GM in D5W MINI-BAG PLUS 50 ML IV SCH (10:52)
[2018-12-09] MEDS ORDERED: amLODIPine 10 MG TAB NG SCH (11:00)
[2018-12-09] MEDS: AZITHROMYCIN INJ 500 MG, VIAL MATE ADAPTER 1 EACH in D5W 250 ML IV SCH (11:33)
[2018-12-09] MEDS ORDERED: NS 500 ML IV ONE (14:30)
--- NOTE | 2018-12-09 14:35 | ROOPDOC ---
[facility] Report Of Operation Report of Operation DATE OF PROCEDURE: 12/04/2018 PREOPERATIVE DIAGNOSES: Recurrent left internal carotid artery stenosis. POSTOPERATIVE DIAGNOSES: Recurrent left internal carotid artery stenosis. PROCEDURE: Recurrent left carotid endarterectomy with usage of a shunt and patch angioplasty with Xenosure biologic patch. SURGEON: Dr. Bob Bowser M.D. POT FISHER: None INDICATION: Patient is an 78-year-old female who previously underwent a left car otid endarterectomy and now has recurrent stenosis of approximately 95% with extensive thrombus in the left common carotid artery extending up to the origin of the left internal carotid artery. Patient was evaluated and recommendation was to undergo a repeat left carotid endarterectomy with usage of a shunt and possible patch angioplasty. The procedure was explained and described to the patient and her daughter in detail including drawing of pictures demonstrating the pertinent anatomy and parts of the procedure. Risks benefits and alternative treatment options were discussed with the patient. Benefits included but were not limited to removal of carotid artery plaque and reduction in risk of cerebrovascular accident. Alternative treatment options included but were not limited to no intervention with continued conservative management. Risks included but were not limited to infection, bleeding, renal failure requiring hemodialysis, possible need for further open surgical intervention, hematoma formation requiring evacuation, scarring, bruising, possible need for transfusion of blood products, complication reaction from the prepping and draping materials, hypoglossal nerve injury or neurapraxia, vagus nerve injury or neurapraxia, glossopharyngeal nerve injury or neurapraxia, marginal mandibular nerve injury or neurapraxia, recurrent laryngeal nerve injury or neurapraxia, cerebrovascular accident, myocardial infarction, pulmonary embolus, deep venous thrombosis, loss of limb, loss of life, poor satisfaction and poor outcome. Risks of not performing the procedure included but were not limited to cerebrovascular accident and . All of the patient's questions were answered. Patient voices understanding of these risks, benefits and alternative treatment options. Patient voices acceptance of these associated risks, benefits and alternative treatment options and consents to proceed with carotid endarterectomy. No promises or guarantees were made to the patient regarding the results or outcome of the procedure. ANESTHESIA: Gen. endotracheal. ESTIMATED BLOOD LOSS: 1200 mL. IV FLUIDS: 2600 mL and 2 units of packed red blood cells. HEPARIN: 6000 units followed by an additional 3000, 2000 and 2000 units for a total of 13,000 units of heparin PROTAMINE: 50 mg COMPLICATIONS: None. DRAINS: #10 Adin-Garvey drain. SPECIMENS: Left carotid plaque PROCEDURE: Patient was taken to the operating room, placed supine on the operating room table and the patient was prepped and draped in a standard surgical fashion. A surgical time out confirming the correct patient, procedure and laterality was then performed by myself and the team members within the operating room. The location of the bifurcation of the common carotid, external carotid and internal carotid arteries was identified using palpation and ultrasound and this was marked on the skin. An incision was then made along the anterior border of the left sternocleidomastoid muscle using a scalpel at the previously marked location of the bifurcation of the common carotid, external carotid and internal carotid arteries. The dissection was carried down through the skin, subcutaneous tissue and platysma using Bovie electrocautery. The sternocleidomastoid muscle was then dissected off of the carotid sheath using both sharp dissection and Bovie electrocautery. The sternocleidomastoid muscle was retracted laterally exposing the carotid sheath. The carotid sheath was then opened exposing the common carotid artery, internal jugular vein and vagus nerve. The internal jugular vein was dissected sharply and retracted laterally. The common carotid artery was then sharply dissected free of surrounding tissue with Metzenbaum scissors and encircled with a vessel loop. The superior thyroid and external carotid arteries were then sharply dissected free and encircled with vessel loops. The patient was given 6000 units of heparin for systemic anti-coagulation after which the internal carotid artery was sharply dissected free after the common carotid artery, external carotid artery and superior thyroid arteries were controlled using the vessel loops. The internal carotid artery was then clamped using a profunda clamp. An arteriotomy was then made in the common carotid artery using an 11 blade scalpel and this was then elongated from the common carotid artery into the internal carotid artery using pot scissors. There was a 95% stenosis at the junction of the common carotid, external carotid and internal carotid arteries with a large amount of thrombus and plaque. The internal carotid artery was then retrograde flushed with good back bleeding noted after which a shunt was inserted into the internal carotid artery and flushed retrograde with the internal carotid artery portion of the shunt being clamped. The common carotid artery was then antegrade flushed and the shunt was then inserted into the common carotid artery and the common carotid artery portion of the shunt flushed through the side port. Flow was then established through and confirmed through the shunt using Doppler ultr asound evaluation. The endarterectomy of the common and internal carotid arteries was then completed including eversion endarterectomy of the superior thyroid and external carotid artery. The arteriotomy was irrigated with heparinized saline and then closed using Xenosure biologic patch and 6-0 Prolene suture in running continuous fashion. The shunt was removed prior to completing the arteriotomy closure. The internal carotid artery portion of the shunt was removed firstly and the internal carotid artery was retrograde flushed and then clamped with a profunda clamp. The common carotid artery shunt portion was removed and the common carotid artery was flushed antegrade. The superior thyroid and external carotid arteries were retrograde flushed prior to completing the closure of the arteriotomy. The arteriotomy was then flushed with heparinized saline. The arteriotomy closure was completed after which flow was established from the common carotid artery into the superior thyroid artery and external carotid artery while the internal carotid artery remained clamped. Flow was then established into the internal carotid artery. With flow being established into the internal carotid artery there was excessive bleeding noted from the distal internal carotid artery. This was clamped proximally and distally to the bleeding site. There was a small hole in the posterior aspect of the left internal carotid artery which was approximated using 6-0 Prolene suture in interrupted fashion. Flow was then reestablished through the common carotid artery into the internal carotid artery with no further bleeding noted. Flow was evaluated with Doppler ultrasound which showed good flow into the internal carotid artery, external carotid artery and superior thyroid arteries. Hemostasis was then obtained using thrombin and Gelfoam. Once hemostasis was obtained a #10 Adin-Garvey drain was placed in the wound. The platysma was then closed using 2-0 Vicryl suture in interrupted fashion. The skin was then closed using 3-0 Monocryl in a running subcuticular fashion. Steri-Strips and dressings were applied. All instruments sponge and needle counts were correct at the end of the case. There were no complications except for the whole in the posterior portion of the internal carotid artery with a significant amount of blood loss. Dr. Bowser was present for and directed the entire case. Patient was transferred to the recovery room intubated and sedated due to the excessive amount of blood loss and requirements for fluid resuscitation. The results of the procedure were explained and described to the patient daughter in the recovery room with all of her questions being answered. Plan will be for the patient to remain intubated overnight until she is properly fluid resuscitated and stabilized after which she will be extubated in the morning. Patient had her sedation lessened in the recovery room and was noted to be moving all limbs and extremities with no focal deficits noted. Patient was following commands. Jaron Bowser MD Dec 04, 2018 07:25
[2018-12-09] MEDS: PANTOPRAZOLE 40MG INJ (PROTONIX) (C9113) IV SCH (18:40)
[2018-12-09] MEDS: NS 1,000 ML IV SCH (18:45)
[2018-12-10] VITALS (34 sets, daily range): BP systolic 128–196; BP diastolic 59–113
[2018-12-10] MEDS: IPRATROPIUM 0.5MG/ALBUTEROL 2.5MG INH SOL UD 3ML (DUONEB)(J7620) NEB SCH ×7 (03:32→23:51)
[2018-12-10] MEDS: hydrALAZINE INJ 20 MG/ML VIAL IV PRN (03:49)
[2018-12-10] MEDS: SODIUM CHLORIDE 0.9% INJ 10 ML SYR IV SCH ×2 (05:35→18:09)
[2018-12-10 05:52] LABS: HEMATOCRIT 31.5 % (36.0-47.0); HEMOGLOBIN 10.3 g/dl (12.0-15.5); MEAN CORPUSCULAR HEMOGLOBIN 29.5 pg (27.0-33.0); MEAN CORPUSCULAR HGB CONC 32.7 g/dl (32.0-36.5); MEAN CORPUSCULAR VOLUME 90.3 fl (80.0-96.0); PLATELET COUNT, AUTOMATED 151 10^3/uL (150-450); RED BLOOD COUNT 3.49 10^6/uL (4.00-5.40)
[2018-12-10 06:24] LABS: BLOOD UREA NITROGEN 15 MG/DL (7-18); CALCIUM LEVEL 8.2 MG/DL (8.8-10.2); CARBON DIOXIDE LEVEL 27 MEQ/L (21-32); CHLORIDE LEVEL 106 MEQ/L (98-107); CREATININE FOR GFR 0.56 MG/DL (0.55-1.30); GLOMERULAR FILTRATION RATE > 60.0 (>32); GLUCOSE, FASTING 132 MG/DL (70-100); POTASSIUM SERUM 3.4 MEQ/L (3.5-5.1); SODIUM LEVEL 139 MEQ/L (136-145)
[2018-12-10] MEDS ORDERED: KCL 10MEQ/100ML SWI (KRUN) 10 MEQ in IV 1 EA IV SCH (08:00)
--- NOTE | 2018-12-10 09:29 | REPVR ---
PROCEDURE INFORMATION: Exam: CT Head Without Contrast Exam date and time: 12/10/2018 8:07 AM Clinical history: 78 years old, female; Other: Unresponsive; Additional info: Unresponsive CVA TECHNIQUE: Imaging protocol: Computed tomography of the head without contrast. Radiation optimization: All CT scans at this facility use at least one of these dose optimization techniques: automated exposure control; mA and/or kV adjustment per patient size (includes targeted exams where dose is matched to clinical indication); or iterative reconstruction. Other technique: STROKE PROTOCOL was implemented. COMPARISON: CT Head without contrast 12/07/2018 12:01 AM FINDINGS: Brain: Similar small low attenuating area left parietal lobe consistent with ischemic area of injury. Correlate to recent MRI brain 12/06/18. A low attenuating white matter changes suggesting microvascular ischemia on a chronic basis. There is increased low attenuation change adjacent to the body of the left lateral ventricle consistent with subacute area of ischemic injury. Development or mildly increased appearance of effacement of left parietal lobe cortical sulci which could been no increasing edema. No intracranial hemorrhage or midline shift. Focal area decreased attenuation within the right garcia radiata is similar. Equivocal slight accentuation of density of the M1 segment of left middle cerebral artery which was not well included on prior CT probably unchanged. Questionable manifestation of low attenuating area near the antrum margin of left caudate nucleus and slightly accentuated low attenuating area near the continue of left internal capsule. Ventricles: Normal. No ventriculomegaly. Bones/joints: Unremarkable. No acute fracture. Sinuses: Visualized sinuses are unremarkable. No fluid levels. Mastoid air cells: Visualized mastoid air cells are well aerated. Soft tissues: Unremarkable. Other findings: Hemispheric volume loss. IMPRESSION: 1. No acute intracranial hemorrhage. 2. Areas of white matter and left parietal lobe areas of ischemic injury subtly demonstrated with likely increasing left parietal lobe edema. The areas of suspected subacute ischemic injury more prominent on the left are better demonstrated by recent comparison MRI and appear slightly more defined on the current CT. 3. Hemispheric volume loss. . Electronically signed by: Ivette Blackman On 12/10/2018 09:29:32 AM
--- NOTE | 2018-12-10 10:22 | IPN ---
DATE OF VISIT: 12/10/2018 I again attended Oksana Amos. I have spoken at length with her daughter at the bedside. Overall, she remains only minimally responsive with significant upper airway rhonchi. T-max overnight 100. Blood pressure 120 to 180s. Heart rate 70 to the low 100s. Remains in atrial fibrillation. Respiratory rate variable from the mid 110s to the low 120s without obvious accessory muscle use. Ins and outs 2946 mL in with 735 mL out. White blood cell count 11.0, hemoglobin 10.3 and platelet count 151,000. Sodium 139, potassium 3.4, chloride 106, CO2 27, BUN 15, creatinine 0.56. On exam, she is up in the bedside chair. She is only minimally arousable. Membranes are moist. Her facial droop is unchanged. She has a nasogastric feeding tube in place. Chest shows significant transmitted upper airway noise. Chest is diminished, but symmetric expansion. There are some dependent crackles. Cardiac exam is irregularly irregular. Peripheral pulses palpable. Edema is unchanged. Abdomen is soft with active bowel sounds. Extremities without cyanosis or clubbing. Neurologically as outlined above. Remains with her left facial droop and her right hemiparesis. IMPRESSION: 1. Advanced obstructive lung disease. 2. Long standing tobacco abuse. 3. CVA. 4. Mal clearance of secretions. 5. Atrial fibrillation. RECOMMENDATIONS: The above again was discussed at length with the daughter. There has been some discussion regarding changing to comfort measures only care, but at this point she said she would like to give it more time. Certainly, that is her derogative. The is the health care proxy. At this point, I suggested that she take it on a day by day basis, but that every day there is lack of significant progress that that is a negative prognostic indicator. The longer we go without being able to have interact regarding physical therapy, the worse things will become as she will become weaker and will have more and more problems regarding secretion clearance. She conveys understanding. At this point, will proceed as outlined above. Further recommendations will be made in the progress record as new information becomes available.
[2018-12-10] MEDS: amLODIPine 5 MG TAB NG SCH (11:25)
[2018-12-10] MEDS: ENOXAPARIN 60 MG/0.6 ML SYR (J1650) SC SCH ×2 (11:25→21:51)
[2018-12-10] MEDS: cefTRIAXone SOD 2 GM in D5W MINI-BAG PLUS 50 ML IV SCH (11:25)
[2018-12-10] MEDS: NS 1,000 ML IV SCH (11:25)
[2018-12-10] MEDS: DIGOXIN INJ 0.5 MG/2 ML AMP (J1160) IV SCH (11:26)
[2018-12-10] MEDS: AZITHROMYCIN INJ 500 MG, VIAL MATE ADAPTER 1 EACH in D5W 250 ML IV SCH (12:20)
--- NOTE | 2018-12-10 15:20 | IPN ---
DATE: 12/10/2018 SUBJECTIVE: Patient remains unresponsive and does not follow commands. She has purposeful movement and withdraws to pain. She had low grade temperatures overnight, T-max of 100. Unable to obtain any review of systems this morning. OBJECTIVE/PHYSICAL EXAMINATION: Vitals: Temperature 97.6, T-max 100, pulse 79, respiratory rate 20, blood pressure 177/71, 93% on 2 liters nasal cannula. Patient is obtunded, withdraws to pain, has nonpurposeful movements. Lungs are diminished with coarse transmitted breath sounds with fine crepitations and crackles at the bases. Heart S1, S2, irregularly irregular. Abdomen is soft, nontender, nondistended. Extremities no cyanosis or clubbing. Neurologically patient is obtunded, does not follow commands. Continues to have no significant purposeful movements. Nasogastric tube in place. No cerebral posturing. She does withdraw to painful stimuli bilateral lower extremities. Positive Babinski on the right and right sided facial droop. ASSESSMENT/PLAN: This is an 78-year-old female admitted on December 04 for elective left carotid endarterectomy complicated by 1 liter blood loss, intubated in the recovery room after surgery, admitted to the hospitalist service. She was found to have hemorrhagic shock with systolic pressure in the 80s and atrial fibrillation with RVR with rate of 120. The patient had a right facial droop and weakness, was found on imaging studies to have multiple left frontoparietal internal capsule acute to subacute ischemic strokes. MRA shows occlusion of the left internal carotid artery and diminished flow in left middle cerebral artery. EEG shows slowing with no epileptiform activity. Chest x-ray shows bilateral infiltrates and urinalysis shows Klebsiella UTI with Torres catheter sensitive to ceftriaxone. Active issues are as follows: 1. Acute encephalopathy secondary to CVA, UTI. The patient's ammonia level and ABG have been normal. The patient has had no significant recovery from recent CVA. Neurologist, Dr. Richter, has been contacted. Electroencephalogram is abnormal, consistent with nonspecific diffuse cerebral dysfunction. Patient is continued on full supportive care. Currently on Lovenox 60 mg subcu every 12 hours for CVA, NG tube for tube feedings, and Norvasc through the NG tube and hydralazine as needed for systolic pressure greater than 180. 2. Multiple frontoparietal internal capsule and bilateral centrum semiovale acute, subacute ischemic stroke with recent left carotid endarterectomy and left internal carotid artery occlusion with diminished flow into the left middle cerebral artery. The patient is currently anticoagulated with Lovenox 60 mg subcu twice a day. Neurologist has been consulted for prognostic purposes for the patient's family. The patient has been unresponsive with no purposeful movements, not following commands, and she has been extubated. 3. Urinary tract infection with Klebsiella. Currently on IV ceftriaxone. 4. Left basilar consolidation. Currently on ceftriaxone and azithromycin. The patient is unable to provide a review of systems. She had a low grade temperature of 100.0, white count of 11, currently on supportive care. 5. Hypokalemia. Continue on potassium supplementation through the NG tube versus KCL runs. 6. Mal clearance of secretions. Per fuel yard operator, the patient has very poor prognosis. 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 7. Atrial fibrillation. Currently rate controlled on Lovenox. 8. Hypertension. Improved. Currently on Norvasc and hydralazine as needed for systolic pressure greater than 180. 9. Left carotid endarterectomy status post shunt and patch angioplasty with biologic patch complicated by 1.1 liter of blood loss with hemorrhagic shock, resolved. The patient's hemoglobin is currently 10. DISPOSITION: Poor overall prognosis. MTDD
[2018-12-10] MEDS: PANTOPRAZOLE 40MG INJ (PROTONIX) (C9113) IV SCH (18:08)
[2018-12-11] VITALS (16 sets, daily range): BP systolic 124–184; BP diastolic 59–94
[2018-12-11] MEDS: IPRATROPIUM 0.5MG/ALBUTEROL 2.5MG INH SOL UD 3ML (DUONEB)(J7620) NEB SCH ×6 (03:09→23:14)
[2018-12-11] MEDS: hydrALAZINE INJ 20 MG/ML VIAL IV PRN (04:27)
[2018-12-11] MEDS: SODIUM CHLORIDE 0.9% INJ 10 ML SYR IV SCH ×2 (05:54→17:09)
[2018-12-11 06:13] LABS: HEMATOCRIT 31.6 % (36.0-47.0); HEMOGLOBIN 10.3 g/dl (12.0-15.5); MEAN CORPUSCULAR HEMOGLOBIN 29.4 pg (27.0-33.0); MEAN CORPUSCULAR HGB CONC 32.6 g/dl (32.0-36.5); MEAN CORPUSCULAR VOLUME 90.3 fl (80.0-96.0); PLATELET COUNT, AUTOMATED 188 10^3/uL (150-450)
[2018-12-11 06:31] LABS: BLOOD UREA NITROGEN 13 MG/DL (7-18); CARBON DIOXIDE LEVEL 30 MEQ/L (21-32); CHLORIDE LEVEL 101 MEQ/L (98-107); CREATININE FOR GFR 0.49 MG/DL (0.55-1.30); GLOMERULAR FILTRATION RATE > 60.0 (>32); GLUCOSE, FASTING 122 MG/DL (70-100); POTASSIUM SERUM 3.4 MEQ/L (3.5-5.1); SODIUM LEVEL 139 MEQ/L (136-145)
[2018-12-11 07:58] LABS: NT-PRO BNP 8973 PG/ML (<450)
[2018-12-11] MEDS ORDERED: KCL 10MEQ/100ML SWI (KRUN) 10 MEQ in IV 1 EA IV ONE (08:00)
[2018-12-11] MEDS: cefTRIAXone SOD 2 GM in D5W MINI-BAG PLUS 50 ML IV SCH (08:20)
[2018-12-11] MEDS: FUROSEMIDE 20 MG/2 ML VIAL (J1940) IV SCH ×2 (08:25→16:53)
[2018-12-11] MEDS: DIGOXIN INJ 0.5 MG/2 ML AMP (J1160) IV SCH (08:26)
[2018-12-11] MEDS: POTASSIUM CHLORIDE 10% LIQ 20 MEQ/15 ML UDC PO SCH (08:26)
[2018-12-11] MEDS: ENOXAPARIN 60 MG/0.6 ML SYR (J1650) SC SCH ×2 (08:26→21:27)
[2018-12-11] MEDS: amLODIPine 5 MG TAB NG SCH (08:27)
--- NOTE | 2018-12-11 08:55 | IPN ---
DATE OF SERVICE: 12/11/2018 SUBJECTIVE: Patient continues to have a very slow recovery from her stroke. She is now opening her eyes however after being treated with ceftriaxone for a urinary tract infection (UTI) as well as pneumonia with Staphylococcus aureus. At this time sensitivity results are to be reviewed. She currently is still not following commands. She does spontaneously open her eyes now. Overnight patient has had increasing rales, patient has been positive balanced since admission due to nothing by mouth status and IV fluids and tube feedings being given. Lasix has been ordered for her today. OBJECTIVE/PHYSICAL EXAMINATION: Vitals: Temperature 98, pulse 88, respiratory rate 18, blood pressure 181/68, 97% on 1 liters nasal cannula. GENERALLY: Patient is spontaneously opening her eyes. She is not following commands, but she continues to have minimal purposeful movements. She does grimace to painful stimuli on bilateral lower extremities. She had a mitt on the left hand secondary to trying to pull her lines out. Unable to perform the rest of her exam as the patient is unable to participate. Patient continues to have right facial weakness and right Babinski. Lungs are diminished with rales, coarse breath sounds. Heart S1, S2, irregularly irregular. Abdomen is obese, soft, nontender, nondistended. Nasogastric tube in place. Torres catheter. HOSPITAL MEDICATIONS: - potassium - Lasix - Norvasc - azithromycin - ceftriaxone - saline - heparin flushes - hydralazine as needed - Protonix - metoprolol - digoxin LABORATORY DATA: White count 10, hemoglobin 10, hematocrit 31, platelet count 188, sodium 139, potassium 3.4, chloride 101, bicarbonate 30, BUN 13, creatinine 0.49, glucose 122, BMP of [id number]. ASSESSMENT AND PLAN: This is an 78-year-old female admitted on December 04 for elective left carotid endarterectomy complicated by 1 liter blood loss, intubated in the recovery room after surgery, admitted to the hospitalist service. Patient was found to have hemorrhagic shock with systolic pressure in the 80s and atrial fibrillation with RVR with rate of 120. She was found to have a new right facial droop and weakness. 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 EEG was abnormal. Chest x-ray shows bilateral infiltrates. Urinalysis shows Klebsiella. Skin culture grew Staphylococcus aureus. Active issues are as follows: 1. Acute encephalopathy secondary to CVA, UTI, presumed pneumonia, and fluid overload. The patient's ammonia and ABG have been normal. The patient has had no significant recovery from recent CVA. Neurologist, Dr. Richter, has been contacted. Electroencephalogram was abnormal, currently being treated for a CVA with Lovenox. Due to aspiration issues currently on tube feedings via nasogastric tube and Norvasc for blood pressure control and hydralazine as needed for pressure greater than 180. 2. CVA with multiple frontoparietal internal capsule and bilateral centrum semiovale acute, subacute ischemic stroke with recent left carotid endarterectomy and left internal carotid artery occlusion with diminished flow into the left middle cerebral artery. She is currently being treated with Lovenox subcu twice a day 1 mg/kilogram renally adjusted. Neurology has been consulted to provide prognostic for family discussion. She is currently still not following commands, but much more awake, and she has been extubated. 3. Presumed pneumonia. Staphylococcus aureus in sputum culture. We will titrate antibiotics according to sensitivities. 4. Urinary tract infection (UTI) with Klebsiella. Currently on IV ceftriaxone. We will titrate and change antibiotics according to sensitivity of results. 5. Left basilar consolidation. 5. Hypokalemia. Due to poor dietary intake. Currently needs a gastric tube. We will provide supplementation through the NG tube with KCL liquid and K1 through the IV. 6. Mal clearance of secretions. Per Dr. Alcocer, the patient was felt to be appropriate for comfort measures only as discussed with the family previously. 7. Atrial fibrillation. Currently on metoprolol and Lovenox. 8. Carotid endarterectomy. Status post bleeding with blood loss anemia. Status post RBC transfusion. Currently with stable hemoglobin and resumed back on Lovenox. 9. Hypertension. Still uncontrolled in light of patient's stroke. She has been Norvasc, hydralazine, metoprolol. DISPOSITION: Patient is medically stable for progressive care unit (PCU) status, physical therapy (PT), occupational therapy (OT), neurology to provide prognosis. [facility]
[2018-12-11] MEDS: AZITHROMYCIN INJ 500 MG, VIAL MATE ADAPTER 1 EACH in D5W 250 ML IV SCH (09:20)
[2018-12-11] MEDS: DOXYCYCLINE HYCLATE 100 MG in D5W MINI-BAG PLUS 100 ML IV SCH ×2 (11:19→23:13)
[2018-12-11 14:26] LABS: BODY FLUID CULTURE Not Indicated (.); LEGIONELLA ANTIGEN URINE Negative (Negative); ORGANISM ID Not indicated. (.); SPECIMEN SOURCE Urine (.); URINE STREP PNEUMONIAE ANTIGEN Negative (Negative)
[2018-12-11] MEDS: PANTOPRAZOLE 40MG INJ (PROTONIX) (C9113) IV SCH (18:07)
[2018-12-11 18:29] LABS: BLOOD UREA NITROGEN 12 MG/DL (7-18); CALCIUM LEVEL 8.1 MG/DL (8.8-10.2); CARBON DIOXIDE LEVEL 32 MEQ/L (21-32); CHLORIDE LEVEL 96 MEQ/L (98-107); CREATININE FOR GFR 0.56 MG/DL (0.55-1.30); GLOMERULAR FILTRATION RATE > 60.0 (>32); GLUCOSE, FASTING 105 MG/DL (70-100); MAGNESIUM LEVEL 1.6 MG/DL (1.8-2.4); POTASSIUM SERUM 3.9 MEQ/L (3.5-5.1); SODIUM LEVEL 137 MEQ/L (136-145)
[2018-12-12] VITALS (7 sets, daily range): BP systolic 110–173; BP diastolic 61–80
[2018-12-12] MEDS: FUROSEMIDE 20 MG/2 ML VIAL (J1940) IV SCH ×4 (00:16→23:32)
[2018-12-12] MEDS: IPRATROPIUM 0.5MG/ALBUTEROL 2.5MG INH SOL UD 3ML (DUONEB)(J7620) NEB SCH ×5 (04:23→20:09)
[2018-12-12 05:19] LABS: BASO # 0.1 10^3/uL (0.0-0.2); BASO % 0.4 % (0.0-1.0); EOS # 0.2 10^3/uL (0.0-0.5); EOS % 1.8 % (0.0-3.0); HEMATOCRIT 33.1 % (36.0-47.0); HEMOGLOBIN 10.7 g/dl (12.0-15.5); LYMPH # 1.2 10^3/uL (1.5-5.0); LYMPH % 10.3 % (24.0-44.0); MEAN CORPUSCULAR HEMOGLOBIN 29.2 pg (27.0-33.0); MEAN CORPUSCULAR HGB CONC 32.3 g/dl (32.0-36.5); MEAN CORPUSCULAR VOLUME 90.4 fl (80.0-96.0); MONO # 1.9 10^3/uL (0.0-0.8); MONO % 16.4 % (0.0-5.0); NEUTROPHILS # 7.9 10^3/uL (1.5-8.5); NEUTROPHILS % 70.2 % (36.0-66.0); PLATELET COUNT, AUTOMATED 192 10^3/uL (150-450); RED BLOOD COUNT 3.66 10^6/uL (4.00-5.40); WHITE BLOOD COUNT 11.3 10^3/uL (4.0-10.0)
[2018-12-12] MEDS: SODIUM CHLORIDE 0.9% INJ 10 ML SYR IV SCH ×2 (05:40→18:00)
[2018-12-12 05:45] LABS: BLOOD UREA NITROGEN 14 MG/DL (7-18); CALCIUM LEVEL 7.7 MG/DL (8.8-10.2); CARBON DIOXIDE LEVEL 34 MEQ/L (21-32); CHLORIDE LEVEL 94 MEQ/L (98-107); CREATININE FOR GFR 0.57 MG/DL (0.55-1.30); GLOMERULAR FILTRATION RATE > 60.0 (>32); GLUCOSE, FASTING 118 MG/DL (70-100); MAGNESIUM LEVEL 1.6 MG/DL (1.8-2.4); POTASSIUM SERUM 3.9 MEQ/L (3.5-5.1); SODIUM LEVEL 136 MEQ/L (136-145)
[2018-12-12] MEDS: DIGOXIN INJ 0.5 MG/2 ML AMP (J1160) IV SCH (08:55)
[2018-12-12] MEDS: amLODIPine 5 MG TAB NG SCH (08:55)
[2018-12-12] MEDS: cefTRIAXone SOD 2 GM in D5W MINI-BAG PLUS 50 ML IV SCH (08:56)
[2018-12-12] MEDS: POTASSIUM CHLORIDE 10% LIQ 20 MEQ/15 ML UDC PO SCH (08:56)
[2018-12-12] MEDS: ENOXAPARIN 60 MG/0.6 ML SYR (J1650) SC SCH ×2 (08:56→21:00)
[2018-12-12] MEDS: DOXYCYCLINE HYCLATE 100 MG in D5W MINI-BAG PLUS 100 ML IV SCH ×2 (10:10→23:30)
--- NOTE | 2018-12-12 16:28 | IPNPDOC ---
Date Seen The patient was seen on 12/12/18. Progress Note SUBJECTIVE: sitting on a recliner chair, snoring, and now waking up. no fever or chills overnight net negative on i/o. less rhonchorous breath sounds. unable to obtain ROS as pt is minimally responsive, and obtunded. OBJECTIVE: PHYSICAL EXAMINATION: Vitals: pls see below I/O reviewed Tele: Afib GENERALLY: She is not following commands, but she continues to have minimal purposeful movements. She does grimace to painful stimuli on bilateral lower extremities. She has a mitt on the left hand Unable to perform the rest of her exam as the patient is unable to participate. Patient continues to have right facial weakness and right Babinski. HEENT: healed left CEA. Lungs are diminished coarse breath sounds. bilateral rhonchi Heart S1, S2, irregularly irregular. Abdomen is obese, soft, nontender, nondistended. Nasogastric tube in place. Torres catheter. ext: no edema skin: ecchymoses b/l ue and LE. Neurologic: right facial droop, obtunded, snoring, not following commands. right babinski. grimaces to painful stimuli, withdraws to pain. HOSPITAL MEDICATIONS: - potassium- Lasix- Norvasc- ceftriaxone- saline- heparin flushes- doxycycline- Prevacid- metoprolol- digoxin LABORATORY DATA, IMAGING STUDIES, MICROBIOLOGY: REVIEWED PLS SEE BELOW ASSESSMENT AND PLAN: This is an 78-year-old female admitted on December 04 for elective left carotid endarterectomy complicated by 1 liter blood loss, intubated in the recovery room after surgery, admitted to the hospitalist service. Patient was found to have hemorrhagic shock with systolic pressure in the 80s and atrial fibrillation with RVR with rate of 120. She was found to have a new right facial droop and weakness. 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 EEG was abnormal. Chest x-ray shows bilateral infiltrates. Urinalysis shows Klebsiella. Skin culture grew Staphylococcus aureus. Acute encephalopathy secondary to CVA, klebsiella UTI, staph aureus pneumonia, and fluid overload. The patient's ammonia and ABG have been normal. The patient has had no significant recovery from recent CVA. Neurologist, Dr. Richter, has been contacted. Electroencephalogram was abnormal, currently being treated for a CVA with Lovenox. Due to aspiration issues currently on tube feedings via nasogastric tube and Norvasc for blood pressure control and hydralazine as needed for pressure greater than 180. CVA with multiple frontoparietal internal capsule and bilateral centrum semiovale acute, subacute ischemic stroke with recent left carotid endarterectomy and left internal carotid artery occlusion with diminished flow into the left middle cerebral artery. She is currently being treated with Lovenox subcu twice a day 1 mg/kilogram renally adjusted. She is currently still not following commands, but much more awake, and she has been extubated.Per Neurology pt will have a long recovery, and significant debility. Quality of life will be an issue as the patient will most likely not return to baseline mental state and will require help with ADLs. Daughter, HCP, and pt's know pt's prior wishes of NO permanent feeding tube. Left base staph aureus pneumonia in sputum culture.on ceftriaxone and doxycycline Urinary tract infection (UTI) with Klebsiella. Currently on IV ceftriaxone and doxycycline. Hypokalemia. Due to poor dietary intake. Currently needs a gastric tube. supplemented potassium via NG tube. Mal clearance of secretions. Per Dr. Alcocer, the patient was felt to be appropriate for comfort measures only as discussed with the family previously. Atrial fibrillation. Currently on metoprolol and Lovenox. Carotid endarterectomy. Status post bleeding with blood loss anemia. Status post RBC transfusion. Currently with stable hemoglobin and resumed back on Lovenox. Hypertension. on norvasc and metoprolol via ng tube DISPOSITION: Patient is medically stable for progressive care unit (PCU) status, physical therapy (PT), occupational therapy (OT), Diet: NG tube feedings.Daughter, HCP, and pt's know pt's prior wishes of NO permanent feeding tube. VS, I&O, 24H, Fishbone Vital Signs/I&O Vital Signs Date Time Temp Pulse Resp B/P (MAP) Pulse Ox O2 Delivery O2 Flow Rate FiO2 12/12/18 12:00 1.0 12/12/18 12:00 98.3 102 20 111/65 (80) 96 12/10/18 23:51 Nasal Cannula 12/06/18 03:00 28 I&O- Last 24 Hours up to 6 AM 12/12/18 06:00 Intake Total 2310 ml Output Total 4325 ml Balance -2015 ml Laboratory Data 24H LABS Laboratory Tests 2 12/11/18 17:51: Anion Gap 9, Glomerular Filtration Rate > 60.0, Blood Urea Nitrogen 12, Cr eatinine 0.56, Sodium Level 137, Potassium Level 3.9, Chloride Level 96L, Carbon Dioxide Level 32, Calcium Level 8.1L, Magnesium Level 1.6L 12/12/18 05:10: Anion Gap 8, Glomerular Filtration Rate > 60.0, Blood Urea Nitrogen 14, Creatinine 0.57, Sodium Level 136, Potassium Level 3.9, Chloride Level 94L, Carbon Dioxide Level 34H, Calcium Level 7.7L, Magnesium Level 1.6L, Immature Granulocyte % (Auto) 0.9, White Blood Count 11.3H, Red Blood Count 3.66L, Hemoglobin 10.7L, Hematocrit 33.1L, Mean Corpuscular Volume 90.4, Mean Corpuscular Hemoglobin 29.2, Mean Corpuscular Hemoglobin Concent 32.3, Red Cell Distribution Width 17.2H, Platelet Count 192, Neutrophils (%) (Auto) 70.2H, Lymphocytes (%) (Auto) 10.3L, Monocytes (%) (Auto) 16.4H, Eosinophils (%) (Auto) 1.8, Basophils (%) (Auto) 0.4, Neutrophils # (Auto) 7.9, Lymphocytes # (Auto) 1.2L, Monocytes # (Auto) 1.9H, Eosinophils # (Auto) 0.2, Basophils # (Auto) 0.1, Nucleated Red Blood Cells % (auto) 0.0 CBC/BMP Laboratory Tests 12/11/18 17:51 Calcium Level 8.1 L 12/12/18 05:10 Calcium Level 7.7 L, Red Blood Count 3.66 L, Mean Corpuscular Volume 90.4, Mean Corpuscular Hemoglobin 29.2, Mean Corpuscular Hemoglobin Concent 32.3, Red Cell Distribution Width 17.2 H, Neutrophils (%) (Auto) 70.2 H, Lymphocytes (%) (Auto) 10.3 L, Monocytes (%) (Auto) 16.4 H, Eosinophils (%) (Auto) 1.8, Basophils (%) (Auto) 0.4, Neutrophils # (Auto) 7.9, Lymphocytes # (Auto) 1.2 L, Monocytes # (Auto) 1.9 H, Eosinophils # (Auto) 0.2, Basophils # (Auto) 0.1 Microbiology Microbiology 12/09/18 Gram Stain - Final, Complete 12/09/18 Sputum Culture - Final, Complete Staphylococcus Aureus 12/08/18 Urine Culture - Final, Complete Klebsiella Pneumoniae BISHNU ROSS MD Dec 12, 2018 16:28
[2018-12-12] MEDS: MAG SULF 1GM/100ML (MAG RUN) 1 GM in IV 1 EA IV SCH ×2 (17:23→18:18)
--- NOTE | 2018-12-12 17:35 | REP ---
Portable chest, single AP view with the patient sitting, 04:27 p.m.: Comparison is 12/08/2018. There is increased density in the right costophrenic angle as an interval change. This could represent a right pleural effusion or could represent a rib artifact in combination with incomplete inspiratory effort. There has been interval placement of a nasogastric tube with the tip in the upper abdomen in satisfactory location. There is a right upper extremity PICC line with the tip in the superior vena cava, unchanged. The visualized right lung is clear. The left lung is clear. There is cardiomegaly, unchanged. Impression: New density in the right costophrenic angle. This could be a right pleural effusion or artifact from superimposed ribs in combination with incomplete inspiratory effort. Interval placement of a nasogastric tube with the tip in the upper abdomen. Cardiomegaly, unchanged. Remainder the lung benitez are clear. Surgical clips are incidentally noted in the soft tissues of the neck on the left, unchanged. Electronically Signed by Marcelo Cabral MD 12/12/2018 05:28 P
[2018-12-12] MEDS: METOPROLOL TART 12.5 MG PER 1/2 TAB NG SCH (18:00)
[2018-12-12] MEDS: LANSOPRAZOLE SUSPENSION 30 MG/10 ML ORAL SYRINGE (FIRST-LANSOPRAZOLE) FT SCH (18:18)
[2018-12-12 19:51] LABS: BLOOD UREA NITROGEN 15 MG/DL (7-18); CALCIUM LEVEL 8.1 MG/DL (8.8-10.2); CARBON DIOXIDE LEVEL 33 MEQ/L (21-32); CHLORIDE LEVEL 95 MEQ/L (98-107); GLOMERULAR FILTRATION RATE > 60.0 (>32); GLUCOSE, FASTING 125 MG/DL (70-100); MAGNESIUM LEVEL 2.2 MG/DL (1.8-2.4); POTASSIUM SERUM 4.3 MEQ/L (3.5-5.1); SODIUM LEVEL 135 MEQ/L (136-145)
[2018-12-12] MEDS ORDERED: IPRATROPIUM 0.5MG/ALBUTEROL 2.5MG INH SOL UD 3ML (DUONEB)(J7620) NEB PRN (23:15)
[2018-12-13] VITALS (8 sets, daily range): BP systolic 114–157; BP diastolic 57–69
[2018-12-13] MEDS: METOPROLOL TART 12.5 MG PER 1/2 TAB NG SCH ×5 (05:28→23:50)
[2018-12-13 05:38] LABS: BASO # 0.1 10^3/uL (0.0-0.2); BASO % 0.4 % (0.0-1.0); EOS # 0.1 10^3/uL (0.0-0.5); EOS % 0.9 % (0.0-3.0); HEMATOCRIT 34.1 % (36.0-47.0); HEMOGLOBIN 10.9 g/dl (12.0-15.5); LYMPH # 1.3 10^3/uL (1.5-5.0); LYMPH % 9.5 % (24.0-44.0); MEAN CORPUSCULAR VOLUME 90.7 fl (80.0-96.0); MONO % 17.7 % (0.0-5.0); NEUTROPHILS # 9.3 10^3/uL (1.5-8.5); NEUTROPHILS % 69.7 % (36.0-66.0); PLATELET COUNT, AUTOMATED 182 10^3/uL (150-450); RED BLOOD COUNT 3.76 10^6/uL (4.00-5.40); WHITE BLOOD COUNT 13.3 10^3/uL (4.0-10.0)
[2018-12-13 05:42] LABS: MONO # 2.4 10^3/uL (0.0-0.8)
[2018-12-13] MEDS: SODIUM CHLORIDE 0.9% INJ 10 ML SYR IV SCH ×2 (05:43→17:29)
[2018-12-13 06:16] LABS: BLOOD UREA NITROGEN 15 MG/DL (7-18); CALCIUM LEVEL 8.2 MG/DL (8.8-10.2); CARBON DIOXIDE LEVEL 33 MEQ/L (21-32); CHLORIDE LEVEL 95 MEQ/L (98-107); CREATININE FOR GFR 0.57 MG/DL (0.55-1.30); GLOMERULAR FILTRATION RATE > 60.0 (>32); GLUCOSE, FASTING 121 MG/DL (70-100); MAGNESIUM LEVEL 2.2 MG/DL (1.8-2.4); POTASSIUM SERUM 4.2 MEQ/L (3.5-5.1); SODIUM LEVEL 135 MEQ/L (136-145)
--- NOTE | 2018-12-13 08:21 | IPNPDOC ---
Date Seen The patient was seen on 12/13/18. Progress Note SUBJECTIVE: unarousable, snoring in bed. not responsive to commands, and unable to assess review of systems. coughs occasionally with thick white secretions. OBJECTIVE: PHYSICAL EXAMINATION: Vitals: pls see below I/O reviewed Tele: Afib GENERALLY: unresponsive. facial droop on right. ng tube. She does grimace to painful stimuli on bilateral lower extremities. She has a mitt on the left hand .Unable to perform the rest of her exam as the patient is unable to participate. Patient continues to have right facial weakness and right Babinski. HEENT: healed left CEA. Lungs are diminished coarse breath sounds. bilateral rhonchi Heart S1, S2, irregularly irregular. Abdomen is obese, soft, nontender, nondistended. Nasogastric tube in place. Torres catheter. ext: no edema skin: ecchymoses b/l ue and LE. Neurologic: right facial droop, obtunded, snoring, not following commands. right babinski. grimaces to painful stimuli, withdraws to pain. HOSPITAL MEDICATIONS: - potassium- Lasix- Norvasc- ceftriaxone- saline- heparin flushes- doxycycline- Prevacid- metoprolol- digoxin LABORATORY DATA, IMAGING STUDIES, MICROBIOLOGY: REVIEWED PLS SEE BELOW ASSESSMENT AND PLAN: This is an 78-year-old female admitted on December 04 for elective left carotid endarterectomy complicated by 1 liter blood loss, intubated in the recovery room after surgery, admitted to the hospitalist service. Patient was found to have hemorrhagic shock with systolic pressure in the 80s and atrial fibrillation with RVR with rate of 120. She was found to have a new right facial droop and weakness. 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 EEG was abnormal. Chest x-ray shows bilateral infiltrates. Urinalysis shows Klebsiella. Skin culture grew Staphylococcus aureus. Acute encephalopathy, without improvement secondary to CVA, klebsiella UTI, staph aureus pneumonia, and fluid overload. The patient's ammonia and ABG have been normal. The patient has had no significant recovery from recent CVA. Neurologist, Dr. Richter, has been contacted. Electroencephalogram was abnormal, currently being treated for a CVA with Lovenox. Due to aspiration issues currently on tube feedings via nasogastric tube and Norvasc for blood pressure control and hydralazine as needed for pressure greater than 180. CVA , no improvement. multiple frontoparietal internal capsule and bilateral centrum semiovale acute, subacute ischemic stroke with recent left carotid endarterectomy and left internal carotid artery occlusion with diminished flow into the left middle cerebral artery. She is currently being treated with Lovenox subcu twice a day 1 mg/kilogram renally adjusted. She is currently still not following commands, but much more awake, and she has been extubated.Per Neurology pt will have a long recovery, and significant debility. Quality of life will be an issue as the patient will most likely not return to baseline mental state and will require help with ADLs. Daughter, HCP, and pt's know pt's prior wishes of NO permanent feeding tube. Left base staph aureus pneumonia reviewed sputum culture. to complete 7days antibiotics on ceftriaxone and doxycycline Urinary tract infection (UTI) with Klebsiella. to complete antibiotics Hypokalemia, resolved Due to poor dietary intake. Currently needs a nasogastric tube. supplemented potassium via NG tube. Mal clearance of secretions. Per Dr. Alcocer, the patient was felt to be appropriate for comfort measures only as discussed with the family previously. Atrial fibrillation. Currently on metoprolol and Lovenox. Carotid endarterectomy. Status post bleeding with blood loss anemia. Status post RBC transfusion. Currently with stable hemoglobin and resumed back on Lovenox. Hypertension. on norvasc and metoprolol via ng tube fluid overload: on lasix. to keep pt euvolemic. DISPOSITION: Patient is medically stable for progressive care unit (PCU) status, unresponsive and unable to work with physical therapy.family aware. Diet: NG tube feedings.Daughter, HCP, and pt's know pt's prior wishes of NO permanent feeding tube. VS, I&O, 24H, Fishbone Vital Signs/I&O Vital Signs Date Time Temp Pulse Resp B/P (MAP) Pulse Ox O2 Delivery O2 Flow Rate FiO2 12/13/18 05:28 95 122/58 12/13/18 05:00 98 2.0 12/13/18 04:00 99.9 18 12/10/18 23:51 Nasal Cannula I&O- Last 24 Hours up to 6 AM 12/13/18 06:00 Intake Total 1990 ml Output Total 3000 ml Balance -1010 ml Laboratory Data 24H LABS Laboratory Tests 2 12/12/18 19:19: Anion Gap 7L, Glomerular Filtration Rate > 60.0, Blood Urea Nitrogen 15, Creatinine 0.60, Sodium Level 135L, Potassium Level 4.3, Chloride Level 95L, C arbon Dioxide Level 33H, Calcium Level 8.1L, Magnesium Level 2.2 12/13/18 05:27: Anion Gap 7L, Glomerular Filtration Rate > 60.0, Blood Urea Nitrogen 15, Creatinine 0.57, Sodium Level 135L, Potassium Level 4.2, Chloride Level 95L, Carbon Dioxide Level 33H, Calcium Level 8.2L, Magnesium Level 2.2, Immature Granulocyte % (Auto) 1.8, White Blood Count 13.3H, Red Blood Count 3.76L, Hemoglobin 10.9L, Hematocrit 34.1L, Mean Corpuscular Volume 90.7, Mean Corpuscular Hemoglobin 29.0, Mean Corpuscular Hemoglobin Concent 32.0, Red Cell Distribution Width 17.1H, Platelet Count 182, Neutrophils (%) (Auto) 69.7H, Lymphocytes (%) (Auto) 9.5L, Monocytes (%) (Auto) 17.7H, Eosinophils (%) (Auto) 0.9, Basophils (%) (Auto) 0.4, Neutrophils # (Auto) 9.3H, Lymphocytes # (Auto) 1.3L, Monocytes # (Auto) 2.4H, Eosinophils # (Auto) 0.1, Basophils # (Auto) 0.1, Nucleated Red Blood Cells % (auto) 0.0, Digoxin Level 2.0 CBC/BMP Laboratory Tests 12/12/18 19:19 Calcium Level 8.1 L 12/13/18 05:27 Calcium Level 8.2 L, Red Blood Count 3.76 L, Mean Corpuscular Volume 90.7, Mean Corpuscular Hemoglobin 29.0, Mean Corpuscular Hemoglobin Concent 32.0, Red Cell Distribution Width 17.1 H, Neutrophils (%) (Auto) 69.7 H, Lymphocytes (%) (Auto) 9.5 L, Monocytes (%) (Auto) 17.7 H, Eosinophils (%) (Auto) 0.9, Basophils (%) (Auto) 0.4, Neutrophils # (Auto) 9.3 H, Lymphocytes # (Auto) 1.3 L, Monocytes # (Auto) 2.4 H, Eosinophils # (Auto) 0.1, Basophils # (Auto) 0.1 Microbiology Microbiology 12/09/18 Gram Stain - Final, Complete 12/09/18 Sputum Culture - Final, Complete Staphylococcus Aureus 12/08/18 Urine Culture - Final, Complete Klebsiella Pneumoniae BISHNU ROSS MD Dec 13, 2018 08:21
[2018-12-13] MEDS: cefTRIAXone SOD 2 GM in D5W MINI-BAG PLUS 50 ML IV SCH (08:29)
[2018-12-13] MEDS: POTASSIUM CHLORIDE 10% LIQ 20 MEQ/15 ML UDC PO SCH (08:29)
[2018-12-13] MEDS: FUROSEMIDE 20 MG/2 ML VIAL (J1940) IV SCH (08:30)
[2018-12-13] MEDS: amLODIPine 5 MG TAB NG SCH (08:31)
[2018-12-13] MEDS: ENOXAPARIN 60 MG/0.6 ML SYR (J1650) SC SCH ×2 (08:32→20:16)
[2018-12-13] MEDS: DIGOXIN 0.125 MG TAB NG SCH (08:32)
[2018-12-13] MEDS: LANSOPRAZOLE SUSPENSION 30 MG/10 ML ORAL SYRINGE (FIRST-LANSOPRAZOLE) FT SCH (10:01)
[2018-12-13] MEDS: DOXYCYCLINE HYCLATE 100 MG in D5W MINI-BAG PLUS 100 ML IV SCH ×2 (10:30→22:09)
[2018-12-14] VITALS: BP 166/68
[2018-12-14 04:00] VITALS: BP 157/67
[2018-12-14] MEDS: SODIUM CHLORIDE 0.9% INJ 10 ML SYR IV SCH ×2 (05:03→16:15)
[2018-12-14] MEDS: METOPROLOL TART 12.5 MG PER 1/2 TAB NG SCH ×3 (05:03→16:48)
[2018-12-14 06:49] LABS: BASO # 0.1 10^3/uL (0.0-0.2); BASO % 0.3 % (0.0-1.0); EOS # 0.1 10^3/uL (0.0-0.5); EOS % 0.5 % (0.0-3.0); HEMATOCRIT 32.2 % (36.0-47.0); HEMOGLOBIN 10.3 g/dl (12.0-15.5); LYMPH # 1.2 10^3/uL (1.5-5.0); LYMPH % 7.8 % (24.0-44.0); MEAN CORPUSCULAR HEMOGLOBIN 28.6 pg (27.0-33.0); MEAN CORPUSCULAR VOLUME 89.4 fl (80.0-96.0); MONO % 14.3 % (0.0-5.0); NEUTROPHILS # 11.6 10^3/uL (1.5-8.5); NEUTROPHILS % 75.6 % (36.0-66.0); PLATELET COUNT, AUTOMATED 197 10^3/uL (150-450); WHITE BLOOD COUNT 15.4 10^3/uL (4.0-10.0)
[2018-12-14 07:09] LABS: BLOOD UREA NITROGEN 21 MG/DL (7-18); CALCIUM LEVEL 8.4 MG/DL (8.8-10.2); CARBON DIOXIDE LEVEL 31 MEQ/L (21-32); CHLORIDE LEVEL 97 MEQ/L (98-107); CREATININE FOR GFR 0.52 MG/DL (0.55-1.30); GLOMERULAR FILTRATION RATE > 60.0 (>32); GLUCOSE, FASTING 126 MG/DL (70-100); MAGNESIUM LEVEL 1.9 MG/DL (1.8-2.4); SODIUM LEVEL 133 MEQ/L (136-145)
[2018-12-14 07:28] VITALS: BP 175/69
[2018-12-14 08:00] LABS: MONO # 2.2 10^3/uL (0.0-0.8)
[2018-12-14] MEDS: LANSOPRAZOLE SUSPENSION 30 MG/10 ML ORAL SYRINGE (FIRST-LANSOPRAZOLE) FT SCH (08:45)
[2018-12-14] MEDS: DIGOXIN 0.125 MG TAB NG SCH (08:46)
[2018-12-14] MEDS: POTASSIUM CHLORIDE 10% LIQ 20 MEQ/15 ML UDC PO SCH (08:46)
[2018-12-14] MEDS: amLODIPine 5 MG TAB NG SCH (08:46)
[2018-12-14] MEDS: ENOXAPARIN 60 MG/0.6 ML SYR (J1650) SC SCH ×2 (08:47→20:23)
[2018-12-14] MEDS: cefTRIAXone SOD 2 GM in D5W MINI-BAG PLUS 50 ML IV SCH (08:47)
[2018-12-14] MEDS: DOXYCYCLINE HYCLATE 100 MG in D5W MINI-BAG PLUS 100 ML IV SCH ×2 (10:32→22:15)
[2018-12-14 12:48] VITALS: BP 156/70
[2018-12-14 15:10] VITALS: BP 167/68
[2018-12-14] MEDS ORDERED: METOPROLOL TART 12.5 MG PER 1/2 TAB NG ONE (16:00)
--- NOTE | 2018-12-14 21:58 | IPNPDOC ---
Date Seen The patient was seen on 12/14/18. Progress Note SUBJECTIVE: remains unresponsive in comatose state. awaiting family . 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 increased secretions needing suctioning. OBJECTIVE: PHYSICAL EXAMINATION: Vitals: pls see below I/O reviewed GENERALLY: unresponsive. facial droop on right. ng tube. HEENT: healed left CEA. Lungs are diminished coarse breath sounds. bilateral rhonchi Heart S1, S2, irregularly irregular. Abdomen is obese, soft, nontender, nondistended. Nasogastric tube in place. Torres catheter. ext: no edema skin: ecchymoses b/l ue and LE. Neurologic: right facial droop, obtunded, snoring, not following commands. right babinski. grimaces to painful stimuli, withdraws to pain. HOSPITAL MEDICATIONS:pls see below LABORATORY DATA, IMAGING STUDIES, MICROBIOLOGY: REVIEWED PLS SEE BELOW ASSESSMENT AND PLAN: This is an 78-year-old female admitted on December 04 for elective left carotid endarterectomy complicated by 1 liter blood loss, intubated in the recovery room after surgery, admitted to the hospitalist service. Patient was found to have hemorrhagic shock with systolic pressure in the 80s and atrial fibrillation with RVR with rate of 120. She was found to have a new right facial droop and weakness. 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 EEG was abnormal. Chest x-ray shows bilateral infiltrates. Urinalysis shows Klebsiella. Skin culture grew Staphylococcus aureus. Acute encephalopathy, without improvement secondary to CVA, klebsiella UTI, staph aureus pneumonia, and fluid overload. remains unresponsive. 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 awaiting family to arrive on Friday. CVA , no improvement. multiple frontoparietal internal capsule and bilateral centrum semiovale acute, subacute ischemic stroke with recent left carotid endarterectomy and left internal carotid artery occlusion with diminished flow into the left middle cerebral artery. Son Lovenox subcu twice a day 1 mg/kilogram renally adjusted. Daughter, HCP, and pt's know pt's prior wishes of NO permanent feeding tube. Left base staph aureus pneumonia reviewed sputum culture. to complete 7days antibiotics on ceftriaxone and doxycycline Urinary tract infection (UTI) with Klebsiella. to complete antibiotics Hypokalemia, resolved Due to poor dietary intake. Currently needs a nasogastric tube. supplemented potassium via NG tube. Mal clearance of secretions. Per Dr. Alcocer, the patient was felt to be appropriate for comfort measures only as discussed with the family previously. Atrial fibrillation. Currently on metoprolol and Lovenox. Carotid endarterectomy. Status post bleeding with blood loss anemia. Status post RBC transfusion. Currently with stable hemoglobin and resumed back on Lovenox. Hypertension. on norvasc and metoprolol via ng tube Diet: NG tube feedings.Daughter, HCP, and pt's know pt's prior wishes of NO permanent feeding tube. VS, I&O, 24H, Fishbone Vital Signs/I&O Vital Signs Date Time Temp Pulse Resp B/P (MAP) Pulse Ox O2 Delivery O2 Flow Rate FiO2 12/14/18 16:15 100 167/68 12/14/18 15:10 100.1 36 97 2.0 12/10/18 23:51 Nasal Cannula I&O- Last 24 Hours up to 6 AM 12/14/18 06:00 Intake Total 2025 ml Output Total 1850 ml Balance 175 ml Laboratory Data 24H LABS Laboratory Tests 2 12/14/18 06:36: Immature Granulocyte % (Auto) 1.5, White Blood Count 15.4H, Red Blood Count 3.60L, Hemoglobin 10.3L, Hematocrit 32.2L, Mean Corpuscular Volume 89.4, Mean Corpuscular Hemoglobin 28.6, Mean Corpuscular Hemoglobin Concent 32.0, Red Cell Distribution Width 16.9H, Platelet Count 197, Neutrophils (%) (Auto) 75.6H, Lymphocytes (%) (Auto) 7.8L, Monocytes (%) (Auto) 14.3H, Eosinophils (%) (Auto) 0.5, Basophils (%) (Auto) 0.3, Neutrophils # (Auto) 11.6H, Lymphocytes # (Auto) 1.2L, Monocytes # (Auto) 2.2H, Eosinophils # (Auto) 0.1, Basophils # (Auto) 0.1, Nucleated Red Blood Cells % (auto) 0.0, Anion Gap 5L, Glomerular Filtration Rate > 60.0, Blood Urea Nitrogen 21H, Creatinine 0.52L, Sodium Level 133L, Potassium Level 4.0, Chloride Level 97L, Carbon Dioxide Level 31, Calcium Level 8.4L, Magnesium Level 1.9 CBC/BMP Laboratory Tests 12/14/18 06:36 Red Blood Count 3.60 L, Mean Corpuscular Volume 89.4, Mean Corpuscular Hemoglobin 28.6, Mean Corpuscular Hemoglobin Concent 32.0, Red Cell Distribution Width 16.9 H, Neutrophils (%) (Auto) 75.6 H, Lymphocytes (%) (Auto) 7.8 L, Monocytes (%) (Auto) 14.3 H, Eosinophils (%) (Auto) 0.5, Basophils (%) (Auto) 0.3, Neutrophils # (Auto) 11.6 H, Lymphocytes # (Auto) 1.2 L, Monocytes # (Auto) 2.2 H, Eosinophils # (Auto) 0.1, Basophils # (Auto) 0.1, Calcium Level 8.4 L Microbiology Microbiology 12/09/18 Gram Stain - Final, Complete 12/09/18 Sputum Culture - Final, Complete Staphylococcus Aureus 12/08/18 Urine Culture - Final, Complete Klebsiella Pneumoniae BISHNU ROSS MD Dec 14, 2018 21:58
[2018-12-14 22:00] VITALS: BP 149/68
[2018-12-15] MEDS: METOPROLOL TART 12.5 MG PER 1/2 TAB NG SCH ×5 (00:11→23:51)
[2018-12-15] MEDS: SODIUM CHLORIDE 0.9% INJ 10 ML SYR IV SCH ×2 (05:18→17:22)
[2018-12-15 06:00] VITALS: BP 168/82
[2018-12-15 06:41] LABS: BASO # 0.1 10^3/uL (0.0-0.2); BASO % 0.3 % (0.0-1.0); HEMATOCRIT 36.5 % (36.0-47.0); HEMOGLOBIN 11.9 g/dl (12.0-15.5); LYMPH # 0.8 10^3/uL (1.5-5.0); LYMPH % 5.4 % (24.0-44.0); MEAN CORPUSCULAR HGB CONC 32.6 g/dl (32.0-36.5); MONO # 0.8 10^3/uL (0.0-0.8); MONO % 5.2 % (0.0-5.0); NEUTROPHILS # 13.2 10^3/uL (1.5-8.5); NEUTROPHILS % 86.8 % (36.0-66.0); PLATELET COUNT, AUTOMATED 252 10^3/uL (150-450); WHITE BLOOD COUNT 15.3 10^3/uL (4.0-10.0)
[2018-12-15 07:01] LABS: BLOOD UREA NITROGEN 19 MG/DL (7-18); CALCIUM LEVEL 8.7 MG/DL (8.8-10.2); CARBON DIOXIDE LEVEL 27 MEQ/L (21-32); CHLORIDE LEVEL 96 MEQ/L (98-107); CREATININE FOR GFR 0.73 MG/DL (0.55-1.30); GLOMERULAR FILTRATION RATE > 60.0 (>32); GLUCOSE, FASTING 152 MG/DL (70-100); POTASSIUM SERUM 4.2 MEQ/L (3.5-5.1); SODIUM LEVEL 131 MEQ/L (136-145)
[2018-12-15] MEDS: POTASSIUM CHLORIDE 10% LIQ 20 MEQ/15 ML UDC PO SCH (08:49)
[2018-12-15] MEDS: cefTRIAXone SOD 2 GM in D5W MINI-BAG PLUS 50 ML IV SCH (08:49)
[2018-12-15] MEDS: LANSOPRAZOLE SUSPENSION 30 MG/10 ML ORAL SYRINGE (FIRST-LANSOPRAZOLE) FT SCH (08:49)
[2018-12-15] MEDS: amLODIPine 5 MG TAB NG SCH (08:50)
[2018-12-15] MEDS: DIGOXIN 0.125 MG TAB NG SCH (08:51)
[2018-12-15] MEDS: ENOXAPARIN 60 MG/0.6 ML SYR (J1650) SC SCH ×2 (08:51→20:35)
[2018-12-15] MEDS: DOXYCYCLINE HYCLATE 100 MG in D5W MINI-BAG PLUS 100 ML IV SCH ×2 (11:16→23:51)
[2018-12-15 14:00] VITALS: BP 174/72
--- NOTE | 2018-12-15 15:42 | IPNPDOC ---
Text Note Date of Service The patient was seen on 12/15/18. NOTE SUBJECTIVE: remains unresponsive in comatose state. awaiting family . 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 increased secretions needing suctioning. OBJECTIVE: PHYSICAL EXAMINATION: Vitals: pls see below I/O reviewed GENERALLY:resists when trying to open her eyes, otherwise unresponsive. facial droop on right. ng tube. HEENT: healed left CEA. Pupils 3 mm reacting to light. Lungs are diminished coarse breath sounds. bilateral rhonchi Heart S1, S2, irregularly irregular. Abdomen is obese, soft, nontender, nondistended. Nasogastric tube in place. Torres catheter. ext: no edema skin: ecchymoses b/l ue and LE. Neurologic: right facial droop, obtunded, snoring, not following commands. right babinski. grimaces to painful stimuli, withdraws to pain. HOSPITAL MEDICATIONS:pls see below LABORATORY DATA, IMAGING STUDIES, MICROBIOLOGY: REVIEWED PLS SEE BELOW ASSESSMENT AND PLAN: This is an 78-year-old female admitted on December 04 for elective left carotid endarterectomy complicated by 1 liter blood loss, intubated in the recovery room after surgery, admitted to the hospitalist service. Patient was found to have hemorrhagic shock with systolic pressure in the 80s and atrial fibrillation with RVR with rate of 120. She was found to have a new right facial droop and weakness. 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 EEG was abnormal. Chest x-ray shows bilateral infiltrates. Urinalysis shows Klebsiella. Skin culture grew Staphylococcus aureus. Acute encephalopathy, without improvement secondary to CVA, klebsiella UTI, staph aureus pneumonia, and fluid overload. remains unresponsive. 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 awaiting family to arrive on Friday. CVA , no improvement. multiple frontoparietal internal capsule and bilateral centrum semiovale acute, subacute ischemic stroke with recent left carotid endarterectomy and left internal carotid artery occlusion with diminished flow into the left middle cerebral artery. Lovenox subcu twice a day 1 mg/kilogram renally adjusted. Daughter, HCP, and pt's know pt's prior wishes of NO permanent feeding tube. Staph aureus pneumonia reviewed sputum culture. to complete 7days antibiotics on ceftriaxone and doxycycline Urinary tract infection (UTI) with Klebsiella. to complete antibiotics Hypokalemia, resolved Due to poor dietary intake. Currently needs a nasogastric tube. supplemented potassium via NG tube. Hyponatremia will reduce free water. Mal clearance of secretions. Per Dr. Alcocer, the patient was felt to be appropriate for comfort measures only as discussed with the family previously. Atrial fibrillation. Currently on metoprolol and Lovenox. Carotid endarterectomy. Status post bleeding with blood loss anemia. Status post RBC transfusion. Currently with stable hemoglobin and resumed back on Lovenox. Hypertension. on norvasc and metoprolol via ng tube Diet: NG tube feedings.Daughter, HCP, and pt's know pt's prior wishes of NO permanent feeding tube. VS,Fishbone, I+O VS, Fishbone, I+O Laboratory Tests 12/15/18 06:31 Red Blood Count 4.10, Mean Corpuscular Volume 89.0, Mean Corpuscular Hemoglobin 29.0, Mean Corpuscular Hemoglobin Concent 32.6, Red Cell Distribution Width 16.8 H, Neutrophils (%) (Auto) 86.8 H, Lymphocytes (%) (Auto) 5.4 L, Monocytes (%) (Auto) 5.2 H, Eosinophils (%) (Auto) 0.0, Basophils (%) (Auto) 0.3, Neutrophils # (Auto) 13.2 H, Lymphocytes # (Auto) 0.8 L, Monocytes # (Auto) 0.8, Eosinophils # (Auto) 0.0, Basophils # (Auto) 0.1, Calcium Level 8.7 L Vital Signs Date Time Temp Pulse Resp B/P (MAP) Pulse Ox O2 Delivery O2 Flow Rate FiO2 12/15/18 15:08 100.0 12/15/18 14:00 92 20 174/72 (106) 85 2.0 12/10/18 23:51 Nasal Cannula I&O- Last 24 Hours up to 6 AM 12/15/18 06:00 Intake Total 1195 ml Output Total 1240 ml Balance -45 ml SHELLY JOHANSEN MD Dec 15, 2018 15:42
[2018-12-15] MEDS: ACETAMINOPHEN 500 MG TAB PO PRN (17:20)
[2018-12-15 22:00] VITALS: BP 114/63
[2018-12-16] MEDS: SODIUM CHLORIDE 0.9% INJ 10 ML SYR IV SCH ×2 (05:36→18:46)
[2018-12-16] MEDS: METOPROLOL TART 12.5 MG PER 1/2 TAB NG SCH ×4 (05:37→23:29)
[2018-12-16 06:00] VITALS: BP 143/86
[2018-12-16] MEDS: LANSOPRAZOLE SUSPENSION 30 MG/10 ML ORAL SYRINGE (FIRST-LANSOPRAZOLE) FT SCH (09:00)
[2018-12-16] MEDS: POTASSIUM CHLORIDE 10% LIQ 20 MEQ/15 ML UDC PO SCH (09:21)
[2018-12-16] MEDS: DIGOXIN 0.125 MG TAB NG SCH (09:26)
[2018-12-16] MEDS: ENOXAPARIN 60 MG/0.6 ML SYR (J1650) SC SCH ×2 (09:26→20:31)
[2018-12-16] MEDS: amLODIPine 5 MG TAB NG SCH (09:26)
[2018-12-16] MEDS: ACETAMINOPHEN 500 MG TAB PO PRN (09:31)
[2018-12-16] MEDS: DOXYCYCLINE HYCLATE 100 MG in D5W MINI-BAG PLUS 100 ML IV SCH ×2 (11:50→23:28)
--- NOTE | 2018-12-16 13:18 | IPNPDOC ---
Text Note Date of Service The patient was seen on 12/16/18. NOTE SUBJECTIVE: withdraws to pain and tries to open her eyes when called. T max of 101 last night. has secretions at the throat , has a cough reflex but weak. suction producing hemorrhagic secretions probably related to NG tube. OBJECTIVE: PHYSICAL EXAMINATION: Vitals: pls see below I/O reviewed GENERALLY: resists when trying to open her eyes, tries to open her eyes when spoken to. HEENT: healed left CEA. Pupils 3 mm reacting to light. Lungs are diminished coarse breath sounds. bilateral rhonchi Heart S1, S2, irregularly irregular. Abdomen is obese, soft, nontender, nondistended. Nasogastric tube in place. Torres catheter. ext: no edema skin: ecchymoses b/l ue and LE. Neurologic: right facial droop, obtunded, snoring, not following commands. right babinski. grimaces to painful stimuli, withdraws to pain. HOSPITAL MEDICATIONS:pls see below LABORATORY DATA, IMAGING STUDIES, MICROBIOLOGY: REVIEWED PLS SEE BELOW ASSESSMENT AND PLAN: This is an 78-year-old female admitted on December 04 for elective left carotid endarterectomy complicated by 1 liter blood loss, intubated in the recovery room after surgery, admitted to the hospitalist service. Patient was found to have hemorrhagic shock with systolic pressure in the 80s and atrial fibrillation with RVR with rate of 120. She was found to have a new right facial droop and weakness. 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 EEG was abnormal. Chest x-ray shows bilateral infiltrates. Urinalysis shows Klebsiella. Skin culture grew Staphylococcus aureus. Acute encephalopathy, without improvement secondary to CVA, klebsiella UTI, staph aureus pneumonia, and fluid overload. remains unresponsive. 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 awaiting family to arrive on Friday. CVA , no improvement. multiple frontoparietal internal capsule and bilateral centrum semiovale acute, subacute ischemic stroke with recent left carotid endartere ctomy and left internal carotid artery occlusion with diminished flow into the left middle cerebral artery. Lovenox subcu twice a day 1 mg/kilogram renally adjusted. Daughter, HCP, and pt's know pt's prior wishes of NO permanent feeding tube. Staph aureus pneumonia reviewed sputum culture. to complete 7days antibiotics on ceftriaxone and doxycycline Urinary tract infection (UTI) with Klebsiella. to complete antibiotics Hypokalemia, resolved Due to poor dietary intake. Currently needs a nasogastric tube. supplemented potassium via NG tube. Hyponatremia will reduce free water. Mal clearance of secretions. Per Dr. Alcocer, the patient was felt to be appropriate for comfort measures only as discussed with the family previously. Atrial fibrillation. Currently on metoprolol and Lovenox. Carotid endarterectomy. Status post bleeding with blood loss anemia. Status post RBC transfusion. Currently with stable hemoglobin and resumed back on Lovenox. Hypertension. on norvasc and metoprolol via ng tube Diet: NG tube feedings.Daughter, HCP, and pt's know pt's prior wishes of NO permanent feeding tube. VS,Fishbone, I+O VS, Fishbone, I+O Vital Signs Date Time Temp Pulse Resp B/P (MAP) Pulse Ox O2 Delivery O2 Flow Rate FiO2 12/16/18 09:30 2.0 12/16/18 09:26 80 12/16/18 09:26 163/77 12/16/18 06:00 99.7 27 94 12/10/18 23:51 Nasal Cannula I&O- Last 24 Hours up to 6 AM 12/16/18 06:00 Intake Total 960 ml Output Total 1950 ml Balance -990 ml SHELLY JOHANSEN MD Dec 16, 2018 13:18
[2018-12-16 14:00] VITALS: BP 154/68
[2018-12-16 22:00] VITALS: BP 150/70
[2018-12-17] MEDS: SODIUM CHLORIDE 0.9% INJ 10 ML SYR IV PRN ×2 (00:52→06:22)
[2018-12-17 05:23] VITALS: BP 153/86
[2018-12-17] MEDS: METOPROLOL TART 12.5 MG PER 1/2 TAB NG SCH (05:23)
[2018-12-17] MEDS: SODIUM CHLORIDE 0.9% INJ 10 ML SYR IV SCH ×2 (05:24→16:28)
[2018-12-17 05:55] LABS: ABG BASE EXCESS 3.9 (-2.0-2.0); ABG HCO3 26.8 MEQ/L (22.0-26.0); ABG O2 SATURATION 94.6 % (95.0-99.0); ABG PARTIAL PRESSURE CO2 34.7 mmHg (35.0-45.0); ABG PARTIAL PRESSURE O2 70.4 mmHg (75.0-100.0); ABG STANDARD HCO3 27.9 MEQ/L (22.0-26.0); ABG TOTAL CO2 27.9 MEQ/L (23.0-31.0); ABG pH (ARTERIAL) 7.506 UNITS (7.350-7.450)
[2018-12-17 06:00] VITALS: BP 153/86
[2018-12-17] MEDS ORDERED: LORazepam 2 MG/ML VIAL (J2060) IV PRN (06:00)
[2018-12-17] MEDS: MORPHINE 4 MG/ML 1ML VIAL/SYRINGE (J2270) IV PRN ×2 (06:22→09:26)
--- NOTE | 2018-12-17 06:28 | REPVR ---
PROCEDURE INFORMATION: Exam: XR Chest, 1 View Exam date and time: 12/17/2018 6:01 AM Clinical history: 78 years old, female; Other: Rd; Additional info: Respiratory distress TECHNIQUE: Imaging protocol: XR of the chest Views: 1 view. COMPARISON: CR PORTABLE CHEST X-RAY 12/12/2018 4:26 PM FINDINGS: Tubes, catheters and devices: An NG tube is present. The tip is not included in the [id number]. The right PICC line catheter tip is now at the junction of the right subclavian vein and SVC. Lungs: There is mild interstitial thickening. There are patchy bilateral lung base opacities, increased from the prior exam. Pleural space: There is blunting of the right costophrenic angle, likely due to a small right pleural effusion. Heart/Mediastinum: There is stable cardiomegaly. Bones/joints: Unremarkable. Soft tissues: Right axillary surgical clips and left neck clips are again seen. IMPRESSION: 1. Mild interstitial thickening, likely due to mild interstitial pulmonary edema. 2. Patchy bilateral lung base opacities, worse than on the prior exam, which may be from infiltrates or atelectasis. 3. Right sided PICC line catheter tip now at the junction of the subclavian vein and SVC. Electronically signed by: Johana Avalos On 12/17/2018 06:28:36 AM
[2018-12-17] MEDS: amLODIPine 5 MG TAB NG SCH (09:00)
[2018-12-17] MEDS: ENOXAPARIN 60 MG/0.6 ML SYR (J1650) SC SCH (09:00)
[2018-12-17] MEDS: DIGOXIN 0.125 MG TAB NG SCH (09:00)
[2018-12-17] MEDS: LANSOPRAZOLE SUSPENSION 30 MG/10 ML ORAL SYRINGE (FIRST-LANSOPRAZOLE) FT SCH (09:00)
[2018-12-17] MEDS: POTASSIUM CHLORIDE 10% LIQ 20 MEQ/15 ML UDC PO SCH (09:00)
--- NOTE | 2018-12-17 11:37 | IPNPDOC ---
Text Note Date of Service The patient was seen on 12/17/18. NOTE SUBJECTIVE: Patient seems like had an aspiration episode early this morning with worsening of respirations and increased oxygen requirements. CXR was done and ABG was done. CXR show s bilateral infitrates/ atelectasis increased from before probably having aspirations. ABG reviewed. Withdraws to pain and tries to open her eyes when called. T max of 102 this morning. has secretions at the throat , has a cough reflex but weak. suction producing hemorrhagic secretions probably related to NG tube. OBJECTIVE: PHYSICAL EXAMINATION: Vitals: pls see below I/O reviewed GENERALLY: resists when trying to open her eyes, tries to open her eyes when spoken to. HEENT: healed left CEA. Pupils 3 mm reacting to light. Lungs are diminished coarse breath sounds. bilateral rhonchi and conducted sounds from the throat. Heart S1, S2, irregularly irregular. Abdomen is obese, soft, nontender, nondistended. Nasogastric tube in place. Torres catheter for comfort. ext: no edema Skin: ecchymoses b/l ue and LE. Neurologic: right facial droop, obtunded, snoring, not following commands. right babinski. grimaces to painful stimuli, withdraws to pain. HOSPITAL MEDICATIONS:pls see below LABORATORY DATA, IMAGING STUDIES, MICROBIOLOGY: REVIEWED PLS SEE BELOW ASSESSMENT AND PLAN: This is an 78-year-old female admitted on December 04 for elective left carotid endarterectomy complicated by 1 liter blood loss, intubated in the recovery room after surgery, admitted to the hospitalist service. Patient was found to have hemorrhagic shock with systolic pressure in the 80s and atrial fibrillation with RVR with rate of 120. She was found to have a new right facial droop and weakness. 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 EEG was abnormal. Chest x-ray shows bilateral infiltrates. Urinalysis shows Klebsiella. Skin culture grew Staphylococcus aureus. Acute encephalopathy, without improvement with recurrent aspirations. secondary to CVA, klebsiella UTI, staph aureus pneumonia, and fluid overload. remains unresponsive. 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 multiple frontoparietal internal capsule and bilateral centrum semiovale acute, subacute ischemic stroke with recent left carotid endarterectomy and left internal carotid artery occlusion with diminished flow into the left middle cerebral artery. with recurrent aspirations. No feeding tube, EXCEPTIONAL CHILDREN TEACHER ASSISTANT lovenox stopped. Staph aureus pneumonia completed 7days antibiotics Urinary tract infection (UTI) with Klebsiella. completed antibiotics Mal clearance of secretions. suctioning prn, hyocyamine for terminal secretions. Hypokalemia and hyponatremia Atrial fibrillation. S/p Carotid endarterectomy. Status post bleeding with blood loss anemia. Status post RBC transfusion. Hypertension. Disposition: Patient is in EXCEPTIONAL CHILDREN TEACHER ASSISTANT status. Had an episode of deterioration learly this morning. If pateint remains stable today will dc her to [facility] tomorrow. VS,Fishbone, I+O VS, Fishbone, I+O Vital Signs Date Time Temp Pulse Resp B/P (MAP) Pulse Ox O2 Delivery O2 Flow Rate FiO2 12/17/18 06:32 98 25 91 10.0 12/17/18 06:00 102.2 153/86 (108) I&O- Last 24 Hours up to 6 AM 12/17/18 06:00 Intake Total 530 ml Output Total 1200 ml Balance -670 ml SHELLY JOHANSEN MD Dec 17, 2018 11:37
[2018-12-17] MEDS ORDERED: LORazepam 1 MG TAB PO PRN (12:00)
[2018-12-17] MEDS: MORPHINE 10MG/0.5ML ORAL CONCENTRATE SOLUTION U/D SL PRN ×2 (14:16→17:40)
[2018-12-17] MEDS: HYOSCYAMINE SULFATE 0.125 MG SUBL TABLET PO PRN (15:32)
[2018-12-18] MEDS: MORPHINE 4 MG/ML 1ML VIAL/SYRINGE (J2270) IV PRN ×2 (00:18→05:00)
[2018-12-18] MEDS: HYOSCYAMINE SULFATE 0.125 MG SUBL TABLET PO PRN (04:59)
[2018-12-18] MEDS: SODIUM CHLORIDE 0.9% INJ 10 ML SYR IV SCH (05:00)
[2018-12-18] MEDS: MORPHINE 10MG/0.5ML ORAL CONCENTRATE SOLUTION U/D SL PRN (09:24)
[2018-12-18] MEDS ORDERED: MORP20SO3 PO (09:34)
[2018-12-18] MEDS ORDERED: LORA0.5T11 PO (09:34)
[2018-12-18] MEDS ORDERED: HYOS125TA PO (09:34)
--- NOTE | 2018-12-20 16:31 | DS.PDOC ---
Discharge Summary General Date of Admission Dec 04, 2018 at 05:59 Date of Discharge 12/18/18 Discharge Summary PROCEDURES PERFORMED DURING STAY: Left Carotid Endarterectomy on 12/07/18 DISCHARGE DIAGNOSES: Hypovolemic hemorrhagic shock during left carotid endarterectomy and in the post operative period Afib with RVR post operatively Acute on Chronic respiratory failure Ischemic CVA following the procedure Persistent encephalopathy due to acute CVA Recurrent aspirations Staph aureus pneumonia UTI Hypokalemia Hyponatremia Hypertension SECONDARY DIAGNOSIS: Advanced COPD, Previous left occipital CVA, left internal carotid stenosis, atrial fibrillation , a loop recorder, hypertension, peripheral vascular disease, hyperlipidemia, previous right breast cancer status post chemoradiation, history of colovaginal fistula, previous left hydronephrosis with left ureteral stent, peripheral arterial disease, B12 deficiency, reflux disease and depression COMPLICATIONS/CHIEF COMPLAINT: Carotid Stenosis. HISTORY OF PRESENT ILLNESS: See history and physical HOSPITAL COURSE: This is an 78-year-old female with PMH of advanced COPD, Previous left occipital CVA, left internal carotid stenosis, atrial fibrillation on Eliquis, a loop recorder, hypertension, peripheral vascular disease, hyperlipidemia, previous right breast cancer status post chemoradiation, history of colovaginal fistula, previous left hydronephrosis with left ureteral stent, peripheral arterial disease, B12 deficiency, reflux disease and depression admitted on December 04 for elective redo left carotid endarterectomy complicated by 1100 ml blood loss , hypotension requiring vasopressors and was kept intubated postoperatively after surgery and admitted to to ICU under the hospitalist service. Patient had hemorrhagic shock with systolic pressure in the 80s and atrial fibrillation with RVR with rate of 120 and acute on chronic respiratory failure. Patient did well overnight and was successfully extubated on 12/05/18. During the night of 12/05/18 she developed mental status changes with increased confusion and difficulty in clearance of her secretions. She was found to have a new right facial droop and weakness. CT and MRI/MRA of the brain showed left multiple frontoparietal internal capsule ischemic stroke, occlusion of the left internal carotid artery and diminished flow in left middle cerebral artery. EEG was abnormal. Chest x- ray shows bilateral infiltrates. Urinalysis shows Klebsiella. Skin culture grew Staphylococcus aureus. Patient was stabilized with PRBC transfusions which was complicated by fluid overload. She was treated for pneumonia and UTi and finished 7 days of antibiotics. She remained nonresponsive , with dysphagia Acute encephalopathy, without improvement with recurrent aspirations. 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 and left internal carotid artery occlusion with diminished flow into the left middle cerebral artery. with recurrent aspirations. No feeding tube, SURGICAL APPLIANCES SALESPERSON Staph aureus pneumonia completed 7 days antibiotics Urinary tract infection (UTI) with Klebsiella. completed antibiotics Mal clearance of secretions. suctioning prn, hyocyamine for terminal secretions. Hypokalemia and hyponatremia Atrial fibrillation. S/p Carotid endarterectomy. Status post bleeding with blood loss anemia and hemorrhagic shock Status post RBC transfusion. Hypertension. Disposition: Patient is in SURGICAL APPLIANCES SALESPERSON status. DISCHARGE MEDICATIONS: Please see below. ALLERGIES: Please see below. PHYSICAL EXAMINATION ON DISCHARGE: VITAL SIGNS: Please see below. GENERALLY: Nonresponsive HEENT: healed left CEA. Lungs are diminished coarse breath sounds. bilateral conducted sounds from the throat. Heart S1, S2, irregularly irregular. Abdomen is soft, nontender, nondistended. Ext: no edema Skin: ecchymoses b/l ue and LE. Neurologic: Grimaces to painful stimuli, withdraws to pain otherwise nonresponsive LABORATORY DATA: Please see below. PROGNOSIS: Dismal ACTIVITY: [As tolerated]. DIET: NPO DISCHARGE PLAN: SSV with SURGICAL APPLIANCES SALESPERSON DISPOSITION: [facility]. DISCHARGE INSTRUCTIONS: frequent suctioning and turning. TIME SPENT ON DISCHARGE: 35 minutes. Vital Signs/I&Os Vital Signs Date Time Temp Pulse Resp B/P (MAP) Pulse Ox O2 Delivery O2 Flow Rate FiO2 12/18/18 09:00 2.0 12/17/18 17:40 15 12/17/18 06:32 98 91 12/17/18 06:00 102.2 153/86 (108) I&O- Last 24 Hours up to 6 AM 12/18/18 06:00 Intake Total 0 ml Output Total 1200 ml Balance -1200 ml Microbiology Microbiology 12/09/18 Gram Stain - Final, Complete 12/09/18 Sputum Culture - Final, Complete Staphylococcus Aureus 12/08/18 Urine Culture - Final, Complete Klebsiella Pneumoniae Discharge Medications Scheduled PRN Hyoscyamine Sulfate (Hyoscyamine Sulfate) 0.125 Mg Tab.subl, 0.125 MG PO Q4HP PRN for TERMINAL SECRETIONS Use sublingually if unable to swallow Lorazepam (Lorazepam) 0.5 Mg Tablet, 0.5 MG PO Q4HP PRN for ANXIETY/AGITATION Use sublingually if unable to swallow Morphine Sulfate (Morphine Sulfate) 100 Mg/5 Ml Solution, 0.25-1 ML PO Q2H PRN for PAIN OR DYSPNEA Use sublingually if unable to swallow Allergies Coded Allergies: scopolamine (Verified Adverse Reaction, Mild, DELIRIUM, 11/26/18) SHELLY JOHANSEN MD Dec 18, 2018 18:26
== END 2018-12-18 11:48 | DRG 37 ==
LOC: M OR 05:59 → M ICU 14:31 → M MSPAV 12-13 22:28 → M ICU 12-13 22:45 → M MSPAV 12-14 15:01
PROVIDERS: ADMIT Surgery Vascular Surgery; ATTEND Internal Medicine Nephrology
PROC: 03U Upper Arteries, Supplement (ICD-10-PCS; 2018-12-04)
PROC: 03CJ0ZZ Extirpation of Matter from Left Common Carotid Artery, Open Approach (ICD-10-PCS; 2018-12-04)
PROC: 30233N1 Transfusion of Nonautologous Red Blood Cells into Peripheral Vein, Percutaneous Approach (ICD-10-PCS; 2018-12-04)
PROC: 5A1935Z Respiratory Ventilation, Less than 24 Consecutive Hours (ICD-10-PCS; 2018-12-04)
PROC: 03CL0ZZ Extirpation of Matter from Left Internal Carotid Artery, Open Approach (ICD-10-PCS; principal; 2018-12-04 07:30)
PROC: 02HV33Z Insertion of Infusion Device into Superior Vena Cava, Percutaneous Approach (ICD-10-PCS; 2018-12-08)
DX: I65.22 Occlusion and stenosis of left carotid artery (principal); T81.19XA Other postprocedural shock, initial encounter; J15.211 Pneumonia due to Methicillin susceptible Staphylococcus aureus; J96.21 Acute and chronic respiratory failure with hypoxia; D62 Acute posthemorrhagic anemia; I97.821 Postprocedural cerebrovascular infarction following other surgery; G93.40 Encephalopathy, unspecified; E87.1 Hypo-osmolality and hyponatremia; N39.0 Urinary tract infection, site not specified; I48.91 Unspecified atrial fibrillation; Z66 Do not resuscitate; Z51.5 Encounter for palliative care; I11.9 Hypertensive heart disease without heart failure; E78.5 Hyperlipidemia, unspecified; Z85.3 Personal history of malignant neoplasm of breast; Z92.21 Personal history of antineoplastic chemotherapy; I10 Essential (primary) hypertension; Z92.3 Personal history of irradiation; B96.20 Unspecified Escherichia coli [E. coli] as the cause of diseases classified elsewhere; I73.9 Peripheral vascular disease, unspecified; K21.9 Gastro-esophageal reflux disease without esophagitis; J44.9 Chronic obstructive pulmonary disease, unspecified; D51.3 Other dietary vitamin B12 deficiency anemia; E87.6 Hypokalemia; F32.9 Major depressive disorder, single episode, unspecified; G31.84 Mild cognitive impairment of uncertain or unknown etiology; R91.1 Solitary pulmonary nodule; Z88.8 Allergy status to other drugs, medicaments and biological substances; Z96.643 Presence of artificial hip joint, bilateral; Z90.49 Acquired absence of other specified parts of digestive tract; Z79.01 Long term (current) use of anticoagulants; Z79.899 Other long term (current) drug therapy; Z86.73 Personal history of transient ischemic attack (TIA), and cerebral infarction without residual deficits; Z87.891 Personal history of nicotine dependence